=== PATIENT | female | born 1950 | race Caucasian/White ===

== ENCOUNTER 2018-02-15 20:28 | Observation (INO) | payer MEDICAID, MEDICARE, OTHER, SELFPAY ==
[2018-02-15] MEDS ORDERED: LORAZEPAM 1 MG TABLET ONE (21:53)
--- NOTE | 2018-02-15 22:01 | RAD REPORT ---
EXAM DESCRIPTION: CT - CTHCSPWOC - 02/15/2018 9:48 pm CLINICAL HISTORY: Trauma, head and neck injury. fall and struck face;Pain COMPARISON: No comparisons TECHNIQUE: Axial 5 mm thick images of the head were obtained. Axial 2 mm thick images of the cervical spine were obtained with sagittal and coronal reconstruction images generated and reviewed. All CT scans are performed using dose optimization technique as appropriate and may include automated exposure control or mA/KV adjustment according to patient size. FINDINGS: CT HEAD WITHOUT CONTRAST: No acute hemorrhage, hydrocephalus or extra-axial collection is identified.No areas of brain edema or midline shift. The paranasal sinuses and mastoids are clear.The calvarium is intact. CT CERVICAL SPINE WITHOUT CONTRAST: No fracture or subluxation.Mild lower cervical degenerative changes.No prevertebral soft tissues swel ling is identified. IMPRESSION: No acute intracranial or cervical spine findings.
--- NOTE | 2018-02-15 22:05 | RAD REPORT ---
EXAM DESCRIPTION: CT - CTFB CLINICAL HISTORY: fall Trauma, facial pain and swelling. COMPARISON: CT HEAD BRAIN WWO CONTRAST dated 12/13/2012 TECHNIQUE: Axial 2 mm thick images of the face were obtained with sagittal and coronal reconstructio n images. All CT scans are performed using dose optimization technique as appropriate and may include automated exposure control or mA/KV adjustment according to patient size. FINDINGS: No acute facial bone fracture is seen.The mandible is intact. The globes and orbital contents are grossly unremarkable.The paranasal sinuses and mastoids are clear . IMPRESSION: Negative for facial bone fracture.
[2018-02-15] MEDS ORDERED: cloNIDine HCl 0.1 MG TAB ONE (22:12)
[2018-02-15] MEDS ORDERED: NITROGLYCERIN 0.4 MG/TAB SL ONE (23:11)
[2018-02-15] MEDS ORDERED: ASPIRIN 81 MG CHEWABLE TABLET ONE (23:11)
[2018-02-15 23:27] LABS: Absolute Lymphocytes (CBC) 1.2 K/uL (0.7-4.9); Absolute Monocytes 0.5 K/uL (0.1-1.3); Absolute Neutrophil 3.5 K/uL (1.8-8.0); Basophils % 0.5 % (0-1.3); Eosinophils % 0.8 % (0-4.4); Hematocrit 32.3 % (36.0-45.0); Lymphocytes % 23.4 % (15.3-44.8); MCH 29.4 pg (27.0-35.0); MCV 88.7 fL (80-100); MPV 9.2 fL (7.6-11.3); Monocytes % 10.1 % (3.3-12.3); RBC Red Blood Cell Count 3.65 M/uL (3.86-4.86)
[2018-02-15 23:28] LABS: Protime INR 0.94
[2018-02-15 23:41] LABS: ALT/SGPT 19 U/L (12-78); AST/SGOT 25 U/L (15-37); Albumin 3.5 g/dL (3.4-5.0); Alkaline Phosphatase 77 U/L (45-117); BUN Blood Urea Nitrogen 27 mg/dL (7-18); Bicarbonate 26 mmol/L (21-32); Bilirubin Direct < 0.1 mg/dL (0-0.2); Bilirubin Total 0.2 mg/dL (0.2-1.0); Glucose Level 95 mg/dL (74-106); Magnesium 1.9 mg/dL (1.8-2.4); NT PRO-BNP 2560 pg/mL (<125); Potassium 3.6 mmol/L (3.5-5.1); Protein, Total 7.1 g/dL (6.4-8.2); Sodium Level 140 mmol/L (136-145); Troponin (Emerg Dept Use Only) 0.03 ng/mL (0.0-0.045)
--- NOTE | 2018-02-15 23:53 | EDPHYS ---
Physician Documentation [facility] Name: Celine Serrano Age: 67 yrs Sex: Female : 1950 Arrival Date: 02/15/2018 Time: 20:32 Bed 6 Private MD: ED Physician Neal Wood HPI: 02/15 21:10 This 67 yrs old Female presents to ER via Wheelchair with complaints of Fall cp Injury. 21:10 Details of fall: The patient fell from an upright position, while walking, and struck a cp concrete surface. Onset: The symptoms/episode began/occurred just prior to arrival. Associated injuries: The patient sustained face and jaw. Severity of symptoms: in the emergency department the symptoms are unchanged. Historical: - Allergies: 20:39 Unable to obtain; la1 - PMHx: 20:39 Hypertension; Bipolar disorder; Schizophrenia; problems with memory for 5 years; la1 - Immunization history:: Adult Immunizations up to date. - Social history:: Smoking status: Patient/guardian denies using tobacco. - Immunization history: Last tetanus immunization: unknown. - Ebola Screening: : No symptoms or risks identified at this time. ROS: 21:15 Constitutional: Negative for body aches, chills, fever, poor PO intake. cp 21:15 Eyes: Negative for injury, pain, redness, and discharge. cp 21:15 ENT: Negative for drainage from ear(s), ear pain, sore throat, difficulty swallowing, difficulty handling secretions. 21:15 Cardiovascular: Negative for chest pain, edema, palpitations. 21:15 Respiratory: Negative for cough, shortness of breath, wheezing. 21:15 Abdomen/GI: Negative for abdominal pain, vomiting, diarrhea, constipation, black/tarry stool, rectal bleeding. 21:15 Back: Negative for pain at rest, pain with movement, radiated pain. 21:15 : Negative for urinary symptoms. 21:15 MS/extremity: Negative for decreased range of motion, deformity, paresthesias. 21:15 Skin: Positive for abrasion(s), of the face. 21:15 Neuro: Negative for altered mental status, loss of consciousness, seizure activity, syncope, near syncope, weakness. 21:15 All other systems are negative. Exam: 21:20 Constitutional: The patient appears in no acute distress, alert, awake, cp non-diaphoretic, non-toxic, well developed, well nourished. 21:20 Head/face: Noted is abrasion(s), that are mild, of the area below nose, swelling, that cp is mild, of the right cheek and right jaw, tenderness, that is moderate, of the right cheek and right jaw. 21:20 Eyes: Periorbital structures: appear normal, Pupils: equal, round, and reactive to light and accomodation, Extraocular movements: intact throughout, Conjunctiva: normal, no exudate, no injection, Sclera: no appreciated abnormality, Lids and lashes: appear normal, bilaterally. 21:20 ENT: External ear(s): are unremarkable, Ear canal(s): are normal, clear, TM's: bulging, is not appreciated, bilaterally, dullness, bilaterally, erythema, is not appreciated, bilaterally, Nose: Nasal septum: is midline, bleeding, is not appreciated, nasal drainage, is not appreciated, Mouth: Lips: moist, Oral mucosa: pink and intact, moist, Posterior pharynx: is normal, airway is patent, no erythema, no exudate. 21:20 Neck: C-spine: C-collar placed in ED, vertebral tenderness, that is mild, crepitus, is not appreciated, Lymph nodes: no appreciated lymphadenopathy. 21:20 Chest/axilla: Inspection: normal, Palpation: is normal, no crepitus, no tenderness. 21:20 Cardiovascular: Rate: normal, Rhythm: regular, Pulses: Pulses are 2+ in right radial artery and left radial artery. Heart sounds: murmur, not appreciated, Edema: is not appreciated, JVD: is not appreciated. 21:20 Respiratory: the patient does not display signs of respiratory distress, Respirations: normal, no use of accessory muscles, no retractions, no splinting, no tachypnea, labored breathing, is not present, Breath sounds: are clear throughout, no decreased breath sounds, no stridor, no wheezing. 21:20 Abdomen/GI: Inspection: abdomen appears normal, Bowel sounds: active, all quadrants, Palpation: abdomen is soft and non-tender, in all quadrants, rebound tenderness, is not appreciated, voluntary guarding, is not appreciated, involuntary guarding, is not appreciated. 21:20 Back: vertebral tenderness, is not appreciated. 21:20 Musculoskeletal/extremity: Exam is negative for decreased range of motion, deformity. 21:20 Skin: cellulitis, is not appreciated, no rash present. 21:20 Neuro: Orientation: to person, place \T\ time. Mentation: lucid, able to follow commands, Cerebellar function: is grossly normal, Motor: moves all fours, strength is normal, Sensation: is normal. 22:50 ECG was reviewed by the Attending Physician. cp Vital Signs: 20:42 Pulse 78; Resp 16; Temp 97.6; Pulse Ox 98% on R/A; Weight 54.88 kg; Height 5 ft. 0 in. la1 (152.40 cm); 20:42 BP 182 / 78; la1 22:00 BP 207 / 93; Pulse 66; Resp 14; Pulse Ox 99% ; Pain 4/10; ao 22:40 BP 186 / 90; Pulse 57; Resp 16; Pulse Ox 96% ; ao 23:11 BP 169 / 88; Pulse 72; Resp 18; Pulse Ox 98% on R/A; ao 02/16 00:12 BP 139 / 81; Pulse 62; Resp 16; Pulse Ox 98% on R/A; ea 00:43 BP 150 / 92; Pulse 63; Resp 17; Pulse Ox 98% on R/A; ao 01:40 BP 135 / 82; Pulse 59; Resp 18; Pulse Ox 96% on R/A; ea 02/15 20:42 Body Mass Index 23.63 (54.88 kg, 152.40 cm) la1 Leck Kill Coma Score: 02/15 20:57 Eye Response: spontaneous(4). Verbal Response: oriented(5). Motor Response: obeys ao commands(6). Total: 15. 02/16 00:12 Eye Response: spontaneous(4). Verbal Response: confused(4). Motor Response: obeys ea commands(6). Total: 14. 01:42 Eye Response: spontaneous(4). Verbal Response: confused(4). Motor Response: obeys ea commands(6). Total: 14. Trauma Score (Adult): 02/15 20:57 Eye Response: spontaneous(1); Verbal Response: oriented(1); Motor Response: obeys ao commands(2); Systolic BP: > 89 mm Hg(4); Respiratory Rate: 10 to 29 per min(4); Leck Kill Score: 15; Trauma Score: 12 MDM: 20:49 Patient medically screened. cp 23:00 ED course: VS noted with elevated blood pressure. Nurse reports patient complains of cp chest pain. EKG ordered and reviewed. Comparison made to previous EKG on record. 23:50 Data reviewed: vital signs, nurses notes, lab test result(s), EKG, radiologic studies, cp CT scan, plain films. 23:50 Test interpretation: by ED physician or midlevel provider: ECG, plain radiologic cp studies. 02/15 22:55 Order name: Basic Metabolic Panel; Complete Time: 23:45 02/15 23:45 Interpretation: Normal except: BUN 27; CRE 1.80; GFR 28. 02/15 22:55 Order name: CBC with Diff; Complete Time: 23:45 02/15 23:45 Interpretation: Normal except: RBC 3.65; HGB 10.7; HCT 32.3. 02/15 22:55 Order name: LFT's; Complete Time: 23:45 02/15 22:55 Order name: Magnesium; Complete Time: 23:45 02/15 22:55 Order name: NT PRO-BNP; Complete Time: 23:45 02/15 22:55 Order name: PT-INR; Complete Time: 23:45 02/15 21:03 Order name: CT Head C Spine; Complete Time: 22:39 02/15 21:03 Order name: CT Facial Bones W/O Con; Complete Time: 22:39 02/15 22:55 Order name: Troponin (emerg Dept Use Only); Complete Time: 23:45 02/15 22:55 Order name: XRAY Chest (1 view) 02/15 21:03 Order name: C-Collar; Complete Time: 21:18 02/15 22:55 Order name: Cardiac monitoring; Complete Time: 23:12 02/15 22:55 Order name: IV Saline Lock; Complete Time: 23:12 02/15 22:55 Order name: Labs collected and sent; Complete Time: 23:12 02/15 22:55 Order name: O2 Per Protocol; Complete Time: 23:12 02/15 22:55 Order name: O2 Sat Monitoring; Complete Time: 23:12 cp EC:50 Rate is 54 beats/min. Rhythm is regular. SC interval is normal. QRS interval is normal. cp QT interval is normal. T waves are Inverted in leads II, aVF. Interpreted by me. Reviewed by me. Administered Medications: 21:59 Drug: Ativan 1 mg Route: PO; ao 22:30 Follow up: Response: No adverse reaction; Anxiety decreased ea 22:07 Drug: cloNIDine 0.2 mg Route: PO; ao 02/16 00:30 Follow up: Response: No adverse reaction; Blood pressure is lowered ea 02/15 23:07 Drug: Aspirin Chewable Tablet 324 mg Route: PO; ea 23:50 Follow up: Response: No adverse reaction; Marked relief of symptoms ea 23: Drug: Nitroglycerin 0.4 mg Route: Sublingual; ea 23:50 Follow up: Response: No adverse reaction; Pain is decreased ea Disposition: 02/16 03:00 Chart complete. cp 04:12 Co-signature as Attending Physician, Neal Wood MD. cristopher Disposition: 02/15/18 23:52 Hospitalization ordered by Champ Musa for Observation. Preliminary diagnosis are Chest pain, unspecified, Hypertensive heart disease, Other slipping, tripping and stumbling and falls, Abrasion and Contusion of face. - Bed requested for Telemetry/MedSurg (observation). - Status is Observation. ea - Condition is Stable. - Problem is new. - Symptoms have improved. UTI on Admission? No Signatures: Dispatcher [employer] EDMS Kiki Aggarwal RN RN kl Lam, Pin, MD MD pkl Attema, Lee, RN RN laJarrod Hernandez PA PA cp Ortiz, Alex, RN RN ao Antunez, Elena, RN RN ea Corrections: (The following items were deleted from the chart) 01:23 02/15 23:52 Hospitalization Ordered by Champ Musa MD for Observation. Preliminary padmini diagnosis is Chest pain, unspecified; Hypertensive heart disease; Other slipping, tripping and stumbling and falls; Abrasion and Contusion of face. Bed requested for Telemetry/MedSurg (observation). Status is Observation. Condition is Stable. Problem is new. Symptoms have improved. UTI on Admission? No. gray 02/16 01:49 01:23 02/15/2018 23:52 Hospitalization Ordered by Champ Musa MD for Observation. ea Preliminary diagnosis is Chest pain, unspecified; Hypertensive heart disease; Other slipping, tripping and stumbling and falls; Abrasion and Contusion of face. Bed requested for Telemetry/MedSurg (observation). Status is Observation. Condition is Stable. Problem is new. Symptoms have improved. UTI on Admission? No. kl
--- NOTE | 2018-02-15 23:53 | ER ---
Nurse's Notes [facility] Name: Celine Serrano Age: 67 yrs Sex: Female : 1950 Arrival Date: 02/15/2018 Time: 20:32 Bed 6 Private MD: Diagnosis: Chest pain, unspecified;Hypertensive heart disease;Other slipping, tripping and stumbling and falls;Abrasion and Contusion of face Presentation: 02/15 20:39 Presenting complaint: Patient states: [place] and fell on a pothole. I hit my nose on the ground. Pt and friend deny LOC. Pt at baseline mental status per friend. Transition of care: patient was not received from another setting of care. Onset of symptoms was February 15, 2018. Risk Assessment: Do you want to hurt yourself or someone else? Patient reports no desire to harm self or others. Initial Sepsis Screen: Does the patient meet any 2 criteria? No. Patient's initial sepsis screen is negative. Does the patient have a suspected source of infection? No. Patient's initial sepsis screen is negative. Care prior to arrival: None. 20:39 Method Of Arrival: Wheelchair la1 20:39 Acuity: HARJINDER 3 la1 21:00 Mechanism of Injury: No Mechanism of Injury. Trauma event details: Injury occurred in ao [facility] Injury occurred: in a public building. Trauma Activation: Physician: ED Physician; Name: Wood; Notified At: ; Arrived At: Physician: General Surgeon; Name: ; Notified At: ; Arrived At: Physician: Radiology; Name: ; Notified At: ; Arrived At: Physician: Respiratory; Name: ; Notified At: ; Arrived At: Physician: Lab; Name: ; Notified At: ; Arrived At: Historical: - Allergies: 20:39 Unable to obtain; la1 - PMHx: 20:39 Hypertension; Bipolar disorder; Schizophrenia; problems with memory for 5 years; la1 - Immunization history:: Adult Immunizations up to date. - Social history:: Smoking status: Patient/guardian denies using tobacco. - Immunization history: Last tetanus immunization: unknown. - Ebola Screening: : No symptoms or risks identified at this time. Screenin:56 Abuse screen: Denies threats or abuse. Denies injuries from another. Nutritional ao screening: No deficits noted. Tuberculosis screening: No symptoms or risk factors identified. Fall Risk Fall in past 12 months (25 points). No secondary diagnosis (0 pts). Primary Survey: 20:57 A: Airway: patent. Breathing/Chest: Respiratory pattern: regular. Circulation: Cardiac ao rhythm: sinus rhythm Heart tones present. Pulses: palpable right radial artery and left radial artery. Skin color: pink, Skin temperature: warm. Disability Alert. Reassessment Breathing/Chest. Assessment: 20:52 General: Appears in no apparent distress. comfortable, well groomed, well nourished, ao Behavior is calm, cooperative. Pain: Complains of pain in mouth and chin Pain currently is 4 out of 10 on a pain scale. Neuro: Level of Consciousness is awake, alert, obeys commands, Oriented to person, place, time, situation, Appropriate for age Moves all extremities. Full function Gait is steady, Speech is normal, Facial symmetry appears normal, Pupils are. Cardiovascular: Capillary refill < 3 seconds Patient's skin is warm and dry. Respiratory: No deficits noted. Respiratory: Airway is patent Trachea midline Respiratory effort is even, unlabored, Respiratory pattern is regular, symmetrical. GI: Abdomen is flat, non-distended. : No signs and/or symptoms were reported regarding the genitourinary system. EENT: No signs and/or symptoms were reported regarding the EENT system. Derm: No signs and/or symptoms reported regarding the dermatologic system. Musculoskeletal: Circulation, motion, and sensation intact. Range of motion: intact in all extremities. 22:05 Reassessment: Patient appears in no apparent distress at this time. Patient and/or ao family updated on plan of care and expected duration. Pain level reassessed. Waiting on CT and X-ray. 23:08 Reassessment: Patient appears in no apparent distress at this time. Patient and/or ao family updated on plan of care and expected duration. Pain level reassessed. Started an IV. blood draw and send it to lab. Waiting on Lab results. 23:50 Reassessment: Pt resting with eyes closed, respirations even and unlabored, chest ea expansions even and symmetrical. No s/s of pain or discomfort noted at this time. 02/16 00:43 Reassessment: Patient appears in no apparent distress at this time. Patient and/or ao family updated on plan of care and expected duration. Pain level reassessed. Waiting on admitting Dr orders and room assignment. Patient to stay in the hospital. Patient and family aware of admission. 01:35 Reassessment: Report called to receiving nurse on second floor. ea 01:39 Reassessment: Patient and/or family updated on plan of care and expected duration. Pain ea level reassessed. Resting with eyes closed, respirations even and unlabored, chest expansions even and symmetrical. No s/s of pain or discomfort noted at this time. Vital Signs: 02/15 20:42 Pulse 78; Resp 16; Temp 97.6; Pulse Ox 98% on R/A; Weight 54.88 kg; Height 5 ft. 0 in. la1 (152.40 cm); 20:42 BP 182 / 78; la1 22:00 BP 207 / 93; Pulse 66; Resp 14; Pulse Ox 99% ; Pain 4/10; ao 22:40 BP 186 / 90; Pulse 57; Resp 16; Pulse Ox 96% ; ao 23:11 BP 169 / 88; Pulse 72; Resp 18; Pulse Ox 98% on R/A; ao 02/16 00:12 BP 139 / 81; Pulse 62; Resp 16; Pulse Ox 98% on R/A; ea 00:43 BP 150 / 92; Pulse 63; Resp 17; Pulse Ox 98% on R/A; ao 01:40 BP 135 / 82; Pulse 59; Resp 18; Pulse Ox 96% on R/A; ea 02/15 20:42 Body Mass Index 23.63 (54.88 kg, 152.40 cm) la1 Alberto Coma Score: 02/15 20:57 Eye Response: spontaneous(4). Verbal Response: oriented(5). Motor Response: obeys ao commands(6). Total: 15. 02/16 00:12 Eye Response: spontaneous(4). Verbal Response: confused(4). Motor Response: obeys ea commands(6). Total: 14. 01:42 Eye Response: spontaneous(4). Verbal Response: confused(4). Motor Response: obeys ea commands(6). Total: 14. Trauma Score (Adult): 02/15 20:57 Eye Response: spontaneous(1); Verbal Response: oriented(1); Motor Response: obeys ao commands(2); Systolic BP: > 89 mm Hg(4); Respiratory Rate: 10 to 29 per min(4); Alberto Score: 15; Trauma Score: 12 ED Course: 20:32 Patient arrived in ED. es 20:41 Triage completed. la1 20:41 Arm band placed on right wrist. la1 20:45 [place], RN is Primary Nurse. ao 20:49 Jarrod Lei PA is PHCP. cp 20:49 Neal Wood MD is Attending Physician. cp 20:59 Patient has correct armband on for positive identification. Pulse ox on. NIBP on. ao 20:59 Patient maintains SpO2 saturation greater than 95% on room air. ao 20:59 Thermoregulation: warm blanket given to patient. ao 21:48 CT Head C Spine In Process Unspecified. EDMS 21:50 CT Facial Bones W/O Con In Process Unspecified. EDMS 23:05 Inserted saline lock: 20 gauge in right antecubital area, using aseptic technique. ao Blood collected. 23:43 XRAY Chest (1 view) In Process Unspecified. EDMS 23:52 Champ Musa MD is Hospitalizing Provider. cp 02/16 00:12 No provider procedures requiring assistance completed. Patient admitted, IV remains in ea place. Administered Medications: 02/15 21:59 Drug: Ativan 1 mg Route: PO; ao 22:30 Follow up: Response: No adverse reaction; Anxiety decreased ea 22:07 Drug: cloNIDine 0.2 mg Route: PO; ao 02/16 00:30 Follow up: Response: No adverse reaction; Blood pressure is lowered ea 02/15 23:07 Drug: Aspirin Chewable Tablet 324 mg Route: PO; ea 23:50 Follow up: Response: No adverse reaction; Marked relief of symptoms ea 23:07 Drug: Nitroglycerin 0.4 mg Route: Sublingual; ea 23:50 Follow up: Response: No adverse reaction; Pain is decreased ea Intake: 02/16 01:42 PO: 0ml; Total: 0ml. ea Outcome: 02/15 23:52 Decision to Hospitalize by Provider. cp 02/16 00:30 Instructed on the need for admit. ea 01:26 Condition: stable ea 01:36 pt being admitted Patient's length of stay extended due to ea 01:48 Admitted to Med/surg accompanied by tech, room 210, with chart, Report called to ea Receiving nurse on second floor 01:49 Patient left the ED. ea Signatures: Dispatcher [employer] EDDenise Ozuna Lee, RN RN Jarrod Romano PA PA cp Ortiz, Alex RN Sharon Bernard RN RN ea Corrections: (The following items were deleted from the chart) 02/15 23:11 22:05 BP 169 / 88; Pulse 72bpm; Resp 18bpm; Pulse Ox 98% RA; ao ao
[2018-02-16] MEDS ORDERED: ONDANSETRON 4 MG/2 ML VIAL IV PRN (01:43)
[2018-02-16] MEDS ORDERED: ACETAMINOPHEN 500 MG TAB PO PRN (01:43)
[2018-02-16] MEDS ORDERED: TRAMADOL HCL 50 MG TAB PO PRN (01:43)
[2018-02-16 02:31] VITALS: BMI 21.2
--- NOTE | 2018-02-16 07:28 | P.HP ---
Certification for Inpatient Patient admitted to: Observation With expected LOS: <2 Midnights Practitioner: I am a practitioner with admitting privileges, knowledge of patient current condition, hospital course, and medical plan of care. Services: Services provided to patient in accordance with Admission requirements found in Title 42 Section 412.3 of the Code of Federal Regulations Patient History Date of Service: 02/15/18 Reason for admission: Chest pain History of Present Illness: Ms Rajan is a year-old woman with history of bipolar disorder, hypertension, who was in the [facility] [place] tonight when suddenly she tripped and fell to the ground hitting her face, she denied loss of conscious, as consequence of the fall she had problems in her upper lip. There is no history of chest pain, shortness of breath, palpitation or dizziness prior to the fall. CT facial bones showed not acute abnormality. During her stay in ER, the patient started complaining of chest pain, located retrosternal, 7/10 of intensity. She denied any nausea, shortness of breath or sweating associated with the pain. Allergies amitriptyline [Amitriptyline] Allergy (Verified 08/02/11 15:37) Anaphylaxis gabapentin Allergy (Verified 08/02/11 15:37) Anaphylaxis risperidone Allergy (Verified 08/02/11 15:37) Anaphylaxis Home medications list reviewed: Yes - Past Medical/Surgical History -: Hypertension -: Bipolar -: Schizophrenia Past Surgical History: Reviewed- Non-Contributory - Family History Family History: Reviewed- Non-Contributory - Social History Smoking Status: Never smoker Alcohol use: No CD- Drugs: No Place of Residence: Home Review of Systems 10-point ROS is otherwise unremarkable Physical Examination - Vital Signs Temperature: 96.9 F Blood Pressure: 146/80 Pulse: 57 Respirations: 18 Pulse Ox (%): 91 - Physical Exam General: Alert, In no apparent distress, Other (Traumatic face, bruits and swollen upper lip) HEENT: PERRLA, Mucous membr. moist/pink, EOMI, Sclerae nonicteric Neck: Supple, 2+ carotid pulse no bruit, No LAD, Without JVD or thyroid abnormality Respiratory: Clear to auscultation bilaterally, Normal air movement Cardiovascular: Regular rate/rhythm, Normal S1 S2 Gastrointestinal: Normal bowel sounds, No tenderness Musculoskeletal: No tenderness Integumentary: No rashes Neurological: Normal gait, Normal speech, Normal strength at 5/5 x4 extr, Normal tone, Normal affect Lymphatics: No axilla or inguinal lymphadenopathy - Studies Laboratory Data (last 24 hrs) 02/15/18 23:05: PT 11.1, INR 0.94 02/15/18 23:05: WBC 5.3, Hgb 10.7 L, Hct 32.3 L, Plt Count 187 02/15/18 23:05: Sodium 140, Potassium 3.6, BUN 27 H, Creatinine 1.80 H, Glucose 95, Magnesium 1.9, Total Bilirubin 0.2, AST 25, ALT 19, Alkaline Phosphatase 77 Assessment and Plan - Problems (Diagnosis) (1) Traumatic hematoma of face Current Visit: Yes Status: Acute Qualifiers: Encounter type: initial encounter Qualified Code(s): S00.83XA - Contusion of other part of head, initial encounter (2) Hypertension Current Visit: Yes Status: Acute Qualifiers: Hypertension type: essential hypertension Qualified Code(s): I10 - Essential (primary) hypertension (3) Chest pain Current Visit: Yes Status: Acute Qualifiers: Chest pain type: precordial pain Qualified Code(s): R07.2 - Precordial pain - Plan The patient will be admitted to the hospital due to chest pain, initial troponin I is negative, EKG shows no acute ST-T abnormalities. Will order serial cardiac enzymes and EKG. Consult Cardiology for evaluation recommendation. Will give symptomatic medication for pain, CT head shows no acute abnormality and there is no facial bone fractures either. - Advance Directives Does patient have a Living Will: No Does patient have a Durable POA for Healthcare: Yes - Code Status/Comfort Care Code Status Assessed: Yes Code Status: Full Code
[2018-02-16] MEDS ORDERED: ENOXAPARIN 40 MG/0.4 ML SQ SCH (09:00)
[2018-02-16] MEDS: ASPIRIN 81 MG CHEWABLE TABLET PO SCH (09:35)
[2018-02-16] MEDS: ENOXAPARIN 30 MG/0.3 ML SQ SCH (09:35)
--- NOTE | 2018-02-16 11:33 | RAD REPORT ---
EXAM DESCRIPTION: RAD - Chest Single View - 02/15/2018 11:43 pm CLINICAL HISTORY: CHEST PAIN Chest pain. COMPARISON: CHEST SINGLE VIEW dated 01/30/2011; CHEST SINGLE VIEW dated 09/23/2010; CHEST SINGLE VIEW dated 06/30/2010; CHEST SINGLE VIEW dated 05/22/2010 FINDINGS: Portable technique limits examination quality. The lungs are grossly clear. Thoracic aorta is mildly tortuous. Cardiac size is upper limit of normal . No displaced fractures. IMPRESSION: No acute intrathoracic process suspected.
--- NOTE | 2018-02-16 12:49 | CON ---
Identification: A 67-year-old woman. Chief Complaint: Falling spell and chest pain. History Of Present Illness: Mrs. Rajan was at the festival of [employer], a crowded outdoor event. She was with a friend. She seemed to think her friend was making her walk way too fast. She tried to g et him slow down, then ended up falling. She does not know if she lost consciousness or not. She plascencia d chest pain after she woke up from her fall. It was pain that is very difficult to understand. She is not a good history live in caregiver. Since she has been here in the hospital, she had EKGs and cardiac enzy mes, that would not indicate an acute coronary syndrome. The patient has underlying schizophrenia an d has no history of heart disease. There is no history of diabetes, hypertension, or dyslipidemia. Allergies: SHE REPORTS DRUG ALLERGY TO AMITRIPTYLINE AND GABAPENTIN. SHE IS ALSO ALLERGIC TO RISPER IDONE. Social History: She has not used any tobacco in more than 20 years. Outpatient Medications: Buspirone and fluoxetine. Physical Examination: Vital Signs: She is 5 feet 4 inches, 123 pounds. General: Alert, oriented, pleasant, not in distress. Lungs: Clear. Cardiac: Reveals a 1 to 2/6 holosystolic murmur. Abdomen: Soft. Extremities: No cyanosis, clubbing, or edema. Distal pulses normal. Diagnostic Data: Her electrocardiogram does not show infarction, injury, or ischemia. All of her troponins are 0.03 or less than 0.02, N-terminal proBNP is elevated. Creatinine is elevat ed at 1.8. Impression And Plan: Mrs. Satinder Serrano probably is not having an acute coronary syndrome. I have r ecommend that we do an echo and stress test tomorrow and see if we can be quite certain that her hear t is stable. STEPHANIA/MARTINEL Voice ID: [id number] Report ID: [id number]
--- NOTE | 2018-02-16 14:06 | RAD REPORT ---
EXAM DESCRIPTION: RAD - Hip Bilateral With Pelvis - 02/16/2018 1:58 pm CLINICAL HISTORY: fall Pain COMPARISON: No comparisons FINDINGS: AP pelvis and bilateral hips, multiple projections. Mild arthritic changes involve both hips. No fracture, dislocation or AVN.
--- NOTE | 2018-02-16 14:22 | P.PN ---
Subjective Date of Service: 02/16/18 Chief Complaint: Chest pain Subjective: Tolerating diet, Ambulating, Improving, Doing well Review of Systems 10-point ROS is otherwise unremarkable Physical Examination - Vital Signs Temperature: 98.3 F Blood Pressure: 162/88 Pulse: 67 Respirations: 16 Pulse Ox (%): 97 - Physical Exam General: Alert, In no apparent distress, Oriented x3 HEENT: Atraumatic, PERRLA, EOMI Neck: Supple, JVD not distended Respiratory: Clear to auscultation bilaterally, Normal air movement Cardiovascular: Regular rate/rhythm, Normal S1 S2 Gastrointestinal: Normal bowel sounds, No tenderness Musculoskeletal: No tenderness Integumentary: No rashes Neurological: Normal tone, Abnormal speech, Abnormal affect Lymphatics: No axilla or inguinal lymphadenopathy - Studies Laboratory Data (last 24 hrs) 02/15/18 23:05: PT 11.1, INR 0.94 02/15/18 23:05: WBC 5.3, Hgb 10.7 L, Hct 32.3 L, Plt Count 187 02/15/18 23:05: Sodium 140, Potassium 3.6, BUN 27 H, Creatinine 1.80 H, Glucose 95, Magnesium 1.9, Total Bilirubin 0.2, AST 25, ALT 19, Alkaline Phosphatase 77 Medications List Reviewed: Yes Assessment And Plan - Current Problems (Diagnosis) (1) Fall Current Visit: Yes Status: Acute Plan: S/p Mechanical Fall -PT consulted. -Fall precautions given Qualifiers: Encounter type: initial encounter Qualified Code(s): W19.XXXA - Unspecified fall, initial encounter (2) Chest pain Current Visit: Yes Status: Acute Plan: Acute chest pain post BP medication. -Cardiology consulted. Appreciate Reccs -ECHO and Stress test scheduled Qualifiers: Chest pain type: precordial pain Qualified Code(s): R07.2 - Precordial pain (3) Traumatic hematoma of face Current Visit: Yes Status: Acute Plan: S/p Fall -CT scan facial Negative Qualifiers: Encounter type: initial encounter Qualified Code(s): S00.83XA - Contusion of other part of head, initial encounter (4) Hypertension Current Visit: Yes Status: Acute Qualifiers: Hypertension type: essential hypertension Qualified Code(s): I10 - Essential (primary) hypertension (5) Bipolar 1 disorder Current Visit: Yes Status: Chronic Plan: Gets Seen By [facility] -On Fluoxetine and Buproprion Discharge Plan: Home Plan to discharge in: 48 Hours - Code Status/Comfort Care Code Status Assessed: Yes Critical Care: No
[2018-02-16] MEDS ORDERED: INFLUENZA VACCINE (for 3y+) 0.5 ML DOSE IMVAC ONE (17:00)
[2018-02-16] MEDS ORDERED: PNEUMOCOCCAL VACCINE 0.5 ML IMVAC ONE (17:00)
[2018-02-17 00:07] LABS: Urine Appearance CLEAR; Urine Bilirubin NEGATIVE (NEG); Urine Blood NEGATIVE (NEG); Urine Color YELLOW; Urine Glucose NEGATIVE (NEG); Urine Protein NEGATIVE (NEG); Urine Urobilinogen 0.2 mg/dL (0.2-1.0)
[2018-02-17 00:13] LABS: Urine Microscopic Reflex NO UMIC
[2018-02-17] MEDS: HYDRALAZINE HCL 20 MG/ML VIAL IV PRN (01:09)
--- NOTE | 2018-02-17 07:05 | EKG ---
Test Date: 2018-02-15 Test Time: 22:44:36 Video Camera Operator: [email or web address] MEASUREMENT RESULTS: Intervals: Rate: 54 NE: 170 QRSD: 96 QT: 472 QTc: 447 Dudley: P: 53 NE: 170 QRS: -15 T: -38 INTERPRETIVE STATEMENTS: Sinus bradycardia Voltage criteria for left ventricular hypertrophy Cannot rule out Septal infarct, age undetermined Non specific ST and T abnormality Abnormal ECG Compared to ECG 01/30/2011 21:16:38 Left ventricular hypertrophy now present Sinus rhythm no longer present Myocardial infarct finding still present Electronically Signed On 02-17-18 07:05:13 [employer] by Stan Bradshaw
[2018-02-17] MEDS ORDERED: REGADENOSON 0.4 MG/5 ML SYR IV ONE (08:08)
[2018-02-17] MEDS ORDERED: LORazepam 2 MG/ML VIAL IV ONE (09:55)
--- NOTE | 2018-02-17 11:07 | RAD REPORT ---
EXAM DESCRIPTION: NM - Rest Stress Cardiac Imaging - 02/17/2018 11:00 am CLINICAL HISTORY: CP Chest pain. COMPARISON: REST STRESS CARDIAC dated 05/25/2010 TECHNIQUE: The patient was administered approximately 10mCi of Tc 99m Sestamibi prior to resting SPE CT imaging of the heart. The patient was then administered approximately 30 mCi of Tc 99m Sestamibi f ollowing exercise or pharmacologic stress. Multiplanar SPECT images were reviewed. FINDINGS: No stress induced ischemic defect is seen to suggest stress induced ischemia. No fixed def ect is seen to suggest hibernating myocardium or scarred myocardium. The end diastolic volume is 90 ml, the end systolic volume is 38 ml, and the ejection fraction is 58 %. IMPRESSION: No stress induced ischemia.
--- NOTE | 2018-02-17 11:09 | TREADPHA ---
DX: CHEST PAIN Date of Study: 02/17/18 Ht: 5 4 Wt: 123 lb 11.2 oz Consulting Physician: DEEP MEDICATIONS: TYLENOL, ASPIRIN, LOVENOX, APRESOLINE, ZOFRAN HISTORY: 67 YEAR OLD FEMALE HERE FOR CHEST PAIN. HISTORY HYPERTENSION, BIOPOLAR, SCHIZOPHRENIA, PROBLEMS WITH MEMORY. PHYSICIAL EXAMINATION: RESTING B.P.: 164/97 RESTING H.R.: 60 RESTING EKG: SINUS, LEFT VENTRICULAR HYPERTROPHY. CANNOT RULE OUT SEPTAL MYOCARIDAL INFARCTION. PROTOCOL: LEXISCAN EXERCISE TIME: 3:30 B.P. AT [place] STRESS: 149/81 IMPRESSION: LEXISCAN STRESS TEST PERFORMED, CARDIOLITE INJECTED PER PROTOCOL. PREMATURE VENTRICULAR COMPLEX NOTED POST STRESS TEST. DENIES ANY CHEST PAIN. SEE NUCLEAR MEDICINE REPORT. NON DIAGNOSTIC EKG WITH LEXISCAN STRESS.
--- NOTE | 2018-02-17 11:29 | ECHO ---
HEIGHT: 5 ft 4 in WEIGHT: 123 lb 11.2 oz DATE OF STUDY: 02/17/[address]: Stan Bradshaw MD 2-DIMENSIONAL: YES M.MODE: YES DOPPLER: YES COLOR FLOW: YES TDS: NO PORTABLE: NO DEFINITY: NO BUBBLE STUDY: NO DIAGNOSIS: CHEST PAIN CARDIAC HISTORY: CATHERIZATION: NO SURGERY: NO PROSTHETIC VALVE: NO PACEMAKER: NO MEASUREMENTS (cm) DIASTOLIC (NORMALS) SYSTOLIC (NORMALS) IVSd 1.1 (0.6-1.2) LA Diam 2.5 (1.9-4.0) LVEF 70% LVIDd 4.2 (3.5-5.7) LVIDs 2.5 (2.0-3.5) %FS 39% LVPWd 1.2 (0.6-1.2) Ao Diam 2.6 (2.0-3.7) 2 DIMENSIONAL ASSESSMENT: RIGHT ATRIUM: NORMAL LEFT ATRIUM: NORMAL RIGHT VENTRICLE: NORMAL LEFT VENTRICLE: NORMAL TRICUSPID VALVE: NOMRAL MITRAL VALVE: NORMAL PULMONIC VALVE: NORMAL AORTIC VALVE: NORMAL PERICARDIAL EFFUSION: NONE AORTIC ROOT: NORMAL LEFT VENTRICULAR WALL MOTION: NORMAL. DOPPLER/COLOR FLOW: MILDD AORTIC, MITRAL AND TRICUSPID REGURGITATION. NORMAL RIGHT VENTRICULAR SYSTOLIC PRESSURE. COMMENTS: NORMAL 2D ECHO. MILD AORTIC, MITRAL AND TRICUSPID REGURGITATION. TECHNOLOGIST: GIACOMO ALEXANDER
--- NOTE | 2018-02-17 13:02 | RAD REPORT ---
EXAM DESCRIPTION: MRI - Brain Wo Cont - 02/17/2018 11:42 am CLINICAL HISTORY: R/O STROKE Syncope, CVA, head injury after fall. COMPARISON: MRA Head Wo Cont dated 02/17/2018; Facial Bones W/ Mpr dated 02/15/2018; Head C Spine Mp r Wo Con dated 02/15/2018 TECHNIQUE: Multi-sequence, multiplanar MR imaging of the brain was performed without contrast. FINDINGS: A motion degraded study is submitted, reducing quality of the study. No gross intracranial hemorrhage, hydrocephalus or extra-axial fluid collections.Areas of T2 and FLAI R hyperintensity in the periventricular and subcortical white matter is nonspecific but probably repr esents chronic microvascular ischemic changes. No edema or shift of midline structures. No findings t o suspect brain mass. DWI is negative for acute CVA. Midline structures are normally formed. Mastoid air cells and paranasal sinuses are clear. IMPRESSION: The examination is mildly degraded by motion artifact, without acute CVA or other acute intracranial finding seen.
--- NOTE | 2018-02-17 13:14 | RAD REPORT ---
EXAM DESCRIPTION: MRI - MRA Head Wo Cont - 02/17/2018 11:42 am CLINICAL HISTORY: stroke protocol CVA COMPARISON: Facial Bones W/ Mpr dated 02/15/2018 FINDINGS: 3D noncontrast [id number] MR angiography of the [place] was performed. Motion degradation is present, limiting quality of the study. Grossly, no significant flow abnormality of the [place] is seen. The visualized dural venous sinuses appear patent. IMPRESSION: No gross flow abnormality of the [place] is identified.
[2018-02-17] MEDS: ASPIRIN 81 MG CHEWABLE TABLET PO SCH (13:40)
[2018-02-17] MEDS: ENOXAPARIN 30 MG/0.3 ML SQ SCH (13:40)
[2018-02-17 13:57] LABS: Absolute Lymphocytes (CBC) 0.9 K/uL (0.7-4.9); Absolute Monocytes 0.5 K/uL (0.1-1.3); Absolute Neutrophil 3.4 K/uL (1.8-8.0); Basophils % 0.6 % (0-1.3); Hematocrit 34.2 % (36.0-45.0); Lymphocytes % 17.5 % (15.3-44.8); MCH 29.4 pg (27.0-35.0); MCV 88.1 fL (80-100); MPV 8.9 fL (7.6-11.3); Monocytes % 11.1 % (3.3-12.3); RBC Red Blood Cell Count 3.88 M/uL (3.86-4.86)
[2018-02-17 14:49] LABS: Potassium 3.9 mmol/L (3.5-5.1)
--- NOTE | 2018-02-17 15:14 | P.PN ---
Subjective Date of Service: 02/17/18 Chief Complaint: Chest pain Subjective: Tolerating diet, Ambulating, Improving, Working w/ PT, Doing well Review of Systems 10-point ROS is otherwise unremarkable Physical Examination - Vital Signs Temperature: 97.3 F Blood Pressure: 122/79 Pulse: 64 Respirations: 18 Pulse Ox (%): 97 - Physical Exam General: Alert, In no apparent distress, Oriented x2 HEENT: Atraumatic, PERRLA, EOMI Neck: Supple, JVD not distended Respiratory: Clear to auscultation bilaterally, Normal air movement Cardiovascular: Regular rate/rhythm, Normal S1 S2 Gastrointestinal: Normal bowel sounds, No tenderness Musculoskeletal: No tenderness, Tenderness (On the right face and tooth area) Integumentary: No rashes Neurological: Normal speech, Normal tone, Normal affect Lymphatics: No axilla or inguinal lymphadenopathy - Studies Medications List Reviewed: Yes Assessment And Plan - Current Problems (Diagnosis) (1) ARF (acute renal failure) Current Visit: Yes Status: Acute Plan: Acute Renal Failure 2.2 to Dehydration and fall -Improving today -Continue with IV fluids and monitor for 24hrs at [facility] Qualifiers: Acute renal failure type: unspecified Qualified Code(s): N17.9 - Acute kidney failure, unspecified (2) Fall Onset Date: 02/17/18 Current Visit: Yes Status: Acute Plan: S/p Mechanical Fall -PT consulted. Patient working with PT. Still having weakness. may need HH at home -Fall precautions given Qualifiers: Encounter type: initial encounter Qualified Code(s): W19.XXXA - Unspecified fall, initial encounter (3) Chest pain Onset Date: 02/17/18 Current Visit: Yes Status: Acute Plan: Acute chest pain post BP medication. -Cardiology consulted. Appreciate Reccs -ECHO and Stress test Negative for acute ishemia Qualifiers: Chest pain type: precordial pain Qualified Code(s): R07.2 - Precordial pain (4) Traumatic hematoma of face Onset Date: 02/17/18 Current Visit: Yes Status: Acute Plan: S/p Fall with pain now -CT scan facial Negative Qualifiers: Encounter type: initial encounter Qualified Code(s): S00.83XA - Contusion of other part of head, initial encounter (5) Hypertension Onset Date: 02/17/18 Current Visit: Yes Status: Acute Qualifiers: Hypertension type: essential hypertension Qualified Code(s): I10 - Essential (primary) hypertension (6) Bipolar 1 disorder Onset Date: 02/17/18 Current Visit: Yes Status: Chronic Plan: Gets Seen By [facility] -On Fluoxetine and Buproprion
[2018-02-18] MEDS: HYDRALAZINE HCL 20 MG/ML VIAL IV PRN (00:56)
[2018-02-18 01:06] VITALS: O2SAT 97
[2018-02-18] MEDS: ENOXAPARIN 30 MG/0.3 ML SQ SCH (09:43)
[2018-02-18] MEDS: ASPIRIN 81 MG CHEWABLE TABLET PO SCH (09:43)
[2018-02-18 10:15] LABS: Absolute Lymphocytes (CBC) 0.9 K/uL (0.7-4.9); Absolute Monocytes 0.6 K/uL (0.1-1.3); Absolute Neutrophil 3.3 K/uL (1.8-8.0); Basophils % 0.5 % (0-1.3); Eosinophils % 1.4 % (0-4.4); Hematocrit 33.5 % (36.0-45.0); MCH 29.6 pg (27.0-35.0); MCV 88.6 fL (80-100); MPV 9.3 fL (7.6-11.3); Monocytes % 11.6 % (3.3-12.3); RBC Red Blood Cell Count 3.78 M/uL (3.86-4.86)
[2018-02-18 10:19] LABS: Potassium 3.5 mmol/L (3.5-5.1)
[2018-02-18 13:43] VITALS: BP 137/72; TEMP 98
--- NOTE | 2018-02-18 15:41 | P.DS ---
Admission Date: 02/15/18 Discharge Date: 02/18/18 Disposition: ROUTINE DISCHARGE Discharge Condition: GOOD Reason for Admission: Chest pain Consultations: Cardiology - Problems (1) ARF (acute renal failure) Status: Acute Qualifiers: Acute renal failure type: unspecified Qualified Code(s): N17.9 - Acute kidney failure, unspecified (2) Fall Onset Date: 02/17/18 Status: Acute Qualifiers: Encounter type: initial encounter Qualified Code(s): W19.XXXA - Unspecified fall, initial encounter (3) Chest pain Onset Date: 02/17/18 Status: Acute Qualifiers: Chest pain type: precordial pain Qualified Code(s): R07.2 - Precordial pain (4) Traumatic hematoma of face Onset Date: 02/17/18 Status: Acute Qualifiers: Encounter type: initial encounter Qualified Code(s): S00.83XA - Contusion of other part of head, initial encounter (5) Hypertension Onset Date: 02/17/18 Status: Acute Qualifiers: Hypertension type: essential hypertension Qualified Code(s): I10 - Essential (primary) hypertension (6) Bipolar 1 disorder Onset Date: 02/17/18 Status: Chronic Brief History of Present Illness: See HPI Hospital Course: Overall during the hospital stay patient remained stable Patient was initially admitted to the hospital for fall status post at home. Along with chest pain. Patient had extensive cardiac workup done here in the hospital with echocardiogram and stress test which both were within normal limits and negative for acute ischemic event. Patient had a head CT done prior along with brain MRI which was also negative for any acute abnormality. Patient then was discharged home under stable condition was asked to follow up with primary care provider in 1-2 days post discharge. Patient had physical therapy consulted here in the hospital for unsteady gait. Physical therapy recommended the patient be seen by a therapist at least 3 to 4 times a week for strengthening. Home health order was placed and patient was then discharged home under stable condition. Vital Signs/Physical Exam: Temp Pulse Resp BP Pulse Ox 98.0 F 71 16 137/72 98 02/18/18 12:00 02/18/18 12:00 02/18/18 12:00 02/18/18 12:00 02/18/18 12:00 General: Alert, In no apparent distress HEENT: Atraumatic, PERRLA, EOMI Neck: Supple, JVD not distended Respiratory: Clear to auscultation bilaterally, Normal air movement Cardiovascular: Regular rate/rhythm, Normal S1 S2 Gastrointestinal: Normal bowel sounds, No tenderness Musculoskeletal: No tenderness Integumentary: No rashes Neurological: Normal speech, Normal tone, Normal affect Lymphatics: No axilla or inguinal lymphadenopathy Laboratory Data at Discharge: WBC 4.9 K/uL (4.3-10.9) 02/18/18 09:52 Hgb 11.2 g/dL (12.0-15.0) L 02/18/18 09:52 Hct 33.5 % (36.0-45.0) L 02/18/18 09:52 Plt Count 201 K/uL (152-406) 02/18/18 09:52 PT 11.1 SECONDS (9.5-12.5) 02/15/18 23:05 INR 0.94 02/15/18 23:05 Sodium 142 mmol/L (136-145) 02/18/18 09:52 Potassium 3.5 mmol/L (3.5-5.1) 02/18/18 09:52 BUN 26 mg/dL (7-18) H 02/18/18 09:52 Creatinine 1.60 mg/dL (0.55-1.3) H 02/18/18 09:52 Glucose 84 mg/dL (74-106) 02/18/18 09:52 Magnesium 1.9 mg/dL (1.8-2.4) 02/15/18 23:05 Total Bilirubin 0.2 mg/dL (0.2-1.0) 02/15/18 23:05 AST 25 U/L (15-37) 02/15/18 23:05 ALT 19 U/L (12-78) 02/15/18 23:05 Alkaline Phosphatase 77 U/L (45-117) 02/15/18 23:05 Troponin I 0.02 ng/mL (0.0-0.045) 02/16/18 18:05 Home Medications: Buspirone HCl [Buspar] 10 mg PO BID 02/16/18 Fluoxetine HCl [Prozac] 2 cap PO DAILY 02/16/18 Patient Discharge Instructions: Please f.u with PCP and cardiology. No New medication. Your ECHO, MRI and Kidney function test was WNL. Diet: Regular Activity: Ad amelia Followup: Justino Lauren MD [ACTIVE - CAN ADMIT] - 1 Week (Call for appointment)
== END 2018-02-18 14:33 | disposition home health service (06) ==
LOC: ER 20:28 → ERHOLD 23:59 → 2ND 02-16 01:36
PROVIDERS: ADMIT Internal Medicine; ATTEND Internal Medicine
DX: R07.2 Precordial pain (principal); N17.9 Acute kidney failure, unspecified; E86.0 Dehydration; S00.83XA Contusion of other part of head, initial encounter; W01.0XXA Fall on same level from slipping, tripping and stumbling without subsequent striking against object, initial encounter; Y92.838 Other recreation area as the place of occurrence of the external cause; F31.9 Bipolar disorder, unspecified; I10 Essential (primary) hypertension; Z23 Encounter for immunization
CPT/HCPCS: 36415 ×3; 70450; 70486; 70544; 70551; 71045; 72125; 73521; 76377; 78452; 80048 ×3; 80076; 81003; 83735; 83880; 84484 ×4; 85025 ×3; 85610; 90670; 93005; 93017; 93306; 97163; 99285; A9500; G0008; G0009; G0378 ×2; J0360 ×2; J1650 ×3; J2785; Q2035

== ENCOUNTER 2018-09-24 17:55 | Inpatient (IN) | payer MEDICARE ==
--- OUTSIDE RECORDS SUMMARY | 2018-09-24 17:57 | XMS REPORT ---
:1950 [facility] Organization [facility] Address [address] [place]. [address] [place] [id number] Care Team Providers Name Role Phone Unavailable Unavailable Unavailable Problems This patient has no known problems. Allergies, Adverse Reactions, Alerts This patient has no known allergies or adverse reactions. Medications This patient has no known medications.
[2018-09-24 18:37] LABS: Absolute Lymphocytes (CBC) 2.1 K/uL (0.7-4.9); Basophils % 0.7 % (0-1.3); Lymphocytes % 43.8 % (15.3-44.8); MPV 8.9 fL (7.6-11.3); Monocytes % 11.1 % (3.3-12.3); Protime INR 0.96; RBC Red Blood Cell Count 4.13 M/uL (3.86-4.86)
--- NOTE | 2018-09-24 18:40 | RAD REPORT ---
EXAM DESCRIPTION: Gerg Single View09/24/2018 6:31 pm CLINICAL HISTORY: Chest pain COMPARISON: January 2018 FINDINGS: The lungs appear clear of acute infiltrate. The heart is mildly enlarged IMPRESSION: No acute abnormalities displayed
[2018-09-24] MEDS ORDERED: ASPIRIN 81 MG CHEWABLE TABLET ONE (18:41)
[2018-09-24] MEDS ORDERED: NA CHLORIDE 0.9% 1,000 ML ONE (18:41)
[2018-09-24 18:51] LABS: ALT/SGPT 17 U/L (12-78); AST/SGOT 22 U/L (15-37); Albumin 3.9 g/dL (3.4-5.0); Alkaline Phosphatase 72 U/L (45-117); BUN Blood Urea Nitrogen 33 mg/dL (7-18); Bicarbonate 25 mmol/L (21-32); Bilirubin Direct 0.1 mg/dL (0-0.2); Bilirubin Total 0.5 mg/dL (0.2-1.0); Glucose Level 75 mg/dL (74-106); Lipase 277 U/L (73-393); Magnesium 2.2 mg/dL (1.8-2.4); NT PRO-BNP 349 pg/mL (<125); Potassium 3.8 mmol/L (3.5-5.1); Protein, Total 8.1 g/dL (6.4-8.2); Sodium Level 139 mmol/L (136-145); Troponin (Emerg Dept Use Only) < 0.02 ng/mL (0.0-0.045)
--- NOTE | 2018-09-24 18:59 | RAD REPORT ---
EXAM DESCRIPTION: US - Abdomen Exam Limited - 09/24/2018 6:50 pm CLINICAL HISTORY: Abdominal pain. FINDINGS: Multiple gallstones. The gallbladder wall upper limits normal thickness The biliary tree is normal caliber. IMPRESSION: Cholelithiasis
[2018-09-24] MEDS ORDERED: PIPER/TAZO/NS 3.375gm 3.375 GM/100 ML BAG ONE (19:14)
--- NOTE | 2018-09-24 21:35 | ER ---
Nurse's Notes [facility] Name: Celine Serrano Age: 67 yrs Sex: Female : 1950 Arrival Date: 09/24/2018 Time: 18:00 Bed 8 Private MD: Diagnosis: Upper abdominal pain, unspecified;Cholelithiasis;Renal insufficiency;Volume depletion Presentation: 09/24 17:58 Transition of care: patient was not received from another setting of care. Onset of sv symptoms was September 24, 2018 at 12:00. Care prior to arrival: IV initiated. 18 GA, in the left antecubital area. 17:58 Acuity: HARJINDER 2 sv 17:58 Method Of Arrival: EMS: [facility] sv 17:58 Risk Assessment: Do you want to hurt yourself or someone else? Patient reports no sv desire to harm self or others. Initial Sepsis Screen: Does the patient meet any 2 criteria? No. Patient's initial sepsis screen is negative. Does the patient have a suspected source of infection? No. Patient's initial sepsis screen is negative. 17:58 Presenting complaint: EMS states: Pt had complaints of chest and abdominal pain that tr5 radiates to her R arm. Pt also reports some weakness. Triage Assessment: 18:00 General: Appears in no apparent distress. Behavior is calm. tr5 19:04 Pain: Complains of pain in chest and abdomen. tr5 Historical: - Allergies: 18:05 RISPERIDONE; sv 18:05 GABAPENTIN; sv 18:05 Amitriptyline; sv - PMHx: 18:05 Bipolar disorder; Hypertension; problems with memory for 5 years; Schizophrenia; sv Diabetes - NIDDM; - Immunization history:: Adult Immunizations up to date. - Social history:: Smoking status: Patient/guardian denies using tobacco. - Ebola Screening: : No symptoms or risks identified at this time. Screenin:14 Abuse screen: Denies threats or abuse. Nutritional screening: No deficits noted. tr5 Tuberculosis screening: No symptoms or risk factors identified. Fall Risk No fall in past 12 months (0 pts). Secondary diagnosis (15 points) dementia, IV access (20 points). Ambulatory Aid- None/Bed Rest/Nurse Assist (0 pts). Gait- Normal/Bed Rest/Wheelchair (0 pts) Mental Status- Oriented to own ability (0 pts). Total Adlana Fall Scale indicates Low Risk Score (25-44 pts). Assessment: 18:09 General: Appears uncomfortable, Behavior is anxious. Pain: Complains of pain in tr5 anterior aspect of right upper chest, right breast and abdomen Pain radiates to right arm Pain currently is 8 out of 10 on a pain scale. Quality of pain is described as aching, crampy, Pain began 2 hours ago. Neuro: Level of Consciousness is awake, alert, confused, Oriented to person, place, Underlay Stitcher are equal bilaterally Moves all extremities. Speech is normal, Facial symmetry appears normal, Cardiovascular: Reports chest pain, Heart tones present Bruits absent Capillary refill < 3 seconds Pulses are all present. Edema is absent. Respiratory: Airway is patent Breath sounds are clear bilaterally. GI: Abdomen is flat, Bowel sounds present X 4 quads. Abd is soft Reports upper abdominal pain. : No signs and/or symptoms were reported regarding the genitourinary system. EENT: No signs and/or symptoms were reported regarding the EENT system. Derm: No signs and/or symptoms reported regarding the dermatologic system. Musculoskeletal: Capillary refill < 3 seconds. 19:43 Reassessment: pt requesting food. provider asked. pt given PO fluids. General: Appears jd3 uncomfortable, Behavior is cooperative, appropriate for age, anxious. Pain: Complains of pain in abdomen Quality of pain is described as aching, crampy. Neuro: Level of Consciousness is awake, alert, confused, Oriented to person, place, time. Cardiovascular: Denies chest pain, Capillary refill < 3 seconds Patient's skin is warm and dry. Respiratory: Airway is patent Respiratory effort is even, unlabored, Respiratory pattern is regular, symmetrical, Denies shortness of breath. GI: Abdomen is round non-distended, Abd is soft and non tender X 4 quads. Reports upper abdominal pain. : No signs and/or symptoms were reported regarding the genitourinary system. EENT: No signs and/or symptoms were reported regarding the EENT system. Derm: Skin is intact, Skin is dry, Skin is normal, Skin temperature is warm. Musculoskeletal: Circulation, motion, and sensation intact. Range of motion: intact in all extremities. 20:30 Reassessment: Patient appears in no apparent distress at this time. Patient and/or jd3 family updated on plan of care and expected duration. Pain level reassessed. Patient is alert, oriented x 3, equal unlabored respirations, skin warm/dry/pink. 21:22 Reassessment: Patient appears in no apparent distress at this time. Patient and/or jd3 family updated on plan of care and expected duration. Pain level reassessed. Patient is alert, oriented x 3, equal unlabored respirations, skin warm/dry/pink. family at bedside. 21:46 Reassessment: Patient appears in no apparent distress at this time. Patient and/or jd3 family updated on plan of care and expected duration. Pain level reassessed. Patient is alert, oriented x 3, equal unlabored respirations, skin warm/dry/pink. provider at bedside discussing plan of care. 23:04 Reassessment: Patient appears in no apparent distress at this time. Patient and/or jd3 family updated on plan of care and expected duration. Pain level reassessed. Patient is alert, oriented x 3, equal unlabored respirations, skin warm/dry/pink. awaiting room assignment. 09/25 00:02 Reassessment: Patient appears in no apparent distress at this time. Patient and/or jd3 family updated on plan of care and expected duration. Pain level reassessed. Patient is alert, oriented x 3, equal unlabored respirations, skin warm/dry/pink. report given to Mariela HUDDLESTON. Vital Signs: 09/24 18:13 BP 143 / 82; Pulse 55; Resp 16; Temp 98.3; Pulse Ox 99% on R/A; tr5 18:20 Weight 55 kg (R); Height 5 ft. 0 in. (152.40 cm); sv 19:42 BP 140 / 89; Pulse 62; Resp 17 S; Pulse Ox 100% on R/A; Pain 5/10; jd3 21:22 BP 94 / 79; Pulse 52; Resp 17 S; Pulse Ox 97% on R/A; jd3 21:48 BP 160 / 83; Pulse 58; Resp 19 S; Pulse Ox 96% on R/A; Pain 5/10; jd3 23:03 BP 133 / 78; Pulse 53; Resp 17 S; Pulse Ox 100% on R/A; jd3 18:20 Body Mass Index 23.68 (55.00 kg, 152.40 cm) sv ED Course: 17:58 Initial lab(s) drawn, by me, sent to lab. Maintain EMS IV. Dressing intact. Good blood sv return noted. Site clean \T\ dry. Gauge \T\ site: 18G L AC. 17:58 Patient maintains SpO2 saturation greater than 95% on room air. sv 17:58 Patient has correct armband on for positive identification. Placed in gown. Bed in low sv position. Call light in reach. Side rails up X2. cardiac monitor on. Pulse ox on. NIBP on. Door closed. Warm blanket given. Head of bed elevated. 18:00 Patient arrived in ED. sv 18:00 Saulo Fraire, RN is Primary Nurse. sv 18:00 Yordy Dumont MD is Attending Physician. rn 18:01 EKG done, by process control technician. reviewed by Yordy Dumont MD. 3 18:04 Triage completed. sv 18:05 Arm band placed on. sv 18:08 Karina Waggoner, ELEONORA-C is PHCP. snw 18:21 Basic Metabolic Panel Sent. tr5 18:21 CBC with Diff Sent. tr5 18:22 LFT's Sent. tr5 18:31 XRAY Chest (1 view) In Process Unspecified. EDMS 18:50 US Abdomen Limited In Process Unspecified. EDMS 21:33 Darlene Ruby MD is Hospitalizing Provider. snw 23:17 No provider procedures requiring assistance completed. Patient admitted, IV remains in fc place. 23:42 Assisted with bedpan. bb Administered Medications: 18:32 Drug: Aspirin Chewable Tablet 324 mg Route: PO; tr5 19:04 Follow up: Response: No adverse reaction sv 19:05 Follow up: Response: No adverse reaction tr5 18:32 Drug: NS 0.9% 1000 ml Route: IV; Rate: 125 ml/hr; Site: left antecubital; tr5 23:46 Follow up: Response: No adverse reaction; IV Status: Infusion continued upon admission jd3 19:04 Drug: Zosyn 3.375 grams Route: IVPB; Infused Over: 60 mins; Site: left antecubital; tr5 20:00 Follow up: Response: No adverse reaction; IV Status: Completed infusion; IV Intake: jd3 100ml Intake: 20:00 IV: 100ml; Total: 100ml. jd3 Outcome: 21:34 Decision to Hospitalize by Provider. snw 23:18 Condition: good fc 23:18 Instructed on the need for admit, Demonstrated understanding of instructions. 23:42 Admitted to Tele accompanied by tech, via stretcher, room 408, with chart, Report jd3 called to Mariela HUDDLESTON 09/25 00:03 Patient left the ED. jd3 Signatures: Dispatcher [employer] EDSobeida Lang, RN RN Karina Da Silva, DIRECTOR OF TESTING-C DIRECTOR OF TESTING-Csnw Luisa Gaffney RN Swetha Mack RN RN bb Nieto, Roman, MD MD rn Davies, Jonathon, RN RN jMary Raya 3 Saulo Fraire RN RN tr5 Corrections: (The following items were deleted from the chart) 09/24 19:07 19:06 Presenting complaint: EMS states: Pt had complaints of chest and abdominal pain tr5 that radiates to her R arm. Pt also reports some weakness. tr5 21:50 21:46 Reassessment: Patient appears in no apparent distress at this time. Patient jd3 and/or family updated on plan of care and expected duration. Pain level reassessed. Patient is alert, oriented x 3, equal unlabored respirations, skin warm/dry/pink. jd3 21:50 21:48 Pulse 58bpm; Resp 19bpm; Spontaneous; Pulse Ox 96% RA; Pain 5/10; jd3 jd3 23:42 23:18 Discharge instructions given to patient, family, Instructed on the need for jd3 admit, Demonstrated understanding of instructions, fc
--- NOTE | 2018-09-24 21:35 | EDPHYS ---
Physician Documentation [facility] Name: Celine Serrano Age: 67 yrs Sex: Female : 1950 Arrival Date: 09/24/2018 Time: 18:00 Bed 8 Private MD: ED Physician Yordy Dumont HPI: 09/24 18:14 This 67 yrs old Female presents to ER via EMS with complaints of snw Abdominal/Chest Pain. 18:14 The patient presents with abdominal pain in the upper abdomen. Onset: The snw symptoms/episode began/occurred pt is terrible historian, states pain intermittent x years. Refuses to give history. Pill bottles state Dr. Peña is her PCP. The symptoms do not radiate. Associated signs and symptoms: Pertinent positives: chest pain, nausea, abdominal pain. The symptoms are described as intermittent, stabbing. Modifying factors: The symptoms are alleviated by nothing. Severity of pain: At its worst the pain was moderate. It is unknown whether or not the patient has had similar symptoms in the past. The patient has not recently seen a physician. Historical: - Allergies: 18:05 RISPERIDONE; sv 18:05 GABAPENTIN; sv 18:05 Amitriptyline; sv - PMHx: 18:05 Bipolar disorder; Hypertension; problems with memory for 5 years; Schizophrenia; sv Diabetes - NIDDM; - Immunization history:: Adult Immunizations up to date. - Social history:: Smoking status: Patient/guardian denies using tobacco. - Ebola Screening: : No symptoms or risks identified at this time. ROS: 18:14 Eyes: Negative for injury, pain, redness, and discharge, ENT: Negative for injury, snw pain, and discharge, Neck: Negative for injury, pain, and swelling. 18:14 Respiratory: Negative for shortness of breath, cough, wheezing, and pleuritic chest pain, Back: Negative for injury and pain, : Negative for injury, bleeding, discharge, and swelling, MS/Extremity: Negative for injury and deformity, Skin: Negative for injury, rash, and discoloration, Neuro: Negative for headache, weakness, numbness, tingling, and seizure, Psych: Negative for depression, anxiety, suicide ideation, homicidal ideation, and hallucinations. 18:14 Constitutional: Positive for fatigue, malaise, poor PO intake. 18:14 Cardiovascular: Positive for chest pain. 18:14 Abdomen/GI: Positive for abdominal pain, of the right upper quadrant and left upper quadrant. Exam: 18:18 Head/Face: Normocephalic, atraumatic. Eyes: Pupils equal round and reactive to light, snw extra-ocular motions intact. Lids and lashes normal. Conjunctiva and sclera are non-icteric and not injected. Cornea within normal limits. Periorbital areas with no swelling, redness, or edema. ENT: Nares patent. No nasal discharge, no septal abnormalities noted. Tympanic membranes are normal and external auditory canals are clear. Oropharynx with no redness, swelling, or masses, exudates, or evidence of obstruction, uvula midline. Mucous membranes moist. Neck: Trachea midline, no thyromegaly or masses palpated, and no cervical lymphadenopathy. Supple, full range of motion without nuchal rigidity, or vertebral point tenderness. No Meningismus. Chest/axilla: Normal chest wall appearance and motion. Nontender with no deformity. No lesions are appreciated. Cardiovascular: Regular rate and rhythm with a normal S1 and S2. No gallops or rubs. + murmur, Normal PMI, no JVD. No pulse deficits. Respiratory: Lungs have equal breath sounds bilaterally, clear to auscultation and percussion. No rales, rhonchi or wheezes noted. No increased work of breathing, no retractions or nasal flaring. 18:18 Back: No spinal tenderness. No costovertebral tenderness. Full range of motion. Skin: Warm, dry with normal turgor. Normal color with no rashes, no lesions, and no evidence of cellulitis. MS/ Extremity: Pulses equal, no cyanosis. Neurovascular intact. Full, normal range of motion. Neuro: Awake and alert, GCS 15, oriented to person, place, time, and situation. Cranial nerves II-XII grossly intact. Motor strength 5/5 in all extremities. Sensory grossly intact. Cerebellar exam normal. Normal gait. Psych: Awake, alert, with orientation to person, place and time. Behavior, mood, and affect are within normal limits. 18:18 Constitutional: The patient appears listless, uncomfortable. 18:18 Abdomen/GI: Inspection: abdomen appears normal, Bowel sounds: normal, Palpation: moderate abdominal tenderness, in the right upper quadrant and left upper quadrant. Vital Signs: 18:13 BP 143 / 82; Pulse 55; Resp 16; Temp 98.3; Pulse Ox 99% on R/A; tr5 18:20 Weight 55 kg (R); Height 5 ft. 0 in. (152.40 cm); sv 19:42 BP 140 / 89; Pulse 62; Resp 17 S; Pulse Ox 100% on R/A; Pain 5/10; jd3 21:22 BP 94 / 79; Pulse 52; Resp 17 S; Pulse Ox 97% on R/A; jd3 21:48 BP 160 / 83; Pulse 58; Resp 19 S; Pulse Ox 96% on R/A; Pain 5/10; jd3 23:03 BP 133 / 78; Pulse 53; Resp 17 S; Pulse Ox 100% on R/A; jd3 18:20 Body Mass Index 23.68 (55.00 kg, 152.40 cm) sv MDM: 18:00 Patient medically screened. rn 21:31 Data reviewed: vital signs, nurses notes. Data interpreted: Pulse oximetry: on room air snw is 97 %. Counseling: I had a detailed discussion with the patient and/or guardian regarding: the historical points, exam findings, and any diagnostic results supporting the discharge/admit diagnosis, lab results, radiology results, the need for further work-up and treatment in the hospital. Response to treatment: the patient's symptoms have mildly improved after treatment, continued Love's sign +. Physician consultation: Darlene Ruby MD was called at 21:31, regarding admission, to the telemetry unit. to the medical/surgical unit. patient's condition. 22:04 Physician consultation: was contacted at 22:04. [facility] 09/24 18:01 Order name: glucometer results - FOR PT WITH NO ID; Complete Time: 20:37 sv 09/24 18:08 Order name: Basic Metabolic Panel snw 09/24 18:08 Order name: CBC with Diff snw 09/24 18:08 Order name: LFT's snw 09/24 18:08 Order name: Magnesium; Complete Time: 18:52 snw 09/24 18:08 Order name: NT PRO-BNP; Complete Time: 18:52 snw 09/24 18:08 Order name: PT-INR; Complete Time: 18:43 snw 09/24 18:08 Order name: Troponin (emerg Dept Use Only); Complete Time: 18:52 snw 09/24 18:08 Order name: XRAY Chest (1 view); Complete Time: 18:43 snw 09/24 18:08 Order name: Lipase; Complete Time: 18:52 snw 09/24 18:08 Order name: US Abdomen Limited; Complete Time: 19:02 snw 09/24 18:08 Order name: Basic Metabolic Panel; Complete Time: 18:52 EDMS 09/24 18:09 Order name: CBC with Automated Diff; Complete Time: 18:50 EDMS 09/24 18:09 Order name: Liver (Hepatic) Function; Complete Time: 18:52 EDMS 09/24 18:04 Order name: EKG; Complete Time: 18:04 sv 09/24 18:04 Order name: EKG - Nurse/Tech; Complete Time: 18:04 sv 09/24 18:08 Order name: Cardiac monitoring; Complete Time: 18:17 snw 09/24 18:08 Order name: Labs collected and sent; Complete Time: 18:17 snw 09/24 18:08 Order name: O2 Per Protocol; Complete Time: 18:17 snw 09/24 18:08 Order name: O2 Sat Monitoring; Complete Time: 18:17 snw 09/24 22:56 Order name: CONS Physician Consult EDMS 09/24 22:57 Order name: Echo with Doppler EDMS 09/24 22:57 Order name: EKG Electrocardiogram EDMS 09/24 22:57 Order name: EKG Electrocardiogram EDMS Administered Medications: 18:32 Drug: Aspirin Chewable Tablet 324 mg Route: PO; tr5 19:04 Follow up: Response: No adverse reaction sv 19:05 Follow up: Response: No adverse reaction tr5 18:32 Drug: NS 0.9% 1000 ml Route: IV; Rate: 125 ml/hr; Site: left antecubital; tr5 23:46 Follow up: Response: No adverse reaction; IV Status: Infusion continued upon admission jd3 19:04 Drug: Zosyn 3.375 grams Route: IVPB; Infused Over: 60 mins; Site: left antecubital; tr5 20:00 Follow up: Response: No adverse reaction; IV Status: Completed infusion; IV Intake: jd3 100ml Disposition: 09/25 00:19 Co-signature as Attending Physician, Yordy Dumont MD. rn Disposition: 09/24/18 21:34 Hospitalization ordered by Darlene Ruby for Inpatient Admission. Preliminary diagnosis are Upper abdominal pain, unspecified, Cholelithiasis, Renal insufficiency, Volume depletion. - Bed requested for Telemetry/MedSurg (Inpatient). - Status is Inpatient Admission. jd3 - Condition is Stable. - Problem is an acute exacerbation. - Symptoms are unchanged. UTI on Admission? No Signatures: Dispatcher [employer] EDMS Sobeida Hernandez, RN RN Karina Waggoner, MACHINE OPERATIONS SUPERVISOR-C MACHINE OPERATIONS SUPERVISOR-Csnw Yordy Dumont MD MD rn Garcia, Cindy, RN RN cg Davies, Jonathon, RN RN jd3 Rodriguez, Tommie, RN RN tr5 Corrections: (The following items were deleted from the chart) 09/24 23:12 21:34 Hospitalization Ordered by Darlene Ruby MD for Inpatient Admission. Preliminary cg diagnosis is Upper abdominal pain, unspecified; Cholelithiasis; Renal insufficiency; Volume depletion. Bed requested for Telemetry/MedSurg (Inpatient). Status is Inpatient Admission. Condition is Stable. Problem is an acute exacerbation. Symptoms are unchanged. UTI on Admission? No. snw 23:12 23:12 09/24/2018 21:34 Hospitalization Ordered by Darlene Ruby MD for Inpatient cg Admission. Preliminary diagnosis is Upper abdominal pain, unspecified; Cholelithiasis; Renal insufficiency; Volume depletion. Bed requested for Telemetry/MedSurg (Inpatient). Status is Inpatient Admission. Condition is Stable. Problem is an acute exacerbation. Symptoms are unchanged. UTI on Admission? No. cg 09/25 00:03 09/24 23:12 09/24/2018 21:34 Hospitalization Ordered by Darlene Ruby MD for Inpatient jd3 Admission. Preliminary diagnosis is Upper abdominal pain, unspecified; Cholelithiasis; Renal insufficiency; Volume depletion. Bed requested for Telemetry/MedSurg (Inpatient). Status is Inpatient Admission. Condition is Stable. Problem is an acute exacerbation. Symptoms are unchanged. UTI on Admission? No. cg
[2018-09-24] MEDS ORDERED: ACETAMINOPHEN 500 MG TAB PO PRN (22:50)
[2018-09-25] MEDS: MORPHINE 4 MG/ML SYR IV PRN ×2 (01:05→09:16)
[2018-09-25 03:21] VITALS: BMI 23.6
--- NOTE | 2018-09-25 06:40 | EKG ---
Test Date: 2018-09-24 Test Time: 17:57:02 Spinning Machine Operator: MALIK MEASUREMENT RESULTS: Intervals: Rate: 57 GA: 158 QRSD: 100 QT: 470 QTc: 457 [employer]: P: 53 GA: 158 QRS: 54 T: -31 INTERPRETIVE STATEMENTS: Sinus bradycardia Minimal voltage criteria for LVH, may be normal variant Septal infarct, age undetermined ST & T wave abnormality, consider inferior ischemia Abnormal ECG Compared to ECG 02/15/2018 22:44:36 ST (T wave) deviation now present Possible ischemia now present T-wave abnormality no longer present Myocardial infarct finding still present Electronically Signed On 09-25-18 06:39:30 CDT by Stan Bradshaw
[2018-09-25 08:06] LABS: Absolute Lymphocytes (CBC) 1.9 K/uL (0.7-4.9); Basophils % 0.8 % (0-1.3); Eosinophils % 2.1 % (0-4.4); Hematocrit 35.3 % (36.0-45.0); MPV 8.8 fL (7.6-11.3); Monocytes % 11.2 % (3.3-12.3); RBC Red Blood Cell Count 3.89 M/uL (3.86-4.86)
[2018-09-25 08:34] LABS: Potassium 3.8 mmol/L (3.5-5.1)
[2018-09-25] MEDS: ASPIRIN EC 81 MG TAB PO SCH (09:00)
[2018-09-25] MEDS: METOPROLOL TAR 50 MG TAB PO SCH ×2 (09:00→21:03)
[2018-09-25] MEDS: ENOXAPARIN 30 MG/0.3 ML SQ SCH (09:17)
--- NOTE | 2018-09-25 10:08 | EKG ---
Test Date: 2018-09-25 Test Time: 07:27:48 Corporate Receptionist: MALIK MEASUREMENT RESULTS: Intervals: Rate: 51 ID: [id number] QRSD: 98 QT: 490 QTc: 451 [employer]: P: 63 ID: [id number] QRS: 49 T: -40 INTERPRETIVE STATEMENTS: Sinus bradycardia Minimal voltage criteria for LVH, may be normal variant Septal infarct, age undetermined T wave abnormality, consider inferior ischemia Abnormal ECG Compared to ECG 09/24/2018 17:57:02 T-wave abnormality now present ST (T wave) deviation no longer present Myocardial infarct finding still present Possible ischemia still present Electronically Signed On 09-25-18 10:07:17 CDT by Justino Lauren
--- NOTE | 2018-09-25 11:58 | P.HP ---
Certification for Inpatient Patient admitted to: Observation With expected LOS: <2 Midnights Patient will require the following post-hospital care: None Practitioner: I am a practitioner with admitting privileges, knowledge of patient current condition, hospital course, and medical plan of care. Services: Services provided to patient in accordance with Admission requirements found in Title 42 Section 412.3 of the Code of Federal Regulations Patient History Date of Service: 09/24/18 Reason for admission: CHEST PAIN RULE OUT /CHOLELITHIASIS History of Present Illness: PATIENT IS A 67-YEAR-OLD FEMALE WITH HISTORY OF BIPOLAR DISORDER AND COMES INTO THE HOSPITAL WITH CHEST DISCOMFORT. PAIN WAS MAINLY IN THE EPIGASTRIC REGION. SHE WAS FOUND HAVE CHOLELITHIASIS ON FURTHER WORKUP. PATIENT DENIES ANY RADIATION OF HER PAIN. SHE DOES APPEAR TO BE QUITE LETHARGIC. SHE AWAKENS AND ANSWERS MOST OF MY QUESTIONS. PATIENT WITH MINIMAL RISK FACTORS OF 4 CORONARY ARTERY DISEASE. SHE DOES HAVE CHOLELITHIASIS. PATIENT ALSO WITH SOME ACUTE RENAL INSUFFICIENCY. WILL HYDRATE THE PATIENT GENTLY AND GET SURGERY CONSULTATION. PATIENT MAY NEED FURTHER WORKUP AN OUTPATIENT. WE WILL OPT TO HER OVERNIGHT AND SEE HOW SHE DOES AND POSSIBLE DISCHARGE HOME TOMORROW MORNING. Allergies amitriptyline [Amitriptyline] Allergy (Verified 08/02/11 15:37) Anaphylaxis gabapentin Allergy (Verified 08/02/11 15:37) Anaphylaxis risperidone Allergy (Verified 08/02/11 15:37) Anaphylaxis Home Medications: Buspirone HCl [Buspar] 10 mg PO BID 02/16/18 Fluoxetine HCl [Prozac] 1 cap PO DAILY 02/16/18 Amlodipine [Norvasc] 5 mg PO DAILY 09/25/18 Folic Acid/Mv,Fe,Min [One Daily Complete Tablet] 1 each PO DAILY 09/25/18 Iron 18 mg PO DAILY 09/25/18 Potassium Chloride 20 meq PO DAILY 09/25/18 hydroCHLOROthiazide [Hydrochlorothiazide] 25 mg PO DAILY 09/25/18 - Past Medical/Surgical History Has patient received pneumonia vaccine in the past: No Diabetic: No -: Hypertension -: Bipolar -: Schizophrenia -: Vaginal and Oral Herpes -: right knee sx -: elbow surgery - Family History Mother Medical History: Cancer Father Medical History: Heart disease - Social History Smoking Status: Former smoker Alcohol use: No CD- Drugs: No Caffeine use: No Place of Residence: Home Review of Systems 10-point ROS is otherwise unremarkable Physical Examination - Vital Signs Temperature: 97.5 F Blood Pressure: 133/77 Pulse: 53 Respirations: 18 Pulse Ox (%): 96 - Physical Exam General: Alert, In no apparent distress, Oriented x3 HEENT: Atraumatic, PERRLA, Mucous membr. moist/pink, EOMI, Sclerae nonicteric Neck: Supple, 2+ carotid pulse no bruit, No LAD, Without JVD or thyroid abnormality Respiratory: Clear to auscultation bilaterally, Normal air movement Cardiovascular: Regular rate/rhythm, Normal S1 S2, No murmurs Gastrointestinal: Normal bowel sounds, Soft and benign, Non-distended, No tenderness Musculoskeletal: No clubbing, No swelling, No tenderness Integumentary: No rashes Neurological: Normal gait, Normal speech, Normal strength at 5/5 x4 extr, Normal tone, Sensation intact, Cranial nerves 3-12 intact, Normal affect Lymphatics: No axilla or inguinal lymphadenopathy - Studies Laboratory Data (last 24 hrs) 09/24/18 17:58: PT 11.3, INR 0.96 09/24/18 17:58: WBC 4.8, Hgb 12.0, Hct 37.0, Plt Count 238 09/24/18 17:58: Sodium 139, Potassium 3.8, BUN 33 H, Creatinine 1.98 H, Glucose 75, Magnesium 2.2, Total Bilirubin 0.5, AST 22, ALT 17, Alkaline Phosphatase 72 , Lipase 277 Assessment & Plan - Problems (Diagnosis) (1) Chest pain, rule out acute myocardial infarction Current Visit: Yes Status: Acute (2) Cholelithiasis Current Visit: Yes Status: Acute (3) Acute renal insufficiency Current Visit: Yes Status: Acute (4) Hypertension Onset Date: 02/17/18 Current Visit: No Status: Acute Qualifiers: (5) Bipolar 1 disorder Onset Date: 02/17/18 Current Visit: No Status: Chronic - Plan 1. SERIAL TROPONINS AND EKG 2. CARDIOLOGY CONSULTATION 3. ECHOCARDIOGRAM 4. ANTI-PLATELET THERAPY, BETA-TARSHA, STATIN, AND O2 NEEDED 5. IV MORPHINE FOR PAIN 6. NITRO P.R.N. Discharge Plan: Home Plan to discharge in: 24 Hours - Advance Directives Does patient have a Living Will: No Does patient have a Durable POA for Healthcare: No - Code Status/Comfort Care Code Status Assessed: Yes Code Status: Full Code Critical Care: No
--- NOTE | 2018-09-25 12:53 | ECHO ---
HEIGHT: 5 ft 0 in WEIGHT: 121 lb 0 oz DATE OF STUDY: 09/25/[address]: Darlene Ruby MD 2-DIMENSIONAL: YES M.MODE: YES DOPPLER: YES COLOR FLOW: YES TDS: NO PORTABLE: NO DEFINITY: NO BUBBLE STUDY: NO DIAGNOSIS: CHEST PAIN CARDIAC HISTORY: CATHERIZATION: SURGERY: PROSTHETIC VALVE: PACEMAKER: MEASUREMENTS (cm) DIASTOLIC (NORMALS) SYSTOLIC (NORMALS) IVSd 1.1 (0.6-1.2) LA Diam (1.9-4.0) LVEF 61% LVIDd 3.6 (3.5-5.7) LVIDs 2.4 (2.0-3.5) %FS 32% LVPWd 1.3 (0.6-1.2) Ao Diam 3.0 (2.0-3.7) 2 DIMENSIONAL ASSESSMENT: RIGHT ATRIUM: NORMAL LEFT ATRIUM: NORMAL RIGHT VENTRICLE: NORMAL LEFT VENTRICLE: NORMAL TRICUSPID VALVE: NORMAL MITRAL VALVE: NORMAL PULMONIC VALVE: NORMAL AORTIC VALVE: SCLEROSIS PERICARDIAL EFFUSION: NONE AORTIC ROOT: NORMAL LEFT VENTRICULAR WALL MOTION: NORMAL DOPPLER/COLOR FLOW: NORMAL COMMENTS: AORTIC SCLEROSIS WITH NO STENOSIS. NORMAL LEFT VENTRICULAR SIZE AND FUNCTION. NO WALL MOTION ABNORMALITY. NO EFFUSION. TECHNOLOGIST: Ruth ALEGRE
--- NOTE | 2018-09-25 14:33 | P.CNS ---
Date of Consult: 09/25/18 Reason for Consult: LIZETT Chief Complaint: CHEST PAIN RULE OUT /CHOLELITHIASIS History of Present Illness: a 67 Y/o woman with PHx of bipolar disorder and HTN presented for Abd pain pt stated she was on Erhard long time ago, takes NSAID occasionally Cr 12/2017 was 1.6, now Cr 1.9 no urinary symptoms , chest pain, or palpitation Allergies amitriptyline [Amitriptyline] Allergy (Verified 08/02/11 15:37) Anaphylaxis gabapentin Allergy (Verified 08/02/11 15:37) Anaphylaxis risperidone Allergy (Verified 08/02/11 15:37) Anaphylaxis Home Medications: Buspirone HCl [Buspar] 10 mg PO BID 02/16/18 Fluoxetine HCl [Prozac] 1 cap PO DAILY 02/16/18 Amlodipine [Norvasc] 5 mg PO DAILY 09/25/18 Folic Acid/Mv,Fe,Min [One Daily Complete Tablet] 1 each PO DAILY 09/25/18 Iron 18 mg PO DAILY 09/25/18 Potassium Chloride 20 meq PO DAILY 09/25/18 hydroCHLOROthiazide [Hydrochlorothiazide] 25 mg PO DAILY 09/25/18 - Past Medical/Surgical History Diabetic: No -: Hypertension -: Bipolar -: Schizophrenia -: Vaginal and Oral Herpes -: right knee sx -: elbow surgery - Family History Mother Medical History: Cancer Father Medical History: Heart disease - Social History Alcohol use: No CD- Drugs: No Caffeine use: No Place of Residence: Home Physical Examination Temp Pulse Resp BP Pulse Ox 97.5 F 53 18 133/77 96 09/25/18 11:58 09/25/18 11:58 09/25/18 11:58 09/25/18 11:58 09/25/18 11:58 General: In no apparent distress, Oriented x3 HEENT: Atraumatic Neck: Supple, Without JVD or thyroid abnormality Respiratory: Clear to auscultation bilaterally, Normal air movement Cardiovascular: No edema, Regular rate/rhythm, Normal S1 S2, Abnormal S3 Gastrointestinal: Normal bowel sounds, Soft and benign Musculoskeletal: No swelling Integumentary: No rashes Laboratory Data (last 24 hrs) 09/24/18 17:58: PT 11.3, INR 0.96 09/24/18 17:58: WBC 4.8, Hgb 12.0, Hct 37.0, Plt Count 238 09/24/18 17:58: Sodium 139, Potassium 3.8, BUN 33 H, Creatinine 1.98 H, Glucose 75, Magnesium 2.2, Total Bilirubin 0.5, AST 22, ALT 17, Alkaline Phosphatase 72 , Lipase 277 - Problems (1) ARF (acute renal failure) Current Visit: No Status: Acute Qualifiers: Acute renal failure type: unspecified Qualified Code(s): N17.9 - Acute kidney failure, unspecified Conclusions/Impression: Lizett on CKD vs progressive CKD Cr in 2018 1.6 CKD likely due to HTN nephrosclerosis and [place] +/- NSAID renal US will order UA and UPC ill dc HCTZ Gentle hydration BP controlled Abd pain resolved Surgery on board tolerating liquid diet
--- NOTE | 2018-09-25 14:51 | CON ---
Date of Consultation: 09/25/2018 Brief History Of Present Illness: The patient is a 67-year-old female, who presents to the hospital with multiple months of abdominal pain by her report, which were intermittent, mainly assoc iated with meal. She states that the pain is not associated with a particular type of food, but she has a poor diet, but she will notice pain within 10 minutes or less upon eating something and the bay n is typically in the epigastric region with radiation through the back. Occasionally, she will have a bandlike distribution below the belly button of pain, which will be a crescendo decrescendo type, but she has had some nausea, no vomiting. She has had some change in bowel habits with intermittent diarrhea and constipation. She states that the pain is significantly better since she is being admit betito to the hospital and essentially, she is pain free, but still has minimal tenderness when she mesh es her abdomen. She also complains of intermittent chest pain, which is intermittent and stabbing qu ality, which is the same character as the abdominal pain. She states she has had multiple episodes b efore in the past, but has not seen her physician recently for this. Past Medical History: Significant for bipolar disorder, hypertension, poor memory, schizophrenia. H er daughter states she has a degree of mental retardation, diabetes. Past Surgical History: She has had an appendectomy. Allergies: TO RISPERIDONE, GABAPENTIN, AND AMITRIPTYLINE. Social History: She denies smoking, alcohol, but she does have a history of recreational drug use an d crack cocaine. She states she cannot remember her last usage. Her daughter states that she is uns ure of her last usage of crack cocaine as well, but has taken it intermittently and had multiple atte mpts at sobriety, which are relatively unsuccessful in the roasterman. Physical Examination: Vital Signs: At the time of my examination were blood pressure 111/60, pulse is 53, respiratory rate 18, temperature 97.5. General: She is awake, alert, and oriented at this time. She is appropriate and conversive, but she is a poor historian to some degree with respect to her past medical history. Her daughter is presen t who contributes. HEENT: Otherwise normocephalic. Sclerae icteric. Mucous membranes moist. She has poor dentition. Oropharynx is clear otherwise. Neck: Supple. No JVD. Chest: Normal expansion and excursion. Cardiovascular: Regular rate and rhythm. Pulmonary: Clear to auscultation bilaterally. Abdomen: Soft with mild epigastric tenderness to palpation. Negative Love sign. No rebound. No guarding. No focal peritonitis. She has some pain in the left lower quadrant as well on palpation, but it is minimal. She has no CVA angle tenderness. The remainder of examination is essentially nor mal. Skin: Warm and dry. Extremities: No clubbing, cyanosis, or edema. Laboratory Data: Reveals white blood count of 5.0, hemoglobin 11.5, hematocrit of 35.3, platelet cou nt 222, neutrophils are normal at 47%. PT 11.3, INR 0.96. Sodium 141, potassium 3.8, chloride 109, carbon dioxide is 28, BUN 29, creatinine 1.9, glucose is 79. Her total bilirubin on admission is 0.5 , direct bilirubin 0.1, AST 22, ALT 17, alkaline phosphatase is 72. Troponin is less than 0.02 on 2 checks. Her lipase is 277 on admission. She had imaging performed, which included abdominal ultraso und, which is only read as cholelithiasis. Her gallbladder is the upper limits of normal with respec t to gallbladder wall. No evidence of pericholecystic fluid or any other findings on the official di ctation. She had a chest x-ray performed as well, which was officially read as no acute abnormality displayed. Assessment And Plan: This is a 67-year-old female, who comes in with epigastric abdominal pain of un certain etiology. 1.IV fluid hydration. 2.Serial abdominal exams. 3.I will order a HIDA scan to see if the patient has evidence of cholecystitis or biliary dyskinesia . 4.Should the patient's HIDA scan be negative, I recommend GI consultation with a need for EGD and co lonoscopy as she has never had a colonoscopy or EGD for that matter. I have explained the risks, benefits, and alternatives of the above stated plan. The patient agrees to proceed as indicat ed. MIKHAIL/ALEXYS Voice ID: [id number] Report ID: [id number]
[2018-09-25] MEDS: NA CHLORIDE 0.9% 1,000 ML IV SCH (15:00)
[2018-09-25] MEDS ORDERED: PNEUMOCOCCAL VACCINE 0.5 ML IMVAC ONE (15:00)
--- NOTE | 2018-09-25 15:32 | RAD REPORT ---
EXAM DESCRIPTION: US - Renal Ultrasound-Complete - 09/25/2018 3:20 pm CLINICAL HISTORY: Acute renal insufficiency COMPARISON: 2013 cat scan FINDINGS: The right kidney measures 10 cm with an increased echotexture. The left kidney measures 10 cm with an increased echotexture. Bilateral renal calculi. Small renal cysts. Renal cortical thinning Hydronephrosis is not seen. No gross abnormality of bladder is seen IMPRESSION: Increased renal echotexture consistent with parenchymal disease Bilateral nonobstructing renal calculi
--- NOTE | 2018-09-25 17:04 | PN ---
Date of Progress Note: 09/25/2018 Code Status: Full. Subjective: The patient is seen and examined, chart reviewed and case discussed with RN and Dr. Kelley dasilva. Family at the bedside. Treatment plan explained, all questions answered. The patient still co mplaining of epigastric abdominal pain with some nausea. No vomiting. Pain is controlled with medic ations. According to the daughter, the patient has had history of noncompliance in the past with fol lowing up. However, daughter states that she will bring her to any followup appointment [facility]. They understand the importance of following up and outpatient testing including EGD and colonoscopy, which will be required. Medications: List reviewed. Physical Examination: Vital Signs: Temperature 97.5, heart rate 53, blood pressure 133/77, respirations 18, O2 96% on room air. General: Awake, alert, oriented x3. Elderly female. Mild distress. CV: S1, S2. Regular rate and rhythm. Peripheral pulses present. Respiratory: Moving air well bilaterally. No wheezing or stridor. Gastrointestinal: Abdomen is soft. Tenderness to palpation in the epigastric region. No rebound or guarding. Positive bowel sounds. Nondistended. Extremities: No clubbing, cyanosis, or edema. Neuro: Cranial nerves 2-12 intact grossly. No focal neurological deficit. Laboratory Data: Sodium 141, potassium 3.8, chloride 109, CO2 28, BUN 29, creatinine 1.9, glucose 79 , calcium 8.9, triglycerides 256, cholesterol 182, LDL 94, HDL 37, lipase 277. WBC 5, H and H 11.5 a nd 35.3, platelets 222, neutrophils 47%. EKG shows sinus bradycardia, rate of 51, minimal voltage cr iteria for LVH, septal infarct age undetermined, T-wave abnormality, consider inferior ischemia. Assessment And Plan: A 67-year-old female with: 1.Chest pain, likely atypical, cardiac enzymes are negative, likely related to epigastric pain. Acu te coronary syndrome has been ruled out. EKG does show some nonspecific changes. 2.Epigastric abdominal pain. The patient likely has gastroenteritis versus acute cholecystitis. Ul trasound of the abdomen shows cholelithiasis, however, gallbladder wall is upper limits normal thickn ess. Biliary tree is normal caliber. Lipase level is normal, doubt pancreatitis. Dr. Rose recom mends HIDA scan in a.m. and outpatient colonoscopy and EGD. The patient is agreeable. We will stephanie nue with IV fluids. Keep n.p.o. continue pain medications. 3.Chronic kidney disease stage 4. The patient's creatinine is slightly above baseline of 1.6 from N ovember of last year. She says that she does not follow with Nephrology. We will continue to monito r creatinine and avoid NSAIDs. 4.Essential hypertension, stable. We will resume home medications. 5.Bipolar 1 disorder. We will continue home medications, stable. 6.Schizophrenia. The patient is stable. The patient is high functional. 7.Mixed dyslipidemia. The patient has elevated triglycerides and low HDL. Plan: HIDA scan in a.m. likely discharge in next 24-hours depending on clinical response and if the patient is able to tolerate diet. /ALEYXS Voice ID: [id number] Report ID: [id number]
[2018-09-25] MEDS: MORPHINE 2 MG/ML SYR IV PRN (20:57)
[2018-09-25] MEDS: BUSPIRONE HCL 5 MG TABLET PO SCH (21:03)
[2018-09-25 22:08] LABS: Urine Appearance CLEAR; Urine Bilirubin NEGATIVE (NEG); Urine Blood NEGATIVE (NEG); Urine Color YELLOW; Urine Glucose NEGATIVE (NEG); Urine Protein NEGATIVE (NEG); Urine Urobilinogen 0.2 mg/dL (0.2-1.0)
[2018-09-25 22:10] LABS: Urine Microscopic Reflex NO UMIC
[2018-09-25 22:16] LABS: Urine Protein/Creatinine Ratio 0.14 ratio (<0.15)
[2018-09-26 05:07] LABS: Absolute Lymphocytes (CBC) 1.8 K/uL (0.7-4.9); Basophils % 1.4 % (0-1.3); Eosinophils % 2.5 % (0-4.4); Hematocrit 34.1 % (36.0-45.0); Lymphocytes % 46.9 % (15.3-44.8); MPV 8.7 fL (7.6-11.3); Monocytes % 12.9 % (3.3-12.3); RBC Red Blood Cell Count 3.77 M/uL (3.86-4.86)
[2018-09-26 05:16] LABS: Albumin 3.3 g/dL (3.4-5.0); Bilirubin Total 0.5 mg/dL (0.2-1.0); Potassium 4.1 mmol/L (3.5-5.1)
[2018-09-26] MEDS ORDERED: hydroCHLOROthiazide 25 MG TAB PO SCH (09:00)
[2018-09-26] MEDS: ENOXAPARIN 30 MG/0.3 ML SQ SCH (09:16)
[2018-09-26] MEDS: MORPHINE 2 MG/ML SYR IV PRN ×2 (09:16→22:59)
[2018-09-26] MEDS: BUSPIRONE HCL 5 MG TABLET PO SCH ×2 (09:17→21:45)
[2018-09-26] MEDS: ASPIRIN EC 81 MG TAB PO SCH (09:17)
[2018-09-26] MEDS: POTASSIUM CL SA 10 MEQ TAB PO SCH (09:17)
[2018-09-26] MEDS: FLUOXETINE 20 MG CAP PO SCH (09:17)
[2018-09-26] MEDS: AMLODIPINE 5 MG TAB PO SCH (09:18)
--- NOTE | 2018-09-26 10:13 | P.PN ---
Subjective Date of Service: 09/26/18 Chief Complaint: CHEST PAIN RULE OUT /CHOLELITHIASIS Subjective: Improving Pt with CKD, presented for Abd pain, found to have LIZETT today feels better tolerating diet Sinus bradycardia, asymptomatic Cr improved to 1.6 plan for HIDA scan today if HIDA is negative then pt can be discharged from nephrology point of view and f/u with nephrology clinic in 2-3 wks Physical Examination - Vital Signs Temperature: 97.9 F Blood Pressure: 140/71 Pulse: 47 Respirations: 14 Pulse Ox (%): 96 - Physical Exam General: Alert, In no apparent distress HEENT: Atraumatic Neck: Supple, Without JVD or thyroid abnormality Respiratory: Clear to auscultation bilaterally, Normal air movement Cardiovascular: No edema, Regular rate/rhythm, Normal S1 S2, No gallops, No rubs , No murmurs Gastrointestinal: Normal bowel sounds, Soft and benign Integumentary: No rashes Assessment And Plan - Current Problems (Diagnosis) (1) ARF (acute renal failure) Current Visit: No Status: Acute Qualifiers: Acute renal failure type: unspecified Qualified Code(s): N17.9 - Acute kidney failure, unspecified - Plan Lizett on CKD III Cr in 2018 1.6 in er Cr 1.9 LIZETT likely due to prerenal azotemia +/- HCTZ CKD likely due to HTN nephrosclerosis and [place] +/- NSAID renal US ; no hydro m, echogenic kidneys with thin cortex , b/l non-obstructing calculi UA no prot or bld off HCTZ Gentle hydration BP controlled Abd pain resolved Surgery on board tolerating liquid diet plan for HIDA scan
--- NOTE | 2018-09-26 10:30 | RAD REPORT ---
EXAM DESCRIPTION: NM - Hepatobiliary System W/ Ph - 09/26/2018 9:30 am CLINICAL HISTORY: Epigastric pain, abdominal pain COMPARISON: None. TECHNIQUE: The patient was administered 6.2 mCi Tc99m Choletec. Imaging of the right upper quadrant was performed initially for up to 60 minutes. The patient was administered synthetic CCK over a slow 30 minute infusion. MICHAEL measurements were obtained of the gallbladder and an ejection fraction calcu lated. Synthetic CCK dosage was 1.2 mgm. FINDINGS: There is homogeneous uptake of radiopharmaceutical throughout the liver. There is no delay in visualization of the biliary tree or duodenum. Gallbladder visualizes within normal time limits. The calculated ejection fraction is 40%. Patient detailed pain rated 7/10 before the examination. Pain increased to 9/10 with bloating and gas pressure during CCK infusion. IMPRESSION: Patent cystic duct and patent sphincter of Oddi. No delay in visualization of the gallbl adder, biliary tree, or duodenum. Ejection fraction is 40%. Patient detailed pain rated 7/10 before the examination. Pain increased to 9/10 with bloating and gas pressure during CCK infusion.
[2018-09-26] MEDS: NA CHLORIDE 0.9% 1,000 ML IV SCH (11:00)
--- NOTE | 2018-09-26 11:15 | P.PN ---
Subjective Date of Service: 09/26/18 Chief Complaint: CHEST PAIN RULE OUT /CHOLELITHIASIS Subjective: No new changes (Patient states pain in more in LUQ now, and LLQ. no pain in RUQ or epigastrium, no nausea or emesis, no bowel movements) Physical Examination - Vital Signs Temperature: 97.9 F Blood Pressure: 140/71 Pulse: 47 Respirations: 14 Pulse Ox (%): 96 - Physical Exam General: Alert, In no apparent distress, Cooperative Gastrointestinal: Other (soft, mild LLQ, LUQ ttp, ND, no rebound, no guarding, no peritoneal signs) Assessment And Plan - Current Problems (Diagnosis) (1) Abdominal pain Current Visit: Yes Status: Acute Plan: - continue medical management - start clear liquids - if patient is not improving will consider EGD / Colonoscopy - Dr. Sullivan covering for the weekend
[2018-09-26] MEDS: SUCRALFATE 1 GM TABLET PO SCH ×3 (11:49→23:00)
[2018-09-26] MEDS: METRONIDAZOLE 500mg IVPB 500 MG/100 ML BAG IV SCH ×2 (11:49→16:53)
[2018-09-26] MEDS: CIPROFLOXACIN 400mg IV 400 MG/200 ML BAG IV SCH ×2 (11:50→23:16)
--- NOTE | 2018-09-26 18:38 | PN ---
Date of Progress Note: 09/26/2018 Subjective: The patient seen and examined. Chart reviewed and case discussed with RN and Dr. Rancho chavez. The patient had HIDA scan done today, which was normal. The patient is still having significant amount of pain, unable to tolerate her diet. Still having some nausea. Medications: List reviewed. Objective: Vital Signs: Temperature 98.1, heart rate 47, blood pressure 150/71, respirations 15, O2 100% on room air. General: Awake, alert, oriented x3. Elderly female, ill-appearing. CV: S1, S2. Regular rate and rhythm. Peripheral pulses present. Respiratory: Moving air well bilaterally. No wheezing or stridor. Gastrointestinal: Abdomen is soft. Tenderness to palpation in the epigastric region. Mild guarding . No rebound. No distention. Positive bowel sounds. Extremities: No clubbing, cyanosis, or edema. No calf tenderness. Neurologic: Nonfocal. SKIN: No rashes. Normal skin turgor. Laboratory Data: Sodium 143, potassium 4.1, chloride 111, CO2 29, BUN 21, creatinine 1.61, glucose 8 2, calcium 8.7, albumin 3.3. WBC 3.8, H and H 11.3 and 34.1, platelets 195. Neutrophils 36%. HIDA scan; patent cystic duct and patent sphincter of Oddi. No delay in visualization of the gallbladder or biliary tree or duodenum. EF is 40%. Echocardiogram; EF is 61%. No wall motion abnormalities. Assessment And Plan: A 67-year-old female with, 1.Chest pain, atypical, cardiac enzymes are negative. Echocardiogram does not show any wall motion abnormalities. 2.Epigastric abdominal pain, likely gastroenteritis versus colitis or acute cholecystitis. The HIDA scan did not reveal any biliary dyskinesia. Her abdominal ultrasound did show gallbladder wall thic kening at upper limits of normal, may be related to gastric ulceration. We will start on IV PPI and Carafate. The patient will need EGD and colonoscopy as outpatient if she is able to tolerate p.o. in take. May need to be done sooner than that if unable to tolerate p.o. intake. 3.Acute on chronic kidney disease stage 4. Creatinine is improving, back to baseline of 1.6. Kong givens Nephrology input. Renal ultrasound reviewed, shows kidney disease, likely secondary to hyperte nsion and previous use of lithium. 4.Essential hypertension, stable, continue medications. 5.Bipolar 1 disorder, stable, continue medications. 6.Schizophrenia, stable. 7.Mixed hyperlipidemia. Disposition: Likely discharge in the next 48 to 72 hours depending on clinical response. If unable to tolerate p.o. will need EGD. /ALEXYS Voice ID: [id number] Report ID: [id number]
[2018-09-26] MEDS: PANTOPRAZOLE 40 MG INJ IVP SCH (21:45)
[2018-09-26] MEDS: ALPRAZOLAM 0.25 MG TABLET PO PRN (21:46)
[2018-09-27] MEDS: METRONIDAZOLE 500mg IVPB 500 MG/100 ML BAG IV SCH ×3 (01:37→17:46)
[2018-09-27] MEDS: NA CHLORIDE 0.9% 1,000 ML IV SCH ×3 (07:00→17:11)
[2018-09-27] MEDS: POTASSIUM CL SA 10 MEQ TAB PO SCH (09:15)
[2018-09-27] MEDS: SUCRALFATE 1 GM TABLET PO SCH ×4 (09:15→20:58)
[2018-09-27] MEDS: AMLODIPINE 5 MG TAB PO SCH (09:15)
[2018-09-27] MEDS: BUSPIRONE HCL 5 MG TABLET PO SCH ×2 (09:15→20:58)
[2018-09-27] MEDS: FLUOXETINE 20 MG CAP PO SCH (09:16)
[2018-09-27] MEDS: PANTOPRAZOLE 40 MG INJ IVP SCH ×2 (09:16→21:03)
[2018-09-27] MEDS: ASPIRIN EC 81 MG TAB PO SCH (09:16)
[2018-09-27] MEDS: ENOXAPARIN 30 MG/0.3 ML SQ SCH (09:17)
[2018-09-27] MEDS: CIPROFLOXACIN 400mg IV 400 MG/200 ML BAG IV SCH ×3 (09:17→20:58)
--- NOTE | 2018-09-27 13:28 | P.PN ---
Subjective Date of Service: 09/27/18 Chief Complaint: CHEST PAIN RULE OUT /CHOLELITHIASIS Subjective: Improving Pt with CKD, presented for Abd pain, found to have LIZETT today feels better tolerating diet HIDA scan -ve pt can be discharged from nephrology point of view and f/u with nephrology clinic in 2-3 wks Physical Examination - Vital Signs Temperature: 97.6 F Blood Pressure: 135/72 Pulse: 52 Respirations: 18 Pulse Ox (%): 99 - Physical Exam General: In no apparent distress, Oriented x3 HEENT: Atraumatic Neck: Supple, Without JVD or thyroid abnormality Respiratory: Clear to auscultation bilaterally, Normal air movement Cardiovascular: No edema, Regular rate/rhythm, Normal S1 S2, No gallops, No rubs , No murmurs Gastrointestinal: Normal bowel sounds, Soft and benign Musculoskeletal: No swelling Assessment And Plan - Current Problems (Diagnosis) (1) ARF (acute renal failure) Current Visit: No Status: Acute Qualifiers: Acute renal failure type: unspecified Qualified Code(s): N17.9 - Acute kidney failure, unspecified - Plan Lizett on CKD III Cr in 2018 1.6 in er Cr 1.9 LIZETT likely due to prerenal azotemia +/- HCTZ CKD likely due to HTN nephrosclerosis and [place] +/- NSAID renal US ; no hydro m, echogenic kidneys with thin cortex , b/l non-obstructing calculi UA no prot or bld off HCTZ Gentle hydration BP controlled Abd pain resolved Surgery on board tolerating diet HIDA scan: -ve
--- NOTE | 2018-09-27 18:45 | PN ---
Date of Progress Note: 09/27/2018 Subjective: The patient is seen and examined. Chart reviewed, and case discussed with RN. The camille ent is asking for solid food, tolerating liquids well. Still having some pain in her abdomen. Medications: List reviewed. Physical Examination: Vital Signs: Temperature 97.6, heart rate 49, blood pressure 135/72, respirations 18, O2 of 99% on r oom air. General: Awake, alert, oriented x3. An elderly female. CV: S1 and S2. Sinus bradycardia. Peripheral pulses present. Respiratory: Moving air well bilaterally. No wheezing. Gastrointestinal: Abdomen is soft. Mild tenderness to palpation in the epigastric region. No rebou nd or guarding. Extremities: No clubbing, cyanosis, or edema. Neuro: Nonfocal. Laboratory Data: Glucose levels between 81 and 85. Assessment: A 67-year-old female with: 1.Chest pain, atypical, acute coronary syndrome ruled out. Echocardiogram does not reveal any wall motion abnormalities. 2.Epigastric abdominal pain, likely gastroenteritis versus colitis or acute cholecystitis. Continue with IV PPI and Carafate. The patient will need esophagogastroduodenoscopy and colonoscopy as an ou tpatient unless she is unable to tolerate p.o. intake. Appreciate Dr. Rose's input. 3.Zthag-rk-hkfvzlm kidney disease stage 4. Creatinine improving, back to baseline of 1.6. Nephrolo gy is on board. HCTZ was discontinued. 4.Essential hypertension, stable. 5.Sinus bradycardia, asymptomatic. 6.Bipolar I disorder, stable. 7.Schizophrenia, stable. 8.Mixed hyperlipidemia, stable. 9.Deep vein thrombosis prophylaxis with Lovenox, renally dosed. Plan: Discharge in the next 24 to 48 hours if able to tolerate GI soft diet. If pain returns or wor sens, may need EGD. SA/MODL Voice ID: [id number] Report ID: [id number]
[2018-09-27] MEDS: ALPRAZOLAM 0.25 MG TABLET PO PRN (21:03)
[2018-09-28] MEDS: METRONIDAZOLE 500mg IVPB 500 MG/100 ML BAG IV SCH ×3 (00:45→16:36)
[2018-09-28] MEDS: NA CHLORIDE 0.9% 1,000 ML IV SCH ×3 (03:00→23:00)
[2018-09-28 05:10] LABS: Absolute Lymphocytes (CBC) 1.5 K/uL (0.7-4.9); Basophils % 0.9 % (0-1.3); Eosinophils % 3.1 % (0-4.4); Hematocrit 31.2 % (36.0-45.0); Lymphocytes % 37.8 % (15.3-44.8); Monocytes % 11.2 % (3.3-12.3); RBC Red Blood Cell Count 3.49 M/uL (3.86-4.86)
[2018-09-28 05:27] LABS: Bilirubin Total 0.2 mg/dL (0.2-1.0); Potassium 3.7 mmol/L (3.5-5.1); Protein, Total 6.3 g/dL (6.4-8.2)
[2018-09-28] MEDS: SUCRALFATE 1 GM TABLET PO SCH ×4 (08:09→21:38)
[2018-09-28] MEDS: ENOXAPARIN 30 MG/0.3 ML SQ SCH (08:10)
[2018-09-28] MEDS: PANTOPRAZOLE 40 MG INJ IVP SCH ×2 (08:10→21:39)
[2018-09-28] MEDS: SODIUM CHLORIDE 0.9% 10ML INJ IV PRN (08:11)
[2018-09-28] MEDS: CIPROFLOXACIN 400mg IV 400 MG/200 ML BAG IV SCH ×2 (08:12→21:39)
[2018-09-28] MEDS: POTASSIUM CL SA 10 MEQ TAB PO SCH (09:40)
[2018-09-28] MEDS: AMLODIPINE 5 MG TAB PO SCH (09:40)
[2018-09-28] MEDS: FLUOXETINE 20 MG CAP PO SCH (09:41)
[2018-09-28] MEDS: ASPIRIN EC 81 MG TAB PO SCH (09:41)
[2018-09-28] MEDS: BUSPIRONE HCL 5 MG TABLET PO SCH ×2 (09:42→21:38)
[2018-09-28] MEDS: MORPHINE 2 MG/ML SYR IV PRN (09:43)
--- NOTE | 2018-09-28 14:15 | P.PN ---
Subjective Date of Service: 09/28/18 Chief Complaint: CHEST PAIN RULE OUT /CHOLELITHIASIS Subjective: No new changes Pt with CKD, presented for Abd pain, found to have LIZETT CKD likely due to NSAID and lithium use today feels better could not tolerate diet HIDA scan -ve Cr improving Plan for EGD tomorrow Physical Examination - Vital Signs Temperature: 97.8 F Blood Pressure: 101/59 Pulse: 54 Respirations: 18 Pulse Ox (%): 94 - Physical Exam General: Alert, In no apparent distress HEENT: Atraumatic Neck: Supple, Without JVD or thyroid abnormality Respiratory: Clear to auscultation bilaterally, Normal air movement Cardiovascular: No edema, Regular rate/rhythm, Normal S1 S2, No gallops, No rubs Gastrointestinal: Normal bowel sounds, Soft and benign Assessment And Plan - Current Problems (Diagnosis) (1) ARF (acute renal failure) Current Visit: No Status: Acute Qualifiers: Acute renal failure type: unspecified Qualified Code(s): N17.9 - Acute kidney failure, unspecified - Plan Lizett on CKD III Cr in 2018 1.6 in er Cr 1.9 LIZETT likely due to prerenal azotemia +/- HCTZ CKD likely due to HTN nephrosclerosis and [place] +/- NSAID renal US ; no hydro m, echogenic kidneys with thin cortex , b/l non-obstructing calculi UA no prot or bld off HCTZ Gentle hydration BP controlled Abd pain Surgery on board tolerating diet HIDA scan: -ve possible EGD tomorrow
--- NOTE | 2018-09-28 16:16 | RAD REPORT ---
EXAM DESCRIPTION: CT - Abdomen Pelvis Wo Contrast - 09/28/2018 3:54 pm CLINICAL HISTORY: Abdominal pain. Abdominal pain, COMPARISON: CT-STONE PROTOCOL dated 09/06/2009 TECHNIQUE: CT imaging of the abdomen and pelvis was performed without contrast. Solid organ and vasc ular assessment is limited due to lack of IV contrast. All CT scans are performed using dose optimization technique as appropriate and may include automated exposure control or mA/KV adjustment according to patient size. FINDINGS: The lower lung verma are clear. Multiple low-density liver lesions are present compatible with liver cysts. No aggressive liver lesio n suspected. Gallstones are noted. The spleen, adrenal glands and pancreas are within normal limits. Small stones are present in the calices of both kidneys without hydronephrosis. No bowel obstruction, free air, free fluid or abscess. Sigmoid diverticulosis noted. Mucosal thickeni ng and subtle pericolonic inflammatory changes are present involving the sigmoid colon suggesting mil d colitis or early diverticulitis. The appendix is normal. Grade 1 anterolisthesis of L5 on S1 is seen with bilateral spondylolysis. IMPRESSION: Mild/early findings of acute sigmoid diverticulitis are suspected. No abscess or other c omplication suspected. Cholelithiasis. Bilateral caliceal renal stones without hydronephrosis. A limited non-contrast examination was performed as detailed.
--- NOTE | 2018-09-28 18:15 | PN ---
Date of Progress Note: 09/28/2018 Subjective: The patient is seen and examined. Chart reviewed, and case discussed with RN and Dr. Shaun bright. The patient is still complaining of abdominal pain. States she has had multiple episodes of diarrhea since last night. Medications: List reviewed. Physical Examination: Vital Signs: Temperature 97.6, heart rate 62, blood pressure 132/69, respirations 18, O2 100% on moshe m air. General: Awake, alert, oriented x3. Elderly female, in some mild distress. CV: S1, S2. Regular rate and rhythm. Peripheral pulses present. Respiratory: Moving air well bilaterally. No wheezing. Gastrointestinal: Abdomen is soft. Tenderness to palpation in the epigastric region. No rebound or guarding. Bowel sounds positive. Extremities: No clubbing, cyanosis, or edema. Neurologic: Nonfocal. Laboratory Data: Sodium 144, potassium 3.7, chloride 112, CO2 27, BUN 13, creatinine 1.49, glucose 1 01, calcium 8.1, albumin 3. WBC 3.8, H and H 10.6 and 31.2, platelets 170, neutrophils 47%. Assessment: A 67-year-old female with. 1.Chest pain, atypical. Acute coronary syndrome ruled out. Echocardiogram normal with no wall janice on abnormalities. 2.Epigastric abdominal pain, possibly gastroenteritis versus colitis. Doubt cholecystitis. The pat ient is improving on IV PPI and Carafate. The patient recommended to have EGD by Dr. Rose. 3.Acute on chronic kidney disease stage 4. Creatinine is improved back to baseline. Appreciate [facility] hrology input. HCTZ on hold. 4.Diarrhea. We will check for C diff, placed on contact precautions for now. We will delay colonos copy due to possible C diff infection and colitis. 5.Essential hypertension, stable. 6.Item sinus bradycardia, improved, asymptomatic. 7.Bipolar 1 disorder, stable. 8.Schizophrenia, stable. 9.Mixed hyperlipidemia. Continue statin. 10.Deep vein thrombosis prophylaxis with Lovenox renally dosed. Plan: Obtain CT scan of the abdomen and pelvis without contrast. The patient's pain seems to be out of proportion to exam, unclear etiology. We will benefit from the EGD. Dr. Rose recommends EGD in the a.m. Discharge once symptoms have improved. Rule out C diff. SA/MODL Voice ID: [id number] Report ID: [id number]
[2018-09-28] MEDS: ALPRAZOLAM 0.25 MG TABLET PO PRN (21:38)
[2018-09-29] MEDS: METRONIDAZOLE 500mg IVPB 500 MG/100 ML BAG IV SCH ×3 (00:15→16:17)
[2018-09-29] MEDS: MORPHINE 2 MG/ML SYR IV PRN ×5 (00:15→21:15)
[2018-09-29 06:13] LABS: Absolute Lymphocytes (CBC) 1.4 K/uL (0.7-4.9); Basophils % 0.8 % (0-1.3); Eosinophils % 4.1 % (0-4.4); Hematocrit 31.9 % (36.0-45.0); Lymphocytes % 28.8 % (15.3-44.8); MPV 8.4 fL (7.6-11.3); Monocytes % 11.5 % (3.3-12.3); RBC Red Blood Cell Count 3.53 M/uL (3.86-4.86)
[2018-09-29 06:22] LABS: Albumin 3.1 g/dL (3.4-5.0); Bilirubin Total 0.2 mg/dL (0.2-1.0); Potassium 3.7 mmol/L (3.5-5.1); Protein, Total 6.6 g/dL (6.4-8.2)
[2018-09-29] MEDS: SUCRALFATE 1 GM TABLET PO SCH ×4 (07:30→21:14)
[2018-09-29] MEDS: FLUOXETINE 20 MG CAP PO SCH (09:00)
[2018-09-29] MEDS: ENOXAPARIN 30 MG/0.3 ML SQ SCH (09:00)
[2018-09-29] MEDS: ASPIRIN EC 81 MG TAB PO SCH (09:00)
[2018-09-29] MEDS: AMLODIPINE 5 MG TAB PO SCH (09:00)
[2018-09-29] MEDS: POTASSIUM CL SA 10 MEQ TAB PO SCH (09:00)
[2018-09-29] MEDS: BUSPIRONE HCL 5 MG TABLET PO SCH ×2 (09:00→21:14)
[2018-09-29] MEDS: CIPROFLOXACIN 400mg IV 400 MG/200 ML BAG IV SCH ×2 (09:08→21:12)
[2018-09-29] MEDS: PANTOPRAZOLE 40 MG INJ IVP SCH ×2 (09:09→21:14)
[2018-09-29] MEDS: SODIUM CHLORIDE 0.9% 10ML INJ IV PRN (09:09)
[2018-09-29] MEDS: NA CHLORIDE 0.9% 1,000 ML IV SCH (13:27)
[2018-09-29] MEDS ORDERED: PROPOFOL 200 MG/20 ML VIAL IV ONE (14:39)
[2018-09-29] MEDS ORDERED: LIDOCAINE 1% MPF 5 ML VIAL ONE (14:40)
--- NOTE | 2018-09-29 14:48 | ENDO RPT ---
[address], [address] EGD PROCEDURE REPORT EXAM DATE: 09/29/2018 PATIENT NAME: Celine Glaser MR#: [id number] BIRTHDATE: 1950 ATTENDING: Wil Rose DR STATUS: inpatient - [facility] POLYMER CHEMIST: Jeanine Reynolds RN, Renato Donnelly, and Franki Avery RN INDICATIONS: The patient is a 67 yr old Female here for an EGD due to mid epigastric abdominal pain PROCEDURE PERFORMED: EGD with biopsy for H. pylori MEDICATIONS: Per Anesthesia. TOPICAL ANESTHETIC: none CONSENT: The patient understands the risks and benefits of the procedure and understands that these risks include, but are not limited to: sedation, allergic reaction, infection, perforation and/or bleeding. Alternative means of evaluation and treatment include, among others: physical exam, x-rays, and/or surgical intervention. The patient elects to proceed with this endoscopic procedure. DESCRIPTION OF PROCEDURE: During intra-op preparation period all mechanical medical equipment was checked for proper function. Hand hygiene and appropriate measures for infection prevention was taken. Procedure, possible complications, and alternatives including but not limited to the possibility of bleeding, perforation, tear, infection, sepsis, need for surgery, need for blood transfusion, and anesthesia related complications were explained to the patient. After the risks, benefits and alternatives of the procedure were thoroughly explained, Informed consent was verified, confirmed and timeout was successfully executed by the treatment team. The patient was placed in the left lateral position. The patient was anesthetized with topical anesthesia. Through the anesthetized oropharyngeal area, the scope was passed without any difficulty. The Pentax EG-[id number] ([id number]) endoscope was introduced through the mouth and advanced to the third portion of the duodenum. Food Bezor. The gastroscope was then slowly withdrawn and removed. Retained food was present in the fundus. Mild gastritis was found at the pylorus. A biopsy for H. pylori was taken. ADVERSE EVENTS: There were no complications. IMPRESSIONS: 1. Retained food was present in the fundus 2. Mild gastritis was found at the pylorus RECOMMENDATIONS: 1. acid suppression therapy 2. await biopsy results 3. follow-up: office 2 week(s) 4. avoid NSAIDS 5. gastric emptying study 6. follow-up of helicobacter pylori status, treat if indicated REPEAT EXAM: Wil Rose DR eSigned: Wil Rose DR 09/29/2018 2:48 PM cc: CPT CODES: ICD9 CODES: PATIENT NAME: Satinder akash Celinegasper Harding MR#: [id number]
--- NOTE | 2018-09-29 15:15 | PN ---
Date of Progress Note: 09/29/2018 Subjective: The patient seen and examined. Chart reviewed and case discussed with RN and Dr. Rancho chavez. The patient is still having significant amount of pain and continues to have diarrhea. Medications: List reviewed. Physical Examination: Vital Signs: Temperature 99.1, heart rate 54, blood pressure 131/80, respirations 16, O2 96% on room air. General: Awake, alert, oriented x3. Elderly female, ill appearing. CV: S1 and S2. No murmurs. Respiratory: Moving air well bilaterally. No wheezing. Gastrointestinal: Abdomen is soft. Tenderness to palpation in the suprapubic region. No guarding o r rigidity. Extremities: No clubbing, cyanosis, or edema. Neurologic: Nonfocal. Laboratory Data: Sodium 145, potassium 3.7, chloride 112, CO2 27, BUN 11, creatinine 1.39, glucose 9 5, calcium 8.5, albumin 3.1. WBC 4.9, H and H 10.7 and 31.9, platelets 177. CT scan of the abdomen and pelvis shows mild early findings of acute sigmoid diverticulitis suspected no abscess. Other com plications suspected cholelithiasis, bilateral calyceal renal stones without hydronephrosis. Assessment And Plan: A 67-year-old female with: 1.Chest pain, atypical, acute coronary syndrome ruled out. No wall motion abnormality seen on echoc ardiogram. 2.Epigastric abdominal pain. CT scan of the abdomen shows sigmoid diverticulitis. The patient tomas g for scope today. We will continue IV PPI and Carafate. 3.Sigmoid diverticulitis without bleeding. The patient continues to have diarrhea. We will rule ou t C. diff. Continue IV antibiotics. 4.Acute on chronic kidney disease, stage 4. Creatinine improving, back to baseline. Appreciate Nep hrology input. Continue to hold HCTZ. 5.Essential hypertension, stable. 6.Sinus bradycardia asymptomatic. 7.Bipolar 1 disorder, stable. 8.Schizophrenia, stable. 9.Mixed hyperlipidemia. Continue statin. 10.Deep venous thrombosis prophylaxis with Lovenox, renally dosed. Plan: EGD today. Discharge depending on clinical symptoms and if patient is able to tolerate p.o. d iet. /MODL Voice ID: [id number] Report ID: [id number]
[2018-09-30] MEDS: METRONIDAZOLE 500mg IVPB 500 MG/100 ML BAG IV SCH ×3 (00:02→16:18)
[2018-09-30] MEDS: ALPRAZOLAM 0.25 MG TABLET PO PRN (00:03)
[2018-09-30] MEDS: ONDANSETRON 4 MG/2 ML VIAL IV PRN ×4 (00:03→21:01)
--- NOTE | 2018-09-30 03:46 | PN ---
Date of Progress Note: 09/29/2018 Chief Complaint: Chronic kidney disease, accelerated by acute kidney injury, nonoliguric. History Of Present Illness: The patient has history of chronic lithium use and likely secondary to l ithium chronic toxicity and kidney insufficiency. The patient was started on IV fluids and creatinin e level has improved. The patient has nonoliguric urine output. The patient was found to have acute on chronic kidney injury secondary to prerenal azotemia, nonoliguric ATN. The patient was taken off HCTZ due to risk of hyponatremia and worsening of the renal function. The patient has benign nephro sclerosis secondary associated with chronic kidney disease and hypertensive kidney disease. The camille ent was instructed to avoid nonsteroidal anti-inflammatory medication. The patient is on mild hydrat ion to stabilize the renal function. The patient has acute on chronic kidney injury, moderately severe, associated with prerenal azotemia. On arrival to the hospital, creatinine was 1.98. Today, creatinine is 1.39. Over last 3-4 days, r enal function slightly improved. Electrolytes are stable. Sodium is 145, potassium 3.7, chloride 11 2, CO2 27, BUN is 11, creatinine 1.36. Review of Systems: Denies fever, chills. Physical Examination: Lungs: Few crackles at bases. Heart: S1, S2. Abdomen: Soft, benign, nontender. Extremities: Slight edema in both ankle. Impression And Plan: 1.Acute kidney injury on chronic kidney disease, nonoliguric urine output. Monitor electrolytes and fluid balance. Check renal function daily. 2.The patient is to have EGD to evaluate for nausea, vomiting. The patient will advance diet accord ing to recommendation from GI service. 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 Monitor proteinuria. The patient is not a candidate for HCTZ due to risk of hyponatremia. Avoid nephrotoxic medication. BETTINA/ALEXYS Voice ID: [id number] Report ID: [id number]
[2018-09-30 07:25] LABS: Absolute Lymphocytes (CBC) 1.3 K/uL (0.7-4.9); Basophils % 0.7 % (0-1.3); Eosinophils % 2.4 % (0-4.4); Hematocrit 33.2 % (36.0-45.0); Lymphocytes % 24.4 % (15.3-44.8); MPV 8.6 fL (7.6-11.3); Monocytes % 10.4 % (3.3-12.3); RBC Red Blood Cell Count 3.69 M/uL (3.86-4.86)
[2018-09-30 07:37] LABS: Potassium 3.7 mmol/L (3.5-5.1)
[2018-09-30] MEDS: POTASSIUM CL SA 10 MEQ TAB PO SCH (08:56)
[2018-09-30] MEDS: BUSPIRONE HCL 5 MG TABLET PO SCH ×2 (08:56→20:49)
[2018-09-30] MEDS: FLUOXETINE 20 MG CAP PO SCH (08:56)
[2018-09-30] MEDS: AMLODIPINE 5 MG TAB PO SCH (08:56)
[2018-09-30] MEDS: ASPIRIN EC 81 MG TAB PO SCH (08:57)
[2018-09-30] MEDS: SUCRALFATE 1 GM TABLET PO SCH ×4 (08:57→20:49)
[2018-09-30] MEDS: CIPROFLOXACIN 400mg IV 400 MG/200 ML BAG IV SCH ×2 (08:57→20:49)
[2018-09-30] MEDS: ENOXAPARIN 30 MG/0.3 ML SQ SCH (08:58)
[2018-09-30] MEDS: PANTOPRAZOLE 40 MG INJ IVP SCH ×2 (08:59→20:51)
[2018-09-30] MEDS: NA CHLORIDE 0.9% 1,000 ML IV SCH ×2 (09:13→15:00)
[2018-09-30] MEDS: MORPHINE 2 MG/ML SYR IV PRN ×3 (09:14→21:01)
--- NOTE | 2018-09-30 16:36 | P.PN ---
Subjective Date of Service: 09/30/18 Chief Complaint: CHEST PAIN RULE OUT /CHOLELITHIASIS Subjective: Improving Patient seen and examined at bedside. No family at bedside. Chart reviewed and case discussed with nursing staff. On clear liquid diet, tolerating. Would like to try something more. Continues to complain of abdominal soreness though. Nausea has resolved. No acute events noted overnight Review of Systems 10-point ROS is otherwise unremarkable Physical Examination - Vital Signs Temperature: 97.9 F Blood Pressure: 124/65 Pulse: 61 Respirations: 18 Pulse Ox (%): 95 - Physical Exam General: Alert, In no apparent distress, Oriented x3 HEENT: Atraumatic, PERRLA, EOMI Neck: Supple, JVD not distended Respiratory: Clear to auscultation bilaterally, Normal air movement Cardiovascular: Regular rate/rhythm, Normal S1 S2 Gastrointestinal: Normal bowel sounds, Tenderness Musculoskeletal: No tenderness Integumentary: No rashes Neurological: Normal speech, Normal tone, Normal affect Lymphatics: No axilla or inguinal lymphadenopathy Assessment And Plan - Plan This is a 67-year-old female with: Chest pain, atypical, acute coronary syndrome ruled out. No wall motion abnormality seen on echocardiogram. Epigastric abdominal pain. - CT scan of the abdomen shows sigmoid diverticulitis. The patient underwent scope yesterday. Pending pathology - We will continue IV PPI and Carafate. - patient will need a colonoscopy as an outpatient in 4-6 weeks. Sigmoid diverticulitis without bleeding. - The patient continues to have diarrhea, though improved. C. diff negative. Continue IV antibiotics. - daughter at bedside states that diarrhea has been chronic, over 2 years. She will need outpatient GI followup for this upon discharge Acute on chronic kidney disease, stage 4. - Creatinine back to baseline. Appreciate Nephrology input. Continue to hold HCTZ. Essential hypertension stable. Sinus bradycardia asymptomatic. Bipolar 1 disorder, stable. Schizophrenia, stable. Mixed hyperlipidemia. Continue statin. Deep venous thrombosis prophylaxis with Lovenox, renally dosed. Plan: Discharge depending on clinical symptoms and if patient is able to tolerate p.o. diet, likely in the next 24-48 hr
[2018-09-30] MEDS: SODIUM CHLORIDE 0.9% 10ML INJ IV PRN (20:51)
[2018-10-01] MEDS: METRONIDAZOLE 500mg IVPB 500 MG/100 ML BAG IV SCH ×2 (00:25→08:26)
--- NOTE | 2018-10-01 02:02 | PN ---
Date of Progress Note: 09/30/2018 Chief Complaint: Chronic kidney disease, accelerated by acute kidney injury and patient has nonoligu prashanth urine output. History Of Present Illness: The patient was started on IV fluids and creatinine level has improved. The patient was taken off HCTZ due to risk of hyponatremia and worsening of the renal function. The patient has benign nephrosclerosis secondary to chronic kidney disease and hypertensive kidney disea se. The patient was instructed to avoid nonsteroidal anti-inflammatory medication. The patient is o n mild hydration to stabilize the renal function. Creatinine on arrival to the hospital was 1.98. C reatinine has improved gradually and creatinine level is 1.36. Review of Systems: Denies fever or chills. Physical Examination: Lungs: Clear to auscultation bilaterally. Heart: S1, S2. Abdomen: Soft, benign. Extremities: Slight edema in both ankles. Impression And Plan: 1.Acute kidney injury on chronic kidney disease, nonoliguric urine output. Renal function has been improving gradually. Monitor renal function and wean off IV fluids. 2.The patient was complaining of nausea, vomiting. She had EGD done. Advance diet according to [facility] team recommendation. 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 Monitor proteinuria. Avoid nephrotoxic medications. BETTINA/ALEXYS Voice ID: [id number] Report ID: [id number]
[2018-10-01] MEDS: ONDANSETRON 4 MG/2 ML VIAL IV PRN (02:57)
[2018-10-01] MEDS: MORPHINE 2 MG/ML SYR IV PRN ×2 (02:59→08:28)
[2018-10-01 06:11] LABS: Absolute Lymphocytes (CBC) 1.3 K/uL (0.7-4.9); Basophils % 0.9 % (0-1.3); Eosinophils % 3.3 % (0-4.4); Hematocrit 31.5 % (36.0-45.0); Lymphocytes % 26.8 % (15.3-44.8); MPV 8.7 fL (7.6-11.3); Monocytes % 13.1 % (3.3-12.3); RBC Red Blood Cell Count 3.49 M/uL (3.86-4.86)
[2018-10-01] MEDS: ENOXAPARIN 30 MG/0.3 ML SQ SCH (08:26)
[2018-10-01] MEDS: PANTOPRAZOLE 40 MG INJ IVP SCH (08:26)
[2018-10-01] MEDS: CIPROFLOXACIN 400mg IV 400 MG/200 ML BAG IV SCH (08:26)
[2018-10-01] MEDS: POTASSIUM CL SA 10 MEQ TAB PO SCH (08:27)
[2018-10-01] MEDS: BUSPIRONE HCL 5 MG TABLET PO SCH (08:27)
[2018-10-01] MEDS: AMLODIPINE 5 MG TAB PO SCH (08:27)
[2018-10-01] MEDS: FLUOXETINE 20 MG CAP PO SCH (08:27)
[2018-10-01] MEDS: ASPIRIN EC 81 MG TAB PO SCH (08:28)
[2018-10-01] MEDS: SUCRALFATE 1 GM TABLET PO SCH ×2 (10:13→11:30)
[2018-10-01] MEDS: NA CHLORIDE 0.9% 1,000 ML IV SCH (11:00)
--- NOTE | 2018-10-01 11:41 | P.DS ---
Admission Date: 09/26/18 Discharge Date: 10/01/18 Disposition: ROUTINE DISCHARGE Discharge Condition: GOOD Reason for Admission: CHEST PAIN RULE OUT /CHOLELITHIASIS Consultations: General surgery Gastroenterology Nephrology Cardiology Brief History of Present Illness: PATIENT IS A 67-YEAR-OLD FEMALE WITH HISTORY OF BIPOLAR DISORDER AND COMES INTO THE HOSPITAL WITH CHEST DISCOMFORT. PAIN WAS MAINLY IN THE EPIGASTRIC REGION. SHE WAS FOUND HAVE CHOLELITHIASIS ON FURTHER WORKUP. PATIENT DENIES ANY RADIATION OF HER PAIN. SHE DOES APPEAR TO BE QUITE LETHARGIC. SHE AWAKENS AND ANSWERS MOST OF MY QUESTIONS. PATIENT WITH MINIMAL RISK FACTORS OF 4 CORONARY ARTERY DISEASE. SHE DOES HAVE CHOLELITHIASIS. PATIENT ALSO WITH SOME ACUTE RENAL INSUFFICIENCY. WILL HYDRATE THE PATIENT GENTLY AND GET SURGERY CONSULTATION. PATIENT MAY NEED FURTHER WORKUP AN OUTPATIENT. WE WILL OPT TO HER OVERNIGHT AND SEE HOW SHE DOES AND POSSIBLE DISCHARGE HOME TOMORROW MORNING. Hospital Course: For her Chest pain, atypical, acute coronary syndrome was ruled out with normal cardiac enzymes and a normal echocardiogram. Her chest pain also resolved. She did have epigastric abdominal pain. CT scan of the abdomen was sigmoid diverticulitis. She underwent a scope and pathology still pending. She was started on IV PPI and Carafate. She was kept NPO, her diet was advanced slowly as her symptoms improved. Prior to discharge, she was tolerating an oral diet and her symptoms had resolved. She continues to have diarrhea. C. diff was negative. She is on IV ciprofloxacin and Flagyl. Daughter at bedside and stated that diarrhea has been chronic, over 2 years. She will continue to have outpatient GI followup for this upon discharge. She also was noted to have acute on chronic kidney disease, stage IV. Creatinine did return to baseline prior to discharge. Her hydrochlorothiazide was held on discharge. She was instructed to follow up with nephrology for further management. She otherwise remained stable throughout the stay. She was then cleared for discharge by general surgery. Prior to discharge, she was hemodynamically stable, labs were stable, he is tolerating oral diet and her symptoms had resolved. She was sitting up in bed, in her own clothes, in no acute distress. Her diagnosis and treatment plan was explained to her, all questions were answered and she verbalized understanding. She was then discharged home in a safe and stable manner. Her discharge medications included ciprofloxacin, Flagyl, Protonix and sucralfate. She was instructed to follow up with GI for further followup for her chronic diarrhea. She was instructed to follow up with general surgery for an outpatient colonoscopy in 4-6 weeks. And she was also instructed to follow up with nephrology for follow up on her chronic kidney disease. Vital Signs/Physical Exam: Temp Pulse Resp BP Pulse Ox 98.2 F 59 18 129/73 97 10/01/18 08:00 10/01/18 08:27 10/01/18 08:00 10/01/18 08:27 10/01/18 08:00 General: Alert, In no apparent distress, Oriented x3 HEENT: Atraumatic, PERRLA, EOMI Neck: Supple, JVD not distended Respiratory: Clear to auscultation bilaterally, Normal air movement Cardiovascular: Regular rate/rhythm, Normal S1 S2 Gastrointestinal: Normal bowel sounds, No tenderness Musculoskeletal: No tenderness Integumentary: No rashes Neurological: Normal speech, Normal tone, Normal affect Lymphatics: No axilla or inguinal lymphadenopathy Laboratory Data at Discharge: WBC 4.8 K/uL (4.3-10.9) 10/01/18 05:20 Hgb 10.7 g/dL (12.0-15.0) L 10/01/18 05:20 Hct 31.5 % (36.0-45.0) L 10/01/18 05:20 Plt Count 183 K/uL (152-406) 10/01/18 05:20 PT 11.3 SECONDS (9.5-12.5) 09/24/18 17:58 INR 0.96 09/24/18 17:58 Sodium 144 mmol/L (136-145) 10/01/18 05:20 Potassium 4.0 mmol/L (3.5-5.1) 10/01/18 05:20 BUN 6 mg/dL (7-18) L 10/01/18 05:20 Creatinine 1.43 mg/dL (0.55-1.3) H 10/01/18 05:20 Glucose 93 mg/dL (74-106) 10/01/18 05:20 Magnesium 2.2 mg/dL (1.8-2.4) 09/24/18 17:58 Total Bilirubin 0.2 mg/dL (0.2-1.0) 09/29/18 05:38 AST 33 U/L (15-37) 09/29/18 05:38 ALT 20 U/L (12-78) 09/29/18 05:38 Alkaline Phosphatase 75 U/L (45-117) 09/29/18 05:38 Troponin I 0.02 ng/mL (0.0-0.045) 09/26/18 01:19 Triglycerides 256 mg/dL (<150) H 09/25/18 07:20 Cholesterol 182 mg/dL (<200) 09/25/18 07:20 HDL Cholesterol 37 mg/dL (40-60) L 09/25/18 07:20 Cholesterol/HDL Ratio 4.92 09/25/18 07:20 Lipase 277 U/L (73-393) 09/24/18 17:58 Home Medications: Buspirone HCl [Buspar] 10 mg PO BID 02/16/18 Fluoxetine HCl [Prozac] 1 cap PO DAILY 02/16/18 Amlodipine [Norvasc*] 5 mg PO DAILY 09/25/18 Folic Acid/Mv,Fe,Min [One Daily Complete Tablet] 1 each PO DAILY 09/25/18 Iron 18 mg PO DAILY 09/25/18 Potassium Chloride 20 meq PO DAILY 09/25/18 Ciprofloxacin HCl 500 mg PO Q12HR #10 tablet 10/01/18 Pantoprazole Sodium [Protonix] 20 mg PO DAILY #30 tablet. 10/01/18 Sucralfate [Carafate*] 1 gm PO ACHS #15 tab 10/01/18 metroNIDAZOLE [Flagyl] 500 mg PO Q8H #15 tablet 10/01/18 New Medications: Ciprofloxacin HCl 500 mg PO Q12HR #10 tablet metroNIDAZOLE [Flagyl] 500 mg PO Q8H #15 tablet Pantoprazole Sodium [Protonix] 20 mg PO DAILY #30 tablet. Sucralfate [Carafate*] 1 gm PO ACHS #15 tab Patient Discharge Instructions: Please follow up with your primary care physician in 2-3 days. Please follow up with Dr. Rose for colonocscopy. Please follow up with GI for further management/evaluation of your chronic diarrhea. Please follow up with Nephrology for follow up for your acute kidney injury. Please return to the Emergency room for worsening symptoms. New medications: Sucralfate; Protonix; Ciprofloxacin, flagyl. Diet: GI soft as tolerated Activity: Ad amelia Followup: Stephen Heart MD [ACTIVE - CAN ADMIT] - (call to schedule appointment) Wil Rose MD [ACTIVE - CAN ADMIT] - (call to schedule appointment) Austin Rider MD [ASSOCIATE-ACTIVE - CAN ADMIT] - (call to schedule appointment) Dieter Peña MD [Primary Care Provider] - (call to schedule appointment) Time spent managing pt's care (in minutes): 55
--- NOTE | 2018-10-01 12:42 | P.PN ---
Subjective Date of Service: 10/01/18 Chief Complaint: CHEST PAIN RULE OUT /CHOLELITHIASIS Pt with CKD, presented for Abd pain, found to have LIZETT CKD likely due to NSAID and lithium use today feels better Cr stable ~1.4 Pt is cleared for discharge from nephrology point of view Physical Examination - Vital Signs Temperature: 98.3 F Blood Pressure: 131/70 Pulse: 61 Respirations: 18 Pulse Ox (%): 98 - Physical Exam General: Alert, In no apparent distress HEENT: Atraumatic Neck: Supple, JVD not distended, Without JVD or thyroid abnormality Respiratory: Clear to auscultation bilaterally Cardiovascular: No edema, Normal pulses, Regular rate/rhythm, Normal S1 S2, No gallops, No rubs, No murmurs Gastrointestinal: Normal bowel sounds, Soft and benign Musculoskeletal: No swelling Assessment And Plan - Current Problems (Diagnosis) (1) ARF (acute renal failure) Current Visit: No Status: Acute Qualifiers: Acute renal failure type: unspecified Qualified Code(s): N17.9 - Acute kidney failure, unspecified - Plan Lizett on CKD III Cr in 2018 1.6 in er Cr 1.9 LIZETT likely due to prerenal azotemia +/- HCTZ CKD likely due to HTN nephrosclerosis and [place] +/- NSAID renal US ; no hydro m, echogenic kidneys with thin cortex , b/l non-obstructing calculi UA no prot or bld off HCTZ Gentle hydration BP controlled Abd pain Surgery on board tolerating diet HIDA scan: -ve S/P EGD colonoscopy as an OP
[2018-10-01 14:41] VITALS: BP 131/70
[2018-10-01 14:50] VITALS: TEMP 98.3
[2018-10-01 16:59] VITALS: O2SAT 97
== END 2018-10-01 12:47 | disposition home or self-care (01) | DRG 683 ==
LOC: ER 17:55 → ERHOLD 22:50 → INTOOBSV 22:50 → OBSVTOIN 22:50 → 4TH 23:50 → OBSVTOIN 09-26 11:10
PROVIDERS: ADMIT Hospitalist; ATTEND Family Medicine
PROC: 0DB78ZX Excision of Stomach, Pylorus, Via Natural or Artificial Opening Endoscopic, Diagnostic (ICD-10-PCS; principal; 2018-09-29 13:30)
DX: N17.9 Acute kidney failure, unspecified (principal); K57.32 Diverticulitis of large intestine without perforation or abscess without bleeding; R07.89 Other chest pain; N18.4 Chronic kidney disease, stage 4 (severe); K52.9 Noninfective gastroenteritis and colitis, unspecified; K29.70 Gastritis, unspecified, without bleeding; K80.20 Calculus of gallbladder without cholecystitis without obstruction; R00.1 Bradycardia, unspecified; T39.395A Adverse effect of other nonsteroidal anti-inflammatory drugs [NSAID], initial encounter; I12.9 Hypertensive chronic kidney disease with stage 1 through stage 4 chronic kidney disease, or unspecified chronic kidney disease; F31.9 Bipolar disorder, unspecified; F20.9 Schizophrenia, unspecified; E78.2 Mixed hyperlipidemia; N20.0 Calculus of kidney; Z23 Encounter for immunization; Z87.891 Personal history of nicotine dependence
CPT/HCPCS: 36415; 71045; 74176; 76705; 76770; 78227; 80048; 80053; 80061; 80076; 81003; 82570; 82962; 83690; 83735; 83880; 84156; 84484; 85025; 85610; 87493; 88305; 88312; 93005; 93306; 96361; 96365; 99285; A9537; C9113; G0378; J0744; J1650; J2270; J2405; J2543; J2704; J2805; J7030

== ENCOUNTER 2018-12-31 16:38 | Observation (INO) | payer OTHER ==
[2018-12-31] MEDS ORDERED: ONDANSETRON 4 MG/2 ML VIAL IV PRN (17:15)
[2018-12-31] MEDS ORDERED: ACETAMINOPHEN 500 MG TAB PO PRN (17:15)
[2018-12-31 17:40] LABS: Urine Appearance CLOUDY; Urine Bilirubin NEGATIVE (NEG); Urine Blood NEGATIVE (NEG); Urine Color YELLOW; Urine Glucose NEGATIVE (NEG); Urine Protein NEGATIVE (NEG); Urine Urobilinogen 0.2 mg/dL (0.2-1.0)
[2018-12-31 17:49] LABS: BUN Blood Urea Nitrogen 37 mg/dL (7-18); Bicarbonate 31 mmol/L (21-32); CKMB Creatine Kinase MB < 1.0 ng/mL (0.3-3.6); Glucose Level 64 mg/dL (74-106); Potassium 3.8 mmol/L (3.5-5.1); Sodium Level 141 mmol/L (136-145); Uric Acid 7.6 mg/dL (2.6-6.0)
[2018-12-31] MEDS ORDERED: NA CHLORIDE 0.9% 1,000 ML IV SCH (18:00)
[2018-12-31] MEDS: NA CHLORIDE 0.9% 1,000 ML IV SCH (18:07)
[2018-12-31] MEDS: CEFTRIAXONE/SWI 1gm 1 GM/10 ML SYR IVP SCH (18:07)
[2018-12-31 18:09] LABS: Urine Bacteria >50 /HPF (<20); Urine RBC <5 /HPF (NONE SEEN)
[2018-12-31 18:19] LABS: Urine Culture Reflex Order NOT NEEDED
[2018-12-31] MEDS: ENOXAPARIN 30 MG/0.3 ML SQ SCH (18:38)
--- NOTE | 2018-12-31 18:45 | RAD REPORT ---
EXAM DESCRIPTION: RAD - Chest Pa And Lat (2 Views) - 12/31/2018 6:31 pm CLINICAL HISTORY: cough Chest pain. COMPARISON: Chest Single View dated 09/24/2018; Chest Single View dated 02/15/2018; CHEST SINGLE VIEW dated 01/30/2011; CHEST SINGLE VIEW dated 09/23/2010 TECHNIQUE: PA and lateral views of the chest were obtained. FINDINGS: The lungs are hyperexpanded compatible with COPD. The heart is upper limit of normal in si ze. No fracture or aggressive bony process. IMPRESSION: COPD without acute process identified.
--- NOTE | 2018-12-31 20:19 | RAD REPORT ---
EXAM DESCRIPTION: US - Renal Ultrasound-Complete - 12/31/2018 8:11 pm CLINICAL HISTORY: DAMIAN Flank pain COMPARISON: Renal Ultrasound-Complete dated 09/25/2018 FINDINGS: Both kidneys are increased in echogenicity. The right kidney measures 9.4 x 4.5 x 4.1 cm. No hydronephrosis. Small benign cortical cyst is presen t. The left kidney measures 9.3 x 4.6 x 4.3 cm. Several shadowing calculi are present. The urinary bladder is incompletely distended without gross abnormality seen. IMPRESSION: Echogenic kidneys bilaterally compatible with medical renal disease. Multiple small left renal calculi without hydronephrosis.
[2018-12-31] MEDS ORDERED: PNEUMOCOCCAL VACCINE 0.5 ML IMVAC ONE (21:00)
--- NOTE | 2019-01-01 04:22 | HP ---
Date of Admission: 12/31/2018 Primary Care Physician: John Benoit M.D., hospitalist service covering while he was out of town. Greige Goods Examiner: Verona Hernandez M.D. with Nephrology. Code Status: Full. Chief Complaint: Direct admission for abnormal labs and possible UTI. History Of Present Illness: The patient is a 68-year-old female with past medical history of hypertension, bipolar disorder, previous history of kidney issues, comes in directly from Dr. Hernandez's office for abnormal kidney function, possible lithium toxicity, and UTI. The patient does report subjective fever and chills for the past couple of weeks. Also, reports some weight loss of approximately 7 pounds since her last visit. She states her appetite has been poor. The patient's symptoms are constant, moderate, progressively worsening. When seen on the floor, patient was awake, alert, oriented, in some mild distress. Past Medical History: Hypertension, bipolar disorder, schizophrenia, history of vaginal and oral herpes. Surgical History: Right knee surgery, elbow surgery. Allergies: TO AMITRIPTYLINE, GABAPENTIN, AND RISPERIDONE CAUSES ANAPHYLAXIS. Medications: List reviewed. Social History: Patient is a former smoker. No alcohol use or illicit drug use. Lives at home. Uses a walker for ambulation. Family History: Mother had cancer. Father had heart disease. Review of Systems: Ten-point system reviewed, negative except as per HPI. Physical Examination: Vital Signs: Temperature 98.6, heart rate 52, blood pressure 149/65, respirations 16, O2 of 98% on room air. General: Awake, alert, oriented x3, in some mild distress, ill-appearing female. HEENT: Normocephalic, atraumatic. PERRLA. EOMI. Dry mucous membranes. Oropharynx is clear. Poor dentition. Conjunctiva anicteric. Neck: Supple: No JVD. Trachea midline. CV: S1 and S2. Regular rate and rhythm. Peripheral pulses present. Respiratory: Moving air well bilaterally. No wheezing or stridor. No use of accessory muscles. Gastrointestinal: Abdomen is soft, nontender, nondistended. Positive bowel sounds. No guarding or rigidity. Extremities: No clubbing, cyanosis, or edema. No calf tenderness. Neuro: Cranial nerves 2 through 12 intact grossly. No focal neurological deficit. Speech is normal. Skin: No rashes. Normal skin turgor. Psych: Mood is depressed. Affect is congruent with mood. Insight and judgment are good. Laboratory Data: Pending. Assessment/plan: 68-year-old female with: 1. Acute kidney injury. 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 We will start on IV fluids. Avoid NSAIDs. Unclear etiology. We will workup further. 2. Fever, possible urinary tract infection. We will follow up with UA. Obtain urine culture. 3. Essential hypertension, stable. We will resume home medications as appropriate. 4. History of bipolar disorder, stable. 5. History of schizophrenia. 6. Recent weight loss. We will have dietitian consultation. Encourage p.o. intake. 7. Deep vein thrombosis prophylaxis with Lovenox renally dosed. Plan: Admit the patient to Med-Surg, place as inpatient. Length of stay greater than 2 midnights. ADDENDUM: labs reviewed. Creatnine elevated. UA positive. Start on IV abx. THEODORE Voice ID: [id number] [id number]
[2019-01-01 04:31] LABS: Absolute Lymphocytes (CBC) 2.4 K/uL (0.7-4.9); Hematocrit 33.3 % (36.0-45.0); Lymphocytes % 50.1 % (15.3-44.8); MPV 8.2 fL (7.6-11.3); RBC Red Blood Cell Count 3.66 M/uL (3.86-4.86)
[2019-01-01 04:37] LABS: Albumin 3.3 g/dL (3.4-5.0); Bilirubin Total 0.2 mg/dL (0.2-1.0); Phosphorus 3.9 mg/dL (2.5-4.9); Potassium 4.2 mmol/L (3.5-5.1); Protein, Total 7.2 g/dL (6.4-8.2)
[2019-01-01 05:03] VITALS: BMI 22.1
[2019-01-01] MEDS: NA CHLORIDE 0.9% 1,000 ML IV SCH ×2 (05:22→14:33)
--- NOTE | 2019-01-01 06:34 | EKG ---
Test Date: 2018-12-31 Test Time: 18:01:00 Barkeep: MALIK MEASUREMENT RESULTS: Intervals: Rate: 68 OH: 174 QRSD: 100 QT: 442 QTc: 469 [place]: P: 57 OH: 174 QRS: 66 T: -73 INTERPRETIVE STATEMENTS: Sinus rhythm with occasional premature ventricular complexes Left ventricular hypertrophy with repolarization abnormality Cannot rule out Septal infarct, cited previously Abnormal ECG Compared to ECG 01/31/1998 17:20:00 Ventricular premature complex(es) now present Left ventricular hypertrophy now present Sinus arrhythmia no longer present Electronically Signed On 01-01-19 06:33:57 CDT by Stan Bradshaw
[2019-01-01] MEDS: ENOXAPARIN 30 MG/0.3 ML SQ SCH (07:43)
[2019-01-01] MEDS: CEFTRIAXONE/SWI 1gm 1 GM/10 ML SYR IVP SCH (07:43)
[2019-01-01] MEDS ORDERED: SUCRALFATE 1 GM TABLET PO SCH (14:00)
[2019-01-01] MEDS ORDERED: NA CHLORIDE 0.9% 1,000 ML IV SCH (15:00)
[2019-01-01] MEDS: AMLODIPINE 10 MG TAB PO SCH (15:17)
[2019-01-01] MEDS ORDERED: HOME MED 1 EA UNK (Buspirone Hcl [Buspar] 10 MG) PO SCH (21:00)
[2019-01-01] MEDS: BUSPIRONE HCL 5 MG TABLET PO SCH (21:48)
[2019-01-02 06:54] LABS: Basophils % 0.5 % (0-1.3); Hematocrit 32.6 % (36.0-45.0); Lymphocytes % 31.3 % (15.3-44.8); MPV 8.3 fL (7.6-11.3); RBC Red Blood Cell Count 3.61 M/uL (3.86-4.86)
[2019-01-02 07:17] LABS: Albumin 3.2 g/dL (3.4-5.0); Bilirubin Total 0.4 mg/dL (0.2-1.0); Protein, Total 7.1 g/dL (6.4-8.2)
[2019-01-02] MEDS ORDERED: PANTOPRAZOLE 40MG TABLET PO SCH (07:30)
[2019-01-02] MEDS: AMLODIPINE 10 MG TAB PO SCH (08:52)
[2019-01-02] MEDS: ENOXAPARIN 30 MG/0.3 ML SQ SCH (08:52)
[2019-01-02] MEDS: CEFTRIAXONE/SWI 1gm 1 GM/10 ML SYR IVP SCH (08:53)
[2019-01-02] MEDS: BUSPIRONE HCL 5 MG TABLET PO SCH (08:53)
[2019-01-02] MEDS ORDERED: IRON 18 MG PO SCH (09:00)
[2019-01-02] MEDS ORDERED: AMLODIPINE 5 MG TAB PO SCH (09:00)
[2019-01-02] MEDS ORDERED: FLUOXETINE HCL PO SCH (09:00)
[2019-01-02] MEDS ORDERED: HOME MED 1 EA UNK (Pantoprazole Sodium [Protonix] 20 MG) PO SCH (09:00)
[2019-01-02] MEDS ORDERED: FLUOXETINE 20 MG CAP PO SCH (09:00)
[2019-01-02 11:43] VITALS: O2SAT 96
[2019-01-02 12:48] VITALS: BP 101/68; TEMP 98.4
--- NOTE | 2019-01-02 13:11 | P.PN ---
Subjective Date of Service: 01/02/19 Subjective: Improving Pt admitted for DAMIAN today Cr improving can be discharged from nephrology point of view Physical Examination - Vital Signs Temperature: 98.4 F Blood Pressure: 101/68 Pulse: 65 Respirations: 16 Pulse Ox (%): 98 - Physical Exam General: Alert, In no apparent distress, Cachectic HEENT: Atraumatic Neck: Supple, Without JVD or thyroid abnormality Respiratory: Clear to auscultation bilaterally, Normal air movement Cardiovascular: No edema, Regular rate/rhythm, No gallops, No rubs, No murmurs Gastrointestinal: Normal bowel sounds - Studies Laboratory Data (last 24 hrs) 01/02/19 06:22: Sodium 145, Potassium 4.0, BUN 31 H, Creatinine 1.52 H, Glucose 89, Total Bilirubin 0.4, AST 17, ALT 15, Alkaline Phosphatase 76 01/02/19 06:22: WBC 6.4 D, Hgb 11.1 L, Hct 32.6 L, Plt Count 208 Assessment And Plan - Plan . Acute kidney injury. due to dehydration Cr 2.1 <1.5 encourage po fluid intake HTN controlled hx of Bipolar disorder pt is stable malnutrition cont po intake might benefit from supplements
--- NOTE | 2019-01-02 16:30 | P.DS ---
Admission Date: 12/31/18 Discharge Date: 01/02/19 Disposition: ROUTINE DISCHARGE Discharge Condition: FAIR Consultations: Nephrology Dr. Hernandez, Dr. Heart Brief History of Present Illness: The patient is a 68-year-old female with past medical history of hypertension, bipolar disorder, previous history of kidney issues, comes in directly from Dr. Hernandez's office for abnormal kidney function, possible lithium toxicity, and UTI. The patient does report subjective fever and chills for the past couple of weeks. Also, reports some weight loss of approximately 7 pounds since her last visit. She states her appetite has been poor. The patient's symptoms are constant, moderate, progressively worsening. Hospital Course: Patient is a 68-year-old female with past medical history of hypertension bipolar disorder who was admitted directly to the hospital from nephrologists office for abnormal labs. Patient had elevated kidney function. Patient was found to have acute kidney injury along with UTI. Patient was treated with Rocephin for UTI. Culture which was obtained after administration of antibiotics on admission did not show any growth. Patient responded well to IV fluids. Her kidney function improved. Patient was then cleared for discharge from nephrology standpoint. Assessment/plan: 68-year-old female with: 1. Acute kidney injury. Improved. 2. Acute cystitis without hematuria 3. Essential hypertension, stable. 4. History of bipolar disorder, stable. 5. History of schizophrenia. 6. Recent weight loss. Vital Signs/Physical Exam: Temp Pulse Resp BP Pulse Ox 98.4 F 65 16 101/68 98 01/02/19 13:11 01/02/19 13:11 01/02/19 13:11 01/02/19 13:11 01/02/19 13:11 General: Alert, In no apparent distress, Oriented x3 HEENT: Atraumatic, PERRLA, EOMI Neck: Supple, JVD not distended Respiratory: Clear to auscultation bilaterally, Normal air movement Cardiovascular: No edema, Normal pulses, Regular rate/rhythm, Normal S1 S2 Gastrointestinal: Normal bowel sounds, Soft and benign, Non-distended, No tenderness Musculoskeletal: No clubbing, No tenderness Integumentary: No rashes, No erythema Neurological: Normal speech, Normal strength at 5/5 x4 extr, Normal tone, Normal affect Laboratory Data at Discharge: WBC 6.4 K/uL (4.3-10.9) D 01/02/19 06:22 Hgb 11.1 g/dL (12.0-15.0) L 01/02/19 06:22 Hct 32.6 % (36.0-45.0) L 01/02/19 06:22 Plt Count 208 K/uL (152-406) 01/02/19 06:22 Sodium 145 mmol/L (136-145) 01/02/19 06:22 Potassium 4.0 mmol/L (3.5-5.1) 01/02/19 06:22 BUN 31 mg/dL (7-18) H 01/02/19 06:22 Creatinine 1.52 mg/dL (0.55-1.3) H 01/02/19 06:22 Glucose 89 mg/dL (74-106) 01/02/19 06:22 Uric Acid 7.6 mg/dL (2.6-6.0) H 12/31/18 17:15 Phosphorus 3.9 mg/dL (2.5-4.9) 01/01/19 03:56 Magnesium 2.0 mg/dL (1.8-2.4) 01/01/19 03:56 Total Bilirubin 0.4 mg/dL (0.2-1.0) 01/02/19 06:22 AST 17 U/L (15-37) 01/02/19 06:22 ALT 15 U/L (12-78) 01/02/19 06:22 Alkaline Phosphatase 76 U/L (45-117) 01/02/19 06:22 Home Medications: Buspirone HCl [Buspar] 10 mg PO BID 02/16/18 Fluoxetine HCl [Prozac] 1 cap PO DAILY 02/16/18 Folic Acid/Mv,Fe,Min [One Daily Complete Tablet] 1 each PO DAILY 09/25/18 Iron 18 mg PO DAILY 09/25/18 Pantoprazole Sodium [Protonix] 20 mg PO DAILY #30 tablet. 10/01/18 Sucralfate [Carafate*] 1 gm PO SEECOM 12/31/18 Amlodipine [Norvasc*] 10 mg PO DAILY #60 tab 01/02/19 Cefuroxime Axetil [Cefuroxime] 500 mg PO BID #8 tab 01/02/19 New Medications: Amlodipine [Norvasc*] 10 mg PO DAILY #60 tab Cefuroxime Axetil [Cefuroxime] 500 mg PO BID #8 tab Patient Discharge Instructions: f/up w PCP in 2-3 days. f/up w clam shucker Dr. Hernandez in 2 weeks. Return to ER for worsening condition Diet: Renal Activity: Ad amelia Followup: Verona Hernandez MD [ACTIVE - CAN ADMIT] - 1-2 Weeks (Refuse Laborer- Call to schedule an appointment) John Benoit MD [ACTIVE - CAN ADMIT] - 2-3 Days (primary care physician- call to schedule an appointment)
--- NOTE | 2019-01-02 19:01 | PN ---
Date of Progress Note: 01/01/2019 Subjective: Patient seen and examined. Chart reviewed and case discussed with RN and Dr. Hernandez. The patient states she feels better. No acute events overnight. Medications: List reviewed. Physical Examination: Vital Signs: Temperature 98.4, heart rate 64, blood pressure 145/82, respirations 16, O2 99% on room air. General: Awake, alert, and oriented x3, not in any acute distress, elderly female. CV: S1, S2. Regular rate and rhythm. Peripheral pulses present. Respiratory: Moving air well bilaterally. No wheezing or stridor. No use of accessory muscles. Gastrointestinal: Abdomen is soft, nontender, nondistended. Positive bowel sounds. Extremities: No clubbing, cyanosis, or edema. Neurologic: Nonfocal. Cranial nerves 2 through 12 intact grossly. Speech is normal. Skin: No rashes. Normal skin turgor. Laboratory Data: Sodium 143, potassium 4.2, chloride 108, CO2 29, BUN 42, creatinine 1.77, glucose 9 3, calcium 8.6, phosphorus 3.9, magnesium 2, albumin 3.3. WBC 4.9, H and H 11.3 and 33.3, platelets 230, neutrophils 33.5. UA is positive. Apparently, urine culture was not sent out. Assessment And Plan: 1.A 68-year-old female with acute kidney injury. We will continue with IV fluids, improving. Appre ciate Nephrology input. Continue to avoid NSAIDs, likely due to dehydration. 2.Urinary tract infection, acute cystitis without hematuria. Urine culture was not reflexed. We wi ll order urine culture, however, patient has already had antibiotics, which will decrease yield. 3.Essential hypertension, stable. 4.History of bipolar disorder, stable. 5.History of schizophrenia, stable. 6.Recent weight lost. Continue p.o. intake and protein supplements. 7.Deep vein thrombosis prophylaxis with Lovenox. Plan: Likely discharge in a.m. with continued clinical improvement. /ALEXYS Voice ID: [id number] Report ID: [id number]
--- NOTE | 2019-01-02 19:03 | CON ---
Date of Consultation: 01/01/2019 Reason For Consultation: Elevated BUN and creatinine. History Of Present Illness: This is a pleasant 68-year-old female, well known to me from the office with significant past medical history of bipolar, hypertension, chronic kidney disease, baseline crea tinine 1.4 to 1.6 back in December 2017. The patient was recently admitted to the hospital back in [facility] with acute kidney injury. At that time, creatinine jumped to 2. It was prerenal normal-sized kid geeta with toxic acute tubular necrosis secondary to UTI. The patient came to the office yesterday, cr eatinine was 2.1 and found to have again UTI. For that reason, patient was referred to the hospital. Over the night, the patient was started on IV fluid. Creatinine improved from 2.1 to 1.7, GFR from 23 to 29. Urine culture still pending. The patient denied any nausea, any vomiting. The patient f eeling slightly better. Past Medical History: 1.Bipolar. 2.Hypertension. 3.Hyperlipidemia. The patient apparently at home, still taking hydrochlorothiazide. Home Medications: 1.Hydrochlorothiazide. 2.KCl. 3.Buspirone. 4.Fluoxetine. 5.Amlodipine. Current Medications: In the hospital include. 1.Tylenol. 2.Amlodipine. 3.Ceftriaxone. 4.Zofran. 5.Pantoprazole. 6.Carafate. Allergies: AMITRIPTYLINE, GABAPENTIN, RISPERIDONE. Family History: Positive for cancer and hypertension. Social History: Lives with family. Denies smoking. Denies drinking. Denies drugs abuse. Review of Systems: Head and Neck: No red eye. No ear pain. GI: No nausea. No vomiting. : No polyuria. No dysuria. No hematuria. 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 Respiratory: No shortness of breath. Cardiovascular: No chest pain. Endocrine: No polydipsia. Skin: No rash. Neurologic: No headache. Musculoskeletal: No joint pain. Physical Examination: Vital Signs: When I saw the patient; blood pressure 166/74, pulse of 64, afebrile. The patient had urine output of 1300. Chest: Clear to auscultation. Heart: S1, S2. Regular. Abdomen: Soft, nontender. Extremities: No edema. Neurologic: Alert, oriented x3. Nonfocal. Laboratory Data: Sodium 143, potassium 4.2, bicarb 29, BUN 42, creatinine 1.7, calcium 8.6. Magnesi um of 2. WBC 4.9, H and H 11.3/33.3, platelets 230. Renal ultrasound showing normal size kidney 9.4 x 9.3, echogenic, multiple small left renal calculi without hydronephrosis. Assessment And Plan: 1.Acute kidney injury secondary to prerenal, superimposed with diuresis on the recovery, still on th e dry side. I am going to continue IV hydration and we will monitor. 2.Hypertension, not controlled. Decrease IV fluid to 50 per hour. I am going to start the patient to be increased her amlodipine to 10 mg for better blood pressure control. Keep holding hydrochlorot hiazide for the time being and we will monitor. 3.Hypokalemia. Hold supplement. 4.Urinary tract infection, not complicated. Culture still pending. We will follow up. Continue ceftriaxone for the time being. 5.Bipolar, stable. Follow up with the hospitalist. YESSENIA Voice ID: [id number] Report ID: [id number]
== END 2019-01-02 14:30 | disposition home or self-care (01) ==
LOC: 4TH 16:38 → INTOOBSV 16:38
PROVIDERS: ADMIT Family Medicine; ATTEND Family Medicine
DX: N17.9 Acute kidney failure, unspecified (principal); N30.00 Acute cystitis without hematuria; E86.0 Dehydration; I10 Essential (primary) hypertension; F31.9 Bipolar disorder, unspecified; E46 Unspecified protein-calorie malnutrition; Z68.22 Body mass index [BMI] 22.0-22.9, adult; F20.9 Schizophrenia, unspecified; Z87.891 Personal history of nicotine dependence; Z23 Encounter for immunization
CPT/HCPCS: 93005; 85025 ×2; 81001; 87086; 80048; 36415 ×2; 83735; 84100; 84550; 82553; 80053 ×2; 71046; 90471; 90670; 76770; 94760 ×5; J1650 ×3; J0696 ×3; J7030 ×3; G0378 ×4; 87088

== ENCOUNTER 2019-06-08 12:05 | Emergency (ER) | payer OTHER ==
--- OUTSIDE RECORDS SUMMARY | 2019-06-08 12:08 | XMS REPORT ---
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 Assessment Bipolar affective disorder, current F31.0 Active episode hypomanic Assessment Stage 3 chronic kidney disease N18.3 Active Problem Essential (primary) hypertension I10 Active Problem Depression with anxiety F41.8 Active Problem Essential hypertension I10 Active Problem Sigmoid diverticulitis K57.32 Active Problem Stage 3 chronic kidney disease N18.3 Active Problem Gastro-esophageal reflux disease K21.9 Active without esophagitis Problem Primary osteoarthritis involving M15.0 Active multiple joints Medications No Known Medications Results No Known Results Summary Purpose [employer] Submission
--- OUTSIDE RECORDS SUMMARY | 2019-06-08 12:08 | XMS REPORT ---
:1950 Author Organization [facility] Address [address] [place] [address] Dr. Goddard. [address] [place] [id number] Care Team Providers Name Role Phone Unavailable Unavailable Unavailable Problems This patient has no known problems. Allergies, Adverse Reactions, Alerts This patient has no known allergies or adverse reactions. Medications This patient has no known medications.
[2019-06-08] MEDS ORDERED: DIAZEPAM 5 MG TABLET ONE (12:58)
[2019-06-08] MEDS ORDERED: ONDANSETRON 4 MG/2 ML VIAL ONE (12:59)
[2019-06-08] MEDS ORDERED: MORPHINE 2 MG/ML SYR ONE (12:59)
[2019-06-08] MEDS ORDERED: dexAMETHasone 10 MG/ML VIAL ONE (12:59)
[2019-06-08] MEDS ORDERED: KETOROLAC 30 MG/ML INJ ONE (12:59)
[2019-06-08] MEDS ORDERED: NA CHLORIDE 0.9% 1,000 ML ONE (12:59)
[2019-06-08 13:04] LABS: Absolute Lymphocytes (CBC) 1.7 K/uL (0.7-4.9); Hematocrit 34.9 % (36.0-45.0); Lymphocytes % 35.5 % (15.3-44.8); MPV 8.5 fL (7.6-11.3); RBC Red Blood Cell Count 3.96 M/uL (3.86-4.86)
[2019-06-08 13:14] LABS: Albumin 3.4 g/dL (3.4-5.0); Bilirubin Total 0.3 mg/dL (0.2-1.0); Potassium 3.1 mmol/L (3.5-5.1); Protein, Total 7.6 g/dL (6.4-8.2)
--- NOTE | 2019-06-08 13:28 | RAD REPORT ---
EXAM DESCRIPTION: CT - Spine Lumbar Wo Con - 06/08/2019 1:19 pm CLINICAL HISTORY: Radiculopathy. LOWER BACK PAIN COMPARISON: No comparisons TECHNIQUE: Axial noncontrast CT imaging of the lumbar spine was performed with coronal and sagittal re-formatted images. All CT scans are performed using dose optimization technique as appropriate and may include automated exposure control or mA/KV adjustment according to patient size. FINDINGS: No acute lumbar spine fracture seen. 12 mm anterolisthesis is present at L5-S1 with vacuum disc degeneration and bilateral chronic spondylolysis. Paraspinal tissues are normal in thickness. No paraspinal abscess or hematoma seen. There is evidence of bilateral caliceal renal stones. Gallstones are also likely present. IMPRESSION: Significant spondylosis at L5-S1. There is bilateral chronic spondylolysis with 12 mm an terolisthesis of L5 on S1 at this level. Bilateral nephrolithiasis and cholelithiasis also seen.
--- NOTE | 2019-06-08 13:52 | ER ---
Nurse's Notes [facility] Name: Celine Serrano Age: 68 yrs Sex: Female : 1950 Arrival Date: 06/08/2019 Time: 12:10 Bed 5 Private MD: Diagnosis: Low back pain;Bipolar disorder;Type 2 diabetes mellitus;Spondylolysis, lumbar region-significant Presentation: 06/07 12:31 Chief complaint: Patient states: chronic low back pain that became much worse 4 hours ss ago. Coronavirus screen: The patient has NOT traveled to a country currently being monitored by the [facility] within the last 14 days. Proceed with normal triage procedures. Ebola Screen: Patient denies exposure to infectious person. Patient denies travel to an Ebola-affected area in the 21 days before illness onset. Initial Sepsis Screen: Does the patient meet any 2 criteria? No. Patient's initial sepsis screen is negative. Does the patient have a suspected source of infection? No. Patient's initial sepsis screen is negative. Risk Assessment: Do you want to hurt yourself or someone else? Patient reports no desire to harm self or others. 12:31 Method Of Arrival: Ambulatory ss 12:31 Acuity: HARJINDER 3 ss Historical: - Allergies: 12:33 Amitriptyline; ss 12:33 GABAPENTIN; ss 12:33 RISPERIDONE; ss 12:33 Unable to obtain; ss - PMHx: 12:33 Bipolar disorder; Diabetes - NIDDM; Hypertension; problems with memory for 5 years; ss Schizophrenia; - Immunization history:: Adult Immunizations up to date. - Social history:: Smoking status: Patient denies any tobacco usage or history of. - Family history:: not pertinent. Screenin:32 Abuse screen: Denies threats or abuse. Denies injuries from another. Nutritional sv screening: No deficits noted. Tuberculosis screening: No symptoms or risk factors identified. Fall Risk None identified. Assessment: 12:50 General: Appears in no apparent distress. uncomfortable, well developed, Behavior is sv calm, cooperative, appropriate for age. Pain: Complains of pain in right low back and left low back Pain currently is 10 out of 10 on a pain scale. Quality of pain is described as sharp, shooting. Neuro: Level of Consciousness is awake, alert, obeys commands, Oriented to person, place, time, situation, Moves all extremities. Full function. Respiratory: Airway is patent Respiratory effort is even, unlabored, Respiratory pattern is regular, symmetrical. Derm: Skin is intact, Skin is pink, warm \T\ dry. Musculoskeletal: Range of motion: intact in all extremities. 14:00 Reassessment: Patient appears in no apparent distress at this time. Patient and/or sv family updated on plan of care and expected duration. Pain level reassessed. Patient is alert, oriented x 3, equal unlabored respirations, skin warm/dry/pink. Patient denies pain at this time. Patient states feeling better. Patient states symptoms have improved. Vital Signs: 12:31 BP 192 / 105; Pulse 71; Resp 20; Temp 98.1(TE); Pulse Ox 96% on R/A; Weight 58.97 kg; ss Height 5 ft. 2 in. (157.48 cm); Pain 10/10; 13:11 BP 177 / 83; Pulse 53; Resp 16; Pulse Ox 95% ; sv 13:30 BP 164 / 80; Pulse 46; Resp 14; Pulse Ox 95% ; sv 13:53 Pain 0/10; sv 12:31 Body Mass Index 23.78 (58.97 kg, 157.48 cm) ED Course: 12:10 Patient arrived in ED. rg4 12:25 Jarrod Zheng MD is Attending Physician. [facility] 12:32 Sobeida Hernandez, FLAQUITO is Primary Nurse. sv 12:32 Arm band placed on Patient placed in an exam room, on a stretcher. sv 12:32 Patient has correct armband on for positive identification. Bed in low position. Call sv light in reach. Adult w/ patient. Door closed. Head of bed elevated. 12:33 Triage completed. ss 12:50 Inserted saline lock: 20 gauge in right antecubital area, using aseptic technique. sv Blood collected. Flushed right antecubital with 5 ml normal saline. 13:21 CT Lumbar Spine Wo Con In Process Unspecified. EDMS 13:49 Dieter Patel MD is Referral Physician. osito 15:11 Assisted to bathroom. jp3 15:11 Urine collected: clean catch specimen, clear, yessenia colored. jp3 15:36 No provider procedures requiring assistance completed. IV discontinued, intact, em bleeding controlled, No redness/swelling at site. Pressure dressing applied. Administered Medications: 13:00 Drug: NS 0.9% 1000 ml Route: IV; Rate: 1 bolus; Site: right antecubital; sv 14:30 Follow up: Response: No adverse reaction; IV Status: Completed infusion; IV Intake: sv 1000ml 13:00 Drug: Valium 5 mg Route: PO; sv 13:53 Follow up: Response: No adverse reaction sv 13:00 Drug: Zofran (Ondansetron) 4 mg Route: IVP; Site: right antecubital; sv 13:53 Follow up: Response: No adverse reaction sv 13:02 Drug: morphine 2 mg Route: IVP; Site: right antecubital; sv 13:53 Follow up: Pain 0/10 Adult; Response: No adverse reaction; Marked relief of symptoms; sv Pain is decreased 13:04 Drug: TORadol 30 mg Route: IVP; Site: right antecubital; sv 13:53 Follow up: Response: No adverse reaction sv 13:06 Drug: Decadron - Dexamethasone 10 mg Route: IVP; Site: right antecubital; sv 13:53 Follow up: Response: No adverse reaction sv Intake: 14:30 IV: 1000ml; Total: 1000ml. sv Outcome: 13:49 Discharge ordered by MD. mcneill 15:36 Discharged to home ambulatory, with family. em 15:36 Condition: good 15:36 Discharge instructions given to patient, family, Instructed on discharge instructions, follow up and referral plans. medication usage, Demonstrated understanding of instructions, follow-up care, medications, Prescriptions given X 3. 15:36 Patient left the ED. em Signatures: Dispatcher [employer] Sobeida Morgan RN RN sv Anderson, Corey, MD MD cha Munoz, Edgar RN Radha Morgan RN RN ss Garcia, Rubi rg4 Eriberto Chinchilla jp3
--- NOTE | 2019-06-08 13:53 | EDPHYS ---
Physician Documentation [facility] Name: Celine Serrano Age: 68 yrs Sex: Female : 1950 Arrival Date: 06/08/2019 Time: 12:10 Bed 5 Private MD: BJORN Physician Jarrod Zheng HPI: 06/07 12:39 This 68 yrs old Female presents to ER via Ambulatory with complaints of Low osito Back Pain. 12:39 The patient presents with pain that is acute, with no known mechanism of injury. The osito symptoms are located in the low back. Location: left low back and right low back. The problem was sustained without known cause. Onset: The symptoms/episode began/occurred 2 day(s) ago. Modifying factors: The patient symptoms are alleviated by remaining still, the patient symptoms are aggravated by any movement. Associated signs and symptoms: The patient has no apparent associated signs or symptoms. Severity of symptoms: At their worst the symptoms were mild, in the emergency department the symptoms are unchanged. The patient has experienced similar episodes in the past, several times. Historical: - Allergies: 12:33 Amitriptyline; ss 12:33 GABAPENTIN; ss 12:33 RISPERIDONE; ss 12:33 Unable to obtain; ss - PMHx: 12:33 Bipolar disorder; Diabetes - NIDDM; Hypertension; problems with memory for 5 years; ss Schizophrenia; - Immunization history:: Adult Immunizations up to date. - Social history:: Smoking status: Patient denies any tobacco usage or history of. - Family history:: not pertinent. ROS: 12:39 Constitutional: Negative for fever, chills, and weight loss, Eyes: Negative for injury, osito pain, redness, and discharge, ENT: Negative for injury, pain, and discharge, Neck: Negative for injury, pain, and swelling, Cardiovascular: Negative for chest pain, palpitations, and edema, Respiratory: Negative for shortness of breath, cough, wheezing, and pleuritic chest pain, Abdomen/GI: Negative for abdominal pain, nausea, vomiting, diarrhea, and constipation, : Negative for injury, bleeding, discharge, and swelling, MS/Extremity: Negative for injury and deformity, Skin: Negative for injury, rash, and discoloration, Neuro: Negative for headache, weakness, numbness, tingling, and seizure, Psych: Negative for depression, anxiety, suicide ideation, homicidal ideation, and hallucinations, Allergy/Immunology: Negative for hives, rash, and allergies, Endocrine: Negative for neck swelling, polydipsia, polyuria, polyphagia, and marked weight changes, Hematologic/Lymphatic: Negative for swollen nodes, abnormal bleeding, and unusual bruising. 12:39 Back: Positive for pain at rest, pain with movement. Exam: 12:39 Constitutional: This is a well developed, well nourished patient who is awake, alert, osito and in no acute distress. Head/Face: Normocephalic, atraumatic. Eyes: Pupils equal round and reactive to light, extra-ocular motions intact. Lids and lashes normal. Conjunctiva and sclera are non-icteric and not injected. Cornea within normal limits. Periorbital areas with no swelling, redness, or edema. ENT: Nares patent. No nasal discharge, no septal abnormalities noted. Tympanic membranes are normal and external auditory canals are clear. Oropharynx with no redness, swelling, or masses, exudates, or evidence of obstruction, uvula midline. Mucous membranes moist. Neck: Trachea midline, no thyromegaly or masses palpated, and no cervical lymphadenopathy. Supple, full range of motion without nuchal rigidity, or vertebral point tenderness. No Meningismus. Chest/axilla: Normal chest wall appearance and motion. Nontender with no deformity. No lesions are appreciated. Cardiovascular: Regular rate and rhythm with a normal S1 and S2. No gallops, murmurs, or rubs. Normal PMI, no JVD. No pulse deficits. Respiratory: Lungs have equal breath sounds bilaterally, clear to auscultation and percussion. No rales, rhonchi or wheezes noted. No increased work of breathing, no retractions or nasal flaring. Abdomen/GI: Soft, non-tender, with normal bowel sounds. No distension or tympany. No guarding or rebound. No evidence of tenderness throughout. Female : Normal external genitalia. Skin: Warm, dry with normal turgor. Normal color with no rashes, no lesions, and no evidence of cellulitis. MS/ Extremity: Pulses equal, no cyanosis. Neurovascular intact. Full, normal range of motion. Neuro: Awake and alert, GCS 15, oriented to person, place, time, and situation. Cranial nerves II-XII grossly intact. Motor strength 5/5 in all extremities. Sensory grossly intact. Cerebellar exam normal. Normal gait. Psych: Awake, alert, with orientation to person, place and time. Behavior, mood, and affect are within normal limits. 12:39 Back: pain, that is mild, that is moderate, ROM is painful, normal spinal alignment noted, CVA tenderness, is absent, muscle spasm, is appreciated in the left low back and right low back. Vital Signs: 12:31 BP 192 / 105; Pulse 71; Resp 20; Temp 98.1(TE); Pulse Ox 96% on R/A; Weight 58.97 kg; ss Height 5 ft. 2 in. (157.48 cm); Pain 10/10; 13:11 BP 177 / 83; Pulse 53; Resp 16; Pulse Ox 95% ; sv 13:30 BP 164 / 80; Pulse 46; Resp 14; Pulse Ox 95% ; sv 13:53 Pain 0/10; sv 12:31 Body Mass Index 23.78 (58.97 kg, 157.48 cm) MDM: 12:25 Patient medically screened. [facility] 12:41 Data reviewed: vital signs, nurses notes, lab test result(s), radiologic studies, CT osito scan. 03 12:39 Order name: CBC with Diff; Complete Time: 13:46 [facility] 06/07 12:39 Order name: Comprehensive Metabolic Panel; Complete Time: 13:46 [facility] 06/07 12:39 Order name: Urine Culture [facility] 06/07 12:39 Order name: CT Lumbar Spine Wo Con; Complete Time: 13:46 [facility] 06/07 12:39 Order name: Urine Dipstick-Ancillary (obtain specimen); Complete Time: 15:12 [facility] Administered Medications: 13:00 Drug: NS 0.9% 1000 ml Route: IV; Rate: 1 bolus; Site: right antecubital; sv 14:30 Follow up: Response: No adverse reaction; IV Status: Completed infusion; IV Intake: sv 1000ml 13:00 Drug: Valium 5 mg Route: PO; sv 13:53 Follow up: Response: No adverse reaction sv 13:00 Drug: Zofran (Ondansetron) 4 mg Route: IVP; Site: right antecubital; sv 13:53 Follow up: Response: No adverse reaction sv 13:02 Drug: morphine 2 mg Route: IVP; Site: right antecubital; sv 13:53 Follow up: Pain 0/10 Adult; Response: No adverse reaction; Marked relief of symptoms; sv Pain is decreased 13:04 Drug: TORadol 30 mg Route: IVP; Site: right antecubital; sv 13:53 Follow up: Response: No adverse reaction sv 13:06 Drug: Decadron - Dexamethasone 10 mg Route: IVP; Site: right antecubital; sv 13:53 Follow up: Response: No adverse reaction sv Disposition: 06/08/19 13:49 Discharged to Home. Impression: Low back pain, Bipolar disorder, Type 2 diabetes mellitus, Spondylolysis, lumbar region - significant. - Condition is Stable. - Discharge Instructions: Back Pain, Adult, Chronic Back Pain, Type 2 Diabetes Mellitus, Diagnosis, Adult, Bipolar Disorder, Musculoskeletal Pain, Schizophrenia, Back Pain, Adult, [id number], Type 2 Diabetes Mellitus, Diagnosis, Adult, [id number]. - Prescriptions for Ibuprofen 600 mg Oral Tablet - take 1 tablet by ORAL route every 8 hours As needed take with food; 11 tablet. Skelaxin 800 mg Oral Tablet - take 1 tablet by ORAL route every 8 hours As needed; 21 tablet. Medrol (Khari) 4 mg Oral Tablets, Dose Pack - take 1 tablet by ORAL route as directed - follow package instructions; 1 packet. - Medication Reconciliation Form, Thank You Letter, Antibiotic Education, Prescription Opioid Use form. - Follow up: Private Physician; When: 2 - 3 days; Reason: Recheck today's complaints, Continuance of care, Re-evaluation by your physician. Follow up: Dieter Patel MD; When: 2 - 3 days; Reason: Recheck today's complaints, Re-evaluation by your physician. - Problem is new. - Symptoms have improved. Signatures: Dispatcher [employer] Sobeida Morgan RN RN Jarrod Zheng MD MD cha Munoz, Edgar, RN RN em Smirch, Shelby, RN RN ss Corrections: (The following items were deleted from the chart) 15:36 13:49 06/08/2019 13:49 Discharged to Home. Impression: Low back pain; Bipolar disorder; em Type 2 diabetes mellitus; Spondylolysis, lumbar region - significant. Condition is Stable. Discharge Instructions: Back Pain, Adult, Chronic Back Pain, Type 2 Diabetes Mellitus, Diagnosis, Adult, Musculoskeletal Pain, Back Pain, Adult, [id number]-[id number], Type 2 Diabetes Mellitus, Diagnosis, Adult, [id number], Bipolar Disorder, Schizophrenia. Prescriptions for Ibuprofen 600 mg Oral Tablet - take 1 tablet by ORAL route every 8 hours As needed take with food; 11 tablet, Skelaxin 800 mg Oral Tablet - take 1 tablet by ORAL route every 8 hours As needed; 21 tablet, Medrol (Khari) 4 mg Oral Tablets, Dose Pack - take 1 tablet by ORAL route as directed - follow package instructions; 1 packet. and Forms are Medication Reconciliation Form, Thank You Letter, Antibiotic Education, Prescription Opioid Use. Follow up: Private Physician; When: 2 - 3 days; Reason: Recheck today's complaints, Continuance of care, Re-evaluation by your physician. Follow up: Dieter Patel; When: 2 - 3 days; Reason: Recheck today's complaints, Re-evaluation by your physician. Problem is new. Symptoms have improved. osito
[2019-06-08 15:44] VITALS: TEMP 98.1
[2019-06-08 15:46] VITALS: O2SAT 95
[2019-06-08 15:48] VITALS: BP 164/80
== END 2019-06-08 15:36 | disposition home or self-care (01) ==
LOC: ER 12:05
DX: M54.5 Low back pain (principal); M47.896 Other spondylosis, lumbar region; F31.9 Bipolar disorder, unspecified; E11.9 Type 2 diabetes mellitus without complications; Z88.6 Allergy status to analgesic agent
CPT/HCPCS: 96361; 87088; 85025; 87086; 36415; 80053; 72131; 96375; 96374; 99284; J1100; J2270; J7030; J2405

== ENCOUNTER 2019-09-01 12:54 | Observation (INO) | payer OTHER ==
--- OUTSIDE RECORDS SUMMARY | 2019-09-01 13:45 | XMS REPORT | Continuity of Care Document ---
:1950 Author Organization [facility] t Address [address] [place] [address] Care Team Providers Name Role Phone Unavailable Unavailable Unavailable Problems Condition Condition Condition Status Onset Resolution Last Treating Co mments Source Name Details Category Date Date Treatment Clinician Date History of History of Diagnosis Active [facility] drug abuse drug abuse Aria kes - in in [facility] remission [facility] Bipolar Bipolar Diagnosis [facility] affective affective Luke [facility] - disorder, disorder, Farrukh patricia current current l episode episode Outpati hypomanic hypomanic ent Clinics Allergic Allergic Problem [facility] rhinitis, rhinitis, Luke s - unspecifie unspecifie Me moria d d l seasonalit seasonalit Ou tpati y, y, ent unspecifie unspecifie Cl inics d trigger d trigger Essential Essential Problem Active [facility] hypertensi hypertensi Aria kes - on on [facility] Depression Depression Problem Active [facility] with with [facility] - anxiety anxiety [facility] l [facility] ent Clinics Sigmoid Sigmoid Problem Active [facility] diverticul diverticul Aria kes - itis itis [facility] l Outpati ent Clinics Stage 3 Stage [address] [facility] chronic chronic [facility] - kidney kidney [facility] disease disease l Outpati ent Clinics Gastro-eso Gastro-eso Problem Active [facility] phageal phageal [facility] - reflux reflux [facility] disease disease l without without Outpati esophagiti esophagiti en t s s Clinics Primary Primary Problem Active [facility] osteoarthr osteoarthr Aria kes - itis itis Memoria involving involving l multiple multiple Outpat i joints joints ent Clinics History of History of Diagnosis Active [facility] suicide suicide [facility] - attempt attempt [facility] Allergies, Adverse Reactions, Alerts This patient has no known allergies or adverse reactions. Medications Ordered Filled Start Stop Current Ordering Indication Dosage Frequency Signature Comments Components Source Medication Medication Date Date Medication? Clinician (SIG) Name Name Pilar Hamiltonalejandro 2018-04 Yes John [address] [facility] 0-09 Kaycee [facility] - 00:00: [facility] 00 [facility] Pilar Hamiltonalejandro 2018-04 Yes John [address] [facility] 0-09 Kaycee [facility] - 00:00: [facility] 00 [facility] BusPIRone BusPIRone Yes John not [facility] HCl HCl Kaycee defined [facility] - [facility] Amlodipine Amlodipine Yes John TAKE [address] [facility] Besylate Besylate Kaycee TABLET BY L ukes - MOUTH ONCE Memoria DAILY [facility] Hydrochloro Hydrochloro Yes John TAKE [address] [facility] thiazide thiazide Kaycee TABLET BY L ukes - MOUTH ONCE Memoria DAILY [facility] Pantoprazol Pantoprazol Yes John TAKE [address] [facility] e Sodium e Sodium Kaycee TABLET BY L ukes - MOUTH ONCE Memoria DAILY [facility] Ciprofloxac Ciprofloxac Yes John TAKE [address] [facility] in HCl in HCl Kaycee TABLET BY [facility] - MOUTH Memoria EVERY 12 l HOURS [facility] Potassium Potassium Yes John TAKE [address] Chloride Chloride Kaycee TABLET BY L ukes - [facility] MOUTH ONCE Mem oria DAILY [facility] Metronidazo Metronidazo Yes John TAKE [address] [facility] le le Kaycee TABLET BY [facility] - MOUTH Memoria EVERY 8 l HOURS [facility] Sucralfate Sucralfate Yes John TAKE [address] [facility] Kaycee TABLET BY [facility] - MOUTH [facility]oria BEFORE A l MEAL AT [facility] BEDTIME. ent Clinics Procedures This patient has no known procedures. Encounters Start End Encounter Admission Attending Care Care Encounter Source Date/Time Date/Time Type Type Clinicians Facility Department ID 2019-01-07 2019-01-07 Outpatient Jalen Castro [id number] [facility] 13:00:00 13:00:00 [facility] Medicine Medicine [facility] 2018-12-30 2018-12-30 Outpatient Jalen Castro [id number] [facility] 11:11:00 11:11:00 [facility] Medicine l Medicine Outpati ent Clinics 2018-12-12 2018-12-12 Outpatient Jalen Raot [id number] [facility] 16:38:00 16:38:00 t [facility] Medicine Outpati ent Clinics 2018-11-13 2018-11-13 Outpatient Jalen Raot [id number] [facility] 16:05:00 16:05:00 t [facility] Outpati ent Clinics 2018-11-10 2018-11-10 Outpatient Jalen Raot [id number] [facility] 08:36:00 08:36:00 t [facility] Medicine Outpati ent Clinics 2018-11-05 2018-11-05 Outpatient Jalen Raot [id number] [facility] 13:30:00 13:30:00 [facility] Results This patient has no known results.
[2019-09-01 14:22] LABS: Absolute Lymphocytes (CBC) 1.5 K/uL (0.7-4.9); Hematocrit 35.4 % (36.0-45.0); Lymphocytes % 24.5 % (15.3-44.8); MPV 8.7 fL (7.6-11.3); RBC Red Blood Cell Count 3.95 M/uL (3.86-4.86)
[2019-09-01] MEDS ORDERED: ONDANSETRON 4 MG/2 ML VIAL ONE (14:35)
[2019-09-01] MEDS ORDERED: NA CHLORIDE 0.9% 1,000 ML ONE ×2 (14:35→15:42)
[2019-09-01] MEDS ORDERED: MORPHINE 4 MG/ML SYR ONE ×2 (14:35→15:42)
--- NOTE | 2019-09-01 14:43 | RAD REPORT ---
EXAM DESCRIPTION: CT - Abdomen Pelvis W Contrast - 09/01/2019 2:30 pm CLINICAL HISTORY: Abdominal pain COMPARISON: 2018 TECHNIQUE: Computed axial tomography of the abdomen pelvis was obtained. 100 cc Isovue-300 was admin istered intravenously. Oral contrast was not requested which limits evaluation of bowel. All CT scans are performed using dose optimization technique as appropriate and may include automated exposure control or mA/KV adjustment according to patient size. 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 The largest lies within the left lobe measuring 4.7 centimeters. The spleen, pancreas and adrenals are unremarkable. Small bilateral nonobstructing renal calculi. Small renal cysts. Colonic diverticulosis. Moderate stranding adjacent to the sigmoid colon. No free air. No abscess Mild to moderate anterior subluxation of L5 on S1. Spondylolysis L5 Small ventral hernia contains fat. Normal appendix Cholelithiasis without gallbladder wall thickening IMPRESSION: Moderate sigmoid diverticulitis
[2019-09-01 14:56] LABS: Albumin 3.3 g/dL (3.4-5.0); Bilirubin Direct 0.1 mg/dL (0-0.2); Bilirubin Total 0.6 mg/dL (0.2-1.0); Potassium 3.8 mmol/L (3.5-5.1); Protein, Total 7.9 g/dL (6.4-8.2)
[2019-09-01 15:08] LABS: Urine Bacteria <20 /HPF (<20); Urine Culture Reflex Order NOT NEEDED; Urine RBC <5 /HPF (NONE SEEN)
[2019-09-01] MEDS ORDERED: Levofloxacin500mg IV 500 MG/100 ML BAG IV ONE (15:20)
[2019-09-01] MEDS ORDERED: METRONIDAZOLE 500mg IVPB 500 MG/100 ML BAG IV ONE (15:20)
--- NOTE | 2019-09-01 15:26 | EDPHYS ---
Physician Documentation [facility] Name: Celine Serrano Age: 68 yrs Sex: Female : 1950 Arrival Date: 09/01/2019 Time: 12:57 Bed 14 Private MD: ED Physician Juarez Marcial HPI: 08/31 13:52 This 68 yrs old Female presents to ER via Ambulatory with complaints of pm1 Abdominal Pain. 13:52 The patient presents with abdominal pain. Onset: The symptoms/episode began/occurred 4 pm1 day(s) ago. Associated signs and symptoms: Pertinent positives: Diarrhea that has resolved, Burning with urination, Pertinent negatives: nausea and vomiting, chest pain, fever, shortness of breath. The symptoms are described as sharp. Modifying factors: The symptoms are alleviated by nothing, the symptoms are aggravated by nothing. Severity of pain: in the emergency department the pain is actually worse. The patient has not experienced similar symptoms in the past. It is unknown whether or not the patient has recently seen a physician. Historical: - Allergies: 13:14 Amitriptyline; ss 13:14 GABAPENTIN; ss 13:14 RISPERIDONE; ss - PMHx: 13:14 Bipolar disorder; Diabetes - NIDDM; Hypertension; problems with memory for 5 years; ss Schizophrenia; - Immunization history:: Adult Immunizations unknown. - Social history:: Smoking status: Patient denies any tobacco usage or history of. ROS: 13:52 Constitutional: Negative for fever, chills, and weight loss, Neck: Negative for injury, pm1 pain, and swelling, Cardiovascular: Negative for chest pain, palpitations, and edema, Respiratory: Negative for shortness of breath, cough, wheezing, and pleuritic chest pain. 13:52 Back: Negative for injury and pain, MS/Extremity: Negative for injury and deformity, Skin: Negative for injury, rash, and discoloration. 13:52 Neuro: Negative for headache, weakness, numbness, tingling, and seizure. 13:52 Abdomen/GI: Positive for abdominal pain, diarrhea, of the left lower quadrant, Negative for nausea and vomiting. 13:52 : Positive for burning with urination. Exam: 13:52 Constitutional: This is a well developed, well nourished patient who is awake, alert, pm1 and in no acute distress. Head/Face: Normocephalic, atraumatic. Chest/axilla: Normal chest wall appearance and motion. Nontender with no deformity. No lesions are appreciated. 13:52 Back: No spinal tenderness. No costovertebral tenderness. Full range of motion. Skin: Warm, dry with normal turgor. Normal color with no rashes, no lesions, and no evidence of cellulitis. MS/ Extremity: Pulses equal, no cyanosis. Neurovascular intact. Full, normal range of motion. 13:52 Cardiovascular: Exam negative for acute changes, Rate: normal, Rhythm: regular, Pulses: no pulse deficits are appreciated. 13:52 Respiratory: Exam negative for acute changes, respiratory distress, shortness of breath. 13:52 Abdomen/GI: Inspection: abdomen appears normal, Palpation: soft, in all quadrants, mild abdominal tenderness, in the suprapubic area and left lower quadrant, mass, is not appreciated, rebound tenderness, is not appreciated. 13:52 Neuro: Exam negative for acute changes, Orientation: is normal, Mentation: is normal, Motor: is normal, moves all fours. Vital Signs: 13:12 BP 174 / 79; Pulse 66; Resp 18; Temp 98.3; Pulse Ox 98% on R/A; Weight 59.42 kg; Height ss 5 ft. 3 in. (160.02 cm); 14:30 BP 164 / 80; Pulse 63; Resp 16; Pulse Ox 99% ; bp 16:30 BP 164 / 81; Pulse 60; Resp 17; Pulse Ox 100% ; bp 13:12 Body Mass Index 23.21 (59.42 kg, 160.02 cm) MDM: 13:45 Patient medically screened. pm1 13:56 Data reviewed: vital signs. Data interpreted: Pulse oximetry: on room air is 98 %. pm1 Interpretation: normal. 15:22 Counseling: I had a detailed discussion with the patient and/or guardian regarding: the pm1 historical points, exam findings, and any diagnostic results supporting the discharge/admit diagnosis, lab results, the need for further work-up and treatment in the hospital. 15:24 Physician consultation: Henry Benedict DO was called at 15:25, was contacted at 15:25, pm1 regarding admission, patient's condition, and will see patient in ED. 08/31 13:48 Order name: Basic Metabolic Panel; Complete Time: 14:57 pm1 08/31 13:48 Order name: CBC with Diff; Complete Time: 14:32 pm1 08/31 13:48 Order name: Hepatic Function; Complete Time: 14:57 pm1 08/31 13:48 Order name: Lipase; Complete Time: 14:57 pm1 08/31 13:48 Order name: Urine Microscopic Only; Complete Time: 15:16 pm1 08/31 14:32 Order name: CREATININE WHOLE BLOOD; Complete Time: 14:32 EDMS 08/31 13:49 Order name: CT Abd/Pelvis - IV Contrast Only; Complete Time: 14:54 pm1 08/31 14:42 Order name: Urine Dipstick--Ancillary (enter results) bd 08/31 15:27 Order name: Procalcitonin pm1 08/31 13:48 Order name: IV Saline Lock; Complete Time: 14:31 pm1 08/31 13:48 Order name: Labs collected and sent; Complete Time: 14:31 pm1 08/31 13:48 Order name: Urine Dipstick-Ancillary (obtain specimen); Complete Time: 14:43 pm1 Administered Medications: 14:30 Drug: morphine 4 mg Route: IVP; Site: right antecubital; bp 15:49 Follow up: Response: Pain is decreased bp 14:30 Drug: Zofran (Ondansetron) 4 mg Route: IVP; Site: right antecubital; bp 15:58 Follow up: Response: Nausea is decreased bp 14:30 Drug: NS 0.9% 500 ml Route: IV; Rate: bolus; Site: right antecubital; bp 15:57 Follow up: IV Status: Completed infusion; IV Intake: 500ml bp 15:10 Drug: Flagyl 500 mg Volume: 100 ml; Route: IVPB; Rate: 200 ml/hr; Infused Over: 30 bp mins; Site: right antecubital; 15:59 Follow up: IV Status: Completed infusion; IV Intake: 100ml bp 15:22 Not Given (Physician Discretion): LevaQUIN 500 mg PO once pm1 15:40 Drug: NS 0.9% 1000 ml Route: IV; Rate: 100 ml/hr; Site: right antecubital; bp 16:53 Follow up: IV Status: Infusion continued upon admission bp 15:40 Drug: morphine 4 mg Route: IVP; Site: right antecubital; bp 16:53 Follow up: Response: No adverse reaction bp 15:55 Drug: LevaQUIN 500 mg Volume: 100 ml; Route: IVPB; Infused Over: 60 mins; Site: right bp antecubital; 16:52 Follow up: IV Status: Completed infusion; IV Intake: 100ml bp Disposition: 19:41 Co-signature as Attending Physician, Juarez Marcial MD. [email or web address] Disposition: 09/01/19 15:26 Hospitalization ordered by Henry Benedict for Observation. Preliminary diagnosis is Diverticulitis of large intestine without perforation or abscess without bleeding. - Bed requested for Telemetry/MedSurg (observation). - Status is Observation. bp - Condition is Stable. - Problem is new. - Symptoms have improved. Signatures: Dispatcher [employer] EDMS Yesica Pink Shelby, RN RN ss Anup Butler, MANAGER DOCUMENTATION MANAGER DOCUMENTATION pm1 Bryon Coronel RN RN bp Holmes, Maurice, MD MD 7 Corrections: (The following items were deleted from the chart) 16:36 15:26 Hospitalization Ordered by Henry Benedict DO for Observation. Preliminary bd diagnosis is Diverticulitis of large intestine without perforation or abscess without bleeding. Bed requested for Telemetry/MedSurg (observation). Status is Observation. Condition is Stable. Problem is new. Symptoms have improved. pm1 17:08 16:36 09/01/2019 15:26 Hospitalization Ordered by Henry Benedict DO for Observation. bp Preliminary diagnosis is Diverticulitis of large intestine without perforation or abscess without bleeding. Bed requested for Telemetry/MedSurg (observation). Status is Observation. Condition is Stable. Problem is new. Symptoms have improved. bd
--- NOTE | 2019-09-01 15:26 | ER ---
Nurse's Notes [facility] Name: Celine Serrano Age: 68 yrs Sex: Female : 1950 Arrival Date: 09/01/2019 Time: 12:57 Bed 14 Private MD: Diagnosis: Diverticulitis of large intestine without perforation or abscess without bleeding Presentation: 08/31 13:12 Chief complaint: Patient states: LLQ pain and diarrhea x 4 days. Coronavirus screen: ss Patient denies a cough. Patient denies shortness of breath or difficulty breathing. Patient denies measured and/or subjective temperature greater than 100.4F prior to today's visit. Patient denies travel on a cruise ship or to a country the [facility] currently lists as an affected area. Patient denies contact with known and/or suspected case of COVID-19. Ebola Screen: No symptoms or risks identified at this time. Initial Sepsis Screen: Does the patient meet any 2 criteria? No. Patient's initial sepsis screen is negative. Does the patient have a suspected source of infection? No. Patient's initial sepsis screen is negative. Risk Assessment: Do you want to hurt yourself or someone else? Patient reports no desire to harm self or others. Onset of symptoms was September 01, 2019. 13:12 Method Of Arrival: Ambulatory ss 13:12 Acuity: HARJINDER 3 ss Triage Assessment: 13:15 General: Appears in no apparent distress. uncomfortable, Behavior is calm, cooperative, ss appropriate for age. Pain: Complains of pain in left lower quadrant. Neuro: Level of Consciousness is awake, alert, obeys commands, Oriented to person, place, time, situation. Respiratory: Airway is patent Respiratory effort is even, unlabored. GI: Reports lower abdominal pain, diarrhea, Patient currently denies nausea, vomiting. Historical: - Allergies: 13:14 Amitriptyline; ss 13:14 GABAPENTIN; ss 13:14 RISPERIDONE; ss - PMHx: 13:14 Bipolar disorder; Diabetes - NIDDM; Hypertension; problems with memory for 5 years; ss Schizophrenia; - Immunization history:: Adult Immunizations unknown. - Social history:: Smoking status: Patient denies any tobacco usage or history of. Screenin:15 Abuse screen: Denies threats or abuse. Denies injuries from another. Nutritional bp screening: No deficits noted. Tuberculosis screening: No symptoms or risk factors identified. Fall Risk None identified. Assessment: 13:15 General: SEE TRIAGE NOTE. bp 14:10 Reassessment: PT TO CT. bp 14:30 Reassessment: PT RETURNED FROM CT. bp 16:30 Reassessment: PT SEEN BY ADMIT MD. ADMIT IN PROCESS. bp Vital Signs: 13:12 BP 174 / 79; Pulse 66; Resp 18; Temp 98.3; Pulse Ox 98% on R/A; Weight 59.42 kg; Height ss 5 ft. 3 in. (160.02 cm); 14:30 BP 164 / 80; Pulse 63; Resp 16; Pulse Ox 99% ; bp 16:30 BP 164 / 81; Pulse 60; Resp 17; Pulse Ox 100% ; bp 13:12 Body Mass Index 23.21 (59.42 kg, 160.02 cm) ss ED Course: 12:57 Patient arrived in ED. fj1 13:13 Triage completed. ss 13:15 Arm band placed on Patient placed in waiting room. ss 13:15 Patient has correct armband on for positive identification. Bed in low position. Call bp light in reach. Side rails up X2. 13:44 Anup Butler NP is PHCP. pm1 13:45 Juarez Marcial MD is Attending Physician. pm1 14:07 Bryon Coronel, FLAQUITO is Primary Nurse. bp 14:10 Inserted saline lock: 20 gauge in right antecubital area, using aseptic technique. bp Blood collected. 14:30 CT Abd/Pelvis - IV Contrast Only In Process Unspecified. EDMS 15:25 Henry Benedict DO is Hospitalizing Provider. pm1 16:24 Procalcitonin Sent. ss 16:51 No provider procedures requiring assistance completed. Patient admitted, IV remains in bp place. Administered Medications: 14:30 Drug: morphine 4 mg Route: IVP; Site: right antecubital; bp 15:49 Follow up: Response: Pain is decreased bp 14:30 Drug: Zofran (Ondansetron) 4 mg Route: IVP; Site: right antecubital; bp 15:58 Follow up: Response: Nausea is decreased bp 14:30 Drug: NS 0.9% 500 ml Route: IV; Rate: bolus; Site: right antecubital; bp 15:57 Follow up: IV Status: Completed infusion; IV Intake: 500ml bp 15:10 Drug: Flagyl 500 mg Volume: 100 ml; Route: IVPB; Rate: 200 ml/hr; Infused Over: 30 bp mins; Site: right antecubital; 15:59 Follow up: IV Status: Completed infusion; IV Intake: 100ml bp 15:22 Not Given (Physician Discretion): LevaQUIN 500 mg PO once pm1 15:40 Drug: NS 0.9% 1000 ml Route: IV; Rate: 100 ml/hr; Site: right antecubital; bp 16:53 Follow up: IV Status: Infusion continued upon admission bp 15:40 Drug: morphine 4 mg Route: IVP; Site: right antecubital; bp 16:53 Follow up: Response: No adverse reaction bp 15:55 Drug: LevaQUIN 500 mg Volume: 100 ml; Route: IVPB; Infused Over: 60 mins; Site: right bp antecubital; 16:52 Follow up: IV Status: Completed infusion; IV Intake: 100ml bp Intake: 15:57 IV: 500ml; Total: 500ml. bp 15:59 IV: 100ml; Total: 600ml. bp 16:52 IV: 100ml; Total: 700ml. bp Outcome: 15:26 Decision to Hospitalize by Provider. pm1 16:50 Admitted to Med/surg accompanied by tech, via wheelchair, room 213, with chart, Report bp called to SARITA HUDDLESTON 16:50 Condition: stable 16:50 Instructed on the need for admit. 17:08 Patient left the ED. bp Signatures: Dispatcher [employer] EDMS Radha Mirza RN RN ss Marinas, Patrick, BACTERIOLOGY TEACHER BACTERIOLOGY TEACHER pm1 Bryon Coronel RN RN bp James, Frank fj
[2019-09-01] MEDS ORDERED: MORPHINE 2 MG/ML SYR IV PRN (16:16)
[2019-09-01] MEDS ORDERED: ONDANSETRON 4 MG/2 ML VIAL IV PRN (16:16)
[2019-09-01] MEDS: INSULIN -REGULAR HUMAN 50 UNIT/0.5 ML ML SQ SCH ×2 (16:30→20:53)
--- NOTE | 2019-09-01 16:31 | P.HP ---
Certification for Inpatient Patient admitted to: Observation With expected LOS: <2 Midnights Patient will require the following post-hospital care: None Practitioner: I am a practitioner with admitting privileges, knowledge of patient current condition, hospital course, and medical plan of care. Services: Services provided to patient in accordance with Admission requirements found in Title 42 Section 412.3 of the Code of Federal Regulations <Kurtis Vargas - Last Filed: 09/01/19 16:21> Patient History Date of Service: 09/01/19 Primary Care Provider: Jelly Reason for admission: Sigmoid diverticulitis History of Present Illness: 68-year-old female with history of depression, anxiety, diabetes mellitus type 2 presented to the emergency department with a couple weeks of reported abdominal pain and nausea. Patient denies any vomiting, diarrhea, blood in stools. Patient reports that she has been having intermittent abdominal pain for the last couple of years that she has had 2 episodes that up this bad. Patient reports this is the 1st time that she has been diagnosed with diverticulitis. Patient states she has not ever had a colonoscopy before. During her evaluation in the emergency department patient was found to have moderate acute sigmoid diverticulitis without perforation or abscess. ED provider wishes to admit patient for further evaluation management. When I saw this patient in the emergency department she appeared stable, vital signs within normal limits. Patient does not appear septic. Home medications list reviewed: Yes - Past Medical/Surgical History Has patient received pneumonia vaccine in the past: Yes Diabetic: No -: Hypertension -: Bipolar -: Schizophrenia -: Vaginal and Oral Herpes -: Depression -: Anxiety -: UTI -: Right knee sx -: Right elbow surgery Psychosocial/ Personal History: Patient lives at home alone. - Family History Mother -: Cancer Father -: Heart disease - Social History Smoking Status: Former smoker Alcohol use: No CD- Drugs: No Caffeine use: No Place of Residence: Home <Kurtis Vargas - Last Filed: 09/01/19 16:21> Date of Service: 09/01/19 History of Present Illness: Patient reports that her daughter had mentioned to her that she has had a history of diverticulitis in the past. She has not had a colonoscopy in the past. - Family History Family History: Reviewed- Non-Contributory <Henry Benedict - Last Filed: 06/02/20 17:25> Allergies amitriptyline [Amitriptyline] Allergy (Verified 08/02/11 15:37) Anaphylaxis gabapentin Allergy (Verified 08/02/11 15:37) Anaphylaxis risperidone Allergy (Verified 08/02/11 15:37) Anaphylaxis Home Medications: Buspirone HCl [Buspar] 10 mg PO BID 02/16/18 Fluoxetine HCl [Prozac] 1 cap PO DAILY 02/16/18 Folic Acid/Multivit,Iron,[place] [One Daily Complete Tablet] 1 each PO DAILY 09/25/18 Iron 18 mg PO DAILY 09/25/18 Pantoprazole Sodium [Protonix] 20 mg PO DAILY #30 tablet. 10/01/18 Sucralfate [Carafate*] 1 gm PO SEECOM 12/31/18 Amlodipine [Norvasc*] 10 mg PO DAILY #60 tab 01/02/19 Cefuroxime Axetil [Cefuroxime] 500 mg PO BID #8 tab 01/02/19 Review of Systems General: Unremarkable Eyes: Unremarkable ENT: Unremarkable Respiratory: Unremarkable Cardiovascular: Unremarkable Gastrointestinal: Nausea, Abdominal Pain Genitourinary: Unremarkable Musculoskeletal: Unremarkable Integumentary: Unremarkable Neurological: Unremarkable Lymphatics: Unremarkable <Kurtis Vargas - Last Filed: 09/01/19 16:21> Physical Examination - Physical Exam General: Alert, In no apparent distress, Oriented x3 HEENT: Atraumatic, Normocephalic Neck: Supple Respiratory: Clear to auscultation bilaterally, Normal air movement Cardiovascular: No edema Capillary refill: <2 Seconds Gastrointestinal: Normal bowel sounds, Tenderness (Moderate abdominal tenderness to the suprapubic and left lower quadrant) Musculoskeletal: No erythema, No warmth Integumentary: No rashes, No breakdown Neurological: Normal speech, Normal tone - Studies Laboratory Data (last 24 hrs) 09/01/19 14:10: WBC 6.3, Hgb 12.0, Hct 35.4 L, Plt Count 260 09/01/19 14:10: Sodium 141, Potassium 3.8, BUN 22 H, Creatinine 1.38 H, Glucose 90, Total Bilirubin 0.6, AST 14 L, ALT 14, Alkaline Phosphatase 88, Lipase 140 <Kurtis Vargas - Last Filed: 09/01/19 16:21> - Physical Exam Gastrointestinal: Soft and benign, No guarding Neurological: Normal affect - Studies Laboratory Data (last 24 hrs) 09/01/19 14:10: WBC 6.3, Hgb 12.0, Hct 35.4 L, Plt Count 260 09/01/19 14:10: Sodium 141, Potassium 3.8, BUN 22 H, Creatinine 1.38 H, Glucose 90, Total Bilirubin 0.6, AST 14 L, ALT 14, Alkaline Phosphatase 88, Lipase 140 <Henry Benedict - Last Filed: 09/01/19 17:25> Assessment and Plan - Plan Assessment Acute sigmoid diverticulitis without perforation or abscess Acute kidney injury likely secondary to dehydration Diabetes mellitus type 2 not currently taking any medications Hypertension Depression Plan Acute sigmoid diverticulitis without perforation or abscess-patient will be given IV antibiotics, pain medications as needed, nausea medications as needed. Patient be started on clear liquid diet and advance as tolerated. Will obtain CBC and perform repeat abdominal exam in the morning to determine need for further evaluation or consultation with General Surgery. DVT prophylaxis with Lovenox 40 mg once daily. Anticipate clinical improvement in the next 24 hr, anticipate discharge in the next 24 hr. Acute kidney injury likely secondary to dehydration- I believe this is likely from dehydration, will provide maintenance fluids overnight and recheck labs in the morning. If kidney function is worse tomorrow will consider consult with nephrology. Diabetes mellitus type 2 not currently taking any medications- patient we placed on sliding scale insulin therapy during her hospitalization. Will obtain a.c. HS Accu-Cheks. Will obtain A1c level with the morning labs. Hypertension- will obtain and continue patient's home medications. Depression-will obtain and continue patient's home medications. Discharge Plan: Home Plan to discharge in: 24 Hours - Advance Directives Does patient have a Living Will: No Does patient have a Durable POA for Healthcare: No - Code Status/Comfort Care Code Status Assessed: Yes (Patient is full code) Critical Care: No Time Spent Managing Pts Care (In Minutes): 55 <Kurtis Vargas - Last Filed: 09/01/19 16:21> - Plan Patient seen and examined with nurse practitioner. Exam, review of systems, evaluation and plan of care discussed with nurse practitioner. Agree with plan of care. Case discussed with patient. Anticipate improvement over the next 24- 48 hr. Will reassess tomorrow. Consider adjusting diet at that time and possible discharge with oral medication. Patient will require colonoscopy in 4- 6 weeks to further evaluate. <Henry Benedict - Last Filed: 09/01/19 17:25>
[2019-09-01] MEDS ORDERED: METRONIDAZOLE 500mg IVPB 500 MG/100 ML BAG IV SCH (17:00)
[2019-09-01 17:39] VITALS: BMI 23.9
[2019-09-01 17:49] VITALS: O2SAT 97
[2019-09-01] MEDS: ENOXAPARIN 40 MG/0.4 ML SQ SCH (17:59)
[2019-09-01] MEDS: NA CHLORIDE 0.9% 1,000 ML IV SCH (17:59)
[2019-09-01 20:47] LABS: Urine Blood TRACE (NEG); Urine Glucose NEGATIVE (NEG); Urine Protein 2+ (NEG); Urine pH 5.5 (5.0-7.0)
[2019-09-01] MEDS ORDERED: PNEUMOCOCCAL VACCINE 0.5 ML IMVAC ONE (21:00)
[2019-09-02] MEDS: METRONIDAZOLE 500mg IVPB 500 MG/100 ML BAG IV SCH ×2 (01:19→09:39)
[2019-09-02] MEDS: NA CHLORIDE 0.9% 1,000 ML IV SCH ×2 (03:40→14:46)
[2019-09-02 05:32] LABS: Absolute Lymphocytes (CBC) 1.3 K/uL (0.7-4.9); Basophils % 0.6 % (0-1.3); Hematocrit 33.9 % (36.0-45.0); Lymphocytes % 22.3 % (15.3-44.8); MPV 8.3 fL (7.6-11.3); RBC Red Blood Cell Count 3.76 M/uL (3.86-4.86)
[2019-09-02 05:52] LABS: Potassium 3.6 mmol/L (3.5-5.1)
[2019-09-02] MEDS: INSULIN -REGULAR HUMAN 50 UNIT/0.5 ML ML SQ SCH ×3 (07:30→16:30)
[2019-09-02] MEDS ORDERED: AMLODIPINE 5 MG TAB PO SCH (09:00)
[2019-09-02] MEDS: ENOXAPARIN 40 MG/0.4 ML SQ SCH (09:36)
[2019-09-02] MEDS: ACETAMINOPHEN 500 MG TAB PO PRN ×2 (09:46→14:55)
[2019-09-02] MEDS ORDERED: Levofloxacin 250mg IV 250 MG/50 ML BAG IV SCH (16:00)
[2019-09-02] MEDS ORDERED: Levofloxacin500mg IV 500 MG/100 ML BAG IV SCH (16:00)
--- NOTE | 2019-09-02 16:53 | P.DS ---
Admission Date: 09/01/19 Discharge Date: 09/02/19 Primary Care Provider: Jelly Disposition: ROUTINE DISCHARGE Discharge Condition: GOOD Reason for Admission: Sigmoid diverticulitis Consultations: none Procedures: CT Scan: FINDINGS: Three hepatic masses demonstrating centripetal enhancement having the appearance of hemangiomas. The largest lies within the left lobe measuring 4.7 centimeters. The spleen, pancreas and adrenals are unremarkable. Small bilateral nonobstructing renal calculi. Small renal cysts. Colonic diverticulosis. Moderate stranding adjacent to the sigmoid colon. No free air. No abscess Mild to moderate anterior subluxation of L5 on S1. Spondylolysis L5 Small ventral hernia contains fat. Normal appendix Cholelithiasis without gallbladder wall thickening IMPRESSION: Moderate sigmoid diverticulitis Medical problem list: Acute sigmoid diverticulitis without perforation or abscess Acute kidney injury likely secondary to dehydration with underlying chronic renal disease stage III Diabetes mellitus type 2 not currently taking any medications Hypertension Depression Brief History of Present Illness: 68-year-old female presented to emergency room with left lower quadrant abdominal pain. Patient found to have diverticulitis of the sigmoid region. Patient admitted for further evaluation and treatment. Hospital Course: Patient presented with abdominal pain secondary to acute sigmoid diverticulitis. CT scan showed no perforation or abscess. Pro calcitonin level negative. White count within normal range. Patient was admitted for observation. Her diet was advanced. Pain improved. At discharge she was able to tolerate a diet. No significant abdominal pain noted at discharge. At discharge she will continue with Levaquin 500 mg daily and Flagyl 500 mg 3 times a day for 7 days. Patient will be provided a limited supply of tramadol 50 mg 1 pill 3 times a day as needed for pain. Patient will follow up with her PCP in 1 week to follow up this hospitalization. Patient will require colonoscopy in 4-6 weeks to further address. GI evaluation will be required at that time. She is to follow up with her PCP to further address. Patient also had acute renal injury. This remained stable. Patient was hydrated. Patient with underlying chronic renal disease stage III. Recommend no further use of nonsteroidal anti-inflammatories. Future medications will need to be renally dose. Recommend to recheck lab-BMP in 1-2 weeks. Patient would benefit with nephrology evaluation as an outpatient. Patient with hypertension. This has remained stable. At discharge she will continue with Norvasc 10 mg daily. Patient with depression with anxiety. At discharge she will continue with her current medications of buspirone and Prozac. Patient with history of diabetes. This is diet controlled. Recommend a follow up with her PCP to further monitor and address. Vital Signs/Physical Exam: Temp Pulse Resp BP Pulse Ox 98 F 70 18 165/78 H 94 09/02/19 12:00 09/02/19 12:00 09/02/19 12:00 09/02/19 12:00 09/02/19 12:00 General: Alert, In no apparent distress, Oriented x3, Cooperative HEENT: Atraumatic Neck: Supple Respiratory: Clear to auscultation bilaterally, Normal air movement Cardiovascular: Normal pulses, Regular rate/rhythm Gastrointestinal: Normal bowel sounds, Soft and benign, Non-distended, No tenderness, No masses, No rebound, No guarding Laboratory Data at Discharge: WBC 6.0 K/uL (4.3-10.9) 09/02/19 05:06 Hgb 11.2 g/dL (12.0-15.0) L 09/02/19 05:06 Hct 33.9 % (36.0-45.0) L 09/02/19 05:06 Plt Count 230 K/uL (152-406) 09/02/19 05:06 Sodium 142 mmol/L (136-145) 09/02/19 05:06 Potassium 3.6 mmol/L (3.5-5.1) 09/02/19 05:06 BUN 17 mg/dL (7-18) 09/02/19 05:06 Creatinine 1.32 mg/dL (0.55-1.3) H 09/02/19 05:06 Glucose 81 mg/dL (74-106) 09/02/19 05:06 Magnesium 2.0 mg/dL (1.8-2.4) 09/02/19 05:06 Total Bilirubin 0.6 mg/dL (0.2-1.0) 09/01/19 14:10 AST 14 U/L (15-37) L 09/01/19 14:10 ALT 14 U/L (12-78) 09/01/19 14:10 Alkaline Phosphatase 88 U/L (45-117) 09/01/19 14:10 Lipase 140 U/L (73-393) 06/02/20 14:10 Home Medications: Buspirone HCl [Buspar] 10 mg PO BID 02/16/18 Fluoxetine HCl [Prozac] 1 cap PO DAILY 02/16/18 Amlodipine [Norvasc*] 10 mg PO DAILY #60 tab 01/02/19 Levofloxacin [Levaquin] 500 mg PO DAILY #7 tablet 09/02/19 Tramadol HCl [Ultram] 50 mg PO TID PRN #10 tablet 09/02/19 metroNIDAZOLE [Flagyl] 500 mg PO Q8H #21 tablet 09/02/19 New Medications: metroNIDAZOLE [Flagyl] 500 mg PO Q8H #21 tablet Levofloxacin [Levaquin] 500 mg PO DAILY #7 tablet Tramadol HCl [Ultram] 50 mg PO TID PRN #10 tablet PRN Reason: Pain Scale 2-4 (Mild) Patient Discharge Instructions: Patient presented with abdominal pain secondary to acute sigmoid diverticulitis. CT scan showed no perforation or abscess. Pro calcitonin level negative. White count within normal range. Patient was admitted for observation. Her diet was advanced. Pain improved. At discharge she was able to tolerate a diet. No significant abdominal pain noted at discharge. At discharge she will continue with Levaquin 500 mg daily and Flagyl 500 mg 3 times a day for 7 days. Patient will be provided a limited supply of tramadol 50 mg 1 pill 3 times a day as needed for pain. Patient will follow up with her PCP in 1 week to follow up this hospitalization. Patient will require colonoscopy in 4-6 weeks to further address. GI evaluation will be required at that time. She is to follow up with her PCP to further address. Patient also had acute renal injury. This remained stable. Patient was hydrated. Patient with underlying chronic renal disease stage III. Recommend no further use of nonsteroidal anti-inflammatories. Future medications will need to be renally dose. Recommend to recheck lab-BMP in 1-2 weeks. Patient would benefit with nephrology evaluation as an outpatient. Patient with hypertension. This has remained stable. At discharge she will continue with Norvasc 10 mg daily. Patient with depression with anxiety. At discharge she will continue with her current medications of buspirone and Prozac. Patient with history of diabetes. This is diet controlled. Recommend a follow up with her PCP to further monitor and address. Diet: GI soft Activity: Ad amelia Time spent managing pt's care (in minutes): 55
[2019-09-02 18:32] VITALS: BP 160/75; TEMP 97.9
== END 2019-09-02 18:11 | disposition home or self-care (01) ==
LOC: ER 12:54 → ERHOLD 16:16 → 2ND 16:50
PROVIDERS: ADMIT Family Medicine; ATTEND Family Medicine
DX: K57.32 Diverticulitis of large intestine without perforation or abscess without bleeding (principal); N17.9 Acute kidney failure, unspecified; E11.22 Type 2 diabetes mellitus with diabetic chronic kidney disease; I12.9 Hypertensive chronic kidney disease with stage 1 through stage 4 chronic kidney disease, or unspecified chronic kidney disease; N18.3 Chronic kidney disease, stage 3 (moderate); Z11.59 Encounter for screening for other viral diseases; F41.8 Other specified anxiety disorders; F31.9 Bipolar disorder, unspecified; F20.9 Schizophrenia, unspecified; Z79.899 Other long term (current) drug therapy; Z87.891 Personal history of nicotine dependence
CPT/HCPCS: 36415; 74177; 80048; 80076; 81003; 81015; 82565; 82947; 83690; 83735; 84145; 85025; 96361; 96365; 96375; 97162; 99285; G0378; J1650; J2405; J7030; Q9967; U0002

== ENCOUNTER 2019-12-01 11:03 | Emergency (ER) | payer OTHER ==
--- OUTSIDE RECORDS SUMMARY | 2019-12-01 11:05 | XMS REPORT | Continuity of Care Document ---
:1950 Author Organization [facility] t Address [address] [place] [address] Care Team Providers Name Role Phone Unavailable Unavailable Unavailable Problems Condition Condition Condition Status Onset Resolution Last Treating Co mments Source Name Details Category Date Date Treatment Clinician Date History of History of Diagnosis Active [facility] drug abuse drug abuse Aria kes - in in [facility] remission [facility] Bipolar Bipolar Diagnosis Active [...] Aria kes - on on [facility] Depression Depression Problem Active [...] [facility] Allergies, Adverse Reactions, Alerts This patient has no known allergies or adverse reactions. Medications Ordered Filled Start Stop Current Ordering Indication Dosage Frequency Signature Comments Components Source Medication Medication Date Date Medication? Clinician (SIG) Name Name Pilar Hamiltonalejandro 2018-04 Yes John [address] [facility] 0-09 Kaycee [facility] - 00:00: [facility] 00 [facility] ent [facility] Pilar Hamiltonalejandro 2018-04 Yes John [address] [facility] 0-09 Kaycee [facility] - 00:00: [facility] 00 [facility] ent [facility] BusPIRone BusPIRone Yes John not [facility] HCl HCl Kaycee defined [facility] - Memoria [facility] ent [facility] Amlodipine Amlodipine Yes John TAKE [address] [facility] Besylate Besylate Kaycee TABLET BY L ukes - MOUTH ONCE Memoria DAILY [facility] ent [facility] Hydrochloro Hydrochloro Yes John TAKE [address] [facility] thiazide thiazide Kaycee TABLET BY L [facility] - MOUTH ONCE Memoria DAILY [facility] ent [facility] Pantoprazol Pantoprazol Yes John TAKE [address] [facility] e Sodium e Sodium Kaycee TABLET BY L ukes - MOUTH ONCE Memoria DAILY [facility] ent [facility] Ciprofloxac Ciprofloxac Yes John TAKE [address] [facility] in HCl in HCl Kaycee TABLET BY [facility] - MOUTH Memoria EVERY 12 l HOURS [facility] ent [facility] Potassium Potassium Yes John TAKE [address] Chloride Chloride Kaycee TABLET BY L ukes - [facility] MOUTH ONCE Mem oria DAILY [facility] ent [facility] Metronidazo Metronidazo Yes John TAKE [address] [facility] le le Kaycee TABLET BY [facility] - MOUTH Memoria EVERY 8 l HOURS [facility] ent [facility] Sucralfate Sucralfate Yes John TAKE [address] [facility] Kaycee TABLET BY [facility] - MOUTH [facility]oria BEFORE A l MEAL AT [facility] BEDTIME. ent Clinics Procedures This patient has no known procedures. Encounters Start End Encounter Admission Attending Care Care Encounter Source Date/Time Date/Time Type Type Clinicians Facility Department ID 2019-01-07 2019-01-07 Outpatient Jalen Castro [id number] [facility] 13:00:00 13:00:00 [facility] Medicine Medicine [facility] ent [facility] 2018-12-30 2018-12-30 Outpatient Jalen Castro [id number] [facility] 11:11:00 11:11:00 [facility] Medicine l Medicine Outpati ent Clinics 2018-12-12 2018-12-12 Outpatient Jalen Raot [id number] [facility] 16:38:00 16:38:00 t [facility] Medicine Outpati ent Clinics 2018-11-13 2018-11-13 Outpatient Jalen Raot [id number] [facility] 16:05:00 16:05:00 t [facility] Outpati ent Clinics 2018-11-10 2018-11-10 Outpatient Jalen Raot [id number] [facility] 08:36:00 08:36:00 t [facility] Medicine Outpati ent Clinics 2018-11-05 2018-11-05 Outpatient Jalen Raot [id number] [facility] 13:30:00 13:30:00 [facility] Results This patient has no known results.
[2019-12-01] MEDS ORDERED: ONDANSETRON 4 MG/2 ML VIAL ONE (12:06)
[2019-12-01] MEDS ORDERED: MORPHINE 4 MG/ML SYR ONE (12:06)
[2019-12-01 12:25] LABS: Absolute Lymphocytes (CBC) 1.4 K/uL (0.7-4.9); Basophils % 1.3 % (0-1.3); Hematocrit 36.4 % (36.0-45.0); Lymphocytes % 25.9 % (15.3-44.8); MPV 8.5 fL (7.6-11.3); RBC Red Blood Cell Count 4.07 M/uL (3.86-4.86)
[2019-12-01 12:34] LABS: ALT/SGPT 14 U/L (12-78); AST/SGOT 15 U/L (15-37); Albumin 3.3 g/dL (3.4-5.0); Alkaline Phosphatase 88 U/L (45-117); BUN Blood Urea Nitrogen 23 mg/dL (7-18); Bicarbonate 24 mmol/L (21-32); Bilirubin Direct < 0.1 mg/dL (0-0.2); Bilirubin Total 0.2 mg/dL (0.2-1.0); Glucose Level 82 mg/dL (74-106); Lipase 243 U/L (73-393); Potassium 3.5 mmol/L (3.5-5.1); Protein, Total 7.7 g/dL (6.4-8.2); Sodium Level 144 mmol/L (136-145)
--- NOTE | 2019-12-01 13:08 | RAD REPORT ---
EXAM DESCRIPTION: CTAbdomen Pelvis W Contrast - 12/01/2019 12:54 pm CLINICAL HISTORY: Abdominal pain. lower abdominal pain COMPARISON: Abdomen Pelvis W Contrast dated 09/01/2019 TECHNIQUE: Biphasic CT imaging of the abdomen and pelvis was performed with 100 ml non-ionic IV cont rast. All CT scans are performed using dose optimization technique as appropriate and may include automated exposure control or mA/KV adjustment according to patient size. FINDINGS: Small calcified pleural plaques are present bilaterally.The inferior lung verma are clear . Multiple hemangiomas are present within the largest measuring 4.6 cm in the left lobe. No intra or ex trahepatic biliary tree dilatation. The spleen, pancreas, adrenal glands normal. Small bilateral jeanette ceal renal calculi are present, largest measuring 3 mm inferior left kidney. Small amount of sludge i s present in the gallbladder. No bowel obstruction, free air, free fluid or abscess. The appendix is normal. Sigmoid diverticulosi s coli without diverticulitis. Sigmoid wall thickening is present, however. No evidence of significan t lymphadenopathy. Chronic bilateral spondylolysis with grade 1-2 anterolisthesis L5 on S1. IMPRESSION: Prominent sigmoid diverticulosis coli is present without convincing evidence of acute di verticulitis. Thickening of the sigmoid colon wall was present, for which follow-up colonoscopy would be advised if not recently performed. Bilateral nephrolithiasis without hydronephrosis. Multiple hepatic hemangiomas. Grade 1-2 anterolisthesis L5 on S1 with bilateral spondylolysis present.
[2019-12-01] MEDS ORDERED: NA CHLORIDE 0.9% 1,000 ML ONE (13:34)
[2019-12-01 13:36] LABS: Urine Blood TRACE (NEG); Urine Glucose NEGATIVE (NEG); Urine Protein 2+ (NEG); Urine pH 5.5 (5.0-7.0)
--- NOTE | 2019-12-01 14:20 | ER ---
Nurse's Notes [facility] Name: Celine Serrano Age: 69 yrs Sex: Female : 1950 Arrival Date: 12/01/2019 Time: 11:05 Bed 4 Private MD: Diagnosis: Urinary tract infection, site not specified;Lower abdominal pain, unspecified;Diarrhea, unspecified;Dehydration Presentation: 11/30 11:28 Chief complaint: Patient states: abdominal pain x 2 months on and off. Pt reports aa5 diarrhea on and off x 1 month ago. Pt also reports cough. 11:28 Coronavirus screen: cough unrelated to allergies, diarrhea, Client presents with at aa5 least one sign or symptom that may indicate coronavirus-19. Standard/surgical mask placed on the client. Provider contacted for isolation considerations. Ebola Screen: Patient negative for fever greater than or equal to 101.5 degrees Fahrenheit, and additional compatible Ebola Virus Disease symptoms. Initial Sepsis Screen: Does the patient meet any 2 criteria? No. Patient's initial sepsis screen is negative. Does the patient have a suspected source of infection? No. Patient's initial sepsis screen is negative. Risk Assessment: Do you want to hurt yourself or someone else? Patient reports no desire to harm self or others. Onset of symptoms was 2019. 11:28 Acuity: HARJINDER 3 aa5 11:28 Method Of Arrival: Wheelchair aa5 Triage Assessment: 11:30 General: Appears in no apparent distress. uncomfortable, Behavior is cooperative, bp appropriate for age, anxious. Pain: Complains of pain in left lower quadrant and right lower quadrant. EENT: No deficits noted. Neuro: No deficits noted. Cardiovascular: No deficits noted. Respiratory: No deficits noted. GI: Reports lower abdominal pain. : No signs and/or symptoms were reported regarding the genitourinary system. Derm: No deficits noted. Musculoskeletal: No deficits noted. Historical: - Allergies: : Amitriptyline; aa5 11:28 GABAPENTIN; aa5 11:28 RISPERIDONE; aa5 - PMHx: 11:28 Bipolar disorder; Diabetes - NIDDM; problems with memory for 5 years; Hypertension; aa5 Schizophrenia; - Immunization history:: Adult Immunizations up to date. - Social history:: Smoking status: unknown. Screenin:30 Abuse screen: Denies threats or abuse. Denies injuries from another. Nutritional bp screening: No deficits noted. Tuberculosis screening: No symptoms or risk factors identified. Fall Risk None identified. Assessment: 11:30 General: SEE TRIAGE NOTE. bp 12:30 Reassessment: PT TO CT WITH ROLL OUT MANAGER, VS STABLE ON MONITOR. bp 13:27 Reassessment: PT RETURNED FROM RESTROOM, IVF INFUSING. bp 14:30 Reassessment: PT D/C HOME VIA W/C, DX WITH UTI AND DEHYDRATION. bp Vital Signs: 11:30 BP 177 / 96; Pulse 55; Resp 18 S; Temp 98.2(O); Pulse Ox 100% on R/A; aa5 12:00 BP 171 / 101; Pulse 51; Resp 19; Pulse Ox 98% ; bp 13:00 BP 190 / 91; Pulse 55; Resp 16; Pulse Ox 100% ; bp 14:00 BP 181 / 102; Pulse 56; Resp 17; Pulse Ox 100% ; bp ED Course: 11:05 Patient arrived in ED. ag5 11:25 Efrain Marley PA is PHCP. jmm 11:25 Yordy Dumont MD is Attending Physician. jmm 11:28 Arm band placed on Patient placed in an exam room, on a stretcher. aa5 11:30 Patient has correct armband on for positive identification. Placed in gown. Bed in low bp position. Call light in reach. Side rails up X2. 11:36 Bryon Coronel, RN is Primary Nurse. bp 11:54 Triage completed. aa5 12:05 Inserted saline lock: 20 gauge in right antecubital area, using aseptic technique. bp Blood collected. 12:54 CT Abd/Pelvis - IV Contrast Only In Process Unspecified. EDMS 14:12 Urine Culture Sent. bp 14:30 No provider procedures requiring assistance completed. IV discontinued, intact, bp bleeding controlled, No redness/swelling at site. Pressure dressing applied. Administered Medications: 12:05 Drug: morphine 4 mg Route: IVP; Site: right antecubital; bp 13:09 Follow up: Response: Pain is decreased bp 12:05 Drug: Zofran (Ondansetron) 4 mg Route: IVP; Site: right antecubital; bp 13:09 Follow up: Response: No adverse reaction bp 13:15 Drug: NS 0.9% 1000 ml Route: IV; Rate: 1 bolus; Site: right antecubital; bp 14:31 Follow up: IV Status: Completed infusion bp Outcome: 14:19 Discharge ordered by . jonathon 14:30 Discharged to home via wheelchair. bp 14:30 Condition: stable 14:30 Discharge instructions given to patient, Instructed on discharge instructions, follow up and referral plans. medication usage, Demonstrated understanding of instructions, follow-up care, medications, Prescriptions given X 1. 14:51 Patient left the ED. bp Signatures: Dispatcher [employer] EDMS Efrain Marley PA PA jmm Calderon, Audri, RN RN aa5 Bryon Coronel RN RN Marybel Mccall ag5
--- NOTE | 2019-12-01 14:20 | EDPHYS ---
Physician Documentation [facility] Name: Celine Serrano Age: 69 yrs Sex: Female : 1950 Arrival Date: 12/01/2019 Time: 11:05 Bed 4 Private MD: ED Physician Yordy Dumont HPI: 11/30 11:45 This 69 yrs old Female presents to ER via Unassigned with complaints of jmm Abdominal Pain. 11:45 The patient presents with abdominal pain in the lower abdomen. Onset: The jmm symptoms/episode began/occurred gradually, 3 week(s) ago. The symptoms do not radiate. Associated signs and symptoms: Pertinent negatives: dysuria, fever, vomiting. The symptoms are described as achy. Modifying factors: The symptoms are alleviated by nothing, the symptoms are aggravated by pressure. The patient has experienced a previous episode. Simmilar episode with previous episode of diverticulitis. 11:45 Associated signs and symptoms: Pertinent positives: diarrhea, Pertinent negatives:. jmm Historical: - Allergies: 11:28 Amitriptyline; aa5 11:28 GABAPENTIN; aa5 11:28 RISPERIDONE; aa5 - PMHx: 11:28 Bipolar disorder; Diabetes - NIDDM; problems with memory for 5 years; Hypertension; aa5 Schizophrenia; - Immunization history:: Adult Immunizations up to date. - Social history:: Smoking status: unknown. ROS: 11:45 Constitutional: Negative for fever, chills, and weight loss, Cardiovascular: Negative jmm for chest pain, palpitations, and edema, Respiratory: Negative for shortness of breath, cough, wheezing, and pleuritic chest pain. 11:45 Abdomen/GI: Positive for abdominal pain. 11:45 All other systems are negative. Exam: 11:45 Constitutional: This is a well developed, well nourished patient who is awake, alert, jmm and in no acute distress. Head/Face: atraumatic. Eyes: EOMI, no conjunctival erythema appreciated ENT: Moist Mucus Membranes Neck: Trachea midline, Supple Chest/axilla: Normal chest wall appearance and motion. Cardiovascular: Regular rate and rhythm. No edema appreciated Respiratory: Normal respirations, no respiratory distress appreciated 11:45 Back: Normal ROM Skin: General appearance color normal MS/ Extremity: Moves all extremities, no obvious deformities appreciated, no edema noted to the lower extremities Neuro: Awake and alert, normal gait Psych: Behavior is normal, Mood is normal, Patient is cooperative and pleasant 11:45 Abdomen/GI: Inspection: abdomen appears normal, Bowel sounds: normal, Palpation: soft, mild abdominal tenderness, in the right lower quadrant and left lower quadrant. Vital Signs: 11:30 BP 177 / 96; Pulse 55; Resp 18 S; Temp 98.2(O); Pulse Ox 100% on R/A; aa5 12:00 BP 171 / 101; Pulse 51; Resp 19; Pulse Ox 98% ; bp 13:00 BP 190 / 91; Pulse 55; Resp 16; Pulse Ox 100% ; bp 14:00 BP 181 / 102; Pulse 56; Resp 17; Pulse Ox 100% ; bp MDM: 11:42 Patient medically screened. [facility] 14:17 Data reviewed: vital signs, nurses notes. Counseling: I had a detailed discussion with jonathon the patient and/or guardian regarding: the historical points, exam findings, and any diagnostic results supporting the discharge/admit diagnosis, lab results, radiology results, the need for outpatient follow up, to return to the emergency department if symptoms worsen or persist or if there are any questions or concerns that arise at home. ED course: Patient is alert and non toxic in appearance in the ED. Patient is advised to follow up with pcp and otherwise given strict return precautions. Patient understood and agrees with the plan of care. . 11/30 11:44 Order name: Basic Metabolic Panel; Complete Time: 12:55 [facility] 11/30 11:44 Order name: CBC with Diff; Complete Time: 12:28 [facility] 11/30 11:44 Order name: Hepatic Function; Complete Time: 12:55 [facility] 11/30 11:44 Order name: Lipase; Complete Time: 12:55 [facility] 11/30 11:44 Order name: Lactate; Complete Time: 12:55 [facility] 11/30 13:31 Order name: Urine Dipstick--Ancillary (enter results); Complete Time: 13:36 11/30 11:44 Order name: IV Saline Lock; Complete Time: 12:07 [facility] 11/30 11:44 Order name: Labs collected and sent; Complete Time: 12:07 [facility] 11/30 11:44 Order name: CT Abd/Pelvis - IV Contrast Only; Complete Time: 13:09 [facility] 11/30 13:37 Order name: Urine Culture [facility] 11/30 11:44 Order name: Urine Dipstick-Ancillary (obtain specimen); Complete Time: 13:27 [facility] Administered Medications: 12:05 Drug: morphine 4 mg Route: IVP; Site: right antecubital; bp 13:09 Follow up: Response: Pain is decreased bp 12:05 Drug: Zofran (Ondansetron) 4 mg Route: IVP; Site: right antecubital; bp 13:09 Follow up: Response: No adverse reaction bp 13:15 Drug: NS 0.9% 1000 ml Route: IV; Rate: 1 bolus; Site: right antecubital; bp 14:31 Follow up: IV Status: Completed infusion bp Disposition: 18:40 Co-signature as Attending Physician, Yordy Dumont MD. rn Disposition: 12/01/19 14:19 Discharged to Home. Impression: Urinary tract infection, site not specified, Lower abdominal pain, unspecified, Diarrhea, unspecified, Dehydration. - Condition is Stable. - Discharge Instructions: Abdominal Pain, Adult, Food Choices to Help Relieve Diarrhea, Adult, Dehydration, Elderly, Urinary Tract Infection, Adult. - Prescriptions for Cephalexin 500 mg Oral Capsule - take 1 capsule by ORAL route every 12 hours for 10 days; 20 capsule. - Medication Reconciliation Form, Thank You Letter, Antibiotic Education, Prescription Opioid Use form. - Follow up: Private Physician; When: 2 - 3 days; Reason: Recheck today's complaints, Continuance of care, Re-evaluation by your physician. Signatures: Dispatcher [employer] EDMS Efrain Marley PA PA [facility] Yordy Dumont MD MD rn Calderon, Audri RN RN aa5 Bryon Coronel RN RN bp Corrections: (The following items were deleted from the chart) 14:51 14:19 12/01/2019 14:19 Discharged to Home. Impression: Urinary tract infection, site bp not specified; Lower abdominal pain, unspecified; Diarrhea, unspecified; Dehydration. Condition is Stable. Forms are Medication Reconciliation Form, Thank You Letter, Antibiotic Education, Prescription Opioid Use. Follow up: Private Physician; When: 2 - 3 days; Reason: Recheck today's complaints, Continuance of care, Re-evaluation by your physician. [facility]
[2019-12-03 19:34] VITALS: TEMP 98.2
[2019-12-03 19:36] VITALS: O2SAT 100
[2019-12-03 19:37] VITALS: BP 181/102
== END 2019-12-01 14:51 | disposition home or self-care (01) ==
LOC: ER 11:03
DX: N39.0 Urinary tract infection, site not specified (principal); R10.30 Lower abdominal pain, unspecified; R19.7 Diarrhea, unspecified; E86.0 Dehydration; Z88.6 Allergy status to analgesic agent
CPT/HCPCS: 85025; 80048; 36415; 80076; 83605; 81003; 83690; 74177; Q9967; J7030; J2405; 96361; 96374; 96375; 99284

== ENCOUNTER 2020-02-01 11:57 | Emergency (ER) | payer OTHER ==
--- OUTSIDE RECORDS SUMMARY | 2020-02-01 12:14 | XMS REPORT | Continuity of Care Document ---
:1950 Author Organization [facility] t Address [address] [place] [address] Care Team Providers Name Role Phone Unavailable Unavailable Unavailable Problems Condition Condition Condition Status Onset Resolution Last Treating Co mments Source Name Details Category Date Date Treatment Clinician Date History of History of Diagnosis Active [facility] Aria kes - in in [facility] remission [facility] Bipolar Bipolar Diagnosis Active [...] Aria kes - on on [facility] Depression Depression Problem Active [...] suicide [facility] - attempt attempt [facility] Allergies, Adverse Reactions, Alerts This patient has no known allergies or adverse reactions. Medications Ordered Filled Start Stop Current Ordering Indication Dosage Frequency Signature Comments Components Source Medication Medication Date Date Medication? Clinician (SIG) Name Name Pilar Hamiltonalejandro 2018-04 Yes John [address] [facility] 0-09 Kaycee L[facility] - 00:00: Memoria 00 [facility] Pilar Hamiltonalejandro 2018-04 Yes John [address] [facility] 0-09 Kaycee Lukes - 00:00: Memoria 00 [facility] BusPIRone BusPIRone Yes John not [facility] HCl HCl Kaycee defined [facility] - [facility] Amlodipine Amlodipine Yes John TAKE [address] [facility] Besylate Besylate Kaycee TABLET BY L ukes - MOUTH ONCE Memoria DAILY [facility] Hydrochloro Hydrochloro Yes John TAKE [address] [facility] thiazide thiazide Kaycee TABLET BY L ukes - MOUTH ONCE Memoria DAILY [facility] Pantoprazol Pantoprazol Yes John TAKE [address] [facility] e Sodium e Sodium Kaycee TABLET BY L ukes - MOUTH ONCE Memoria DAILY [facility] Ciprofloxac Ciprofloxac Yes John TAKE [address] [facility] in HCl in HCl Kaycee TABLET BY Lukes - MOUTH Memoria EVERY 12 l HOURS [facility] Potassium Potassium Yes John TAKE [address] Chloride Chloride Kaycee TABLET BY L ukes - Barb ER Barb ER MOUTH ONCE Mem oria DAILY [facility] Metronidazo Metronidazo Yes John TAKE [address] [facility] le le Kaycee TABLET BY Lukes - MOUTH Memoria EVERY 8 l HOURS [facility] Sucralfate Sucralfate Yes John TAKE [address] [facility] Kaycee TABLET BY Lukes - MOUTH Memoria BEFORE A l MEAL AT [facility] BEDTIME. ent Clinics Procedures This patient has no known procedures. Encounters Start End Encounter Admission Attending Care Care Encounter Source Date/Time Date/Time Type Type Clinicians Facility Department ID 2019-01-07 2019-01-07 Outpatient Jalen Castro [id number] [facility] 13:00:00 13:00:00 [facility] Medicine Medicine [facility] 2018-12-30 2018-12-30 Outpatient Jalen Castro [id number] [facility] 11:11:00 11:11:00 [facility] Medicine l Medicine Outpati ent Clinics 2018-12-12 2018-12-12 Outpatient Jalen aRot [id number] [facility] 16:38:00 16:38:00 t [facility] Medicine Outpati ent Clinics 2018-11-13 2018-11-13 Outpatient Jalen Raot [id number] 16:05:00 16:05:00 t [facility] Outpati ent Clinics 2018-11-10 2018-11-10 Outpatient Jalen Raot [id number] 08:36:00 08:36:00 t [facility] Medicine Outpati ent Clinics 2018-11-05 2018-11-05 Outpatient Jalen Raot [id number] 13:30:00 13:30:00 [facility] Results This patient has no known results.
[2020-02-01 13:46] LABS: Absolute Lymphocytes (CBC) 1.9 K/uL (0.7-4.9); Hematocrit 38.7 % (36.0-45.0); Lymphocytes % 36.4 % (15.3-44.8); MPV 9.1 fL (7.6-11.3); RBC Red Blood Cell Count 4.32 M/uL (3.86-4.86)
--- NOTE | 2020-02-01 13:46 | RAD REPORT ---
EXAM DESCRIPTION: CT - Head Brain Wo Cont - 02/01/2020 1:34 pm CLINICAL HISTORY: Headache;Dizziness COMPARISON: Facial Bones W/ Mpr dated 02/15/2018; CT HEAD BRAIN WWO CONTRAST dated 12/13/2012 TECHNIQUE: Axial 5 mm thick images of the head were obtained without IV contrast. All CT scans are performed using dose optimization technique as appropriate and may include automated exposure control or mA/KV adjustment according to patient size. FINDINGS: No intracranial hemorrhage, mass, edema or shift of mid-line structures. No acute cortical based infarction. No cortical edema or sulcal effacement. Atrophy has progressed from 2012 study but is no greater than moderate. Ventricles are in proportion. Chronic ischemic changes are present. Mastoid air cells and visualized portions of the paranasal sinuses are clear. No acute bony findings. IMPRESSION: Atrophy and chronic ischemic changes progressive from 2009. No acute intracranial finding. Chronic ischemic changes can mask nonhemorrhagic acute infarction. MR brain followup can be obtained if there is ongoing concern for acute ischemia.
--- NOTE | 2020-02-01 13:48 | RAD REPORT ---
EXAM DESCRIPTION: RAD - Chest Single View - 02/01/2020 1:42 pm CLINICAL HISTORY: Dizziness COMPARISON: Two view chest December 2018 TECHNIQUE: AP portable chest image was obtained 02/01/2020 1:42 pm . FINDINGS: Lungs are clear. Interstitial markings match comparison. Trachea is midline. No measurable pleural effusion and no pneumothorax. No acute bony abnormality seen. No acute aortic findings suspe cted. IMPRESSION: No acute cardiopulmonary process. No significant change from comparison
[2020-02-01 14:00] LABS: Protime INR 0.91
[2020-02-01 14:16] LABS: ALT/SGPT 15 U/L (12-78); AST/SGOT 16 U/L (15-37); Albumin 3.5 g/dL (3.4-5.0); Alkaline Phosphatase 102 U/L (45-117); BUN Blood Urea Nitrogen 26 mg/dL (7-18); Bicarbonate 31 mmol/L (21-32); Bilirubin Direct < 0.1 mg/dL (0-0.2); Bilirubin Total 0.2 mg/dL (0.2-1.0); Glucose Level 106 mg/dL (74-106); Magnesium 2.1 mg/dL (1.8-2.4); NT PRO-BNP 1291 pg/mL (<125); Potassium 3.3 mmol/L (3.5-5.1); Protein, Total 7.8 g/dL (6.4-8.2); Sodium Level 144 mmol/L (136-145); Troponin (Emerg Dept Use Only) < 0.02 ng/mL (0.0-0.045)
[2020-02-01] MEDS ORDERED: NA CHLORIDE 0.9% 1,000 ML ONE (15:12)
--- NOTE | 2020-02-01 15:52 | ER ---
Nurse's Notes [facility] Name: Celine Serrano Age: 69 yrs Sex: Female : 1950 Arrival Date: 02/01/2020 Time: 11:58 Bed 19 Private MD: Diagnosis: Jaw pain-trigeminal neuralgia;Dehydration Presentation: 01/31 12:15 Chief complaint: Dizziness x 2 weeks, left sided headache that radiated to left jaw and sv left neck x 3 days. Coronavirus screen: At this time, the client does not indicate any symptoms associated with coronavirus-19. Ebola Screen: No symptoms or risks identified at this time. Initial Sepsis Screen: Does the patient meet any 2 criteria? No. Patient's initial sepsis screen is negative. Does the patient have a suspected source of infection? No. Patient's initial sepsis screen is negative. Risk Assessment: Do you want to hurt yourself or someone else? Patient reports no desire to harm self or others. Onset of symptoms was December 2019. 12:15 Method Of Arrival: Ambulatory sv 12:15 Acuity: HARJINDER 3 sv Historical: - Allergies: 12:17 GABAPENTIN; sv 12:17 RISPERIDONE; sv 12:17 Amitriptyline; sv - PMHx: 12:17 Bipolar disorder; Diabetes - NIDDM; Hypertension; problems with memory for 5 years; sv Schizophrenia; - Immunization history:: Adult Immunizations up to date. - Social history:: Smoking status: Patient denies any tobacco usage or history of. Screenin:23 Abuse screen: Denies threats or abuse. Nutritional screening: No deficits noted. ll1 Tuberculosis screening: No symptoms or risk factors identified. Fall Risk IV access (20 points). Ambulatory Aid- Crutches/Cane/Walker (15 pts). Total Aldana Fall Scale indicates Low Risk Score (25-44 pts). Fall prevention measures have been instituted. Side Rails Up X 2 Placed close to Nursing Station Frequent Obs/Assesments occuring As available Patient and Family Educated on Fall Prevention Program and strategies. Assessment: 13:15 General: Appears in no apparent distress. Behavior is calm, cooperative, appropriate ll1 for age. Pain: Complains of pain in L jaw/L RIVERA/L neck Quality of pain is described as aching, Pain began years ago. Is intermittent. Neuro: Level of Consciousness is awake, alert, obeys commands, Oriented to person, place, time, situation, Appropriate for age Automation And Controls Manager are equal bilaterally Moves all extremities. Full function Gait is Speech is normal, Facial symmetry appears normal, Pupils are PERRLA, Reports headache in left. Cardiovascular: No deficits noted. Respiratory: No deficits noted. GI: No deficits noted. Musculoskeletal: Circulation, motion, and sensation intact. Capillary refill < 3 seconds, Range of motion: intact in all extremities, Swelling absent Reports pain in L jaw/Lneck since 2 years. Musculoskeletal: Reports. 14:15 Reassessment: Patient and/or family updated on plan of care and expected duration. Pain ll1 level reassessed. Patient is alert, oriented x 3, equal unlabored respirations, skin warm/dry/pink. 15:14 Reassessment: Patient and/or family updated on plan of care and expected duration. Pain ll1 level reassessed. Patient is alert, oriented x 3, equal unlabored respirations, skin warm/dry/pink. Patient states feeling better. eating sandwich and chips. 16:03 Reassessment: Patient and/or family updated on plan of care and expected duration. Pain ll1 level reassessed. Patient is alert, oriented x 3, equal unlabored respirations, skin warm/dry/pink. Patient states feeling better. Vital Signs: 12:15 BP 155 / 82; Pulse 64; Resp 16; Temp 97.7; Pulse Ox 100% on R/A; Weight 58.06 kg; sv Height 5 ft. 3 in. (160.02 cm); Pain 9/10; 15:14 BP 140 / 96; Pulse 70; Resp 17; Pulse Ox 100% ; Pain 0/10; ll1 12:15 Body Mass Index 22.67 (58.06 kg, 160.02 cm) sv ED Course: 11:58 Patient arrived in ED. ds1 12:17 Triage completed. sv 12:17 Arm band placed on. sv 13:03 Anup Butler NP is PHCP. pm1 13:03 Jarrod Zheng MD is Attending Physician. pm1 13:06 Felipa Aggarwal RN is Primary Nurse. ll1 13:15 Inserted saline lock: 20 gauge in right antecubital area, using aseptic technique. ll1 Blood collected. 13:34 CT Head Brain wo Cont In Process Unspecified. EDMS 13:42 XRAY Chest (1 view) In Process Unspecified. EDMS 13:56 Basic Metabolic Panel Sent. 14:16 EKG done, by ED staff, reviewed by Anup Butler NP. [facility] 14:23 Patient has correct armband on for positive identification. Placed in gown. Cardiac ll1 monitor on. Pulse ox on. NIBP on. 16:03 No provider procedures requiring assistance completed. IV discontinued, intact, ll1 bleeding controlled, No redness/swelling at site. Pressure dressing applied. Administered Medications: 15:00 Drug: NS 0.9% 1000 ml Route: IV; Rate: 1000 ml; Site: right antecubital; ll1 16:04 Follow up: Response: No adverse reaction; RASS: Alert and Calm (0); IV Status: ll1 Completed infusion; IV Intake: 600ml Intake: 16:04 IV: 600ml; Total: 600ml. ll1 Outcome: 15:52 Discharge ordered by MD. pm1 16:03 Discharged to home ambulatory. ll1 16:03 Condition: stable 16:03 Discharge instructions given to patient, Instructed on discharge instructions, follow up and referral plans. no drinking with medication, no driving heavy equipment, medication usage, Demonstrated understanding of instructions, follow-up care, medications, Prescriptions given X 1. 16:04 Patient left the ED. ll1 Signatures: Dispatcher [employer] Sobeida Morgan, RN Sherry Bourne 1 Anup Butler NP [facility] pm1 Viola Phillip 3 Felipa Aggarwal RN RN ll1 Corrections: (The following items were deleted from the chart) 15:15 15:14 BP 150 / 96; Pulse 70bpm; Resp 17bpm; Pulse Ox 100%; Pain 0/10; ll1 ll1
--- NOTE | 2020-02-01 15:53 | EDPHYS ---
Physician Documentation [facility] Name: Celine Serrano Age: 69 yrs Sex: Female : 1950 Arrival Date: 02/01/2020 Time: 11:58 Bed 19 Private MD: BJORN Physician Jarrod Zheng HPI: 01/31 13:29 This 69 yrs old Female presents to ER via Ambulatory with complaints of Jaw pm1 Pain, Dizziness. 13:29 The patient complains of pain to the left jaw radiating to forehead and neck. The pm1 patient describes the headache as aching. Onset: The symptoms/episode began/occurred 2 year(s) ago. Associated signs and symptoms: Pertinent positives: dizziness, Pertinent negatives: altered mental status, fever, neck stiffness, vision changes, vomiting, weakness. Severity of symptoms: in the emergency department the pain is unchanged. Headache History: The patient has had previous headaches and this one is similar to previous episodes. The symptoms are alleviated by nothing. the symptoms are aggravated by nothing. The patient has experienced similar episodes in the past, chronically. Patient reports left jaw pain with radiation to forehead and neck that has been ongoing for two years. Started after she had a fall and hit the left side of her jaw on the street 2 years ago. Historical: - Allergies: 12:17 GABAPENTIN; sv 12:17 RISPERIDONE; sv 12:17 Amitriptyline; sv - PMHx: 12:17 Bipolar disorder; Diabetes - NIDDM; Hypertension; problems with memory for 5 years; sv Schizophrenia; - Immunization history:: Adult Immunizations up to date. - Social history:: Smoking status: Patient denies any tobacco usage or history of. ROS: 13:29 Constitutional: Negative for fever, chills, and weight loss, Eyes: Negative for injury, pm1 pain, redness, and discharge. 13:29 Neck: Negative for injury, pain, and swelling, Cardiovascular: Negative for chest pain, palpitations, and edema, Respiratory: Negative for shortness of breath, cough, wheezing, and pleuritic chest pain, Abdomen/GI: Negative for abdominal pain, nausea, vomiting, diarrhea, and constipation, Back: Negative for injury and pain, MS/Extremity: Negative for injury and deformity, Skin: Negative for injury, rash, and discoloration. 13:29 ENT: Positive for left sided jaw pain, Negative for ear pain, sore throat, dental pain, difficulty swallowing. 13:29 Neuro: Positive for dizziness, headache, Negative for numbness, tingling. Exam: 13:29 Constitutional: This is a well developed, well nourished patient who is awake, alert, pm1 and in no acute distress. 13:29 Head/Face: Normocephalic, atraumatic. Eyes: Pupils equal round and reactive to light, extra-ocular motions intact. Lids and lashes normal. Conjunctiva and sclera are non-icteric and not injected. Cornea within normal limits. Periorbital areas with no swelling, redness, or edema. 13:29 Neck: Trachea midline, no thyromegaly or masses palpated, and no cervical lymphadenopathy. Supple, full range of motion without nuchal rigidity, or vertebral point tenderness. No Meningismus. Chest/axilla: Normal chest wall appearance and motion. Nontender with no deformity. No lesions are appreciated. 13:29 Back: No spinal tenderness. No costovertebral tenderness. Full range of motion. Skin: Warm, dry with normal turgor. Normal color with no rashes, no lesions, and no evidence of cellulitis. MS/ Extremity: Pulses equal, no cyanosis. Neurovascular intact. Full, normal range of motion. 13:29 ENT: External ear(s): are unremarkable, Ear canal(s): are normal, TM's: are normal, Nose: is normal, left TMJ tenderness. 13:29 Cardiovascular: Exam negative for acute changes, Rate: normal, Rhythm: regular, Pulses: no pulse deficits are appreciated. 13:29 Respiratory: Exam negative for acute changes, respiratory distress, shortness of breath. 13:29 Abdomen/GI: Exam negative for acute changes, Inspection: abdomen appears normal, Palpation: abdomen is soft and non-tender. 13:29 Neuro: Exam negative for acute changes, Orientation: is normal, Mentation: is normal, Motor: is normal, moves all fours, Sensation: is normal, no obvious gross deficits. Vital Signs: 12:15 BP 155 / 82; Pulse 64; Resp 16; Temp 97.7; Pulse Ox 100% on R/A; Weight 58.06 kg; sv Height 5 ft. 3 in. (160.02 cm); Pain 9/10; 15:14 BP 140 / 96; Pulse 70; Resp 17; Pulse Ox 100% ; Pain 0/10; ll1 12:15 Body Mass Index 22.67 (58.06 kg, 160.02 cm) sv MDM: 13:04 Patient medically screened. pm1 15:50 Data reviewed: vital signs. Data interpreted: Pulse oximetry: on room air is 100 %. pm1 Interpretation: normal. Counseling: I had a detailed discussion with the patient and/or guardian regarding: the historical points, exam findings, and any diagnostic results supporting the discharge/admit diagnosis, lab results, radiology results, the need for outpatient follow up, a neurologist, to return to the emergency department if symptoms worsen or persist or if there are any questions or concerns that arise at home. 01/31 13:16 Order name: Basic Metabolic Panel pm1 01/31 13:16 Order name: CBC with Diff; Complete Time: 14:07 pm1 01/31 13:16 Order name: LFT's; Complete Time: 14:29 pm1 01/31 13:16 Order name: Magnesium; Complete Time: 14:29 pm1 01/31 13:16 Order name: NT PRO-BNP; Complete Time: 14:29 pm1 01/31 13:16 Order name: PT-INR; Complete Time: 14:13 pm1 01/31 13:16 Order name: Troponin (emerg Dept Use Only); Complete Time: 14:29 pm1 01/31 13:16 Order name: XRAY Chest (1 view); Complete Time: 13:51 pm1 01/31 13:16 Order name: EKG; Complete Time: 13:18 pm1 01/31 13:16 Order name: Cardiac monitoring; Complete Time: 14:08 pm1 01/31 13:16 Order name: EKG - Nurse/Tech; Complete Time: 14:08 pm1 01/31 13:16 Order name: CT Head Brain wo Cont; Complete Time: 13:51 pm1 01/31 13:17 Order name: Basic Metabolic Panel; Complete Time: 14:29 EDMS 01/31 13:16 Order name: IV Saline Lock; Complete Time: 13:18 pm1 01/31 13:16 Order name: Labs collected and sent; Complete Time: 13:18 pm1 01/31 13:16 Order name: O2 Per Protocol; Complete Time: 13:18 pm1 01/31 13:16 Order name: O2 Sat Monitoring; Complete Time: 13:18 pm1 EC:39 Rate is 68 beats/min. Rhythm is regular, Normal Sinus Rhythm with Occasional PVCs. No Q pm1 waves. T waves are Inverted in leads II, III, V4, V5, V6. Clinical impression: NSR w/ Non-specific ST/T Changes. No change from previous ECG on December 31, 2018. Administered Medications: 15:00 Drug: NS 0.9% 1000 ml Route: IV; Rate: 1000 ml; Site: right antecubital; ll1 16:04 Follow up: Response: No adverse reaction; RASS: Alert and Calm (0); IV Status: ll1 Completed infusion; IV Intake: 600ml Disposition: 02/01 06:23 Co-signature as Attending Physician, Jarrod Zheng MD I agree with the assessment and osito plan of care. Disposition: 02/01/20 15:52 Discharged to Home. Impression: Jaw pain - trigeminal neuralgia, Dehydration. - Condition is Stable. - Discharge Instructions: Dehydration, Elderly, Trigeminal Neuralgia, Rehydration, Elderly. - Prescriptions for Tylenol- Codeine #3 300-30 mg Oral Tablet - take 2 tablets by ORAL route every 6 hours As needed; 20 tablet. - Medication Reconciliation Form, Thank You Letter, Antibiotic Education, Prescription Opioid Use form. - Follow up: Emergency Department; When: As needed; Reason: Worsening of condition. Follow up: Private Physician; When: 2 - 3 days; Reason: Recheck today's complaints, Continuance of care, Re-evaluation by your physician. - Problem is new. - Symptoms have improved. Signatures: Dispatcher [employer] Sobeida Morgan, Jarrod Smith RN, MD MD cha Marinas, Patrick, MANUFACTURING INDUSTRIAL ENGINEER MANUFACTURING INDUSTRIAL ENGINEER pm1 Felipa Aggarwal RN RN ll1 Corrections: (The following items were deleted from the chart) 01/31 16:04 15:52 02/01/2020 15:52 Discharged to Home. Impression: Jaw pain - trigeminal neuralgia; ll1 Dehydration. Condition is Stable. Forms are Medication Reconciliation Form, Thank You Letter, Antibiotic Education, Prescription Opioid Use. Follow up: Emergency Department; When: As needed; Reason: Worsening of condition. Follow up: Private Physician; When: 2 - 3 days; Reason: Recheck today's complaints, Continuance of care, Re-evaluation by your physician. Problem is new. Symptoms have improved. pm1
[2020-02-01 16:18] VITALS: TEMP 97.7; O2SAT 100
[2020-02-01 16:19] VITALS: BP 140/96
--- NOTE | 2020-02-03 07:19 | EKG ---
Test Date: 2020-02-01 Test Time: 14:16:59 Port Patrol Officer: FLASH MEASUREMENT RESULTS: Intervals: Rate: 68 TX: 152 QRSD: 88 QT: 462 QTc: 491 [place]: P: 50 TX: 152 QRS: 56 T: -88 INTERPRETIVE STATEMENTS: Sinus rhythm with occasional premature ventricular complexes Minimal voltage criteria for LVH, may be normal variant Septal infarct, age undetermined ST & T wave abnormality, consider inferolateral ischemia Abnormal ECG Compared to ECG 12/31/2018 18:01:00 ST (T wave) deviation now present Possible ischemia now present Early repolarization no longer present Myocardial infarct finding still present Electronically Signed On 02-03-20 07:16:26 AUTISM MOTOR SPECIALIST by Justino Lauren
== END 2020-02-01 16:04 | disposition home or self-care (01) ==
LOC: ER 11:57
DX: E86.0 Dehydration (principal); G50.0 Trigeminal neuralgia; I10 Essential (primary) hypertension; Z88.5 Allergy status to narcotic agent; Z88.8 Allergy status to other drugs, medicaments and biological substances
CPT/HCPCS: 93005; 85025; 80048; 36415; 83735; 85610; 80076; 84484; 83880; 70450; 71045; 96360; 99284; J7030

== ENCOUNTER 2020-04-13 11:12 | Observation (INO) | payer OTHER ==
--- OUTSIDE RECORDS SUMMARY | 2020-04-13 11:16 | XMS REPORT | Continuity of Care Document ---
:[address] [facility] t Address [address] [place] [address] Care Team Providers Name Role Phone Unavailable Unavailable Unavailable Problems Condition Condition Condition Status Onset Resolution Last Treating Co mments Source Name Details Category Date Date Treatment Clinician Date History of History of Diagnosis Active [facility] Aria kes - in in [facility] remission remission l [facility] Bipolar Bipolar Diagnosis Active [...] Aria kes - on on [facility]oria l [facility] Depression Depression Problem Active [...] suicide [facility] - attempt attempt Memoria l [facility] Allergies, Adverse Reactions, Alerts This patient has no known allergies or adverse reactions. Medications Ordered Filled Start Stop Current Ordering Indication Dosage Frequency Signature Comments Components Source Medication Medication Date Date Medication? Clinician (SIG) Name Name Pilar Hamiltonalejandro 2018-04 Yes John [address] [facility] 0-09 Kaycee Lukes - 00:00: Memoria 00 [facility] Pilar Hamiltonalejandro 2018-04 Yes John [address] [facility] 0-09 Kaycee Lukes - 00:00: Memoria 00 [facility] BusPIRone BusPIRone Yes John not [facility] HCl HCl Kaycee defined [facility]ukes - Memoria [facility] Amlodipine Amlodipine Yes John TAKE [address] [facility] Besylate Besylate Kaycee TABLET BY L ukes - MOUTH ONCE Memoria DAILY [facility] Hydrochloro Hydrochloro Yes John TAKE [address] [facility] thiazide thiazide Kaycee TABLET BY L ukes - MOUTH ONCE Memoria DAILY [facility] Pantoprazol Pantoprazol Yes John TAKE [address] [facility] e Sodium e Sodium Kaycee TABLET BY L ukes - MOUTH ONCE Memoria DAILY [facility] Ciprofloxac Ciprofloxac Yes John TAKE [address] [facility] in HCl in HCl Kaycee TABLET BY Lukes - MOUTH Memoria EVERY 12 l HOURS [facility] Potassium Potassium Yes John TAKE [address] Chloride Chloride Kaycee TABLET BY L ukes - Barb ER Barb ER MOUTH ONCE Mem oria DAILY [facility] Metronidazo Metronidazo Yes John TAKE [address] [facility] [address] le le Kaycee TABLET BY Lukes - MOUTH Memoria EVERY 8 l HOURS [facility] Sucralfate Sucralfate Yes John TAKE [address] [facility] Kaycee TABLET BY Lukes - MOUTH Memoria BEFORE A l MEAL AT [facility] BEDTIME. ent Clinics Procedures This patient has no known procedures. Encounters Start End Encounter Admission Attending Care Care Encounter Source Date/Time Date/Time Type Type Clinicians Facility Department ID 2019-01-07 2019-01-07 Outpatient Jalen Castro [id number] 13:00:00 13:00:00 [facility] Medicine [facility] 2018-12-30 2018-12-30 Outpatient Jalen Castro [id number] 11:11:00 11:11:00 [facility] Medicine Outpati ent Clinics 2018-12-12 2018-12-12 [place]patient [place]alen [place] [id number] 16:38:00 16:38:[address] [facility] 2018-11-13 2018-11-13 Outpatient Jalen Raot [id number] [facility] 16:05:00 16:05:00 [facility] Outpati ent Clinics 2018-11-10 2018-11-10 Outpatient Jalen Raot [id number] 08:36:00 08:36:00 t [facility] 2018-11-05 2018-11-05 Outpatient Jalen Raot [id number] [facility] 13:30:00 13:30:00 [facility] Results This patient has no known results.
[2020-04-13 12:32] LABS: Absolute Lymphocytes (CBC) 1.6 K/uL (0.7-4.9); Basophils % 1.2 % (0-1.3); Hematocrit 40.6 % (36.0-45.0); Lymphocytes % 34.8 % (15.3-44.8); MPV 9.3 fL (7.6-11.3); RBC Red Blood Cell Count 4.49 M/uL (3.86-4.86)
[2020-04-13 12:40] LABS: Protime INR 0.9
--- NOTE | 2020-04-13 12:41 | RAD REPORT ---
EXAM DESCRIPTION: CT - Head Brain Wo Cont - 04/13/2020 12:28 pm CLINICAL HISTORY: headache, generalized weakness COMPARISON: Head Brain Wo Cont dated 02/01/2020 TECHNIQUE: Axial 5 mm thick images of the head were obtained without IV contrast. All CT scans are performed using dose optimization technique as appropriate and may include automated exposure control or mA/KV adjustment according to patient size. FINDINGS: No intracranial hemorrhage, mass, edema or shift of mid-line structures. No acute infarcti on changes seen. Atrophy and chronic ischemic changes are present, mild in severity, with ventricles in proportion to volume loss. Arterial and physiologic calcifications are present. Mastoid air cells and visualized portions of the paranasal sinuses are clear. No acute bony findings. IMPRESSION: Negative non-contrast CT head examination for acute finding. No significant change from comparison.
[2020-04-13] MEDS ORDERED: NA CHLORIDE 0.9% 500 ML ONE (12:50)
--- NOTE | 2020-04-13 12:50 | RAD REPORT ---
EXAM DESCRIPTION: CT - Abdomen Pelvis W Contrast - 04/13/2020 12:29 pm CLINICAL HISTORY: LLQ abd pain COMPARISON: Abdomen Pelvis W Contrast dated 12/01/2019; Abdomen Pelvis W Contrast dated 09/01/2019 TECHNIQUE: Biphasic, helical CT imaging of the abdomen and pelvis was performed following 100 ml non -ionic IV contrast. No oral contrast. All CT scans are performed using dose optimization technique as appropriate and may include automated exposure control or mA/KV adjustment according to patient size. FINDINGS: No suspicious findings in the lung bases. Cardiomegaly is present without pericardial effu ariella. Liver is enlarged with a 20 centimeter craniocaudal dimension matching comparison. This is believed t o be primarily due to Faisal's lobe normal variant rather than hepatomegaly. Again noted are multiple variably sized masses showing hemangioma characteristics. No changes from the November study. Splee n and pancreas show no suspicious findings. Multiple small layering gallstones are present with no ac tive gallbladder process seen. No biliary tree dilatation. Symmetric renal function is seen with no hydronephrosis or suspicious renal mass. No pyelonephritis o r acute parenchymal process. Areas of cortical thinning, renal calcifications, arterial calcification s and cysts the kidneys are stable findings. No active or acute renal process. No adrenal abnormaliti es. Urinary bladder nava are accentuated by contracted state. Cystitis is not excluded but unlikely without supporting clinical or laboratory findings. Uterus and ovaries show no suspicious findings. Small hiatal hernia again noted. No acute stomach or small bowel finding. Appendix is normal. Mild to moderate stool volume throughout the colon. Prominent sigmoid diverticulosis present without diverti culitis. No stranding or edema in the adjacent fat. No free air, free fluid or pneumatosis. No mass or bulky lymphadenopathy. Very small supraumbilical fat only ventral hernia. Disc and bone degenerative changes are present. L5 spondylolysis and spondylolisthesis have not wiseman ed. IMPRESSION: Prominent sigmoid diverticulosis without diverticulitis. Early or mucosal level inflamma tory changes can be occult on CT imaging. Urinary bladder wall thickening is noted. This is believed to be artifact of contracted state. Howeve r, cystitis cannot be excluded and should be correlated with any clinical or laboratory supporting fi ndings. Remainder of the study, as detailed above, is without acute finding and without identifiable change f rom December 2019.
[2020-04-13] MEDS ORDERED: CEFTRIAXONE/SWI 1gm 1 GM/10 ML SYR ONE (13:05)
[2020-04-13 13:12] LABS: ALT/SGPT 13 U/L (12-78); AST/SGOT 21 U/L (15-37); Alkaline Phosphatase 81 U/L (45-117); Bilirubin Direct < 0.1 mg/dL (0-0.2); Bilirubin Total 0.5 mg/dL (0.2-1.0); Protein, Total 7.6 g/dL (6.4-8.2)
[2020-04-13 13:13] LABS: Albumin 3.4 g/dL (3.4-5.0); Lipase 129 U/L (73-393)
[2020-04-13 13:21] LABS: Potassium 3.5 mmol/L (3.5-5.1)
[2020-04-13 13:26] LABS: SARS-COV-2 RT PCR NEGATIVE (NEGATIVE)
--- NOTE | 2020-04-13 13:30 | ER ---
Nurse's Notes [facility] Name: Celine Serrano Age: 69 yrs Sex: Female : 1950 Arrival Date: 04/13/2020 Time: 11:15 Bed 7 Private MD: Diagnosis: Urinary tract infection, site not specified;Weakness Presentation: 04/13 11:15 Chief complaint: Patient states: headache to left side of head that began today at aa5 1000. Pt reports dizziness x 3 days ago and reports generalized weakness, feeling ill, and body aches since today. Pt denies cough. EMS reports BP en route was 197/90. 11:15 Coronavirus screen: Client denies travel out of the [place] in the last 14 days. fatigue, aa5 headache, muscle pain, Client presents with at least one sign or symptom that may indicate coronavirus-19. Standard/surgical mask placed on the client. Provider contacted for isolation considerations. Ebola Screen: Patient negative for fever greater than or equal to 101.5 degrees Fahrenheit, and additional compatible Ebola Virus Disease symptoms. Initial Sepsis Screen: Does the patient meet any 2 criteria? No. Patient's initial sepsis screen is negative. Does the patient have a suspected source of infection? No. Patient's initial sepsis screen is negative. Risk Assessment: Do you want to hurt yourself or someone else? Patient reports no desire to harm self or others. Onset of symptoms was April 2020. 11:15 Acuity: HARJINDER 2 aa5 11:15 Method Of Arrival: EMS: [facility] aa5 11:18 Care prior to arrival: Glucose check: 96. aa5 Triage Assessment: 11:30 Headache History: The patient has had previous headaches and this one is similar to bp previous episodes. General: Appears distressed, uncomfortable, ill, Behavior is cooperative, appropriate for age, anxious. Pain: Pain currently is 6 out of 10 on a pain scale. Pain began 1 day ago. Also complains of no other associated symptoms. EENT: No deficits noted. Neuro: Reports weakness. Cardiovascular: No deficits noted. Respiratory: No deficits noted. GI: No signs and/or symptoms were reported involving the gastrointestinal system. : No signs and/or symptoms were reported regarding the genitourinary system. Derm: No deficits noted. Musculoskeletal: No deficits noted. Historical: - Allergies: 11:15 Amitriptyline; aa5 11:15 GABAPENTIN; aa5 11:15 RISPERIDONE; aa5 - PMHx: 11:15 Bipolar disorder; Diabetes - NIDDM; Hypertension; problems with memory for 5 years; aa5 Schizophrenia; CVA; - Immunization history:: Adult Immunizations unknown. - Family history:: not pertinent. - Social history:: Smoking status: Patient reports the use of cigarette tobacco products, unknown amount. - Hospitalizations: : No recent hospitalization is reported. Screenin:30 Abuse screen: Denies threats or abuse. Denies injuries from another. Nutritional bp screening: No deficits noted. Tuberculosis screening: No symptoms or risk factors identified. Fall Risk None identified. Assessment: 11:30 General: SEE TRIAGE NOTE. bp 12:30 Reassessment: Patient appears in no apparent distress at this time. No changes from bp previously documented assessment. Patient and/or family updated on plan of care and expected duration. Pain level reassessed. Patient is alert, oriented x 3, equal unlabored respirations, skin warm/dry/pink. PT TO CT. 14:09 Reassessment: Patient appears in no apparent distress at this time. No changes from bp previously documented assessment. Patient and/or family updated on plan of care and expected duration. Pain level reassessed. DR OJEDA AT B/S. Vital Signs: 11:18 BP 183 / 109; Pulse 69; Resp 18 S; Temp 98.0(O); Pulse Ox 96% on R/A; aa5 12:30 BP 188 / 107; Pulse 55; Resp 17; Pulse Ox 100% ; bp 13:20 BP 168 / 91; Pulse 54; Resp 17; Pulse Ox 97% ; bp 14:09 BP 175 / 112; Pulse 62; Resp 16; Pulse Ox 100% ; bp [place] Coma Score: 13:27 Eye Response: spontaneous(4). Verbal Response: oriented(5). Motor Response: obeys rn commands(6). Total: 15. ED Course: 11:15 Patient arrived in ED. bp 11:15 Bryon Coronel, RN is Primary Nurse. bp 11:15 Arm band placed on Patient placed in an exam room, on a stretcher. aa5 11:20 Triage completed. aa5 11:25 Yordy Dumont MD is Attending Physician. rn 11:30 Patient has correct armband on for positive identification. Bed in low position. Call bp light in reach. Side rails up X2. 12:00 Inserted saline lock: 20 gauge in right forearm, using aseptic technique. Blood bp collected. 12:26 CT Head Brain wo Cont In Process Unspecified. EDMS 12:28 CT Abd/Pelvis - IV Contrast Only In Process Unspecified. EDMS 13:29 Luis Angel Ojeda is Hospitalizing Provider. rn 19:02 No provider procedures requiring assistance completed. Patient admitted, IV remains in bp place. Administered Medications: 12:00 Drug: NS 0.9% 500 ml Route: IV; Rate: bolus; Site: right forearm; bp 19:04 Follow up: IV Status: Completed infusion; IV Intake: 500ml bp 13:20 Drug: Rocephin 1 grams Route: IV; Rate: calculated rate; Site: right forearm; bp 19:04 Follow up: IV Status: Completed infusion; IV Intake: 50ml bp Intake: 19:04 IV: 50ml; Total: 50ml. bp 19:04 IV: 500ml; Total: 550ml. bp Outcome: 13:29 Decision to Hospitalize by Provider. rn 19:03 Admitted to Tele accompanied by tech, via wheelchair, room 209, Report called to PATRICIA 19:03 Condition: stable 19:03 Instructed on the need for admit. 19:07 Patient left the ED. rv Signatures: Dispatcher [employer] EDMS Yordy Dumont MD MD rn Calderon, Audri, RN RN aa5 Bryon Coronel RN RN bp Vicente, Ronaldo, RN RN rv Corrections: (The following items were deleted from the chart) 11:24 11:15 Chief complaint: Patient states: headache to left side of head that began today aa5 at 1000. Pt reports dizziness x 3 days ago and reports generalized weakness, feeling ill, and body aches since today. Pt denies cough. aa5
--- NOTE | 2020-04-13 13:30 | EDPHYS ---
Physician Documentation [facility] Name: Celine Serrano Age: 69 yrs Sex: Female : 1950 Arrival Date: 04/13/2020 Time: 11:15 Bed 7 Private MD: ED Physician Yordy Dumont HPI: 04/13 12:33 This 69 yrs old Female presents to ER via EMS with complaints of Headache, rn General Weakness. 12:33 The patient complains of pain to the top of head and left jewish. The patient describes rn the headache as aching. Onset: The symptoms/episode began/occurred 2 day(s) ago. Associated signs and symptoms: Pertinent positives: weakness, Pertinent negatives: altered mental status, fever, neck stiffness, rash. Severity of symptoms: At its worst the pain was moderate. The symptoms are alleviated by nothing. the symptoms are aggravated by nothing. The patient has not experienced similar symptoms in the past. The patient has not recently seen a physician. Reports headache, generalized fatigue, malaise, for 2 days, thinks may have UTI given hx of UTIs in past. NO head injury. No fever. NO neck stiffness or pain. No vomiting/diarrhea.. Historical: - Allergies: 11:15 Amitriptyline; aa5 11:15 GABAPENTIN; aa5 11:15 RISPERIDONE; aa5 - PMHx: 11:15 Bipolar disorder; Diabetes - NIDDM; Hypertension; problems with memory for 5 years; aa5 Schizophrenia; CVA; - Immunization history:: Adult Immunizations unknown. - Family history:: not pertinent. - Social history:: Smoking status: Patient reports the use of cigarette tobacco products, unknown amount. - Hospitalizations: : No recent hospitalization is reported. ROS: 12:33 Constitutional: Negative for fever, chills, and weight loss, Eyes: Negative for injury, rn pain, redness, and discharge, Neck: Negative for injury, pain, and swelling, Cardiovascular: Negative for chest pain, palpitations, and edema, Respiratory: Negative for shortness of breath, cough, wheezing, and pleuritic chest pain, Abdomen/GI: + abd pain Back: Negative for injury and pain, : Negative for injury, bleeding, discharge, and swelling, MS/Extremity: Negative for injury and deformity, Skin: Negative for injury, rash, and discoloration, Neuro: Negative for numbness, tingling, and seizure. Exam: 12:33 Constitutional: This is a well developed, well nourished patient who is awake, alert, rn and in no acute distress. Head/Face: Normocephalic, atraumatic. ENT: dry MM, no stridor Neck: No Meningismus. Cardiovascular: Regular rate and rhythm. No pulse deficits. Respiratory: No increased work of breathing, no retractions or nasal flaring. Abdomen/GI: soft, + LLQ tenderness, no rebound Skin: Warm, dry MS/ Extremity: Pulses equal, no cyanosis. Neurovascular intact. Full, normal range of motion. Equal circumference. Neuro: Awake, slow, needs alot of encouragement to participate in exam, GCS 15, oriented to person, place, time, and situation. Cranial nerves II-XII grossly intact. Motor strength 4/5 in all extremities. Sensory grossly intact. Cerebellar exam normal. Vital Signs: 11:18 BP 183 / 109; Pulse 69; Resp 18 S; Temp 98.0(O); Pulse Ox 96% on R/A; aa5 12:30 BP 188 / 107; Pulse 55; Resp 17; Pulse Ox 100% ; bp 13:20 BP 168 / 91; Pulse 54; Resp 17; Pulse Ox 97% ; bp 14:09 BP 175 / 112; Pulse 62; Resp 16; Pulse Ox 100% ; bp [place] Coma Score: 13:27 Eye Response: spontaneous(4). Verbal Response: oriented(5). Motor Response: obeys rn commands(6). Total: 15. MDM: 11:25 Patient medically screened. rn 13:26 ED course: Pt with UTI, too weak to stand or walk, will admit to Dr. Wall for rn UTI/abx. . 13:27 Differential diagnosis: migraine, tension headache, vasomotor headache, UTI, rn diverticulitis. Differential diagnosis: COVID, Flu. Data reviewed: vital signs, nurses notes. Data reviewed: lab test result(s), EKG, radiologic studies, CT scan, and as a result, I will discharge patient. Counseling: I had a detailed discussion with the patient and/or guardian regarding: the historical points, exam findings, and any diagnostic results supporting the discharge/admit diagnosis, lab results, radiology results, the need for further work-up and treatment in the hospital. Response to treatment: the patient's symptoms have mildly improved after treatment, and as a result, I will admit patient. Admission orders: after a detailed discussion of the patient's condition and case, the admit orders are written by me. 04/13 11:33 Order name: CBC with Diff; Complete Time: 12:54 rn 04/13 11:33 Order name: Basic Metabolic Panel; Complete Time: 13:26 rn 04/13 11:33 Order name: Protime (+inr); Complete Time: 12:54 rn 04/13 11:33 Order name: Ptt, Activated; Complete Time: 12:54 rn 04/13 11:33 Order name: Procalcitonin; Complete Time: 13:16 rn 04/13 11:35 Order name: Urine Culture rn 04/13 11:35 Order name: Urine Microscopic Only rn 04/13 11:35 Order name: Hepatic Function; Complete Time: 13:16 rn 04/13 11:35 Order name: Lipase; Complete Time: 13:16 rn 04/13 12:14 Order name: Blood Culture Adult (2) rn 04/13 12:43 Order name: CREATININE WHOLE BLOOD; Complete Time: 12:54 EDMS 04/13 12:56 Order name: Urine Dipstick--Ancillary (enter results) bd 04/13 11:31 Order name: CT Head Brain wo Cont; Complete Time: 12:54 rn 04/13 11:33 Order name: IV Start; Complete Time: 12:38 rn 04/13 11:35 Order name: Urine Dipstick-Ancillary (obtain specimen); Complete Time: 12:12 rn 04/13 11:35 Order name: Labs collected and sent; Complete Time: 12:38 rn 04/13 11:35 Order name: CT Abd/Pelvis - IV Contrast Only; Complete Time: 12:54 rn 04/13 13:27 Order name: COVID-19/FLU A+B EDMS Administered Medications: 12:00 Drug: NS 0.9% 500 ml Route: IV; Rate: bolus; Site: right forearm; bp 19:04 Follow up: IV Status: Completed infusion; IV Intake: 500ml bp 13:20 Drug: Rocephin 1 grams Route: IV; Rate: calculated rate; Site: right forearm; bp 19:04 Follow up: IV Status: Completed infusion; IV Intake: 50ml bp Disposition: 04/13/20 13:29 Hospitalization ordered by Luis Angel Wall for Observation. Preliminary diagnosis are Urinary tract infection, site not specified, Weakness. - Bed requested for Telemetry/MedSurg (observation). - Status is Observation. rv - Condition is Stable. - Problem is new. - Symptoms have improved. Signatures: Dispatcher [employer] EDMS Yesica Pink Jacquelyn Kennedy, RN RN dm5 Yordy Dumont MD MD rn Calderon, Audri RN RN aa5 Bryon Coronel, RN RN Radhames Coe, RN RN rv Corrections: (The following items were deleted from the chart) 12:33 11:34 CORONAVIRUS+MR.LAB.BRZ ordered. EDCT EDMS 12:34 11:34 Influenza Screen (A \T\ B)+BA.LAB.BRZ ordered. EDCT EDMS 17:30 13:29 Hospitalization Ordered by Luis Angel Wall for Observation. Preliminary diagnosis bp is Urinary tract infection, site not specified; Weakness. Bed requested for Telemetry/MedSurg (observation). Status is Observation. Condition is Stable. Problem is new. Symptoms have improved. rn 18:59 17:30 04/13/2020 13:29 Hospitalization Ordered by Luis Angel Wall for Observation. bd Preliminary diagnosis is Urinary tract infection, site not specified; Weakness. Bed requested for [facility] ER HOLD. Status is Observation. Condition is Stable. Problem is new. Symptoms have improved. bp 19:05 18:59 04/13/2020 13:29 Hospitalization Ordered by Luis Angel Wall for Observation. dm5 Preliminary diagnosis is Urinary tract infection, site not specified; Weakness. Bed requested for Telemetry/MedSurg (observation). Status is Observation. Condition is Stable. Problem is new. Symptoms have improved. bd 19:06 19:05 04/13/2020 13:29 Hospitalization Ordered by Luis Angel Wall for Observation. dm5 Preliminary diagnosis is Urinary tract infection, site not specified; Weakness. Bed requested for Telemetry/MedSurg (observation). Status is Observation. Condition is Stable. Problem is new. Symptoms have improved. dm5 19:07 19:06 04/13/2020 13:29 Hospitalization Ordered by Luis Angel Wall for Observation. rv Preliminary diagnosis is Urinary tract infection, site not specified; Weakness. Bed requested for Telemetry/MedSurg (observation). Status is Observation. Condition is Stable. Problem is new. Symptoms have improved. dm5
[2020-04-13 13:43] LABS: Urine Blood TRACE (NEG); Urine Glucose NEGATIVE (NEG); Urine Protein 2+ (NEG); Urine pH 6.5 (5.0-7.0)
[2020-04-13 13:56] LABS: Urine Bacteria >50 /HPF (<20)
--- NOTE | 2020-04-13 14:39 | P.HP ---
Certification for Inpatient Patient admitted to: Observation With expected LOS: <2 Midnights Practitioner: I am a practitioner with admitting privileges, knowledge of patient current condition, hospital course, and medical plan of care. Services: Services provided to patient in accordance with Admission requirements found in Title 42 Section 412.3 of the Code of Federal Regulations Patient History Date of Service: 04/13/20 Reason for admission: Generalized weakness History of Present Illness: 69-year-old woman with a history of hypertension, bipolar disorder and schizophrenia presented to the emergency department with a complaint of generalized weakness. Patient mentioned she fell and could not get up and walk. Workup in the emergency department was unremarkable except UA suggesting the presence of UTI and CT abdomen and pelvis demonstrating bladder thickening suggestive of cystitis. Patient given a dose of IV Rocephin in the ED. She could not get up and walk in the ED. Patient is hospitalized for further management. Allergies amitriptyline [Amitriptyline] Allergy (Verified 08/02/11 15:37) Anaphylaxis gabapentin Allergy (Verified 08/02/11 15:37) Anaphylaxis risperidone Allergy (Verified 08/02/11 15:37) Anaphylaxis Home Medications: Buspirone HCl [Buspar] 10 mg PO BID 02/16/18 Fluoxetine HCl [Prozac] 1 cap PO DAILY 02/16/18 Amlodipine [Norvasc*] 10 mg PO DAILY #60 tab 01/02/19 Levofloxacin [Levaquin] 500 mg PO DAILY #7 tablet 09/02/19 Tramadol HCl [Ultram] 50 mg PO TID PRN #10 tablet 09/02/19 metroNIDAZOLE [Flagyl] 500 mg PO Q8H #21 tablet 09/02/19 - Past Medical/Surgical History Diabetic: Yes -: Hypertension -: Bipolar -: Schizophrenia -: Vaginal and Oral Herpes -: Depression -: Anxiety -: UTI -: Right knee sx -: Right elbow surgery Psychosocial/ Personal History: Patient lives at home alone. - Family History Mother -: Cancer Notes: cancer of the colon Father -: Heart disease - Social History Alcohol use: No CD- Drugs: No Caffeine use: No Review of Systems Other: Except as documented, all other systems reviewed and negative. Physical Examination - Physical Exam General: Alert, In no apparent distress, Oriented x3 HEENT: Atraumatic, Normocephalic, Mucous membr. moist/pink, EOMI, Sclerae nonicteric Neck: Supple, JVD not distended Respiratory: Clear to auscultation bilaterally, Normal air movement Cardiovascular: No edema, Regular rate/rhythm, Normal S1 S2 Capillary refill: <2 Seconds Gastrointestinal: Normal bowel sounds, Soft and benign, Non-distended, No tenderness Musculoskeletal: No swelling, No tenderness Integumentary: No rashes, No erythema Neurological: Normal speech, Normal strength at 5/5 x4 extr, Cranial nerves 3-12 intact - Studies Laboratory Data (last 24 hrs) 04/13/20 12:15: Total Bilirubin 0.5, AST 21, ALT 13, Alkaline Phosphatase 81, Lipase 129 04/13/20 12:15: PT 10.6, INR 0.90, APTT 27.6 04/13/20 12:15: Sodium 144, Potassium 3.5, BUN 21 H, Creatinine 1.37 H, Glucose 87 04/13/20 12:15: WBC 4.7, Hgb 13.2, Hct 40.6, Plt Count 228 Assessment and Plan - Problems (Diagnosis) (1) UTI (urinary tract infection) Current Visit: Yes Status: Acute (2) Hypertension Onset Date: 02/17/18 Current Visit: No Status: Acute Qualifiers: (3) Bipolar 1 disorder Onset Date: 02/17/18 Current Visit: No Status: Chronic (4) Asthenia Current Visit: Yes Status: Acute - Plan Place under observation. Hydrate with IV normal saline. IV Rocephin for UTI Follow urine culture and blood cultures. Validate and reconcile other home medications. PT to evaluate. - Advance Directives Does patient have a Living Will: No Does patient have a Durable POA for Healthcare: Yes
[2020-04-13] MEDS ORDERED: ACETAMINOPHEN 500 MG TAB PO PRN (16:44)
[2020-04-13] MEDS: NA CHLORIDE 0.9% 1,000 ML IV SCH (16:44)
[2020-04-13] MEDS ORDERED: ONDANSETRON 4 MG/2 ML VIAL IV PRN (16:44)
[2020-04-13 18:21] VITALS: BMI 29.2
[2020-04-13] MEDS ORDERED: NA CHLORIDE 0.9% 1,000 ML ONE (18:42)
[2020-04-13] MEDS ORDERED: POTASSIUM CL SA 10 MEQ TAB PO ONE (21:00)
[2020-04-13] MEDS ORDERED: MELATONIN 5 MG TABLET PO PRN (21:46)
[2020-04-14] MEDS: NA CHLORIDE 0.9% 1,000 ML IV SCH ×3 (02:44→20:13)
[2020-04-14 05:42] LABS: Absolute Lymphocytes (CBC) 1.8 K/uL (0.7-4.9); Hematocrit 35.5 % (36.0-45.0); Lymphocytes % 36.3 % (15.3-44.8); MPV 9.2 fL (7.6-11.3); RBC Red Blood Cell Count 3.96 M/uL (3.86-4.86)
[2020-04-14 06:14] LABS: Magnesium 2.3 mg/dL (1.8-2.4); Potassium 3.5 mmol/L (3.5-5.1); Thyroid Stimulating Hormone 2.18 uIU/mL (0.360-3.740)
[2020-04-14] MEDS ORDERED: POTASSIUM CL SA 10 MEQ TAB PO ONE (09:00)
[2020-04-14] MEDS ORDERED: CEFTRIAXONE 1 GM/NS 50 ML 1 GM/50 ML BAG IV SCH (09:00)
[2020-04-14] MEDS: ENOXAPARIN 40 MG/0.4 ML SQ SCH (09:45)
[2020-04-14] MEDS: BUSPIRONE HCL 5 MG TABLET PO SCH ×2 (09:57→20:12)
[2020-04-14] MEDS: TRAMADOL HCL 50 MG TAB PO PRN ×2 (09:57→20:12)
[2020-04-14] MEDS: AMLODIPINE 10 MG TAB PO SCH (09:57)
[2020-04-14] MEDS: FLUOXETINE 20 MG CAP PO SCH (09:57)
[2020-04-14 11:11] VITALS: O2SAT 95
--- NOTE | 2020-04-14 11:23 | EKG ---
Test Date: 2020-04-13 Test Time: 11:53:07 Director Of Financial Aid: MONISHA MEASUREMENT RESULTS: Intervals: Rate: 63 TN: 138 QRSD: 92 QT: 454 QTc: 464 Spencer: P: TN: 138 QRS: 39 T: -86 INTERPRETIVE STATEMENTS: Sinus rhythm with occasional premature ventricular complexes Septal infarct, age undetermined ST & T wave abnormality, consider inferolateral ischemia Abnormal ECG Compared to ECG 02/01/2020 14:16:59 Left ventricular hypertrophy no longer present Myocardial infarct finding still present ST (T wave) deviation still present Possible ischemia still present Electronically Signed On 04-14-20 11:20:54 [employer] by Justino Lauren
[2020-04-14] MEDS: CEFTRIAXONE/SWI 1gm 1 GM/10 ML SYR IV SCH (12:56)
--- NOTE | 2020-04-14 16:11 | P.PN ---
Subjective Date of Service: 04/14/20 Chief Complaint: Generalized weakness Patient has no new complaint today. She tolerated physical therapy and was able to ambulate with a walker. 1 blood culture bottle is growing Gram positive cocci. No fever, no leukocytosis. Physical Examination - Vital Signs Temperature: 97.8 F Blood Pressure: 175/90 Pulse: 65 Respirations: 15 Pulse Ox (%): 96 - Physical Exam General: Alert, In no apparent distress Neck: Supple, JVD not distended Respiratory: Clear to auscultation bilaterally, Normal air movement Cardiovascular: No edema, Regular rate/rhythm, Normal S1 S2 Gastrointestinal: Normal bowel sounds, Soft and benign, Non-distended Musculoskeletal: No swelling, No tenderness Integumentary: No rashes Neurological: Normal speech, Normal strength at 5/5 x4 extr, Cranial nerves 3-12 intact Assessment And Plan - Current Problems (Diagnosis) (1) UTI (urinary tract infection) Current Visit: Yes Status: Acute (2) Hypertension Onset Date: 02/17/18 Current Visit: No Status: Acute Qualifiers: (3) Bipolar 1 disorder Onset Date: 02/17/18 Current Visit: No Status: Chronic (4) Asthenia Current Visit: Yes Status: Acute - Plan Continue IV Rocephin for UTI. Urine culture is growing Gram negative rods. Will give a dose of vancomycin today given 1 blood culture bottle growing GPC. Repeat blood cultures. Continue home medications Continue PT. Dispo: Home with home health.
[2020-04-15] MEDS: NA CHLORIDE 0.9% 1,000 ML IV SCH (05:44)
[2020-04-15 06:43] LABS: Potassium 3.5 mmol/L (3.5-5.1)
[2020-04-15] MEDS ORDERED: POTASSIUM CL SA 10 MEQ TAB PO ONE (08:00)
[2020-04-15] MEDS: FLUOXETINE 20 MG CAP PO SCH (08:38)
[2020-04-15] MEDS: ENOXAPARIN 40 MG/0.4 ML SQ SCH (08:38)
[2020-04-15] MEDS: AMLODIPINE 10 MG TAB PO SCH (08:39)
[2020-04-15] MEDS: BUSPIRONE HCL 5 MG TABLET PO SCH (08:39)
[2020-04-15] MEDS: CEFTRIAXONE/SWI 1gm 1 GM/10 ML SYR IV SCH (14:00)
--- NOTE | 2020-04-15 14:54 | P.DS ---
Admission Date: 04/13/20 Discharge Date: 04/15/20 Disposition: [place] [facility] HE[facility] CARE Discharge Condition: FAIR Reason for Admission: Generalized weakness - Problems (1) UTI (urinary tract infection) Current Visit: Yes Status: Acute (2) Hypertension Onset Date: 02/17/18 Current Visit: No Status: Acute Qualifiers: (3) Bipolar 1 disorder Onset Date: 02/17/18 Current Visit: No Status: Chronic (4) Asthenia Current Visit: Yes Status: Acute Brief History of Present Illness: 69-year-old woman with a history of hypertension, bipolar disorder and schizophrenia presented to the emergency department with a complaint of generalized weakness. Patient mentioned she fell and could not get up and walk. Workup in the emergency department was unremarkable except UA suggesting the presence of UTI and CT abdomen and pelvis demonstrating bladder thickening suggestive of cystitis. Patient given a dose of IV Rocephin in the ED. She could not get up and walk in the ED. Patient is hospitalized for further management. Hospital Course: Patient placed under observation on the medical floor. She was treated for UTI with IV Rocephin. Her urine culture grew ESBL E. coli. One of her blood culture bottles grew coagulase-negative Staph which is likely a skin contaminant. Repeat blood cultures yielded no growth. Patient was seen by physical therapy. She was able to ambulate with a walker. Physical therapy recommend continued PT at home. Patient has clinically improved. She is deemed stable for discharge. She is discharged with Fosfomycin to treat the ESBL E. coli. Vital Signs/Physical Exam: Temp Pulse Resp BP Pulse Ox 97.3 F 73 17 173/90 H 99 04/15/20 12:00 04/15/20 12:00 04/15/20 12:00 04/15/20 12:00 04/15/20 12:00 General: Alert, In no apparent distress, Oriented x3 Neck: Supple Respiratory: Clear to auscultation bilaterally, Normal air movement Cardiovascular: No edema, Regular rate/rhythm, Normal S1 S2 Gastrointestinal: Soft and benign, Non-distended, No tenderness Musculoskeletal: No swelling Integumentary: No rashes Neurological: Normal strength at 5/5 x4 extr, Cranial nerves 3-12 intact Laboratory Data at Discharge: WBC 5.0 K/uL (4.3-10.9) 04/14/20 05:03 Hgb 11.9 g/dL (12.0-15.0) L 04/14/20 05:03 Hct 35.5 % (36.0-45.0) L 04/14/20 05:03 Plt Count 212 K/uL (152-406) 04/14/20 05:03 PT 10.6 SECONDS (9.5-12.5) 04/13/20 12:15 INR 0.90 04/13/20 12:15 APTT 27.6 SECONDS (24.3-36.9) 04/13/20 12:15 Sodium 144 mmol/L (136-145) 04/15/20 05:54 Potassium 3.5 mmol/L (3.5-5.1) 04/15/20 05:54 BUN 15 mg/dL (7-18) 04/15/20 05:54 Creatinine 1.25 mg/dL (0.55-1.3) 04/15/20 05:54 Glucose 94 mg/dL (74-106) 04/15/20 05:54 Phosphorus 3.0 mg/dL (2.5-4.9) 04/14/20 05:03 Magnesium 2.3 mg/dL (1.8-2.4) 04/14/20 05:03 Total Bilirubin 0.5 mg/dL (0.2-1.0) 04/13/20 12:15 AST 21 U/L (15-37) 04/13/20 12:15 ALT 13 U/L (12-78) 04/13/20 12:15 Alkaline Phosphatase 81 U/L (45-117) 04/13/20 12:15 Lipase 129 U/L (73-393) 04/13/20 12:15 Home Medications: Buspirone HCl [Buspar] 10 mg PO BID 02/16/18 Fluoxetine HCl [Prozac] 1 cap PO DAILY 02/16/18 Amlodipine [Norvasc*] 10 mg PO DAILY #60 tab 01/02/19 Tramadol HCl [Ultram] 50 mg PO TID PRN #10 tablet 09/02/19 Fosfomycin Tromethamine [Monurol] 3 gm PO Q48H #3 packet 04/15/20 New Medications: Fosfomycin Tromethamine [Monurol] 3 gm PO Q48H #3 packet Diet: AHA Activity: Fall precautions Followup: [facility] [Primary Care Provider] - 1-2 Weeks
[2020-04-15 16:47] VITALS: BP 147/93; TEMP 97.7
== END 2020-04-15 18:22 | disposition home health service (06) ==
LOC: ER 11:12 → ERHOLD 14:28 → 2ND 19:03
PROVIDERS: ADMIT Internal Medicine; ATTEND Internal Medicine
DX: N39.0 Urinary tract infection, site not specified (principal); I10 Essential (primary) hypertension; F31.9 Bipolar disorder, unspecified; R53.1 Weakness; F20.9 Schizophrenia, unspecified; B96.29 Other Escherichia coli [E. coli] as the cause of diseases classified elsewhere; Z20.822 Contact with and (suspected) exposure to COVID-19; F41.9 Anxiety disorder, unspecified; R94.31 Abnormal electrocardiogram [ECG] [EKG]
CPT/HCPCS: 96365; 96361; 93005; 87040 ×3; 87088; 85025 ×2; 87086; 80048 ×3; 36415 ×2; 83735; 87205 ×3; 84100; 85610; 82565; 82947 ×8; 80076; 85730; 84443; 87077; 87186; 83690; 84145; 0240U; 70450; 74177; 97116 ×2; 97161; 97530 ×2; 99285; 96366; Q9967; J1650; J0696 ×3; J7040; J7030 ×4; 81003; 81015

== ENCOUNTER 2020-05-06 07:03 | Emergency (ER) | payer OTHER, SELFPAY ==
--- OUTSIDE RECORDS SUMMARY | 2020-05-06 07:06 | XMS REPORT | Continuity of Care Document ---
:1950 Author Organization [facility] t Address [address] [place] [address] Care Team Providers Name Role Phone Unavailable Unavailable Unavailable Problems Condition Condition Condition Status Onset Resolution Last Treating Co mments Source Name Details Category Date Date Treatment Clinician Date History of History of Diagnosis Active [facility] drug abuse drug abuse Aria kes - in in [facility] remission [facility] Bipolar Bipolar Diagnosis Active [...] Aria kes - on on [facility] Depression Depression Problem Active [...] Primary Problem Active [facility] osteoarthr osteoarthr Raia kes - itis itis Memoria involving involving l multiple multiple [facility] joints ent Clinics History of History of Diagnosis Active [facility] suicide suicide [facility] Allergies, Adverse Reactions, Alerts This patient has no known allergies or adverse reactions. Medications Ordered Filled Start Stop Current Ordering Indication Dosage Frequency Signature Comments Components Source Medication Medication Date Date Medication? Clinician (SIG) Name Name Pliar Hamiltonalejandro 2018-04 Yes John [address] [facility] 0-09 Kaycee [facility] - 00:00: Memoria 00 [facility] Pilar Hamiltonalejandro 2018-04 Yes John [address] [facility] 0-09 Kay[facility]e [facility] - 00[facility]00: Memoria 00 [facility] BusPIRone BusPIRone Yes John not [facility] HCl HCl Kaycee defined [facility] - Memoria [facility] Amlodipine Amlodipine Yes John TAKE [address] [facility] Besylate Besylate Kaycee TABLET BY L ukes - MOUTH ONCE Memoria DAILY [facility] Hydrochloro Hydrochloro Yes John TAKE [address] [facility] thiazide thiazide Kaycee TABLET BY L ukes - MOUTH ONCE Memoria DAILY [facility] Pantoprazol Pantoprazol Yes John TAKE [address] [facility] e Sodium e Sodium Kaycee TABLET BY L ukes - MOUTH ONCE Memoria DAILY [facility] Ciprofloxac Ciprofloxac Yes John TAKE [address] [facility] in HCl in HCl Kaycee TABLET BY [facility] - MOUTH Memoria EVERY 12 l HOURS [facility] Potassium Potassium Yes John TAKE [address] Chloride Chloride Kaycee TABLET BY L ukes - Barb ER Barb ER MOUTH ONCE Mem oria DAILY [facility] Metronidazo Metronidazo Yes John TAKE [address] [facility] le le Kaycee TABLET BY [facility] - MOUTH Memoria EVERY 8 l HOURS [facility] Sucralfate Sucralfate Yes John TAKE [address] [facility] Kaycee TABLET BY [facility] - MOUTH Memoria BEFORE A l MEAL AT [facility] BEDTIME. ent Clinics Procedures This patient has no known procedures. Encounters Start End Encounter Admission Attending Care Care Encounter Source Date/Time Date/Time Type Type Clinicians Facility Department ID 2019-01-07 2019-01-07 Outpatient Jalen Castro [id number] [facility] 13:00:00 13:00:00 [facility] Medicine [facility] 2018-12-30 2018-12-30 Outpatient Jalen Castro [id number] [facility] 11:11:00 11:11:00 [facility] l Medicine Outpati ent Clinics 2018-12-12 2018-12-12 Outpatient Jalen Santamariaosport [id number] [facility] 16:38:00 16:38:00 [facility] 2018-11-13 2018-11-13 Outpatient Jalen Raot [id number] [facility] 16:05:00 16:05:00 [facility] Outpati ent Clinics 2018-11-10 2018-11-10 Outpatient Jalen Raot [id number] [facility] 08:36:00 08:36:00 t [facility] 2018-11-05 2018-11-05 Outpatient Jalen Raot [id number] [facility] 13:30:00 13:30:00 [facility] Results This patient has no known results.
[2020-05-06 07:35] LABS: Absolute Lymphocytes (CBC) 2.2 K/uL (0.7-4.9); Hematocrit 38.2 % (36.0-45.0); Lymphocytes % 31.1 % (15.3-44.8); MPV 9.5 fL (7.6-11.3); RBC Red Blood Cell Count 4.25 M/uL (3.86-4.86)
[2020-05-06 07:42] LABS: Protime INR 0.83
[2020-05-06 07:52] LABS: Potassium 3.5 mmol/L (3.5-5.1); Troponin (Emerg Dept Use Only) 0.02 ng/mL (0.0-0.045)
[2020-05-06] MEDS ORDERED: ASPIRIN 81 MG CHEWABLE TABLET ONE (08:05)
[2020-05-06] MEDS ORDERED: FOLIC ACID 5 MG/ML VIAL ONE (08:06)
--- NOTE | 2020-05-06 08:06 | RAD REPORT ---
EXAM DESCRIPTION: CT - Ct Stroke Brain Wo Cont - 05/06/2020 7:36 am CLINICAL HISTORY: right sided weakness, Stroke protocol chest film COMPARISON: Head Brain Wo Cont dated 04/13/2020 TECHNIQUE: Axial 5 millimeter thick images of the head were obtained without IV contrast. All CT scans are performed using dose optimization technique as appropriate and may include automated exposure control or mA/KV adjustment according to patient size. FINDINGS: No intracranial hemorrhage, mass, or cerebral edema. No acute cortical based infarction se en. No cortical edema or sulcal effacement. Atrophy changes are mild and stable. Ventricles are in pr oportion to any volume loss. Patient has mild chronic ischemic change scattered in the cerebral white matter stable from recent study. Pierce matter-white matter differentiation is preserved. No globe or orbital content abnormality seen. Visualized portions of the mastoid air cells, paranasal sinuses, and orbits are unremarkable. Findings telephoned to Dr. Dumont 0713 hours. Verbal report was provided without comparison imaging av ailable. Images were only initially available in the exception folder. IMPRESSION: No CT evidence of acute intracranial process. The patient has mild atrophy and chronic ischemic changes match the April 13 study.
--- NOTE | 2020-05-06 08:18 | RAD REPORT ---
EXAM DESCRIPTION: RAD - Chest Single View - 05/06/2020 7:37 am CLINICAL HISTORY: weakness, hypertension, Stroke protocol chest film COMPARISON: Portable January 2020 TECHNIQUE: AP portable chest image was obtained 05/06/2020 7:37 am . FINDINGS: Lungs are clear. Heart and vasculature are normal. No measurable pleural effusion and no p neumothorax. No acute bony abnormality seen. No acute aortic findings suspected. IMPRESSION: No acute cardiopulmonary process. No significant change from comparison study.
--- NOTE | 2020-05-06 08:34 | RAD REPORT ---
EXAM DESCRIPTION: CT - Head angio - 05/06/2020 8:14 am CLINICAL HISTORY: Confused; right-sided weakness, acute CVA evaluation TECHNIQUE: During dynamic enhancement using nonionic IV contrast, axial 1 millimeter thick images of the head were obtained. Sagittal and axial reconstruction images were generated using MIP technique and reviewed. All CT scans are performed using dose optimization technique as appropriate and may include automated exposure control or mA/KV adjustment according to patient size. COMPARISON: CT head same date FINDINGS: No aneurysm or vascular malformation identified. Major venous sinuses are patent. No stenosis, named branch occlusion, vasculitis or other significant vascular finding identifiable. No dissection suspected. The terminal segment of the left vertebral artery between the PICA and the b ase of the basilar artery is small in size. This is believed to be anatomic variant rather than disse ction. No history provided indicating posterior circulation symptoms. IMPRESSION: Negative CT angio head examination for acute or significant finding.
--- NOTE | 2020-05-06 08:50 | RAD REPORT ---
EXAM DESCRIPTION: CT - Neck Angio - 05/06/2020 8:14 am CLINICAL HISTORY: weakness;Headache TECHNIQUE: During dynamic enhancement using nonionic IV contrast, axial 2 mm thick images of the nec k were obtained. Sagittal and axial reconstruction images were generated using MIP technique and revi ewed. All CT scans are performed using dose optimization technique as appropriate and may include automated exposure control or mA/KV adjustment according to patient size. FINDINGS: No aneurysm or vascular malformation identified. No carotid or vertebral dissection. Aortic arch is 4 vessel configuration with the left vertebral artery arising from the aortic arch. No origins stenoses. No stenosis, vasculitis or other significant carotid artery finding. No basilar ar lana abnormality seen. The vessel is tortuous. Right vertebral artery is the dominant vessel. Narrowi ng of the terminal segment of the left vertebral artery is believed to be anatomic variation and not dissection. Right common carotid artery is tortuous. IMPRESSION: Negative CT angio neck examination for acute finding.
--- NOTE | 2020-05-06 09:15 | EDPHYS ---
Physician Documentation [facility] Name: Celine Serrano Age: 69 yrs Sex: Female : 1950 Arrival Date: 05/06/2020 Time: 07:04 Bed 2 Private MD: ED Physician Yordy Dumont HPI: 05/06 07:06 This 69 yrs old Female presents to ER via EMS with complaints of weakness, rn AMS. 07:07 The patient presents to the emergency department with weakness of the right upper rn extremity, right lower extremity. Onset: The symptoms/episode began/occurred at an unknown time. Associated signs and symptoms: Pertinent positives: altered mental status, blurred vision, weakness, Pertinent negatives: fever, neck stiffness, seizure, loss of vision. Severity of symptoms: At their worst the symptoms were moderate in the emergency department the symptoms are unchanged. It is unknown whether or not the patient has had similar symptoms in the past. The patient has not recently seen a physician. Reports right sided weakness, unknown onset, patient still thinks it is yesterday evening, daughter called 911 and also unclear about onset. Reports right sided weakness, unable to get up, + blurred vision, and AMS. No known trauma. Reports hasn't slept in 2 days or so. . Historical: - Allergies: 07:07 Amitriptyline; rv 07:07 GABAPENTIN; rv 07:07 RISPERIDONE; rv - PMHx: 07:07 Bipolar disorder; CVA; Diabetes - NIDDM; Hypertension; problems with memory for 5 rv years; Schizophrenia; - PSHx: 07:07 Unable to obtain; rv - Immunization history:: Adult Immunizations up to date. - Social history:: Smoking status: unknown. - Family history:: not pertinent. - Hospitalizations: : No recent hospitalization is reported. ROS: 07:07 Constitutional: Negative for fever, chills, and weight loss, Eyes: Negative for injury, rn pain, redness, and discharge, Neck: Negative for injury, pain, and swelling, Cardiovascular: Negative for chest pain, palpitations, and edema, Respiratory: Negative for shortness of breath, cough, wheezing, and pleuritic chest pain, Abdomen/GI: Negative for abdominal pain, nausea, vomiting, diarrhea, and constipation, Back: Negative for injury and pain, MS/Extremity: Negative for injury and deformity, Skin: Negative for injury, rash, and discoloration, Neuro: Negative for headache, and seizure. Exam: 07:07 Constitutional: This is a well developed, well nourished patient who is awake, slow to rn respond to questions, and in no acute distress. Head/Face: Normocephalic, atraumatic. Eyes: Pupils equal round and reactive to light, extra-ocular motions intact. Periorbital areas with no swelling, redness, or edema. ENT: dry MM Neck: Supple, full range of motion without nuchal rigidity, or vertebral point tenderness. No Meningismus. Cardiovascular: Regular rate and rhythm. No pulse deficits. Respiratory: No increased work of breathing, no retractions or nasal flaring. Abdomen/GI: soft, non-tender Skin: Warm, dry MS/ Extremity: Pulses equal, no cyanosis Neuro: Awake and alert, GCS 15, oriented to person, place, time, and situation. Cranial nerves II-XII grossly intact. Motor strength 3+ RUE/RLE with decreasd sensation. Cerebellar exam normal. Pt not cooperating well with visual field exam, keeps cheating on lateral confontration. Keeps squinting and rubbing eyes as if having visual difficulties but cannot explain or describe to me. 08:16 ECG was reviewed by the Attending Physician. rn Vital Signs: 07:10 BP 165 / 106; Pulse 73; Resp 16 S; Temp 98.2(O); Pulse Ox 99% on R/A; Weight 63.5 kg jl7 (R); Height 5 ft. 3 in. (160.02 cm) (R); Pain 8/10; 07:55 BP 186 / 100; Pulse 69; Resp 17; Pulse Ox 97% ; jl7 10:02 BP 178 / 100; Pulse 68; Resp 15; Pulse Ox 99% ; jl7 07:10 Body Mass Index 24.80 (63.50 kg, 160.02 cm) jl7 NIH Stroke Scale Scores: 07:14 NIHSS Score: 6 rn 07:20 NIHSS Score: 6 jl7 MDM: 07:04 Patient medically screened. rn 07:14 ED course: CT no acute findings per Dr. Trevizo. . ED course: Trying to get a hold of rn daughter to pinpoint onset and last known normal. Patient reports thinks began "day before last". . 07:45 ED course: Daughter that last seen her mother 3 weeks ago, and was walking rn normal, with walker. Unable to get in contact with home provider. Patient states has been "scooting around" on her walker lately since not able to stand. . ED course: No TPA ordered because of unclear onset and patient states began atleast a day ago, is outside of tpa window. . 07:52 ED course: Caregiver called back at 0752, states last seen her at 12:30 yesterday rn afternoon, states seemed very stressed, and didn't notice right sided weakness or vision complaints at that time. . 09:12 Data reviewed: vital signs, nurses notes, lab test result(s), EKG, radiologic studies, rn CT scan, and as a result, I will admit patient. Counseling: I had a detailed discussion with the patient and/or guardian regarding: the historical points, exam findings, and any diagnostic results supporting the discharge/admit diagnosis, lab results, radiology results, the need for further work-up and treatment in the hospital, the need to transfer to another facility, No beds, hospital at internal disaster. Response to treatment: There is no appreciated change of the patient's symptoms at this time. ED course: Accepted for transfer to [facility] for neurological evaluation. 05/06 07:06 Order name: Troponin (emerg Dept Use Only); Complete Time: 08:01 rn 05/06 07:06 Order name: Basic Metabolic Panel; Complete Time: 08:01 rn 05/06 07:06 Order name: CBC with Diff; Complete Time: 08:01 rn 05/06 07:06 Order name: Protime (+inr); Complete Time: 08:01 rn 05/06 07:06 Order name: Ptt, Activated; Complete Time: 08:01 rn 05/06 07:06 Order name: CT Stroke Brain w/o Contrast; Complete Time: 08:38 rn 05/06 07:06 Order name: Stroke CXR 1 View; Complete Time: 08:38 rn 05/06 07:17 Order name: FSBG - FOR PT WITH NO ID; Complete Time: 08:53 sg 05/06 07:33 Order name: CT Head Angio; Complete Time: 08:38 rn 05/06 07:33 Order name: CT Neck Angio; Complete Time: 08:53 rn 05/06 08:59 Order name: COVID-19 : Document "Date of Symptom Onset" if Symptomatic. rn 05/06 08:59 Order name: CORONAVIRUS EDMS 05/06 09:00 Order name: Urine Dipstick--Ancillary (enter results); Complete Time: 10:06 eb 05/06 07:06 Order name: EKG; Complete Time: 07:07 rn 05/06 07:06 Order name: Accucheck; Complete Time: 07:58 rn 05/06 07:06 Order name: Cardiac monitoring; Complete Time: 07:27 rn 05/06 07:06 Order name: EKG - Nurse/Tech; Complete Time: 07:27 rn 05/06 07:06 Order name: IV Saline Lock; Complete Time: 07:27 rn 05/06 07:06 Order name: Labs collected and sent; Complete Time: 07:58 rn 05/06 07:06 Order name: NPO; Complete Time: 07:58 rn 05/06 07:06 Order name: O2 Per Protocol; Complete Time: 07:58 rn 05/06 07:06 Order name: O2 Sat Monitoring; Complete Time: 07:58 rn 05/06 07:06 Order name: Stroke Swallow Screen; Complete Time: 07:58 rn 05/06 07:06 Order name: Urine Dipstick-Ancillary (obtain specimen); Complete Time: 08:51 rn EC:16 Rate is 78 beats/min. Rhythm is irregular. QRS [employer] is Normal. DC interval is normal. rn QRS interval is normal. QT interval is normal. T waves are Inverted in leads II, III, aVF, V4, V5, V6. No ST changes noted. Clinical impression: NSR w/ Non-specific ST/T Changes and PVCs. Interpreted by me. Reviewed by me. Administered Medications: 07:57 Drug: foLIC Acid 1 mg Route: IVPB; Site: right antecubital; 07:58 Follow up: Response: No adverse reaction; IV Status: Completed infusion 07:58 Drug: Aspirin Chewable Tablet 324 mg Route: PO; jl7 10:06 Follow up: Response: No adverse reaction 09:30 Drug: NS 0.9% 500 ml Route: IV; Rate: bolus; Site: right antecubital; 7 10:06 Follow up: Response: No adverse reaction; IV Status: Completed infusion; IV Intake: jl7 500ml Point of Care Testing: Blood Glucose: 07:16 Blood Glucose: 88 mg/dL; sg Ranges: Critical Glucose Levels:Adult <50 mg/dl or >400 mg/dl <40 mg/dl or >180 mg/dl Disposition: 05/06/20 09:15 Transfer ordered to [facility]. Diagnosis are Weakness, Hypertension, Ischemic CVA. - Reason for transfer: Higher level of care. - Accepting physician is Dr. Blair. - Condition is Stable. - Problem is new. - Symptoms are unchanged. NIH Stroke Scale - NIH Stroke Score Date: 05/06/2020 Time: 07:14 Total Score = 6 1a. Level of Consciousness (LOC) - 0(Alert) 1b. Level of Consciousness (LOC) (Year \\T\\ Age) - 0(Both) 1c. LOC Commands (Open \\T\\ Closes Eyes/Diaper Folder) - 0(Both) 2. Best Gaze (Lateral Gaze Paresis) - 0(Normal) 3. Visual Field Loss - 1(Partial hemianopia) 4. Facial Palsy - 0(Normal) 5a. Left Arm: Motor (10-second hold) - 0(No drift) 5b. Right Arm: Motor (10-second hold) - 2(Drift, some effort against gravity) 6a. Left Leg: Motor (5-second hold - always test supine) - 0(No drift) 6b. Right Leg: Motor (5-second hold - always test supine) - 2(Drift, some effort against gravity) 7. Limb Ataxia (finger/nose \\T\\ heel/weinstein - test with eyes open) - 0(Absent) 8. Sensory Loss (pinprick arms/legs/face) - 1(Mild to moderate loss) 9. Best Language: Aphasia (description/naming/reading) - 0(No aphasia) 10. Dysarthria (speech clarity - read or repeat words) - 0(Normal) 11. Extinction and Inattention (visual/tactile/auditory/spatial/personal) - 0(No abnormality) Initials: yue NIH Stroke Scale - NIH Stroke Score Date: 05/06/2020 Time: 07:20 Total Score = 6 1a. Level of Consciousness (LOC) - 0(Alert) 1b. Level of Consciousness (LOC) (Year \\T\\ Age) - 0(Both) 1c. LOC Commands (Open \\T\\ Closes Eyes/Diaper Folder) - 0(Both) 2. Best Gaze (Lateral Gaze Paresis) - 0(Normal) 3. Visual Field Loss - 1(Partial hemianopia) 4. Facial Palsy - 0(Normal) 5a. Left Arm: Motor (10-second hold) - 0(No drift) 5b. Right Arm: Motor (10-second hold) - 2(Drift, some effort against gravity) 6a. Left Leg: Motor (5-second hold - always test supine) - 0(No drift) 6b. Right Leg: Motor (5-second hold - always test supine) - 2(Drift, some effort against gravity) 7. Limb Ataxia (finger/nose \\T\\ heel/weinstein - test with eyes open) - 0(Absent) 8. Sensory Loss (pinprick arms/legs/face) - 1(Mild to moderate loss) 9. Best Language: Aphasia (description/naming/reading) - 0(No aphasia) 10. Dysarthria (speech clarity - read or repeat words) - 0(Normal) 11. Extinction and Inattention (visual/tactile/auditory/spatial/personal) - 0(No abnormality) Initials: [facility] Signatures: Dispatcher [employer] EDMS Yordy Dumont MD MD rn Leal, Jahala, RN RN jl Radhames Tejeda RN RN rv Corrections: (The following items were deleted from the chart) 09:25 09:15 05/06/2020 09:15 Transfer ordered to [facility]. Diagnosis is Weakness; Hypertension; Ischemic CVA. Reason for transfer: Higher level of care. Accepting physician is . Condition is Stable. Problem is new. Symptoms are unchanged. rn 11:35 09:25 05/06/2020 09:15 Transfer ordered to [address] Diagnosis is Weakness; Hypertension; Ischemic CVA. Reason for transfer: Higher level of care. Accepting physician is Dr. Blair. Condition is Stable. Problem is new. Symptoms are unchanged. rn
--- NOTE | 2020-05-06 09:15 | ER ---
Nurse's Notes [facility] Name: Celine Serrano Age: 69 yrs Sex: Female : 1950 Arrival Date: 05/06/2020 Time: 07:04 Bed 2 Private MD: Diagnosis: Weakness;Hypertension;Ischemic CVA Presentation: 05/06 07:04 Chief complaint: EMS states: DAUGHTER TONED IN FOR HIGH BLOOD PRESSURE AND LOSS OF rv VISION. UPON ARRIVAL, PATIENT IS COMPLAINING OF HEADACHE AND SIGNS OF CONFUSION. Coronavirus screen: Client denies travel out of the [place] in the last 14 days. Ebola Screen: No symptoms or risks identified at this time. Initial Sepsis Screen: Does the patient meet any 2 criteria? No. Patient's initial sepsis screen is negative. Does the patient have a suspected source of infection? No. Patient's initial sepsis screen is negative. Risk Assessment: Do you want to hurt yourself or someone else? Patient reports no desire to harm self or others. Onset of symptoms is unknown. 07:04 Method Of Arrival: EMS: [facility] rv 07:04 Acuity: HARJINDER 2 rv 07:33 An acute neurological deficit is present. The charge nurse has been notified. The jl7 patient has been moved to a treatment area. The patients blood glucose was checked before arriving to the hospital and was found to be normal. Triage Assessment: 07:07 General: Appears comfortable, Behavior is calm, cooperative. Pain: Complains of pain in rv HEAD. EENT: No signs and/or symptoms were reported regarding the EENT system. Neuro: Level of Consciousness is awake, alert, obeys commands, Oriented to person, place, situation, Weakness in right leg(s) Speech is normal, Facial symmetry appears normal. Cardiovascular: Patient's skin is warm and dry. Respiratory: Airway is patent Respiratory effort is even, unlabored, Breath sounds are clear bilaterally. Derm: Skin is intact. 07:33 The onset of the patients symptoms was at an unknown time. jl7 Stroke Activation: Symptom onset > 6 hours Physician: Stroke Attending; Name: ; Notified At: ; Arrived At: Physician: Chief Stroke Resident; Name: ; Notified At: ; Arrived At: Physician: Stroke Resident; Name: ; Notified At: ; Arrived At: Physician: ED Attending; Name: ; Notified At: ; Arrived At: Physician: ED Resident; Name: ; Notified At: ; Arrived At: Historical: - Allergies: 07:07 Amitriptyline; rv 07:07 GABAPENTIN; rv 07:07 RISPERIDONE; rv - PMHx: 07:07 Bipolar disorder; CVA; Diabetes - NIDDM; Hypertension; problems with memory for 5 rv years; Schizophrenia; - PSHx: 07:07 Unable to obtain; rv - Immunization history:: Adult Immunizations up to date. - Social history:: Smoking status: unknown. - Family history:: not pertinent. - Hospitalizations: : No recent hospitalization is reported. Screenin:09 VAN Screening: Arm Drift: Patient shows no arm weakness. Patient is VAN negative. Fall rv Risk None identified. 07:10 Abuse screen: Denies threats or abuse. Denies injuries from another. Nutritional jl7 screening: No deficits noted. Tuberculosis screening: No symptoms or risk factors identified. Assessment: 07:10 General: Appears in no apparent distress. uncomfortable, well groomed, well developed, jl7 well nourished, Behavior is calm, cooperative, appropriate for age. Pain: Complains of pain in RIVERA Pain does not radiate. Pain currently is 8 out of 10 on a pain scale. Quality of pain is described as aching, Pain began unsure Is continuous. Neuro: Level of Consciousness is awake, alert, obeys commands, Oriented to person, place, time, situation. Cardiovascular: Heart tones present Murmur present Patient's skin is warm and dry. Rhythm is sinus rhythm Chest pain is denied. Respiratory: Airway is patent Respiratory effort is even, unlabored, Respiratory pattern is regular, symmetrical, Breath sounds are clear bilaterally. Denies shortness of breath. GI: Patient currently denies abdominal pain, diarrhea, nausea, vomiting. : No signs and/or symptoms were reported regarding the genitourinary system. Derm: Skin is pink, warm \\T\\ dry. 07:20 VAN Scoring: Arm Drift: Flaccid/no antigravity Visual Disturbance: No visual jl7 disturbance noted. Aphasia: No aphasia noted. The patient has not been NPO before screening. The patient is currently on the following diet: Home The patient is alert, and able to follow commands. The patient does not exhibit slurred or garbled speech. The patient is not exhibiting difficulty speaking. The patient does not exhibit difficulty understanding words. The patient is able to swallow own secretions with no drooling or need for suction. Patient tolerated one teaspoon of water. No drooling, immediate coughing, gurgling, or clearing of the throat was noted. The patient tolerated 90mL of water. No drooling, immediate coughing, gurgling, or clearing of the throat was noted. The patient passed the bedside swallow screening. Oral medications may be given as ordered. Contact Physician for further diet orders. Provider notified of bedside swallow screening results: Yordy Dumont MD. T-PA (Activase) Screening: Contraindications: Patient reports onset of signs and symptoms of stroke greater than 6 hours ago: Yes. 07:55 Reassessment: Spoke to Mary, , pt's daughter, who reports she did not jl7 call EMS, she last saw her 3 weeks ago and pt was able to walk normally. Attempted to call Rishi [phone], pt's loom cleaner but no answer at this time. 09:00 Reassessment: Patient appears in no apparent distress at this time. No changes from jl7 previously documented assessment. Patient and/or family updated on plan of care and expected duration. Pain level reassessed. Patient is alert, oriented x 3, equal unlabored respirations, skin warm/dry/pink. 10:07 Reassessment: Pt noted to be on the phone using right arm, pt reports "I wasn't even jl7 able to lift it earlier but it seems to be getting better." Pt agrees to transfer at this time. 11:00 Reassessment: Patient appears in no apparent distress at this time. No changes from jl7 previously documented assessment. Patient and/or family updated on plan of care and expected duration. Pain level reassessed. Patient is alert, oriented x 3, equal unlabored respirations, skin warm/dry/pink. Vital Signs: 07:10 BP 165 / 106; Pulse 73; Resp 16 S; Temp 98.2(O); Pulse Ox 99% on R/A; Weight 63.5 kg jl7 (R); Height 5 ft. 3 in. (160.02 cm) (R); Pain 8/10; 07:55 BP 186 / 100; Pulse 69; Resp 17; Pulse Ox 97% ; jl7 10:02 BP 178 / 100; Pulse 68; Resp 15; Pulse Ox 99% ; jl7 07:10 Body Mass Index 24.80 (63.50 kg, 160.02 cm) jl7 NIH Stroke Scale Scores: 07:14 NIHSS Score: 6 rn 07:20 NIHSS Score: 6 jl7 ED Course: 07:04 Patient arrived in ED. cl3 07:04 Yordy Dumont MD is Attending Physician. rn 07:04 Radhames Tejeda, FLAQUITO is Primary Nurse. rv 07:06 Triage completed. rv 07:08 Arm band placed on right wrist. Patient placed in the treatment room, on a stretcher, rv Patient notified of wait time. 07:16 Initial lab(s) drawn, by me, sent to lab. sg 07:24 Gina Austin, FLAQUITO is Primary Nurse. jl7 07:27 EKG done, by ED staff, reviewed by Yordy Dumont MD. Maintain EMS IV. Dressing intact. 5 Site clean \\T\\ dry. 07:28 Safety checks: Items removed:. Allergy band placed. Patient has correct armband on for 5 positive identification. Bed in low position. Call light in reach. Side rails up X2. Warm blanket given. kettleman on. Pulse ox on. NIBP on. 07:36 Stroke CXR 1 View In Process Unspecified. EDMS 07:36 CT Stroke Brain w/o Contrast In Process Unspecified. EDMS 08:14 CT Head Angio In Process Unspecified. EDMS 08:14 CT Neck Angio In Process Unspecified. EDMS 08:52 Urine collected: straight cath specimen, clear. Straight cath inserted, using sterile jl7 technique, 16 Fr. Specimen obtained. Returned clear yellow urine. 09:06 initiated a transfer with Garrett from the [facility]. eb 09:[address] Hull the neurologist lamination technician for [facility] with Dr. Dumont for eb patient transfer consultation. 09:22 connected the hospitalist lamination technician for [facility] with Dr. Dumont for patient eb transfer consultation. 09:37 administrative approval given by Garrett Saravia/ patient has been accepted to [facility] bed 2254/ Dr. Mayur Blair has accepted the patient in transfer/ report to be called to [phone]. 11:34 No provider procedures requiring assistance completed. Patient transferred, IV remains jl7 in place. intact, No redness/swelling at site. Administered Medications: 07:57 Drug: foLIC Acid 1 mg Route: IVPB; Site: right antecubital; jl7 07:58 Follow up: Response: No adverse reaction; IV Status: Completed infusion jl7 07:58 Drug: Aspirin Chewable Tablet 324 mg Route: PO; jl7 10:06 Follow up: Response: No adverse reaction jl7 09:30 Drug: NS 0.9% 500 ml Route: IV; Rate: bolus; Site: right antecubital; jl7 10:06 Follow up: Response: No adverse reaction; IV Status: Completed infusion; IV Intake: jl7 500ml Point of Care Testing: Blood Glucose: 07:16 Blood Glucose: 88 mg/dL; sg Ranges: Intake: 10:06 IV: 500ml; Total: 500ml. jl7 Outcome: 09:15 ER care complete, transfer ordered by MD. turner 11:34 [facility]red by ground EMS to [facility], Transfer form completed. jl7 X-rays sent w/ patient. 11:34 Condition: stable 11:34 Discharge instructions given to patient, Instructed on the need for transfer, Demonstrated understanding of instructions. 11:35 Patient left the ED. jl7 NIH Stroke Scale - NIH Stroke Score Date: 05/06/2020 Time: 07:14 Total Score = 6 1a. Level of Consciousness (LOC) - 0(Alert) 1b. Level of Consciousness (LOC) (Year \\T\\ Age) - 0(Both) 1c. LOC Commands (Open \\T\\ Closes Eyes/Traffic Expert) - 0(Both) 2. Best Gaze (Lateral Gaze Paresis) - 0(Normal) 3. Visual Field Loss - 1(Partial hemianopia) 4. Facial Palsy - 0(Normal) 5a. Left Arm: Motor (10-second hold) - 0(No drift) 5b. Right Arm: Motor (10-second hold) - 2(Drift, some effort against gravity) 6a. Left Leg: Motor (5-second hold - always test supine) - 0(No drift) 6b. Right Leg: Motor (5-second hold - always test supine) - 2(Drift, some effort against gravity) 7. Limb Ataxia (finger/nose \\T\\ heel/weinstein - test with eyes open) - 0(Absent) 8. Sensory Loss (pinprick arms/legs/face) - 1(Mild to moderate loss) 9. Best Language: Aphasia (description/naming/reading) - 0(No aphasia) 10. Dysarthria (speech clarity - read or repeat words) - 0(Normal) 11. Extinction and Inattention (visual/tactile/auditory/spatial/personal) - 0(No abnormality) Initials: flaquito NIH Stroke Scale - NIH Stroke Score Date: 05/06/2020 Time: 07:20 Total Score = 6 1a. Level of Consciousness (LOC) - 0(Alert) 1b. Level of Consciousness (LOC) (Year \\T\\ Age) - 0(Both) 1c. LOC Commands (Open \\T\\ Closes Eyes/Traffic Expert) - 0(Both) 2. Best Gaze (Lateral Gaze Paresis) - 0(Normal) 3. Visual Field Loss - 1(Partial hemianopia) 4. Facial Palsy - 0(Normal) 5a. Left Arm: Motor (10-second hold) - 0(No drift) 5b. Right Arm: Motor (10-second hold) - 2(Drift, some effort against gravity) 6a. Left Leg: Motor (5-second hold - always test supine) - 0(No drift) 6b. Right Leg: Motor (5-second hold - always test supine) - 2(Drift, some effort against gravity) 7. Limb Ataxia (finger/nose \\T\\ heel/weinstein - test with eyes open) - 0(Absent) 8. Sensory Loss (pinprick arms/legs/face) - 1(Mild to moderate loss) 9. Best Language: Aphasia (description/naming/reading) - 0(No aphasia) 10. Dysarthria (speech clarity - read or repeat words) - 0(Normal) 11. Extinction and Inattention (visual/tactile/auditory/spatial/personal) - 0(No abnormality) Initials: jl7 Signatures: Dispatcher [employer] Codey Levy, RN RN Yordy Alvarez MD MD rn Martinez, Maria [facility] Gina Austin RN RN jl7 Jackie Miranda Ronaldo, RN RN rv Lewis, Charde cl3 Corrections: (The following items were deleted from the chart) 07:55 07:20 VAN Scoring: Arm Drift: Flaccid/no antigravity Visual Disturbance: No 7 visual disturbance noted. Aphasia: No aphasia noted. jl7
[2020-05-06] MEDS ORDERED: NA CHLORIDE 0.9% 500 ML ONE (09:34)
[2020-05-06 09:58] LABS: Urine Blood NEGATIVE (NEG); Urine Glucose NEGATIVE (NEG); Urine Protein 2+ (NEG)
[2020-05-06 11:51] VITALS: TEMP 98.2
[2020-05-06 11:54] VITALS: BP 178/100; O2SAT 99
== END 2020-05-06 11:35 | disposition short-term general hospital (02) ==
LOC: ER 07:03
DX: I63.9 Cerebral infarction, unspecified (principal); I10 Essential (primary) hypertension; R53.1 Weakness; R29.706 NIHSS score 6; Z88.5 Allergy status to narcotic agent; Z88.8 Allergy status to other drugs, medicaments and biological substances
CPT/HCPCS: 36415; 51702; 70450; 70496; 70498; 71045; 80048; 81003; 82947; 84484; 85025; 85610; 85730; 93005; 96361; 96374; 99285; J7040; Q9967

== ENCOUNTER 2020-05-09 11:00 | Emergency (ER) | payer OTHER, SELFPAY ==
[2020-05-09 15:25] LABS: Absolute Lymphocytes (CBC) 1.7 K/uL (0.7-4.9); Albumin 3.7 g/dL (3.4-5.0); Basophils % 0.5 % (0-1.3); Bilirubin Direct 0.1 mg/dL (0-0.2); Bilirubin Total 0.4 mg/dL (0.2-1.0); Hematocrit 38.5 % (36.0-45.0); Lymphocytes % 31.9 % (15.3-44.8); MPV 9.2 fL (7.6-11.3); Potassium 3.7 mmol/L (3.5-5.1); Protein, Total 8.2 g/dL (6.4-8.2); RBC Red Blood Cell Count 4.26 M/uL (3.86-4.86)
[2020-05-09 15:36] LABS: Urine Blood NEGATIVE (NEG); Urine Glucose NEGATIVE (NEG); Urine Protein 2+ (NEG); Urine Specific Gravity 1.025 (1.005-1.030); Urine pH 5.5 (5.0-7.0)
[2020-05-09 15:42] LABS: Urine Bacteria <20 /HPF (<20); Urine RBC NONE SEEN /HPF (NONE SEEN)
--- NOTE | 2020-05-09 16:28 | RAD REPORT ---
EXAM DESCRIPTION: CT - Abdomen Pelvis W Contrast - 05/09/2020 3:51 pm CLINICAL HISTORY: ABD PAIN COMPARISON: Abdomen Pelvis W Contrast dated 04/13/2020; Abdomen Pelvis W Contrast dated 12/01/2019; Abdomen Pelvis W Contrast dated 09/01/2019CT studies April 2020, December 2019 and August 2019 TECHNIQUE: Biphasic, helical CT imaging of the abdomen and pelvis was performed following 100 ml non -ionic IV contrast. No oral contrast administered. All CT scans are performed using dose optimization technique as appropriate and may include automated exposure control or mA/KV adjustment according to patient size. FINDINGS: No acute lung base finding. Calcified pleural plaques are present without soft tissue mass component. Cardiomegaly is present without pericardial effusion. In the subcapsular midline left lobe of the liver there is a 4.5 centimeter low-density mass showing a a peripheral, discontinuous nodular enhancement pattern. In the posterolateral subcapsular right lo be there is an approximately 3.2 centimeter mass showing similar imaging characteristics. In the infe rior left lobe at the midline there is a third 2 centimeter lesion showing similar imaging characteri stics. These are stable back to August 2019 under consistent with stable, benign hepatic hemangiomas. N o worrisome liver parenchymal process. Patient has a prominent Faisal's lobe configuration. Pancreas and spleen show no suspicious findings. Gallbladder size is normal. There is layering sludge or possible punctate stones in the gallbladder lumen similar to prior imaging. No acute gallbladder process identifiable. No biliary tree abnormality. Symmetric renal function is seen with no hydronephrosis or suspicious renal mass. No pyelonephritis o r acute parenchymal process. Nonobstructing renal parenchymal calculi are present on the left. No act joan renal parenchymal process seen. No adrenal abnormalities. Wall thickening is seen in a contracted urinary bladder. This is probably the affects of contraction rather than cystitis. No asymmetric wall thickening or mass. No bladder calculus. Atrophic uterus sherrill ws no suspicious findings. Ovaries are atrophic or absent. No adnexal mass. No dilated bowel loops or bowel wall thickening. Patient has a very minimal hiatal hernia. Appendix i s normal. There is prominent sigmoid diverticulosis but no acute diverticulitis findings. No free air , free fluid or inflammatory stranding. No mass or bulky lymphadenopathy. A small fat only upper abd ominal ventral hernia present not substantially different from the most recent April 2020 study. Disc and bony degenerative changes are present most notable at the L5-S1 level. L5 pars defects are p resent. No acute or pathologic bone process identified. No acute vascular finding. IMPRESSION: No obstruction, free air or other emergent CT abdomen or pelvis finding. Urinary bladder wall thickening is probably due to contracted state rather than cystitis. This can be correlated with clinical presentation and any UA abnormality. Prominent sigmoid diverticulosis without diverticulitis. No acute GI process identifiable. Nonacute findings are detailed in the body of the report and similar to comparison imaging.
--- NOTE | 2020-05-09 16:33 | ER ---
[facility]'s Notes [facility] Name: Celine Serrano Age: 69 yrs Sex: Female : 1950 Arrival Date: 05/09/2020 Time: 11:08 Bed 19 Private MD: Diagnosis: Lower abdominal pain, unspecified;Diarrhea, unspecified Presentation: 05/09 11:14 Chief complaint: EMS states: diffuse abd pain, n/v since she was seen here a few days sv ago. Pt was seen here for stroke symptoms and transferred to [facility]. Coronavirus screen: Client denies travel out of the [place] in the last 14 days. At this time, the client does not indicate any symptoms associated with coronavirus-19. Ebola Screen: No symptoms or risks identified at this time. Risk Assessment: Do you want to hurt yourself or someone else? Patient reports no desire to harm self or others. Onset of symptoms was May 2020. 11:14 Acuity: HARJINDER 3 sv 11:14 Method Of Arrival: EMS: [facility] sv 11:15 Initial Sepsis Screen: Does the patient meet any 2 criteria? No. Patient's initial sv sepsis screen is negative. Does the patient have a suspected source of infection? Yes: Acute abdominal pain. Triage Assessment: 11:16 General: Appears in no apparent distress. uncomfortable, Behavior is calm, cooperative, sv appropriate for age. Pain: Complains of pain in abdomen. Neuro: Level of Consciousness is awake, alert, obeys commands, Oriented to person, place, time, situation. Respiratory: Respiratory effort is even, unlabored, Respiratory pattern is regular, symmetrical. Historical: - Allergies: 11:15 Amitriptyline; sv 11:15 GABAPENTIN; sv 11:15 RISPERIDONE; sv - PMHx: 11:15 Bipolar disorder; CVA; Diabetes - NIDDM; Hypertension; problems with memory for 5 sv years; Schizophrenia; - PSHx: 11:15 Unable to obtain; sv - Immunization history:: Adult Immunizations up to date. - Social history:: Smoking status: Patient denies any tobacco usage or history of. - Family history:: not pertinent. - Hospitalizations: : No recent hospitalization is reported. Screenin:42 Abuse screen: Denies threats or abuse. Denies injuries from another. Nutritional ph screening: No deficits noted. Tuberculosis screening: No symptoms or risk factors identified. Fall Risk None identified. Assessment: 15:40 General: Appears in no apparent distress. comfortable, Behavior is calm, cooperative, ph appropriate for age. Pain: Complains of pain in abdomen. Neuro: Level of Consciousness is awake, alert, obeys commands, Oriented to person, place, time, situation. Cardiovascular: Capillary refill < 3 seconds in bilateral fingers Patient's skin is warm and dry. Respiratory: Airway is patent Respiratory effort is even, unlabored, Respiratory pattern is regular. GI: GI: Abdomen is non-distended, Reports lower abdominal pain, upper abdominal pain, nausea, vomiting. Derm: Skin is intact, is healthy with good turgor, Skin is pink, warm \T\ dry. Musculoskeletal: Circulation, motion, and sensation intact. Range of motion: intact in all extremities. Vital Signs: 11:15 BP 158 / 85; Pulse 76; Resp 18; Temp 98.7; Pulse Ox 99% ; Weight 59.87 kg; Height 5 ft. sv 2 in. (157.48 cm); Pain 5/10; 15:41 BP 149 / 86; Pulse 74; Resp 18; Pulse Ox 99% on R/A; ph 17:01 BP 147 / 86; Pulse 71; Resp 18; Temp 97.9; Pulse Ox 98% on R/A; ph 11:15 Body Mass Index 24.14 (59.87 kg, 157.48 cm) sv ED Course: 11:08 Patient arrived in ED. ds1 11:15 Triage completed. sv 11:15 Arm band placed on. sv 14:37 Yordy Dumont MD is Attending Physician. rn 14:42 Genevieve Nelson, FLAQUITO is Primary Nurse. ph 14:55 Initial lab(s) drawn, by me, sent to lab. Inserted saline lock: 20 gauge in right jp3 antecubital area, using aseptic technique. Blood collected. Patient maintains SpO2 saturation greater than 95% on room air. 15:09 Bed in low position. Call light in reach. Side rails up X 1. Verbal reassurance given. jp3 Pulse ox on. NIBP on. 15:50 CT Abd/Pelvis - IV Contrast Only In Process Unspecified. EDMS 16:08 Urine Dipstick--Ancillary (enter results) Sent. ss 17:01 No provider procedures requiring assistance completed. IV discontinued, intact, ph bleeding controlled, No redness/swelling at site. Pressure dressing applied. Administered Medications: 17:00 Drug: LoMOTIL 2 tabs Route: PO; ph 17:00 Follow up: Response: No adverse reaction; Medication administered at discharge. ph Outcome: 16:32 Discharge ordered by . rn 17:01 Discharged to home ambulatory. ph 17:01 Condition: good 17:01 Discharge instructions given to patient, Instructed on discharge instructions, follow up and referral plans. medication usage, Demonstrated understanding of instructions, follow-up care, medications, Prescriptions given X 1. 17:41 Patient left the ED. ph Signatures: Dispatcher [employer] EDMS Sobeida Hernandez RN RN sv Sanford, Demi ds1 Yordy Dumont MD MD rn Smirch, Shelby, RN RN ss Hall, Patricia, RN RN Eriberto Chinchilla jp3 Corrections: (The following items were deleted from the chart) 11:16 11:14 Method Of Arrival: Wheelchair [facility]
--- NOTE | 2020-05-09 16:33 | EDPHYS ---
Physician Documentation [facility] Name: Celine Serrano Age: 69 yrs Sex: Female : 1950 Arrival Date: 05/09/2020 Time: 11:08 Bed 19 Private MD: ED Physician Yordy Dumont HPI: 05/09 14:53 This 69 yrs old Female presents to ER via EMS with complaints of Abdominal rn Pain. 14:53 The patient presents with abdominal pain in the lower abdomen. Onset: The rn symptoms/episode began/occurred today. The symptoms do not radiate. Associated signs and symptoms: Pertinent positives: nausea and vomiting, diarrhea, Pertinent negatives: blood in stools, fever, hematuria, shortness of breath. The symptoms are described as crampy, intermittent. Modifying factors: The symptoms are alleviated by nothing, the symptoms are aggravated by touching the area. Severity of pain: At its worst the pain was mild in the emergency department the pain has improved. The patient has experienced similar episodes in the past. Reports lower abd pain, assoc with nausea/vomiting/diarrhea. Began today. Similar episodes in past when had diverticulitis. Recently admitted in [place] for possible stroke, patient does not know what transpired during hospitalization. . Historical: - Allergies: 11:15 Amitriptyline; sv 11:15 GABAPENTIN; sv 11:15 RISPERIDONE; sv - PMHx: 11:15 Bipolar disorder; CVA; Diabetes - NIDDM; Hypertension; problems with memory for 5 sv years; Schizophrenia; - PSHx: 11:15 Unable to obtain; sv - Immunization history:: Adult Immunizations up to date. - Social history:: Smoking status: Patient denies any tobacco usage or history of. - Family history:: not pertinent. - Hospitalizations: : No recent hospitalization is reported. ROS: 14:53 Constitutional: Negative for fever, chills, and weight loss, Eyes: Negative for injury, rn pain, redness, and discharge, Neck: Negative for injury, pain, and swelling, Cardiovascular: Negative for chest pain, palpitations, and edema, Respiratory: Negative for shortness of breath, cough, wheezing, and pleuritic chest pain, Abdomen/GI: + abd pain and nausea/vomiting/diarrhea Back: Negative for injury and pain, MS/Extremity: Negative for injury and deformity, Skin: Negative for injury, rash, and discoloration, Neuro: Negative for headache, weakness, numbness, tingling, and seizure. Exam: 14:53 Constitutional: This is a well developed, well nourished patient who is awake, alert, rn and in no acute distress. Head/Face: Normocephalic, atraumatic. ENT: MMM Cardiovascular: Regular rate and rhythm. No pulse deficits. Respiratory: No increased work of breathing, no retractions or nasal flaring. Abdomen/GI: soft, mild tenderness bilateral lower quadrants Skin: Warm, dry MS/ Extremity: Pulses equal, no cyanosis. Neuro: Awake and alert, GCS 15 Vital Signs: 11:15 BP 158 / 85; Pulse 76; Resp 18; Temp 98.7; Pulse Ox 99% ; Weight 59.87 kg; Height 5 ft. sv 2 in. (157.48 cm); Pain 5/10; 15:41 BP 149 / 86; Pulse 74; Resp 18; Pulse Ox 99% on R/A; ph 17:01 BP 147 / 86; Pulse 71; Resp 18; Temp 97.9; Pulse Ox 98% on R/A; ph 11:15 Body Mass Index 24.14 (59.87 kg, 157.48 cm) sv MDM: 14:37 Patient medically screened. rn 16:31 Differential diagnosis: non-specific abd pain, Ureterolithiasis, urinary tract rn infection, diverticulitis. Data reviewed: vital signs, nurses notes, lab test result(s), radiologic studies, CT scan, and as a result, I will discharge patient. Counseling: I had a detailed discussion with the patient and/or guardian regarding: the historical points, exam findings, and any diagnostic results supporting the discharge/admit diagnosis, lab results, radiology results, the need for outpatient follow up, to return to the emergency department if symptoms worsen or persist or if there are any questions or concerns that arise at home. Special discussion: I discussed with the patient/guardian in detail that at this point there is no indication for admission to the hospital. It is understood, however, that if the symptoms persist or worsen the patient needs to return immediately for re-evaluation. 05/09 14:46 Order name: Basic Metabolic Panel; Complete Time: 15:36 rn 05/09 14:46 Order name: CBC with Diff; Complete Time: 15:36 rn 05/09 14:46 Order name: Hepatic Function; Complete Time: 15:36 rn 05/09 14:46 Order name: Lipase; Complete Time: 15:36 rn 05/09 14:46 Order name: Urine Microscopic Only; Complete Time: 16:29 rn 05/09 15:24 Order name: Urine Dipstick--Ancillary (enter results) bd 05/09 14:46 Order name: IV Saline Lock; Complete Time: 15:10 rn 05/09 14:46 Order name: Labs collected and sent; Complete Time: 15:10 rn 05/09 14:46 Order name: Urine Dipstick-Ancillary (obtain specimen); Complete Time: 15:39 rn 05/09 14:46 Order name: CT Abd/Pelvis - IV Contrast Only; Complete Time: 16:29 rn 05/09 15:25 Order name: Urine Dipstick-Ancillary; Complete Time: 16:29 EDMS Administered Medications: 17:00 Drug: LoMOTIL 2 tabs Route: PO; ph 17:00 Follow up: Response: No adverse reaction; Medication administered at discharge. ph Disposition: 05/09/20 16:32 Discharged to Home. Impression: Lower abdominal pain, unspecified, Diarrhea, unspecified. - Condition is Stable. - Discharge Instructions: Abdominal Pain, Adult, Diarrhea, Adult. - Prescriptions for Zofran ODT 4 mg Oral tablet,disintegrating - place 1 tablet by TRANSLINGUAL route every 8 hours As needed; 20 tablet. - Medication Reconciliation Form, Thank You Letter, Antibiotic Education, Prescription Opioid Use form. - Follow up: Private Physician; When: As needed; Reason: Recheck today's complaints, Re-evaluation by your physician. - Problem is new. - Symptoms have improved. Signatures: Dispatcher [employer] EDFL Sobeida Hernandez RN RN sv Nieto, Roman, MD MD rn Hall, Patricia, RN RN ph Corrections: (The following items were deleted from the chart) 17:41 16:32 05/09/2020 16:32 Discharged to Home. Impression: Lower abdominal pain, ph unspecified; Diarrhea, unspecified. Condition is Stable. Forms are Medication Reconciliation Form, Thank You Letter, Antibiotic Education, Prescription Opioid Use. Follow up: Private Physician; When: As needed; Reason: Recheck today's complaints, Re-evaluation by your physician. Problem is new. Symptoms have improved. rn
[2020-05-09] MEDS ORDERED: DIPHENOX/ATROP SULF 1 TAB PO ONE (17:07)
[2020-05-09 17:49] VITALS: BP 147/86; TEMP 97.9; O2SAT 98
--- OUTSIDE RECORDS SUMMARY | 2020-05-10 21:47 | XMS REPORT | Clinical Summary ---
:1950 Author Organization [facility] Address [address] [place] [address] Care Team Providers Name Role Phone Unavailable Primary Care Provider Unavailable Allergies Active Allergy Reactions Severity Noted Date Comments Amitriptyline 05/06/2020 Patient too co nfused to tell severity Gabapentin 05/06/2020 Patient too con fused to tell severity Risperidone Analogues 05/06/2020 Patien t too confused to tell severity Medications Medication Sig Dispensed Refills Start Date End Date Status busPIRone Take 10 mg by 0 Active (BUSPAR) 10 MG mouth 2 (two) tablet times daily. QUEtiapine Take 1 tablet 30 tablet 0 05/07/2020 06/06/2020 Act joan (SEROquel) 25 MG (25 mg total) tablet by mouth nightly for 30 days. amLODIPine Take 1 tablet 30 tablet 0 05/08/2020 06/07/2020 Act joan (NORVASC) 5 MG (5 mg total) tablet by mouth daily for 30 days. lisinopriL Take 1 tablet 30 tablet 0 05/07/2020 05/07/2020 Dis continued (PRINIVIL,ZESTRI (20 mg total) (Stop Taking at L) 20 MG tablet by mouth Disc harge) daily for 30 doses. QUEtiapine Take 1 tablet 30 tablet 0 05/07/2020 05/07/2020 Dis continued (SEROquel) 25 MG (25 mg total) tablet by mouth nightly for 30 days. 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 Last Filed Vital Signs Vital Sign Reading Time Taken Comments Blood Pressure 165/81 05/07/2020 12:09 PM DIESEL POWERPLANT MECHANIC HELPER Pulse 60 05/07/2020 12:09 PM DIESEL POWERPLANT MECHANIC HELPER Temperature 36.1 C (96.9 F) 05/07/2020 12:09 PM DIESEL POWERPLANT MECHANIC HELPER Respiratory Rate 18 05/07/2020 12:09 PM DIESEL POWERPLANT MECHANIC HELPER Oxygen Saturation 99% 05/07/2020 12:09 PM DIESEL POWERPLANT MECHANIC HELPER Inhaled Oxygen Concentration - - Weight 65.8 kg (145 lb) 05/06/2020 3:36 PM DIESEL POWERPLANT MECHANIC HELPER Height 160 cm (5' 3") 05/06/2020 3:36 PM DIESEL POWERPLANT MECHANIC HELPER Body Mass Index 25.69 05/06/2020 3:36 PM DIESEL POWERPLANT MECHANIC HELPER Plan of Treatment Health Maintenance Due Date Last Done Comments BREAST CANCER SCREENING 1950 COLON CANCER SCREENING COLONOSCOPY 1950 HEPATITIS C SCREENING 1968 DTAP/TDAP/TD VACCINES (1 - Tdap) 1969 SHINGLES VACCINES (1 of 2) 2000 PNEUMOCOCCAL 65+ YRS (1 of 1 - [id number]) 11/19/2015 MEDICARE ANNUAL WELLNESS (YEAR 2 or FIRST YEAR if no 10/31/2016 IPPE) INFLUENZA VACCINE (#1) 2019 DEPRESSION SCREENING (12+) 04/01/2020 Procedures Procedure Name Priority Date/Time Associated Comments Diagnosis XR ABDOMEN / KUB 1 STEPHANIE 05/07/2020 10:22 Resul ts for this VIEW AM DIESEL POWERPLANT MECHANIC HELPER procedure are i n the results section. CBC W/PLT COUNT & Routine 05/07/2020 5:30 Result s for this AUTO DIFFERENTIAL AM [employer] POWERPLANT MECHANIC HELPER procedure are in the results section. LIPID PANEL Add-On 05/07/2020 5:30 Results for this AM [employer] POWERPLANT MECHANIC HELPER procedure are i n the results section. CBC W/PLT COUNT & Routine 05/07/2020 5:30 Result s for this AUTO DIFFERENTIAL AM D[employer]EL POWERPLANT MECHANIC HELPER procedure are in the results section. BASIC METABOLIC PANEL Routine 05/07/2020 5:30 Re sults for this (7) AM D[employer] POWERPLANT MECHANIC HELPER procedure are i n the results section. HEMOGLOBIN A1C Routine 05/07/2020 5:30 Results f or this AM D[employer]EL POWERPLANT MECHANIC HELPER procedure are i n the results section. MR BRAIN WITHOUT IV STEPHANIE 05/06/2020 8:02 Resu lts for this CONTRAST PM [employer] POWERPLANT MECHANIC HELPER procedure are i n the results section. POCT-GLUCOSE METER Routine 05/06/2020 4:51 Resul ts for this PM [employer] POWERPLANT MECHANIC HELPER procedure are i n the results section. ECG 12-LEAD Routine 05/06/2020 4:23 Results for this PM [employer] POWERPLANT MECHANIC HELPER procedure are i n the results section. CBC W/PLT COUNT & Routine 05/06/2020 4:11 Result s for this AUTO DIFFERENTIAL PM [employer] POWERPLANT MECHANIC HELPER procedure are in the results section. VITAMIN B12 AND Routine 05/06/2020 4:11 Results for this FOLATE PM [employer] POWERPLANT MECHANIC HELPER procedure are i n the results section. TSH Routine 05/06/2020 4:11 Results for this PM [employer] POWERPLANT MECHANIC HELPER procedure are i n the results section. CREATINE KINASE (CK) Routine 05/06/2020 4:11 Res ults for this PM DIESEL POWERPLANT MECHANIC HELPER procedure are i n the results section. BASIC METABOLIC PANEL Routine 05/06/2020 4:11 Re sults for this (7) PM DIESEL POWERPLANT MECHANIC HELPER procedure are i n the results section. CBC W/PLT COUNT & Routine 05/06/2020 4:11 Result s for this AUTO DIFFERENTIAL PM [employer] POWERPLANT MECHANIC HELPER procedure are in the results section. SARS-COV2/RT-PCR Routine 05/06/2020 4:06 Results for this ([facility] REF LABS) PM D[employer]EL POWERPLANT MECHANIC HELPER procedure are in the results section. RAPID DRUG SCREEN, Routine 05/06/2020 4:05 Resul ts for this URINE PM [employer] POWERPLANT MECHANIC HELPER procedure are i n the results section. XR CHEST 1 VIEW Routine 05/06/2020 3:53 Results for this PORTABLE/BEDSIDE PM [employer]OWERPLANT MECH[employer]IC HELPER procedure a re in the results section. URINALYSIS W/ REFLEX Routine 05/06/2020 2:52 Res ults for this URINE CULTURE PM [employer]EL POWERPLANT MECHANIC HELPER procedure are in the results section. SARS-COV2/RT-PCR Routine 09/01/2019 6:15 Results for this ([facility] REF LABS) PM CDT procedure are in the results section. after 05/10/2019 Results XR abdomen / KUB 1 view (05/07/2020 10:22 AM DIESEL POWERPLANT MECHANIC HELPER) Specimen Narrative Performed At FINAL REPORT [facility] Abdomen dated to May 07, 2020 Comment: Abdomen was examined in the supine front al position. Air is seen in the small and large bowel without dilata tion to suggest mechanical obstruction or ileus. No mass, patholo gical calcification, or free air is present. Impression: No mechanical obstruction or ileus. Signed: Gerard Shields MD Report Verified Date/Time: 05/07/2020 11:38:04 Reading Location: [facility] Ortho Con sult Reading Room Procedure Note Interface, External Ris In - 05/07/2020 11:40 AM DIESEL POWERPLANT MECHANIC HELPER FINAL REPORT Abdomen dated to May 07, 2020 Comment: Abdomen was examined in the supine front al position. Air is seen in the small and large bowel without dilata tion to suggest mechanical obstruction or ileus. No mass, patholog ical calcification, or free air is present. Impression: No mechanical obstruction or ileus. Signed: Gerard Shields MD Report Verified Date/Time: 05/07/2020 1 1:38:04 Reading Location: [facility] [id number] Ortho Con sult Reading Room Performing Organization Address City/State/Zipcode Phone Number [facility] CBC with platelet count + automated diff (05/07/2020 5:30 AM DIESEL POWERPLANT MECHANIC HELPER)Only the most recent of2 resultswithin the time period is included. Pathologist Sig nature WBC 5.7 3.5 - 10.5 [facility] K/L [facility] RBC 4.22 3.93 - 5.22 [facility] M/L [facility] Hemoglobin 12.4 11.2 - 15.7 [facility] GM/DL [facility] Hematocrit 38.5 34.1 - 44.9 % [facility] MCV 91.2 79.4 - 94.8 fL [facility] MCH 29.4 25.6 - 32.2 pg [facility] MCHC 32.2 32.2 - 35.5 [facility] GM/DL [facility] RDW 13.2 11.7 - 14.4 % [facility] Platelets 198 150 - 450 K/CU [facility] MPV 10.6 9.4 - 12.3 fL [facility] nRBC 0 0 - 0 /100 WBC [facility] % Neutros 44 % [facility] % Lymphs 42 % [facility] % Monos 10 % [facility] % Eos 3 % [facility] % Baso 1 % [facility] # Neutros 2.49 1.56 - 6.13 [facility] # Lymphs 2.39 1.18 - 3.74 [facility] # Monos 0.58 (H) 0.24 - 0.36 [facility] # Eos 0.14 0.04 - 0.36 [facility] # Baso 0.06 0.01 - 0.08 [facility] Immature 1 0 - 1 % [facility] Granulocytes-[facility] Specimen Blood Performing Organization Address City/State/Zipcode Phone Number [facility] [address] [place] [address] CENTER Hemoglobin A1c (05/07/2020 5:30 AM DIESEL POWERPLANT MECHANIC HELPER) Pathologist Sig nature Hemoglobin A1C 6.2 (H) 4.3 - 6.1 % [facility] Specimen Blood Performing Organization Address City/State/Zipcode Phone Number [facility] [address] [place] [address] [place] Lipid panel (05/07/2020 5:30 AM DIESEL POWERPLANT MECHANIC HELPER) Pathologist Sig nature Triglycerides 277Comment: Specimen mg/dL [facility] slightly hemolyzed [facility] Cholesterol 201Comment: Specimen mg/dL [facility] slightly hemolyzed [facility] HDL 34 mg/dL [facility] LDL Calculated 112 mg/dL [facility] Specimen Blood Narrative Performed At Triglyceride Reference Range: [facility] Low Risk <150 Borderline 150-199 High Risk 200-499 Very High Risk >=500 Cholesterol Reference Range: Low Risk <200 Borderline 200-239 High Risk >240 HDL Cholesterol Reference Range: Low Risk >=60 High Risk <40 LDL Cholesterol Reference Range: Optimal <100 Near Optimal 100-129 Borderline 130-159 High 160-189 Very High >=190 Drilling Engineer ID - AAHAMID Performing Organization Address City/State/Zipcode Phone Number [facility] [address] [place] [address] [place] Basic metabolic panel (05/07/2020 5:30 AM DIESEL POWERPLANT MECHANIC HELPER)Only the most recent of2 results within the time period is included. Sodium 141 136 - 145 meq/L [facility] Potassium 3.7Comment: Specimen 3.5 - 5.1 meq/L [facility] slightly hemolyFormerly [facility] Chloride 109 (H) 98 - 107 meq/L [facility] CO2 25 22 - 29 meq/L [facility] BUN 23 (H) 7 - 21 mg/dL [facility] Creatinine 1.40 (H)Comment: 0.57 - 1.25 [facility] Specimen slightly mg/dL [facility] hemolyzed [place] Glucose 85 70 - 105 mg/dL [facility] Calcium 8.8 8.4 - 10.2 [facility] mg/dL [facility] EGFR 37Comment: ESTIMATED mL/min/1.73 sq [facility] GFR IS NOT m [facility] CREATININE CLEARANCE IN PREDICTING GLOMERULAR FILTRATION RATE. ESTIMATED GFR IS NOT APPLICABLE FOR DIALYSIS PATIENTS. Specimen Blood Narrative Performed At Drilling Engineer ID - SM [facility] CENTER Performing Organization Address City/State/Zipcode Phone Number [facility] [address] [place] [address] CENTER MR brain without IV contrast (05/06/2020 8:02 PM DIESEL POWERPLANT MECHANIC HELPER) Specimen Narrative Performed At FINAL REPORT [facility] MR, BRAIN, WITHOUT CONTRAST INDICATION: Altered mental status TECHNIQUE: Multiplanar, multisequence MR imaging of the brain without intravenous contrast. COMPARISON: None FINDINGS: Intracranial: No acute intracranial hemo rrhage. No restricted diffusion to suggest acute infarct. No m ass effect. No hydrocephalus. Visualized intracranial flow voids are o f normal course and caliber. Generalized cerebral atrophy with ex vac uo dilatation of the ventricular system proportionate to sulc i. Scattered foci of T2 prolongation within the periventricular and subcortical white matter are a nonspecific finding commonly attri buted to chronic small vessel ischemic disease. Sinuses: No evidence of sinusitis. Masto ids are clear. Orbits: Globes are intact. Calvarium \\T\\ scalp: Unremarkable. IMPRESSION: No acute intracranial abnormality. Signed: Sang Akbar MD Report Verified Date/Time: 05/06/2020 20:12:22 Procedure Note Interface, External Ris In - 05/06/2020 8:14 PM DIESEL POWERPLANT MECHANIC HELPER FINAL REPORT MR, BRAIN, WITHOUT CONTRAST INDICATION: Altered mental status TECHNIQUE: Multiplanar, multisequence MR imaging of the brain without intravenous contrast. COMPARISON: None FINDINGS: Intracranial: No acute intracranial hemo rrhage. No restricted diffusion to suggest acute infarct. No m ass effect. No hydrocephalus. Visualized intracranial flow voids are o f normal course and caliber. Generalized cerebral atrophy with ex vac uo dilatation of the ventricular system proportionate to sulc i. Scattered foci of T2 prolongation within the periventricular and subcortical white matter are a nonspecific finding commonly attri buted to chronic small vessel ischemic disease. Sinuses: No evidence of sinusitis. Masto ids are clear. Orbits: Globes are intact. Calvarium \\T\\ scalp: Unremarkable. IMPRESSION: No acute intracranial abnormality. Signed: Sang Akbar MD Report Verified Date/Time: 05/06/2020 2 0:12:22 Performing Organization Address City/State/[facility] Cent[facility] Phone Number [facility] POC-Glucose meter (05/06/2020 4:51 PM DIESEL POWERPLANT MECHANIC HELPER) [facility] POC-Glucose Meter 88 70 - 110 [facility] Comment: mg/dL [facility] : TESTED AT [address] CENTER : Drilling Engineer/Order Dispatcher ID = [id number] for BRITTANY VELEZ Specimen Blood Performing Organization Address City/[facility] [place] [address] CENTER ECG 12 lead (05/06/2020 4:23 PM DIESEL POWERPLANT MECHANIC HELPER) Specimen Narrative Performed At This result has an attachment that is no t available. Ventricular Rate 53 BPM GE MUSE Atrial Rate 53 BPM P-R Interval 182 ms QRS Duration 98 ms Q-T Interval 470 ms QTC Calculation(Bazett) 441 ms P [place] 36 degrees R [place] -23 degrees T [place] -77 degrees Sinus bradycardia Left ventricular hypertrophy with repolarization abnor mality T wave inversion inferolateral leads: postischemic osito nges? secondary to LVH? Abnormal ECG No previous ECGs available Confirmed by MD ELAINE YOCHAI ([id number]) on 05/09/2020 7 :12:15 AM Procedure Note Interface, External Ris In - 05/09/2020 7:12 AM DIESEL POWERPLANT MECHANIC HELPER Ventricular Rate 53 BPM Atrial Rate 53 BPM P-R Interval 182 ms QRS Duration 98 ms Q-T Interval 470 ms QTC Calculation(Bazett) 441 ms P [place] 36 degrees R [place]ibel -23 degrees T [place] -77 degrees Sinus bradycardia Left ventricular hypertrophy with repola rization abnormality T wave inversion inferolateral leads: po stischemic changes? secondary to LVH? Abnormal ECG No previous ECGs available Confirmed by MD ELAINE YOCHAI ([id number]) on 05/09/2020 7:12:15 AM Performing Organization Address City/[facility]/Zipcode Phone Number MUSE Vitamin B12 and Folate (05/06/2020 4:11 PM DIESEL POWERPLANT MECHANIC HELPER) Pathologist Sig nature Vitamin B12 283 213 - 816 pg/mL [facility] Folate 17.00 >=7.00 ng/mL [facility] Specimen Blood Narrative Performed At Drilling Engineer ID - DB [facility] Performing Organization Address [facility] Centercode Phone Number [address] [address] CENTER TSH (05/06/2020 4:11 PM DIESEL POWERPLANT MECHANIC HELPER) Pathologist Sig nature TSH 1.886 0.350 - 4.940 uIU/mL [facility] Specimen Blood Narrative Performed At Drilling Engineer ID - [facility] Performing Organization Address [facility] Centercova Phone Number [address] [address] CENTER Creatine Kinase (CK) (05/06/2020 4:11 PM DIESEL POWERPLANT MECHANIC HELPER) Pathologist Sig nature Total CK 55 29 - 200 U/L [facility] Specimen Blood Narrative Performed At Drilling Engineer ID - [facility] Performing Organization Address [facility] Phone Number [address] [address] [place] SARS-CoV2/RT-PCR (Asymptomatic ONLY) (05/06/2020 4:06 PM DIESEL POWERPLANT MECHANIC HELPER)Only the most recent of2 resultswithin the time period is included. SARS-COV2/RT-PCR Negative Not Detected, [facility] Negative, See [facility] external report CENTER for linked test SARS-COV-2 BSC PIA [facility] PERFORMING LAB [facility] Specimen Other - Nasopharyngeal wall structure (b juan c structure) Narrative Performed At Negative result for this test determines that [facility] SARS-CoV-2 RNA was not present in the specimen above the Limit of Detection (LOD). However, Negative results do not preclude SARS-CoV-2 infection and should not be used as the sole basis for treatment or patient management decisions. Negative results must be combined with clinical observations, patient history, and epidemiological information. A false negative result may occur if a specimen is improperly collected, transported or handled. A false negative result should be considered if patient's recent exposures or clinical presentation indicate that COVID-19 (SARS-CoV-2) is likely and diagnostic tests for other causes of illness are negative. Re-testing should be considered in cases of suspected false negatives. The limit of detection for this assay is 800 copies/mL. This SARS CoV-2 test is a real-time RT-PCR test intended for the qualitative detection of nucleic acid from SARS-CoV-2 in a nasopharyngeal swab specimen collected from individuals suspected of COVID-19 by their healthcare provider. This test has not been Food and Drug Administration (FDA) cleared or approved. This is a modified version of an approved Emergency Use Authorization (EUA) and is in the process of review by the FDA. Once authorized by the FDA, the issued EUA will be effective until the declaration that circumstances exist justifying the authorization of the emergency use of in vitro diagnostic tests for detection and/or diagnosis of COVID-19 is terminated under Section 564(b)(2) of the Act or the EUA is revoked under Section 564(g) of the Act. Fact Sheet for Healthcare Providers: https://www.[employer].com/sites/default/files/pro duct/documents/Fact_Sheet_HC_Providers_Lyra_SA RS-CoV-2.pdf Fact Sheet for Healthcare Patients: https://www.[employer].com/sites/default/files/pro duct/documents/Fact_Sheet_Patients_Lyra_SARS-C oV-2.pdf Performing Laboratory: [address] [place] [address] Performing Organization Address City/State/Zipcode Phone Number [address] [address] [place] Rapid drug screen, urine (05/06/2020 4:05 PM DIESEL POWERPLANT MECHANIC HELPER) Pathologist Sig nature Barbiturate Screen Negative Negative [facility] Benzodiazepine Screen Negative Negative [facility] Cocaine (Metab.) Screen Negative Negative [facility] Methadone Screen Negative Negative [facility] Opiate Screen Negative Negative [facility] Cannabinoid Screen Negative Negative [facility] Amph/Methamph Screen Negative Negative [facility] Phencyclidine Screen Negative Negative [facility] pH, UA 6.0 5.0 - 8.0 [facility] Specimen Urine Narrative Performed At DRUG CUTOFF CONC. [facility] Cocaine 300 ng/mL Cannabinoid 50 ng/mL Benzodiazepine 200 ng/mL Barbiturate 200 ng/mL Phencyclidine 25 ng/mL Opiate 300 ng/mL Methadone 300 ng/mL Amphetamine/ 1000 ng/mL Methamphetamine This assay provides an unconfirmed qualitative test result for the clinical management of patients in emergency situations. Chain of custody not maintained. Some [id number]-hli-oroalpg medications, as well as adulterants, may cause inaccurate results. Clinical correlation should be applied. A more comprehensive drug screen or confirmation of a detected drug may be performed upon request. Drilling Engineer ID - AAHAMID Performing Organization Address City/State/Zipcode Phone Number [facility] [address] [place] [address] [place] XR chest 1 view portable / bedside (05/06/2020 3:53 PM DIESEL POWERPLANT MECHANIC HELPER) Specimen Narrative Performed At FINAL REPORT [facility] History: Encephalopathy, concern for pne umonia. Comparison: None. Findings: A single view of the chest is submitted. The cardiac silhouette is within normal limits for size. There is atherosclerotic calcification of the ect atic aorta. There is no focal consolidation, pneumot horax, large pleural effusion or evidence of overt pulmonary edema. There is no acute bony abnormality. Impression: No acute abnormality. Signed: Denis Valles MD Report Verified Date/Time: 05/07/2020 02:24:29 Procedure Note Interface, External Ris In - 05/07/2020 2:26 AM DIESEL POWERPLANT MECHANIC HELPER FINAL REPORT History: Encephalopathy, concern for pne umonia. Comparison: None. Findings: A single view of the chest is submitted. The cardiac silhouette is within normal limits for size. There is atherosclerotic calcification of the ect atic aorta. There is no focal consolidation, pneumot horax, large pleural effusion or evidence of overt pulmonary edema. There is no acute bony abnormality. Impression: No acute abnormality. Signed: Denis Valles MD Report Verified Date/Time: 05/07/2020 0 2:24:29 Performing Organization Address City/State/Zipcode Phone Number [facility] Urinalysis w/Microscopic + Reflex to Culture (05/06/2020 2:52 PM DIESEL POWERPLANT MECHANIC HELPER) Color, UA Colorless [facility] Clarity, UA Clear [facility] Specific [place], 1.014 1.001 - 1.035 [facility] pH, UA 6.0 5.0 - 8.0 [facility] Protein, UA 30 mg/dL (A) Negative [facility] Glucose, UA Negative Negative [facility] Ketones, UA Negative Negative [facility] Bilirubin, UA Negative Negative [facility] Blood, UA Negative Negative [facility] Nitrite, UA Negative Negative [facility] Leukocytes, UA Trace (A) Negative [facility] Urobilinogen, UA 0.2 0.2 - 1.0 mg/dL [facility] RBC, UA <1 /HPF [facility] WBC, UA 1 /HPF [facility] Squam Epithel, UA 1 /HPF [facility] Specimen Source [facility] Specimen Urine Narrative Performed At Drilling Engineer ID - [auto] [facility] Drilling Engineer ID - tech Performing Organization Address City/State/Zipcode Phone Number [facility] [address] [place] [address] CENTER after 05/[address] [place] [phone] Advance Directives For more information, please contact: [phone] Code Status Date Activated Date Inactivated Comments Full Code 05/06/2020 3:12 PM 05/07/2020 5:52 PM This code status was determined by: Patient
--- OUTSIDE RECORDS SUMMARY | 2020-05-10 21:48 | XMS REPORT | Continuity of Care Document ---
:1950 Author Organization [facility] t Address [address] [place] [address] Care Team Providers Name Role Phone Merchant SAMUELS Attending Clinician Daja Gallardo MD Attending Clinician Attending Clinician Unavailable Admitting Clinician Unavailable Payers Payer Name Policy Type Policy Effective Date Expiration Date Sour ce Number MEDICAREMEDICARE A [id number] [facility] [id number] [facility]P 00:[facility] Problems Condition Condition Condition Status Onset Resolution Last Treating Co mments Source Name Details Category Date Date Treatment Clinician Date Encephalop Encephalop Disease Active [facility] History of History of Diagnosis Active [facility] drug abuse drug abuse Aria kes - in in Memoria remission remission l Outpat[facility] ent Clinics Bipolar Bipolar Diagnosis Active [facility] [...] Aria kes - on on [facility] Depression Depression Problem Active C [...] suicide [facility] - attempt attempt [facility] Allergies, Adverse Reactions, Alerts Allergy Allergy Status Severity Reaction(s) Onset Inactive Treating Comm ents Source Name Type Date Date Clinician Amitript Propensi Active Patient [facility] - adverse 00:00: confused Medical reaction 00 to tell Vista s severity Gabapent Propensi Active [facility] - adverse 00:00: confused Medical reaction 00 to tell Vista s severity Risperid Propensi Active Patient [facility] one [facility] to 05-06 too [facility] - Analogue adverse 00:00: confused Medic al s reaction 00 to tell Vista s severity Social History Social Habit Start Date Stop Date Quantity Comments Source Sex Assigned At [facility] Exposure to Unable to assess [facility] SARS-CoV[address] (event) Tobacco use and 2020-05-06 2020-05-06 Never used [facility] - exposure 00:00:00 00:00:00 [facility] Smoking Status Start Date Stop Date Source Never smoker [facility] edical Vista Medications Ordered Filled Start Stop Current Ordering Indication Dosage Frequency Signature Comments Components Source Medication Medication Date Date Medication? Clinician (SIG) Name Name amLODIPine 2020- Yes 5mg QD Take [address] [facility] (NORVASC) 5 2-07 03-09 tablet (5 Aria kes - MG tablet 00:00: 23:59 mg total) Me dical 00 :00 by mouth Center daily for 30 days. busPIRone Yes 10mg Q.5D Take [address] (BUSPAR) 10 2-06 by mouth 2 Aria kes - MG tablet 15:52: (two) Medical 39 times Center daily. QUEtiapine 2020- Yes 25mg QD Take [address] [facility] (SEROquel) 2 03-08 tablet (25 Aria kes - 25 MG 00:00: 23:59 mg total) Medica l tablet 00 :00 by mouth Center nightly for 30 days. lisinopriL 2020- No 20mg QD Take [address] [facility] [address] (PRINIVIL,Z 2- 02-06 tablet (20 L ukes - ESTRIL) 20 00:00: 00:00 mg total) M edical MG tablet 00 :00 by mouth Center daily for 30 doses. QUEtiapine 2020- No 25mg QD Take [address] [facility] (SEROquel) 2 02- tablet (25 Aria kes - 25 MG 00:00: 00:00 mg total) Medica l tablet 00 :00 by mouth [facility] Yes John [address] [facility] 0-09 Kaycee [facility] - 00:00: [facility]oria 00 [facility] 2018- Yes Jonh [address] [address] 0-09 Kaycee [facility] - 00:00: [facility] 00 [facility] BusPIRone BusPIRone Yes John not [facility] HCl HCl Kaycee defined [facility] - [facility] Amlodipine Amlodipine Yes John TAKE [address] [facility] Besylate Besylate Kaycee TABLET BY L ukes - MOUTH ONCE Memoria DAILY [facility] Hydrochloro Hydrochloro Yes John TAKE [address] [facility] thiazide thiazide Kaycee TABLET BY L ukes - MOUTH ONCE Memoria DAILY [facility] Pantoprazol Pantoprazol Yes John TAKE [address] [facility] e Sodium e Sodium Kaycee TABLET BY L ukes - MOUTH ONCE Memoria DAILY [facility] Ciprofloxac Ciprofloxac Yes John TAKE [address] [facility] in HCl in HCl Kaycee TABLET BY [facility]ukes - MOUTH Memoria EVERY 12 l HOURS [facility] Potassium Potassium Yes John TAKE [address] Chloride Chloride Kaycee TABLET BY L ukes - Barb ER Barb ER MOUTH ONCE Mem oria DAILY [facility] Metronidazo Metronidazo Yes John TAKE 1 [facility] Kaycee TABLET BY Lukes - MOUTH Memoria EVERY 8 l HOURS [facility] Sucralfate Sucralfate Yes John TAKE [address] Kaycee TABLET BY Lukes - MOUTH Memoria BEFORE A l MEAL AT [facility] BED[facility]. ent Clinics Vital Signs Vital Name Observation Time Observation Value Comments Source Systolic blood 2020-05-07 12:09:00 165 mm[Hg] [facility] Diastolic blood 2020-05-07 12:09:00 81 mm[Hg] [facility] Heart rate 2020-05-07 12:09:00 60 /min [facility] Body temperature 2020-05-07 12:09:00 36.06 Sybil [facility] Respiratory rate 2020-05-07 12:09:00 18 /min [facility] Oxygen saturation in 2020-05-07 12:09:00 99 /min [facility] Arterial blood by Medical Ce nter Pulse oximetry Body height 2020-05-06 15:36:00 160 cm [facility] Body weight 2020-05-06 15:36:00 65.772 kg [facility] BMI 2020-05-06 15:36:00 25.69 kg/m2 [facility] Procedures Procedure Date / Time Performed Performing Clinician Sourc e XR ABDOMEN / KUB 1 VIEW 2020-05-07 10:22:00 Rajan Gallardo [facility] HEMOGLOBIN A1C 2020-05-07 05:30:00 Rajan Gallardo [facility] BASIC METABOLIC PANEL 2020-05-07 05:30:00 Rajan Gallardo [facility] () [facility] CBC W/PLT COUNT & AUTO 2020-05-07 05:30:00 Rajan Gallardo [facility] LIPID PANEL 2020-05-07 05:30:00 Butt, Dylan Foster [facility] MR BRAIN WITHOUT IV 2020-05-06 20:02:[address] [facility] POCT-GLUCOSE METER 2020-05-06 16:51:00 Adio, Rajan Farnsworth [facility] ECG 12-LEAD 2020-05-06 16:23:15 Adio, Rajan Farnsworth [facility] CBC W/PLT COUNT & AUTO 2020-05-06 16:11:00 Adio, Rajan Farnsworth [facility] BASIC METABOLIC PANEL 2020-05-06 16:11:00 Adio, Rajan Farnsworth [facility] (7) [facility] CREATINE KINASE (CK) 2020-05-06 16:11:00 Adio, Rajan Farnsworth [facility] TSH 2020-05-06 16:11:00 Adio, Rajan Farnsworth [facility] VITAMIN B12 AND FOLATE 2020-05-06 16:11:00 Adio, Rajan Farnsworth [facility] SARS-COV2/RT-PCR ([facility] & 2020-05-06 16:06:00 Adio, Rajan Montaño [facility] LABS) [facility] RAPID DRUG SCREEN, URINE 2020-05-06 16:05:00 Rubenio, Rajan Montaño [facility] XR CHEST 1 VIEW 2020-05-06 15:53:00 Adio, Rajan Farnsworth [facility] PORTABLE/BEDSIDE Medical Center URINALYSIS W/ REFLEX 2020-05-06 14:52:00 Adio, Rajan Farnsworth [facility] URINE CULTURE [facility] SARS-COV2/RT-PCR ([facility] & 2019-09-01 18:15:00 [facility] REF LABS) Medical Center Plan of Care Planned Activity Planned Date Details Comments Source Future Scheduled 2020-04-[address] [facility] - Test 00:00:00 (12+) [code = Medical Center DEPRESSION SCREENING (12+)] Future Scheduled 2019-12-01 INFLUENZA VACCINE (#1) [facility] - Test 00:00:00 [code = INFLUENZA Medical Ce nter VACCINE (#1)] Future Scheduled 2016-10-[address] [facility] - Test 00:00:00 WELLNESS (YEAR 2 or Medical Center FIRST YEAR if no IPPE) [code = MEDICARE ANNUAL WELLNESS (YEAR 2 or FIRST YEAR if no IPPE)] Future Scheduled 2015-11-19 PNEUMOCOCCAL 65+ YRS [facility] - Test 00:00:00 (1 of 1 - Medical Center [id number] PCV13) [code = PNEUMOCOCCAL 65+ YRS (1 of 1 - [id number] PCV13)] Future Scheduled 2000 SHINGLES VACCINES ([address] [facility] - Test 00:00:00 of 2) [code = SHINGLES Medic al Center VACCINES (1 of 2)] Future Scheduled 1969 DTAP/TDAP/TD VACCINES [facility] - Test 00:00:00 (1 - Tdap) [code = Medical C enter DTAP/TDAP/TD VACCINES (1 - Tdap)] Future Scheduled 1968 HEPATITIS C SCREENING [facility] - Test 00:00:00 [code = HEPATITIS C Medical Center SCREENING] Future Scheduled [address] - Test 00:00:00 malignant neoplasm of Medica l Center breast (procedure) [code = 535611452] Future Scheduled [address] [facility] - Test 00:00:00 malignant neoplasm of Medica l Center colon (procedure) [code = 744868690] Encounters Start End Encounter Admission Attending Care Care Encounter Source Date/Time Date/Time Type Type Clinicians Facility Department ID 2019-01-07 2019-01-07 Outpatient Jalen Castro [id number] [facility] 13:00:00 13:00:00 [facility] Medicine Medicine Outpati ent Clinics 2018-12-30 2018-12-30 Outpatient Jalen Castro [id number] 11:11:00 11:11:00 [facility] Medicine Medicine Outpati ent Clinics 2018-12-12 2018-12-12 Outpatient Jalen Castro [id number] 16:38:00 16:38:00 [facility] Medicine Medicine Outpati ent Clinics 2018-11-13 2018-11-13 Outpatient Jalen [place]alioosport [id number] 16:05:00 16:05:00 [facility] 2018-11-10 2018-11-10 Outpatient Jalen [place] [id number] 08:36:00 08:36:00 t [facility] 2018-11-05 2018-11-05 Outpatient Rosaliosaul Jalent [id number] 13:30:00 13:30:00 [facility] Results Test Description Test Time Test Comments Results Result Sourc e Comments ECG 12 lead Interface, External Ris [facility] 8 In - 05/09/2020 7:12 [place] - 07:12:18 AM CSTVentricular Rate Me dical 53 BPMAtrial Rate 53 Cent er BPMP-R Interval 182 msQRS Duration 98 msQ-T Interval 470 msQTC Calculation(Bazett) 441 msP Milton 36 degreesR Milton -23 degreesT Milton -77 degreesSinus bradycardiaLeft ventricular hypertrophy with repolarization abnormalityT wave inversion inferolateral leads: postischemic changes? secondary to LVH?Abnormal ECGNo previous ECGs availableConfirmed by MD CHELE, EMILY ([id number]) on 05/09/2020 7:12:15 AM RAD, Reason for ABDOMEN/KUB, 1 6 exam:->abdomi VIEW AP 11:38:00 nal pain [facility] : 1950 Sex: F FINAL REPORT Abdomen dated to May 07, 2020 Comment:Abdomen was examined in the supine frontal position. Air is seen in the small and large bowel without dilatation to suggest mechanical obstruction or ileus. No mass, pathological calcification, or free air is present. Impression:No mechanical obstruction or ileus. Signed: Gerard Shields MDReport Verified Date/Time: 05/07/2020 11:38:04 Reading Location: [facility] C013X Ortho Consult Reading Room abdomen / KUB Interface, External Ris [facility] 1 view 6 In - 05/07/2020 11:40 [place] [facility] - 11:38:00 AM CSTFINAL REPORT Medica l Ce nter Abdomen dated to May 07, 2020 Comment:Abdomen was examined in the supine frontal position. Air is seen in the small and large bowel without dilatation to suggest mechanical obstruction or ileus. No mass, pathological calcification, or free air is present. Impression:No mechanical obstruction or ileus. Signed: Gerard Shields MDReport Verified Date/Time: 05/07/2020 11:38:04 Reading Location: [facility] [id number] Ortho Consult Reading Room Hemoglobin A1c 2020-05-07 09:04:00 Test Item Value Reference Range Interpretation Comme nts Hemoglobin A1C (test code = 4548-4) 6.2 % 4.3-6.1 H Lab Interpretation (test code = 02407-2) Abnormal [facility] [id number] 09:04:00 Test Item Value Reference Range Interpretation Comments HEMOGLOBIN A1C (BEAKER) (test code = 6.2 % 4.3-6.1 H 368) Lipid [id number] 08:21:00 Test Item Value Reference Range Interpretation Comments Triglycerides (test 277 mg/dL Specimen code = 2571-8) slightly hemolyzed Cholesterol (test 201 mg/dL Specimen code = 2093-3) slightly hemolyzed HDL (test code = 34 mg/dL 2085-9) LDL Calculated (test 112 mg/dL code = 94840-0) SHARRON (test code = Triglyceride SHARRON) Reference Range: Low Risk <150 Borderline 150-199 High Risk 200-499 Very High Risk >=500 Cholesterol Reference Range: Low Risk <200 Borderline 200-239 High Risk >240 HDL Cholesterol Reference Range: Low Risk >=60 High Risk <40 LDL Cholesterol Reference Range: Optimal <100 Near Optimal 100-129 Borderline 130-159 High 160-189 Very High >=190 Video Technician ID - AAHAMID [facility] CenterLIPID [id number] 08:21:00 Test Item Value Reference Range Interpretation Comments TRIGLYCERIDES (BEAKER) 277 mg/dL Speci men slightly (test code = 540) hemolyzed CHOLESTEROL (BEAKER) 201 mg/dL Specime n slightly (test code = 631) hemolyzed HDL CHOLESTEROL (BEAKER) 34 mg/dL (test code = 976) LDL CHOLESTEROL 112 mg/dL CALCULATED (BEAKER) (test code = 633) Triglyceride Reference Range: Low Risk <150 Borderline 150-199 High Risk 200-499 Very High Risk >=500Cholesterol Reference Range: Low Risk <200 Borderline 200-239 High Risk >240HDL Cholesterol Reference Range: Low Risk >=60 High Risk <40LDL Cholesterol Reference Range: Optimal <100 Near Optimal 100-129 Borderline 130-159 High 160-189 Very High >=190 Video Technician ID - AAHAMIDsic metabolic [id number] 06:35:00 Test Item Value Reference Range Interpretation Comments Sodium (test code = 141 meq/L 652-692 7789-2) Potassium (test code = 3.7 meq/L 3.5-5.1 Speci men slightly 2823-3) hemolyzed Chloride (test code = 109 meq/L 98-107 H 2075-0) CO2 (test code = 25 meq/L 22-29 8-9) BUN (test code = 23 mg/dL 7-21 H 3094-0) Creatinine (test code 1.40 mg/dL 0.57-1.25 H Specim en slightly = 2160-0) hemolyzed Glucose (test code = 85 mg/dL 70-105 2345-7) Calcium (test code = 8.8 mg/dL 8.4-10.2 92701-7) EGFR (test code = 37 mL/min/1.73 [place] [address]-1) NOT ACCURATE CREATININE CLEARANCE IN PREDICTING GLOMERULAR FILTRATION RATE . ESTIMATED GFR I S NOT APPLICABLE FOR DIALYSIS PATIENTS. SHARRON (test code = SHARRON) Video Technician ID - SM Lab Interpretation Abnormal (test code = 55842-5) [facility] CenterBASI METABOLIC [id number] 06:35:00 Test Item Value Reference Range Interpretation Comments SODIUM (BEAKER) 141 meq/L 136-145 (test code = 381) POTASSIUM (BEAKER) 3.7 meq/L 3.5-5.1 Specimen slightly (test code = 379) hemolyzed CHLORIDE (BEAKER) 109 meq/L 98-107 H (test code = 382) CO2 (BEAKER) (test 25 meq/L 22-29 code = 355) BLOOD UREA NITROGEN 23 mg/dL 7-21 H (BEAKER) (test code = 354) CREATININE (BEAKER) 1.40 mg/dL 0.57-1.25 H Specimen slightly (test code = 358) hemolyzed GLUCOSE RANDOM 85 mg/dL 70-105 (BEAKER) (test code = 652) CALCIUM (BEAKER) 8.8 mg/dL 8.4-10.2 (test code = 697) EGFR (BEAKER) (test 37 mL/min/1.73 ESTIMA NAYA GFR IS code = 1092) sq m NOT ACCURATE CREATININE CLEARANCE IN PREDICTING GLOMERULAR FILTRATION RATE . ESTIMATED GFR I S NOT APPLICABLE FOR DIALYSIS PATIEN TS. Video Technician ID - SMCBC with platelet count + automated [id number] 05:56:00 Test Item Value Reference Range Interpretation Comments WBC (test code = 6690-2) 5.7 See_Comment [A utomated message] The system [employer] generated this result transmitted ref erence range: 3.5 - 10 .5 K/L. The refe rence range was not u sed to interpret this result as normal/abnor mal. RBC (test code = 789-8) 4.22 See_Comment [Au tomated message] The system [employer] generated this result transmitted ref erence range: 3.93 - 5 .22 M/L. The refe rence range was not u sed to interpret this result as normal/abnor mal. MCHC (test code = 786-4) 32.2 See_Comment [A utomated message] The system [employer] generated this result transmitted ref erence range: 32.2 - 3 5.5 GM/DL. The refe rence range was not u sed to interpret this result as normal/abnor mal. Hematocrit (test code = 38.5 % 34.1-44.9 4544-3) MCV (test code = 787-2) 91.2 fL 79.4-94.8 MCH (test code = 785-6) 29.4 pg 25.6-32.2 RDW (test code = 788-0) 13.2 % 11.7-14.4 Platelets (test code = 198 See_Comment [Aut omated message] 777-3) The system [employer] generated this result transmitted ref erence range: 150 - 45 0 K/CU MM. The referen ce range was not u sed to interpret this result as normal/abnor mal. MPV (test code = 10.6 fL 9.4-12.3 35129-0) nRBC (test code = 413) 0 See_Comment [Aut omated message] The system [employer] generated this result transmitted ref erence range: 0 - 0 /1 00 WBC. The refere nce range was not u sed to interpret this result as normal/abnor mal. % Neutros (test code = 44 % 429) % Lymphs (test code = 42 % 430) % Monos (test code = 10 % 431) % Eos (test code = 432) 3 % % Baso (test code = 437) 1 % # Neutros (test code = 2.49 See_Comment [Aut omated message] 670) The system [employer] generated this result transmitted ref erence range: 1.56 - 6 .13 K/L. The refe rence range was not u sed to interpret this result as normal/abnor mal. # Lymphs (test code = 2.39 See_Comment [Auto mated message] 414) The system [employer] generated this result transmitted ref erence range: 1.18 - 3 .74 K/L. The refe rence range was not u sed to interpret this result as normal/abnor mal. # Monos (test code = 0.58 See_Comment H [Autom ated message] 415) The system [employer] generated this result transmitted ref erence range: 0.24 - 0 .36 K/L. The refe rence range was not u sed to interpret this result as normal/abnor mal. # Eos (test code = 416) 0.14 See_Comment [Au tomated message] The system [employer] generated this result transmitted ref erence range: 0.04 - 0 .36 K/L. The refe rence range was not u sed to interpret this result as normal/abnor mal. # Baso (test code = 417) 0.06 See_Comment [A utomated message] The system [employer] generated this result transmitted ref erence range: 0.01 - 0 .08 K/L. The refe rence range was not u sed to interpret this result as normal/abnor mal. Immature 1 % 0-1 Granulocytes-Relative (test code = 2801) Lab Interpretation (test Abnormal code = 03633-3) [facility] W/PLT COUNT & AUTO [id number] 05:56:00 Test Item Value Reference Range Interpretation Comments WHITE BLOOD CELL COUNT (BEAKER) 5.7 K/ L 3.5-10.5 (test code = 775) RED BLOOD CELL COUNT (BEAKER) 4.22 M/ L 3.93-5.22 (test code = 761) HEMOGLOBIN (BEAKER) (test code = 12.4 GM/DL 11.2-15.7 410) HEMATOCRIT (BEAKER) (test code = 38.5 % 34.1-44.9 411) MEAN CORPUSCULAR VOLUME (BEAKER) 91.2 fL 79.4-94.8 (test code = 753) MEAN CORPUSCULAR HEMOGLOBIN 29.4 pg 25.6-32.2 (BEAKER) (test code = 751) MEAN CORPUSCULAR HEMOGLOBIN CONC 32.2 GM/DL 32.2-35.5 (BEAKER) (test code = 752) RED CELL DISTRIBUTION WIDTH 13.2 % 11.7-14.4 (BEAKER) (test code = 412) PLATELET COUNT (BEAKER) (test 198 K/CU MM 150-450 code = 756) MEAN PLATELET VOLUME (BEAKER) 10.6 fL 9.4-12.3 (test code = 754) NUCLEATED RED BLOOD CELLS 0 /100 WBC 0-0 (BEAKER) (test code = 413) NEUTROPHILS RELATIVE PERCENT 44 % (BEAKER) (test code = 429) LYMPHOCYTES RELATIVE PERCENT 42 % (BEAKER) (test code = 430) MONOCYTES RELATIVE PERCENT 10 % (BEAKER) (test code = 431) EOSINOPHILS RELATIVE PERCENT 3 % (BEAKER) (test code = 432) BASOPHILS RELATIVE PERCENT 1 % (BEAKER) (test code = 437) NEUTROPHILS ABSOLUTE COUNT 2.49 K/ L 1.56-6.13 (BEAKER) (test code = 670) LYMPHOCYTES ABSOLUTE COUNT 2.39 K/ L 1.18-3.74 (BEAKER) (test code = 414) MONOCYTES ABSOLUTE COUNT (BEAKER) 0.58 K/ L 0.24-0.36 H (test code = 415) EOSINOPHILS ABSOLUTE COUNT 0.14 K/ L 0.04-0.36 (BEAKER) (test code = 416) BASOPHILS ABSOLUTE COUNT (BEAKER) 0.06 K/ L 0.01-0.08 (test code = 417) IMMATURE GRANULOCYTES-RELATIVE 1 % 0-1 PERCENT (BEAKER) (test code = 2801) RAD, CHEST, 1 VIEW, NON [id number] 02:24:00Reason for exam:- >encephalopathy; rule out infection , pneumoniaShould this be performed at the bedside?->Yes [facility] 1950 Sex: FFINAL REPORT History: Encephalopathy, concern for pneumonia. Compari son: None. Findings: A single view of the chest is submitted. The cardiac silhouette is within normal limits for size. There is atherosclerotic calcification of the ectatic aorta. There is no focal consolidation, pneumothorax, large pleural effusion or evidence of overt pulmonary edema. There is noacute bony abnormality. Impression: No acute abnormality. Signed: Denis Valles MDReport Verified Date/Time: 05/07/2020 02:24:29 XR chest 1 view portable / [id number] 02:24:00Interface, External Ris In - 05/07/2020 2:26 AM CSTFINAL REPORT History: Enc ephalopathy, concern for pneumonia. Comparison: None. Findings: A single view of the chest is submitted. The cardiac silhouette is within normal limits for size. There is atherosclerotic calcification of the ectatic aorta. There is no focal consolidation, pneumothorax, large pleural effusion or evidence of overt pulmonary edema. There is no acute bony abnormality. Impression: No acute abnormality.Signed: Denis Valles MDReport Verified Date/Time: 05/07/2020 02:24:29 [facility] (Asymptomatic ONLY) 2020-05-06 21:54:00 Test Item Value Reference Range Interpretation Comments SARS-COV2/RT-PCR Negative Not Detected, (test code = Negative, See 50888-7) external report for linked test SARS-COV-2 [facility] PERFORMING LAB (test code = 05409-7) SHARRON (test code = Negative result for this SHARRON) test determines that SARS-CoV-2 RNA was not present in the [...] of the Act. Fact Sheet for Healthcare Providers:https://www.[employer]/sites/default/f ryanne/product/documents/F act_Sheet_HC_Providers_L irl_SFZM-DmS-7.pdf Fact Sheet for Healthcare Patients:https://www.[employer]/sites/default/fi les/product/documents/Fa ct_Sheet_Patients_Lyra_S ARS-CoV-2.pdf Performing Laboratory:[facility], [place] [address] [place], [place] [address]ARS-COV2/RT-PCR ([facility] REF [facility])2020-05-06 21:54:00 Test Item Value Reference Range Interpretation Comments SARS-COV2/RT-PCR (test Negative Not Detected, Negative, code = 0970484) See external report for linked test SARS-COV-2 PERFORMING LAB [facility] PIA (test code = 5823849) Negative result for this test determines that SARS-CoV-2 RNA was not present in the specimen above the Limit of Detection (LOD). However, Negative results do not preclude SARS-CoV-2 infection and should not be used as the sole basis for treatment or patient management decisions. Negative results mustbe combined with clinical observations, patient history, and epidemiological information. A false negative result may occur if a specimen is improperly collected, transported or handled. A false negative result should be considered if patient's recent exposures or clinical presentation indicate that COVID-19 (SARS-CoV-2) is likely and diagnostic tests for other causes of illness are negative. Re-testing should be considered in cases of suspected false negatives.The limit of detection for this assay is 800 copies/mL.This SARS CoV-2 test is a real-time RT-PCR test intended for the qualitative detection of nucleic acid from SARS-CoV-2 in a nasopharyngeal swab specimen collected from individuals susp ected of COVID-19 by their healthcare provider.This test has not been Food and Drug [...] is revoked under Section 564(g) of the Act.Fact Sheet for Healthcare Providers:https://www.[employer]/sites/default/files/product/documents/Fact_Shee r_RA_Gdtnrdhtd_Hnyd_SNNU-WaW-8.pdfFact Sheet for Healthcare Patients:https://www.[employer]/sites/default/files/product/ documents/Ybvk_Skpqy_Jzctzfuq_Txpk_DTYE-CaQ-3.pdfPerforming Laboratory:[facility] [facility], [place] [address]DV, BRAIN, WITHOUT [id number] 20:12:00Unlisted Reason for Exam - Click Yes and Enter Reason Below->NoDeos the patient have an implantedelectronic device?->No [facility] : 1950 Sex: FFINAL REPORT MR, BRAIN, WITHOUT CONTRAST INDICATION: Altered mental s tatus TECHNIQUE: Multiplanar, multisequence MR imaging of the brain without intravenous contrast. COMPARISON: None FINDINGS: Intracranial: No acute intracranial hemorrhage. No restricted diffusion to suggest acute infarct. No mass effect. No hydrocephalus. Visualized intracranial flow voids are of normal course and caliber. Generalized cerebral atrophy with ex vacuo dilatation of the ventricular system proportionate to sulci. Scattered foci of T2 prolongation within the periventricular and subcortical white matter are a nonspecific finding commonly attributed to chronic small vessel ischemic disease. Sinuses: No evidence of sinusitis. Mastoids are clear. Orbits: Globes are intact. Calvarium \T\ scalp: Unremarkable. IMPRESSION:No acute intracranial abnormality. Signed: Sang Akbar Verified Date/Time: 05/06/2020 20:12:22 MR brain without IV [id number] 20:12:00Interface, External Ris In - 05/06/2020 8:14 PM CSTFINAL REPORT MR, BRAIN, WITHOUT CONTRAST INDICATION: Altered mental status TECHNIQUE: Multiplanar, multisequence MR imaging ofthe brain without intravenous contrast. COMPARISON: None FINDINGS: Intracranial: No acute intracranial hemorrhage. No restricted diffusion to suggest acute infarct. No mass effect. No hydrocephalus. Visualized intracranial flow voids are of normal course and caliber. Generalized cerebral atrophy withex vacuo dilatation of the ventricular system proportionate to sulci. Scattered foci of T2 prolongation within the periventricular and subcortical white matter are a nonspecific finding commonly attributed to chronic small vessel ischemic disease. Sinuses: No evidence of sinusitis. Mastoids are clear.Orbits: Globes are intact. Calvarium \T\ scalp: Unremarkable. IMPRESSION:No acute intracranial abnormality. Signed: Sang Akbar Verified Date/Time: 05/06/2020 20:12:22 [facility]00 Test Item Value Reference Range Interpretation Comments TSH (test code = 1.886 See_Comment [Automated 53430-2) message] The system which generated this result transmit naya reference range : 0.350 - 4.940 uIU/mL. The reference range was not used to interpret this result as normal/abnormal . SHARRON (test code = SHARRON) Video Technician ID - DB Lab Interpretation Normal (test code = 28615-4) [facility] CenterVitamin B12 and [id number] 18:23:00 Test Item Value Reference Range Interpretation Comments Vitamin B12 (test 283 pg/mL 213-816 code = 2132-9) Folate (test code = 17.00 ng/mL See_Comment [Automa naya 2284-8) message] The system which generated this result transmit naya reference range : >=7.00. The reference range was not used to interpret this result as normal/abnormal . SHARRON (test code = SHARRON) Video Technician ID - DB Lab Interpretation Normal (test code = 28569-8) [facility] CenterTSH2021-[facility] 18:23:00 Test Item Value Reference Range Interpretation Comments THYROID STIMULATING HORMONE 1.886 uIU/mL 0.350-4.940 (BEAKER) (test code = 772) Video Technician ID - DBVITAMIN B12 AND [id number] 18:23:00 Test Item Value Reference Range Interpretation Comments VITAMIN B12 (BEAKER) (test code = 283 pg/mL 213-816 774) FOLATE (BEAKER) (test code = 362) 17.00 ng/mL >=7.00 Video Technician ID - DBPOC-Glucose [id number] 17:03:00 Test Item Value Reference Range Interpretation Comments POC-Glucose Meter (test 88 mg/dL 70-110 : TE STED AT [facility] code = 1538) [address] [facility], [address]: Video Technician/Techni bruce ID = [id number] for PRISCILA VELEZ REDA Lab Interpretation (test Normal code = 01833-9) [facility] CenterPOCT-GLUCOSE [id number] 17:03:00 Test Item Value Reference Range Interpretation Comments POC-GLUCOSE METER 88 mg/dL 70-110 : TESTED A T [facility] [address] (BEAKER) ([facility] = 1538) [address]: Video Technician/Techni bruce ID = [id number] for LILI SIMMONS Rapid drug screen, [id number] 16:55:00 Test Item Value Reference Range Interpretation Comments Barbiturate Screen Negative Negative (test code = 39555-2) Benzodiazepine Screen Negative Negative (test code = 13364-1) Cocaine (Metab.) Negative Negative Screen (test code = 3397-7) Methadone Screen (test Negative Negative code = 77199-2) Opiate Screen (test Negative Negative code = 78809-3) Cannabinoid Screen Negative Negative (test code = 35396-8) Amph/Methamph Screen Negative Negative (test code = 30528-3) Phencyclidine Screen Negative Negative (test code = 91269-4) pH, UA (test code = 6.0 5.0-8.0 5803-2) SHARRON (test code = SHARRON) DRUG CUTOFF CONC.Cocaine 300 ng/mL Cannabinoid 50 ng/mLBenzodiazepine 200 ng/mLBarbiturate 200 ng/mLPhencyclidine 25 ng/mLOpiate 300 ng/mLMethadone 300 ng/mLAmphetamine/ 1000 ng/mL Methamphetamine This assay provides an unconfirmed qualitative test result for the clinical management of patients in emergency situations. Chain of custody not maintained. Some fklx-fof-vtarbrc medications, as well as adulterants, may cause inaccurate results. Clinical correlation should be applied. A more comprehensive drug screen or confirmation of a detected drug may be performed upon request.Video Technician ID - AAHAMID Lab Interpretation Normal (test code = 57765-3) [facility] CenterRAPID DRUG SCREEN, [id number] 16:55:00 Test Item Value Reference Range Interpretation Comments BARBITURATE URINE (BEAKER) (test Negative Negative code = 725) BENZODIAZEPINE SCREEN URINE (BEAKER) Negative Negative (test code = 726) COCAINE (METAB.) SCREEN (BEAKER) Negative Negative (test code = 1164) METHADONE SCREEN (BEAKER) (test code Negative Negative = 1436) OPIATE SCREEN URINE (BEAKER) (test Negative Negative code = 734) CANNABINOID SCREEN URINE (BEAKER) Negative Negative (test code = 727) AMPH/METHAMPH SCREEN (BEAKER) (test Negative Negative code = 1438) PHENCYCLIDINE SCREEN URINE (BEAKER) Negative Negative (test code = 608) PH UA (BEAKER) (test code = 467) 6.0 5.0-8.0 DRUG CUTOFF CONC.Cocaine 300 ng/mL Cannabinoid 50 ng/mLBenzodiazepine 200 ng/mLBarbiturate 200 ng/mLPhencyclidine 25 ng/mLOpiate 300 ng/mLMethadone 300 ng/mLAmphetamine/ 1000 ng/mL MethamphetamineThis assay provides an unconfirmed qualitative test result for the clinical management of patients in emergency situations. Chain of custody not maintained. Some wukw-wez-wxkaewq medications, as well as adulterants, may cause inaccurate results. Clinical correlation should be applied. A more comprehensivedrug screen or confirmation of a detected drug may be performed upon request.Video Technician ID - AAHAMIDUrinalysis w/Microscopic + Reflex to [id number] 16:49:00 Test Item Value Reference Range Interpretation Comments Color, UA (test code Colorless = 5778-6) Clarity, UA (test Clear code = 5767-9) Specific [place], UA 1.014 1.001-1.035 (test code = 5811-5) pH, UA (test code = 6.0 5.0-8.0 5803-2) Protein, UA (test 30 mg/dL Negative A code = 72517-8) Glucose, UA (test Negative Negative code = 365) Ketones, UA (test Negative Negative code = 2514-8) Bilirubin, UA (test Negative Negative code = 63709-5) Blood, UA (test code Negative Negative = 41025-3) Nitrite, UA (test Negative Negative code = 5802-4) Leukocytes, UA (test Trace Negative A code = 5799-2) Urobilinogen, UA 0.2 mg/dL 0.2-1 (test code = 26921-2) RBC, UA (test code = <1 See_Comment [Autom ated 28511-7) message] The system which generated this result transmitted reference range : /HPF. The reference range was not used to interpret this result as normal/abnormal . WBC, UA (test code = 1 See_Comment [Autom ated 5821-4) message] The system which generated this result transmitted reference range : /HPF. The reference range was not used to interpret this result as normal/abnormal . Isidro Epithdorota, UA 1 See_Comment [Automate d (test code = 52586-6) messag e] The system which generated this result transmitted reference range : /HPF. The reference range was not used to interpret this result as normal/abnormal . Specimen Source (test code = 2795) SHARRON (test code = SHARRON) Video Technician ID - [auto]Video Technician ID - tech Lab Interpretation Abnormal (test code = 61053-5) [facility] CenterURINALYSIS W/ REFLEX URINE [id number] 16:49:00 Test Item Value Reference Range Interpretation Comments COLOR (BEAKER) (test code = 470) Colorless CLARITY (BEAKER) (test code = 469) Clear SPECIFIC GRAVITY UA (BEAKER) (test 1.014 1.001-1.035 code = 468) PH UA (BEAKER) (test code = 467) 6.0 5.0-8.0 PROTEIN UA (BEAKER) (test code = 30 mg/dL Negative A 464) GLUCOSE UA (BEAKER) (test code = Negative Negative 365) KETONES UA (BEAKER) (test code = Negative Negative 371) BILIRUBIN UA (BEAKER) (test code = Negative Negative 462) BLOOD UA (BEAKER) (test code = 461) Negative Negative NITRITE UA (BEAKER) (test code = Negative Negative 465) LEUKOCYTE ESTERASE UA (BEAKER) Trace Negative A (test code = 466) UROBILINOGEN UA (BEAKER) (test code 0.2 mg/dL 0.2-1.0 = 463) RBC UA (BEAKER) (test code = 519) < /HPF WBC UA (BEAKER) (test code = 520) 1 /HPF SQUAMOUS EPITHELIAL (BEAKER) (test 1 /HPF code = 516) SOURCE(BEAKER) (test code = 2795) Video Technician ID - [auto]Video Technician ID - techCreatine Kinase (CK)2020-05-06 16:44:00 Test Item Value Reference Range Interpretation Comments Total CK (test code = 55 U/L 29-200 2157-6) SHARRON (test code = SHARRON) Video Technician ID - DB Lab Interpretation (test Normal code = 20035-9) [facility] CenterBASI METABOLIC [id number] 16:44:00 Test Item Value Reference Range Interpretation Comments SODIUM (BEAKER) 141 meq/L 136-145 (test code = 381) POTASSIUM (BEAKER) 3.6 meq/L 3.5-5.1 (test code = 379) CHLORIDE (BEAKER) 107 meq/L 98-107 (test code = 382) CO2 (BEAKER) (test 28 meq/L 22-29 code = 355) BLOOD UREA NITROGEN 26 mg/dL 7-21 H (BEAKER) (test code = 354) CREATININE (BEAKER) 1.38 mg/dL 0.57-1.25 H (test code = 358) GLUCOSE RANDOM 97 mg/dL 70-105 (BEAKER) (test code = 652) CALCIUM (BEAKER) 9.4 mg/dL 8.4-10.2 (test code = 697) EGFR (BEAKER) (test 38 mL/min/1.73 ESTIMA NAYA GFR IS code = 1092) sq m NOT ACCURATE CREATININE CLEARANCE IN PREDICTING GLOMERULAR FILTRATION RATE . ESTIMATED GFR I S NOT APPLICABLE FOR DIALYSIS PATIEN TS. Video Technician ID - DBCREATINE KINASE (CK)2020-05-06 16:44:00 Test Item Value Reference Range Interpretation Comments CREATINE KINASE TOTAL (BEAKER) (test 55 U/L 29-200 code = 380) Video Technician ID - DBCBC W/PLT COUNT & AUTO [id number] 16:22:00 Test Item Value Reference Range Interpretation Comments WHITE BLOOD CELL COUNT (BEAKER) 8.5 K/ L 3.5-10.5 (test code = 775) RED BLOOD CELL COUNT (BEAKER) 4.49 M/ L 3.93-5.22 (test code = 761) HEMOGLOBIN (BEAKER) (test code = 13.3 GM/DL 11.2-15.7 410) HEMATOCRIT (BEAKER) (test code = 41.9 % 34.1-44.9 411) MEAN CORPUSCULAR VOLUME (BEAKER) 93.3 fL 79.4-94.8 (test code = 753) MEAN CORPUSCULAR HEMOGLOBIN 29.6 pg 25.6-32.2 (BEAKER) (test code = 751) MEAN CORPUSCULAR HEMOGLOBIN CONC 31.7 GM/DL 32.2-35.5 L (BEAKER) (test code = 752) RED CELL DISTRIBUTION WIDTH 13.0 % 11.7-14.4 (BEAKER) (test code = 412) PLATELET COUNT (BEAKER) (test 217 K/CU MM 150-450 code = 756) MEAN PLATELET VOLUME (BEAKER) 10.6 fL 9.4-12.3 (test code = 754) NUCLEATED RED BLOOD CELLS 0 /100 WBC 0-0 (BEAKER) (test code = 413) NEUTROPHILS RELATIVE PERCENT 59 % (BEAKER) (test code = 429) LYMPHOCYTES RELATIVE PERCENT 28 % (BEAKER) (test code = 430) MONOCYTES RELATIVE PERCENT 10 % (BEAKER) (test code = 431) EOSINOPHILS RELATIVE PERCENT 2 % (BEAKER) (test code = 432) BASOPHILS RELATIVE PERCENT 1 % (BEAKER) (test code = 437) NEUTROPHILS ABSOLUTE COUNT 5.04 K/ L 1.56-6.13 (BEAKER) (test code = 670) LYMPHOCYTES ABSOLUTE COUNT 2.34 K/ L 1.18-3.74 (BEAKER) (test code = 414) MONOCYTES ABSOLUTE COUNT (BEAKER) 0.82 K/ L 0.24-0.36 H (test code = 415) EOSINOPHILS ABSOLUTE COUNT 0.17 K/ L 0.04-0.36 (BEAKER) (test code = 416) BASOPHILS ABSOLUTE COUNT (BEAKER) 0.09 K/ L 0.01-0.08 H (test code = 417) IMMATURE GRANULOCYTES-RELATIVE 1 % 0-1 PERCENT (BEAKER) (test code = 2801) SARS-COV2/RT-PCR ([facility])2019-09-01 23:27:00 Test Item Value Reference Range Interpretation Comments SARS-COV2/RT-PCR (test Not Detected Not Detected, Negative code = 7022762) SARS-COV-2 PERFORMING LAB [facility] (test code = 4286308) Negative results do not preclude SARS-CoV-2 infection and should not be used as the sole basis for patient management decisions. Negative results must be combined with clinical observations, patient history, and epidemiological information. A false negative result may occur if a specimen is improperly collected, transported or handled.The limit of detection for this assay is 250 copies/mL.This SARS CoV-2 test is a rapid, real-time RT-PCR test intended for the qualitative detection of nucleic acid from SARS-CoV-2 in a nasopharyngeal swab specimen collected from individuals suspected of COVID-19 by their healthcare provider.This test has not been Food and Drug Administration (FDA) cleared or approved and has been authorized by FDA under an Emergency Use Authorization (EUA). This EUA will be effective until the declaration that circumstances exist justifying the authorization of the emergency use of in vitro diagnostic tests for detection and/or diagnosis of COVID-19 is terminated under Section 564(b)(2) of the Act or the EUA is revoked under Section 564(g) of the Act.Fact Sheet for Healthcare Pro viders:https://www.[employer]/Documents/Xpert%20Xpress%20SARS%20CoV-2/Fact%20Sh eets/302-0522%31ZONX-NER-3%20HEALTHCARE%20PROVIDERS%20FACT%20SHEET.pdfFact Sheet for Healthcare Patients:https://www.[employer]/Documents/Xpert%20Xpress%20SARS%20CoV-2/Fact%20Sheets/3023801%20SARS-COV -2%20PATIENT%20FACT%20SHEET.pdfPerforming Laboratory:[facility] [place] [address]
== END 2020-05-09 17:41 | disposition home or self-care (01) ==
LOC: ER 11:00
DX: R10.30 Lower abdominal pain, unspecified (principal); R19.7 Diarrhea, unspecified; F31.9 Bipolar disorder, unspecified; F20.9 Schizophrenia, unspecified; E11.9 Type 2 diabetes mellitus without complications; Z86.73 Personal history of transient ischemic attack (TIA), and cerebral infarction without residual deficits; I10 Essential (primary) hypertension
CPT/HCPCS: 36415; 74177; 80048; 80076; 81003; 81015; 83690; 85025; 99284; Q9967

== ENCOUNTER 2020-10-19 18:15 | Emergency (ER) | payer OTHER ==
--- OUTSIDE RECORDS SUMMARY | 2020-10-19 18:18 | XMS REPORT | Continuity of Care Document ---
:1950 Author Organization [facility] t Address [address] [place] [address] Care Team Providers Name Role Phone Merchant SAMUELS Attending Clinician Daja Gallardo MD Attending Clinician Attending Clinician Unavailable Admitting Clinician Unavailable Payers Payer Name Policy Type Policy Effective Date Expiration Date Sour ce Number MEDICAREMEDICARE A [id number] 2015 [facility] [id number] [facility]P [id number] [facility] [id number] 2020-Pr esentMaps Contracted Problems Condition Condition Condition Status Onset Resolution Last Treating Co mments Source Name Details Category Date Date Treatment Clinician Date Encephalop Encephalop Disease Active C HI [facility] athy athy 05-06 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 [facility] - kidney kidney [facility] disease disease l [facility] Gastro-eso Gastro-eso Problem Active C [...] suicide [facility] - attempt attempt [facility] Allergies, Adverse Reactions, Alerts Allergy Allergy Status Severity Reaction(s) Onset Inactive Treating Comm ents Source Name Type Date Date Clinician Amitript Propensi Active Patient [facility] too [facility] - adverse 00:00: confused Medical reaction 00 to tell [place] s severity Gabapent Propensi Active Patient [facility] ty to 2-05 too [facility] - adverse 00:00: confused Medical reaction 00 to tell [place] s severity Risperid Propensi Active Patient [facility] one ty to 2-05 too [facility] - Analogue adverse 00:00: confused Medic al s reaction 00 to tell Center s severity Social History Social Habit Start Date Stop Date Quantity Comments Source Sex Assigned At [facility] Tobacco use and 2020-05-06 2020-05-06 Never used [facility] Aria kes - exposure 00:00:00 00:00:00 Medical Center Smoking Status Start Date Stop Date Source Never smoker [facility] Medications Ordered Filled Start Stop Current Ordering Indication Dosage Frequency Signature Comments Components Source Medication Medication Date Date Medication? Clinician (SIG) Name Name amLODIPine 2020- No 5mg QD Take 1 ROBERT Ruffin (NORVASC) 5 2-07 03-09 tablet (5 Aria kes - MG tablet 00:00: 23:59 mg total) Me dical 00 :00 by mouth Center daily for 30 days. busPIRone Yes 10mg Q.5D Take [address] (BUSPAR) 10 -06 by mouth 2 Aria kes - MG tablet 15:52: (two) Medical 39 times Center daily. QUEtiapine No 25mg QD Take [address] (SEROquel) 05-07-08 tablet (25 Aria kes - 25 MG 00:00: 23:59 mg total) Medica l tablet 00 :00 by mouth Center nightly for 30 days. lisinopriL No 20mg QD Take [address] (PRINIVIL,Z 05-07-06 tablet (20 L ukes - ESTRIL) 20 00:00: 00:00 mg total) M edical MG tablet 00 :00 by mouth Center daily for 30 doses. QUEtiapine No 25mg QD Take [address] (SEROquel) 05-07- tablet (25 Aria kes - 25 MG 00:00: 00:00 mg total) Medica l tablet 00 :00 by mouth Center nightly for 30 days. Pilar Quezada 2018- Yes John [address] 0-09 Kaycee [facility] - 00:00: [facility] 2018- Yes John [address] 0-09 [facility]e [facility] - 00:00: [facility] BusPIRone BusPIRone Yes John not [facility] HCl HCl Kaycee defined [facility] - [facility]oria [facility] Amlodipine Amlodipine Yes John TAKE [address] [facility] Besylate Besylate Kaycee TABLET BY L ukes - MOUTH ONCE Memoria DAILY [facility] Hydrochloro Hydrochloro Yes John TAKE [address] [facility] thiazide thiazide Kaycee TABLET BY L ukes - MOUTH ONCE Memoria DAILY [facility] Pantoprazol Pantoprazol Yes John TAKE [address] [facility] e Sodium e Sodium Kaycee TABLET BY L ukes - MOUTH ONCE Memoria DAILY l [facility] Ciprofloxac Ciprofloxac Yes John TAKE [address] [facility] in HCl in HCl Kaycee TABLET BY [facility] - MOUTH Memoria EVERY 12 l HOURS [facility] Potassium Potassium Yes John TAKE [address] Chloride Chloride Kaycee TABLET BY [facility] MOUTH ONCE Mem oria DAILY l [facility] ent [facility] Metronidazo Metronidazo Yes John TAKE [address] [facility] le le Kaycee TABLET BY [facility]ukes - MOUTH Memoria EVERY 8 l HOURS [facility] Sucralfate Sucralfate Yes John TAKE [address] Kaycee TABLET BY [facility]ukes - MOUTH Memoria BEFORE A l MEAL AT [facility] BEDTIME. ent Clinics Vital Signs Vital Name Observation Time Observation Value Comments Source Systolic blood 2020-05-07 12:09:00 165 mm[Hg] [facility] Diastolic blood 2020-05-07 12:09:00 81 mm[Hg] [facility] Heart rate 2020-05-07 12:09:00 60 /min [facility] Body temperature 2020-05-07 12:09:00 36.06 Sybil [facility] Respiratory rate 2020-05-07 12:09:00 18 /min [facility] Oxygen saturation in 2020-05-07 12:09:00 99 /min [facility] Arterial blood by Medical Ce nter Pulse oximetry Body height 2020-05-06 15:36:00 160 cm [facility] Body weight 2020-05-06 15:36:00 65.772 kg [facility] BMI 2020-05-06 15:36:00 25.69 kg/m2 [facility] Procedures Procedure Date / Time Performed Performing Clinician Sourc e XR ABDOMEN / KUB 1 VIEW 2020-05-07 10:22:00 Rajan Gallardo [facility] HEMOGLOBIN A1C 2020-05-07 05:30:00 Rajan Gallardo [facility] BASIC METABOLIC PANEL 2020-05-07 05:30:00 Rajan Gallardo [facility] () [facility] CBC W/PLT COUNT & AUTO 2020-05-07 05:30:00 Rajan Gallardo [facility] LIPID PANEL 2020-05-07 05:30:00 Dylan Mckeon [facility] MR BRAIN WITHOUT IV 2020-05-06 20:02:00 Adio, Rajan Farnsworth [facility] POCT-GLUCOSE METER 2020-05-06 16:51:00 Adio, Rajan Farnsworth [facility] ECG 12-LEAD 2020-05-06 16:23:15 Adio, Rajan Farnsworth [facility] CBC W/PLT COUNT & AUTO 2020-05-06 16:11:00 Adio, Rajan Farnsworth [facility] BASIC METABOLIC PANEL 2020-05-06 16:11:00 Adio, Rajan Farnsworth [facility] () [facility] CREATINE KINASE (CK) 2020-05-06 16:11:00 Adio, Rajan Farnsworth [facility] TSH 2020-05-06 16:11:00 Adio, Rajan Farnsworth [facility] VITAMIN B12 AND FOLATE 2020-05-06 16:11:00 Adio, Rajan Farnsworth [facility] SARS-COV2/RT-PCR ([facility] & 2020-05-06 16:06:00 Adio, Rajan Montaño [facility] REF LABS) [facility] RAPID DRUG SCREEN, URINE 2020-05-06 16:05:00 Adio, Rajan Montaño [facility] XR CHEST 1 VIEW 2020-05-06 15:53:00 Adio, Rajan Farnsworth [facility] PORTABLE/BEDSIDE Medical Center URINALYSIS W/ REFLEX 2020-05-06 14:52:00 Adio, Rajan Farnsworth [facility] URINE CULTURE [facility] Plan of Care Planned Activity Planned Date Details Comments Source Future Scheduled 2020-11-30 INFLUENZA VACCINE [facility] - Test 00:00:00 (Season Ended) [code = [facility] INFLUENZA VACCINE (Season Ended)] Future Scheduled 2020-04-01 DEPRESSION SCREENING [facility] [employer] - Test 00:00:00 (12+) [code = Medical Center DEPRESSION SCREENING (12+)] Future Scheduled 2016-10-[address] [facility] - Test 00:00:00 WELLNESS (YEAR 2 or Medical Center FIRST YEAR if no IPPE) [code = MEDICARE ANNUAL WELLNESS (YEAR 2 or FIRST YEAR if no IPPE)] Future Scheduled 2015-11-19 PNEUMOCOCCAL 65+ [facility] - Test 00:00:00 (1 of 1 - Medical Center [id number]) [code = PNEUMOCOCCAL 65+ YRS (1 of 1 - [id number] PCV13)] Future Scheduled 2000 SHINGLES VACCINES (1 [...] HEPATITIS C Medical Center SCREENING] Future Scheduled 1962 COVID-19 VACCINE (1) [facility] - Test 00:00:00 [code = COVID-[address] VACCINE (1)] Future Scheduled [address] [facility] - Test 00:00:00 malignant neoplasm of Medica l Center breast (procedure) [code = 938634712] Future Scheduled [address] [facility] - Test 00:00:00 [facility] ([facility] [code = 929453136] Encounters Start End Encounter Admission Attending Care Care Encounter Source Date/Time Date/Time Type Type Clinicians Facility Department ID 2019-01-07 2019-01-07 Outpatient Jalen Castro [id number] 13:00:00 13:00:00 [facility] 2018-12-30 2018-12-30 Outpatient Jalen Castro [id number] 11:11:00 11:11:00 [facility] 2018-12-12 2018-12-12 [facility] [id number] 16[facility]38:00 16:38:00 [facility] 2018-11-13 2018-11-13 [facility] [id number] 16:05:00 16:05:00 [facility] 2018-11-10 2018-11-10 [facility] [id number] 08:36:00 08:36:00 [facility] 2018-11-05 2018-11-05 [facility] [id number] 13:30:00 13:30:00 [facility] Results Test Description Test Time Test Comments Results Result Sourc e Comments ECG 12 lead Interface, External Ris [facility] St 8 In - 05/09/2020 7:12 [place] [facility] - 07:12:18 AM CSTVentricular Rate Me dical 53 BPMAtrial Rate 53 Cent er BPMP-R Interval 182 msQRS Duration 98 msQ-T Interval 470 msQTC Calculation(Bazett) 441 msP Sanborn 36 degreesR Sanborn -23 degreesT Sanborn -77 degreesSinus bradycardiaLeft ventricular hypertrophy with repolarization abnormalityT wave inversion inferolateral leads: postischemic changes? secondary to LVH?Abnormal ECGNo previous ECGs availableConfirmed by MD CHELE, EMILY ([id number]) on 05/09/2020 7:12:15 AM RAD, Reason for ABDOMEN/KUB, 1 6 exam:->abdomi VIEW AP 11:38:00 nal pain [facility] CAROLINA BINDU : 1950 Sex: F FINAL REPORT Abdomen dated to May 07, 2020 Comment:Abdomen was examined in the supine frontal position. Air is seen in the small and large bowel without dilatation to suggest mechanical obstruction or ileus. No mass, pathological calcification, or free air is present. Impression:No mechanical obstruction or ileus. Signed: Gerard Shields Verified Date/Time: 05/07/2020 11:38:04 Reading Location: [address] Ortho Consult Reading Room abdomen / KUB Interface, External Ris [facility] 1 view 6 In - [...] mechanical obstruction or ileus. Signed: Gerard Shields Verified Date/Time: 05/07/2020 11:38:04 Reading Location: [address] Ortho Consult Reading Room Hemoglobin A1c 2020-05-07 09:04:00 Test Item Value Reference Range Interpretation Comme nts Hemoglobin A1C (test code = 4548-4) 6.2 % 4.3-6.1 H Lab Interpretation (test code = 26988-4) Abnormal [facility] [id number] 09:04:00 Test Item Value Reference Range Interpretation Comments HEMOGLOBIN A1C (BEAKER) (test code = 6.2 % 4.3-6.1 H 368) Lipid [id number] 08:21:00 Test Item Value Reference Range Interpretation Comments Triglycerides (test 277 mg/dL Specimen code = 2571-8) slightly hemolyzed Cholesterol (test 201 mg/dL Specimen code = 2093-3) slightly hemolyzed HDL (test code = 34 mg/dL 2084-11) LDL Calculated (test 112 mg/dL code = 46658-5) SHARRON (test code = Triglyceride SHARRON) Reference Range: Low Risk <150 Borderline 150-199 High Risk 200-499 Very High Risk >=500 Cholesterol Reference Range: Low Risk <200 Borderline 200-239 High Risk >240 HDL Cholesterol Reference Range: Low Risk >=60 High Risk <40 LDL Cholesterol Reference Range: Optimal <100 Near Optimal 100-129 Borderline 130-159 High 160-189 Very High >=190 Huller Operator ID - AAHAMID [facility] [id number] 08:21:00 Test Item Value Reference Range Interpretation [...] Borderline 130-159 High 160-189 Very High >=190 Huller Operator ID - AAHAMIDBasic metabolic [id number] 06:35:00 Test Item Value Reference Range Interpretation Comments Sodium (test code = 141 meq/L 793-793 7499-2) Potassium (test code = 3.7 meq/L 3.5-5.1 Speci men slightly 2823-3) hemolyzed Chloride (test code = 109 meq/L 98-107 H 2074-0) CO2 (test code = 25 meq/L 22-29 2027-12) BUN (test code = 23 mg/dL 7-21 H 3094-0) Creatinine (test code 1.40 mg/dL 0.57-1.25 H Specim en slightly = 2160-0) hemolyzed Glucose (test code = 85 mg/dL 70-105 2345-7) Calcium (test code = 8.8 mg/dL 8.4-10.2 10075-1) EGFR (test code = 37 mL/min/1.73 [place] [address]-9) NOT ACCURATE CREATININE CLEARANCE IN PREDICTING GLOMERULAR FILTRATION RATE . ESTIMATED GFR I S NOT APPLICABLE FOR DIALYSIS PATIENTS. SHARRON (test code = SHARRON) Huller Operator ID - SM Lab Interpretation Abnormal (test code = 95032-6) [facility] METABOLIC [id number] 06:35:00 Test Item Value Reference Range Interpretation [...] S NOT APPLICABLE FOR DIALYSIS PATIEN TS. Huller Operator ID - SMCBC with platelet count + automated [id number] 05:56:00 Test Item Value Reference Range Interpretation Comments WBC (test code = 6690-2) 5.7 See_Comment [A utomated message] The system MD [employer] generated this result transmitted ref erence range: 3.5 - 10 .5 K/L. The refe rence range was not u sed to interpret this result as normal/abnor mal. RBC (test code = 789-8) 4.22 See_Comment [Au tomated message] The system MD [employer] generated this result transmitted ref erence range: 3.93 - 5 .22 M/L. The refe rence range was not u sed to interpret this result as normal/abnor mal. MCHC (test code = 786-4) 32.2 See_Comment [A utomated message] The system MD [employer] generated this result transmitted ref erence range: [...] See_Comment [Aut omated message] 777-3) The system MD [employer] generated this result transmitted ref erence range: 150 - 45 0 K/CU MM. The referen ce range was not u sed to interpret this result as normal/abnor mal. MPV (test code = 10.6 fL 9.4-12.3 40438-4) nRBC (test code = 413) 0 See_Comment [Aut omated message] The system MD [employer] generated this result transmitted ref erence range: [...] See_Comment [Aut omated message] 670) The system MD [employer] generated this result transmitted ref erence range: 1.56 - 6 .13 K/L. The refe rence range was not u sed to interpret this result as normal/abnor mal. # Lymphs (test code = 2.39 See_Comment [Auto mated message] 414) The system MD [employer] generated this result transmitted ref erence range: 1.18 - 3 .74 K/L. The refe rence range was not u sed to interpret this result as normal/abnor mal. # Monos (test code = 0.58 See_Comment H [Autom ated message] 415) The system MD [employer] generated this result transmitted ref erence range: 0.24 - 0 .36 K/L. The refe rence range was not u sed to interpret this result as normal/abnor mal. # Eos (test code = 416) 0.14 See_Comment [Au tomated message] The system MD [employer] generated this result transmitted ref erence range: 0.04 - 0 .36 K/L. The refe rence range was not u sed to interpret this result as normal/abnor mal. # Baso (test code = 417) 0.06 See_Comment [A utomated message] The system MD [employer] generated this result transmitted ref erence range: 0.01 - 0 .08 K/L. The refe rence range was not u sed to interpret this result as normal/abnor mal. Immature 1 % 0-1 Granulocytes-Relative (test code = 2801) Lab Interpretation (test Abnormal code = 71963-1) [facility] W/PLT COUNT & AUTO [id number] 05:56:00 Test Item Value Reference Range Interpretation [...] = 2801) RAD, CHEST, 1 VIEW, NON [id number] 02:24:00Reason for exam:- >encephalopathy; rule out infection , pneumoniaShould this be performed at the bedside?->Yes [facility] 1950 Sex: FFINAL REPORT [...] abnormality. Impression: No acute abnormality. Signed: Denis Murray Verified Date/Time: 05/07/2020 02:24:29 XR chest 1 view portable / [id number] 02:24:00Interface, External Ris In - 05/07/2020 2:26 [...] bony abnormality. Impression: No acute abnormality.Signed: Denis Murray Verified Date/Time: 05/07/2020 02:24:29 [facility]ymptomatic ONLY[facility] 2020-05-06 21:54:00 Test Item Value Reference Range Interpretation Comments SARS-COV2/RT-PCR Negative Not Detected, (test code = Negative, See 99587-8) external report for linked test SARS-COV-2 [facility] PIA PERFORMING LAB (test code = 56891-0) SHARRON (test code = Negative result for [...] of the Act. Fact Sheet for Healthcare Providers:https://www.[employer]sites/default/f ryanne/product/documents/F act_Sheet_HC_Providers_L mox_HMYT-HmK-4.pdf Fact Sheet for Healthcare Patients:https://www.[employer]/sites/default/fi les/product/documents/Fa ct_Sheet_Patients_Lyra_S ARS-CoV-2.pdf Performing Laboratory:[facility], [place] [address] [place], [place] [address]ARS-COV2/RT-PCR ([facility] & REF LABS)2020-05-06 21:54:00 Test Item Value Reference Range Interpretation Comments SARS-COV2/RT-PCR (test Negative Not Detected, Negative, code = 9811932) See external report for linked test SARS-COV-2 PERFORMING LAB [facility] PIA (test code = 9568986) Negative result for this test determines that [...] 564(g) of the Act.Fact Sheet for Healthcare Providers:https://www.[employer]/sites/default/files/product/documents/Fact_Shee n_UF_Pgloehpnx_Oyvv_HLBL-EdN-8.pdfFact Sheet for Healthcare Patients:https://www.[employer]/sites/default/files/product/ documents/Ueoo_Tpniu_Hdyovinf_Wxji_NCXH-RuH-8.pdfPerforming Laboratory:[facility], [place] [address]RY, BRAIN, WITHOUT [id number] 20:12:00Unlisted Reason for Exam - Click Yes and Enter Reason Below->NoDeos the patient have an implantedelectronic device?->No [facility] : 1950 Sex: FFINAL REPORT [...] Date/Time: 05/06/2020 20:12:22 MR brain without IV [id number] 20:12:00Interface, External Ris In - 05/06/2020 8:14 [...] Signed: Sang Akbar Verified Date/Time: 05/06/2020 20:12:22 [facility]23[facility]00 Test Item Value Reference Range Interpretation Comments TSH (test code = 1.886 See_Comment [Automated 87298-8) message] The system which generated this result transmit naya reference range : 0.350 - 4.940 uIU/mL. The reference range was not used to interpret this result as normal/abnormal . SHARRON (test code = SHARRON) Huller Operator ID - DB Lab Interpretation Normal (test code = 01282-3) [facility]it[facility] and [id number] 18:23:00 Test Item Value Reference Range Interpretation Comments Vitamin B12 (test 283 pg/mL 213-816 code = 2132-9) Folate (test code = 17.00 ng/mL See_Comment [Automa naya 2284-8) message] The system which generated this result transmit naya reference range : >=7.00. The reference range was not used to interpret this result as normal/abnormal . SHARRON (test code = SHARRON) Huller Operator ID - DB Lab Interpretation Normal (test code = 12036-9) [facility] 18:23:00 Test Item Value Reference Range Interpretation Comments THYROID STIMULATING HORMONE 1.886 uIU/mL 0.350-4.940 (BEAKER) (test code = 772) Huller Operator ID - DBVITAMIN B12 AND [id number] 18:23:00 Test Item Value Reference Range Interpretation Comments VITAMIN B12 (BEAKER) (test code = 283 pg/mL 213-816 774) FOLATE (BEAKER) (test code = 362) 17.00 ng/mL >=7.00 Huller Operator ID - DBPOC-Glucose [id number] 17:03:00 Test Item Value Reference Range Interpretation Comments POC-Glucose Meter (test 88 mg/dL 70-110 : TE STED AT [facility] code = 1538) [address] [facility], [address]: Huller Operator/Techni bruce ID = [id number] for PRISCILA VELEZ Lab Interpretation (test Normal code = 62584-6) [facility]-GLUCOSE [id number] 17:03:00 Test Item Value Reference Range Interpretation Comments POC-GLUCOSE METER 88 mg/dL 70-110 : TESTED A T [facility] 6720 (BEAKER) (test code [facility], = 1538) [address]: Huller Operator/Techni bruce ID = [id number] for LILI SIMMONS Rapid drug screen, [id number] 16:55:00 Test Item Value Reference Range Interpretation Comments Barbiturate Screen Negative Negative (test code = 63328-3) Benzodiazepine Screen Negative Negative (test code = 60957-7) Cocaine (Metab.) Negative Negative Screen (test code = 3397-7) Methadone Screen (test Negative Negative code = 63540-0) Opiate Screen (test Negative Negative code = 24045-4) Cannabinoid Screen Negative Negative (test code = 65059-6) Amph/Methamph Screen Negative Negative (test code = 84803-2) Phencyclidine Screen Negative Negative (test code = 43033-6) pH, UA (test code = 6.0 5.0-8.0 5803-2) SHARRON (test code = SHARRON) DRUG CUTOFF CONC.Cocaine 300 ng/mL Cannabinoid 50 ng/mLBenzodiazepine 200 ng/mLBarbiturate 200 ng/mLPhencyclidine 25 ng/mLOpiate 300 ng/mLMethadone 300 ng/mLAmphetamine/ 1000 ng/mL Methamphetamine This assay provides an unconfirmed qualitative test result for the clinical management of patients in emergency situations. Chain of custody not maintained. Some muza-col-mkqseod medications, as well as adulterants, may cause inaccurate results. Clinical correlation should be applied. A more comprehensive drug screen or confirmation of a detected drug may be performed upon request.Huller Operator ID - AAHAMID Lab Interpretation Normal (test code = 43737-6) [facility] Hospital[facility] DRUG SCREEN, [id number] 16:55:00 Test Item Value Reference Range Interpretation [...] situations. Chain of custody not maintained. Some arqi-vil-iinczwj medications, as well as adulterants, may cause inaccurate results. Clinical correlation should be applied. A more comprehensivedrug screen or confirmation of a detected drug may be performed upon request.Huller Operator ID - AAHAMIDUrinalysis w/Microscopic + Reflex to [id number] 16:49:00 Test Item Value Reference Range Interpretation Comments Color, UA (test code Colorless = 5778-6) Clarity, UA (test Clear code = 5767-9) Specific [place], UA 1.014 1.001-1.035 (test code = 5811-5) pH, UA (test code = 6.0 5.0-8.0 5803-2) Protein, UA (test 30 mg/dL Negative A code = 10368-3) Glucose, UA (test Negative Negative code = 365) Ketones, UA (test Negative Negative code = 2514-8) Bilirubin, UA (test Negative Negative code = 75497-3) Blood, UA (test code Negative Negative = 97934-5) Nitrite, UA (test Negative Negative code = 5802-4) Leukocytes, UA (test Trace Negative A code = 5799-2) Urobilinogen, UA 0.2 mg/dL 0.2-1 (test code = 18644-6) RBC, UA (test code = <1 See_Comment [Autom ated 88764-5) message] The system which generated this result transmitted reference range : /HPF. The reference range was not used to interpret this result as normal/abnormal . WBC, UA (test code = 1 See_Comment [Autom ated 5821-4) message] The system which generated this result transmitted reference range : /HPF. The reference range was not used to interpret this result as normal/abnormal . Squam Epithel, UA 1 See_Comment [Automate d (test code = 41574-8) messag e] The system which generated this result transmitted reference range : /HPF. The reference range was not used to interpret this result as normal/abnormal . Specimen Source (test code = 2795) SHARRON (test code = SHARRON) Huller Operator ID - [auto]Huller Operator ID - tech Lab Interpretation Abnormal (test code = 23660-9) [facility] [id number] 16:49:00 Test Item Value Reference Range Interpretation [...] = 516) SOURCE(BEAKER) (test code = 2795) Huller Operator ID - [auto]Huller Operator ID - techCreatine Kinase (CK)2020-05-06 16:44:00 Test Item Value Reference Range Interpretation Comments Total CK (test code = 55 U/L 29-200 2157-6) SHARRON (test code = SHARRON) Huller Operator ID - DB Lab Interpretation (test Normal code = 39196-5) [facility] METABOLIC [id number] 16:44:00 Test Item Value Reference Range Interpretation [...] S NOT APPLICABLE FOR DIALYSIS PATIEN TS. Huller Operator ID - DBCREATINE KINASE (CK)2020-05-06 16:44:00 Test Item Value Reference Range Interpretation Comments CREATINE KINASE TOTAL (BEAKER) (test 55 U/L 29-200 code = 380) Huller Operator ID - DBCBC W/PLT COUNT & AUTO [id number] 16:22:00 Test Item Value Reference Range Interpretation [...] PERCENT (BEAKER) (test code = 2801) SARS-COV2/RT-PCR ([facility])2019-09-01 23:27:00 Test Item Value Reference Range Interpretation Comments SARS-COV2/RT-PCR (test Not Detected Not Detected, Negative code = 7149874) SARS-COV-2 PERFORMING LAB [facility] (test code = 0046357) Negative results do not preclude SARS-CoV-2 infection [...] of the Act.Fact Sheet for Healthcare Pro viders:https://www.[employer]/Documents/Xpert%20Xpress%20SARS%20CoV-2/Fact%20Sh eets/3023802%65GGVC-NGZ-6%20HEALTHCARE%20PROVIDERS%20FACT%20SHEET.pdfFact Sheet for Healthcare Patients:https://www.[employer]/Documents/Xpert%20Xpress%20SARS%20CoV-2/Fact%20Sheets/3023801%20SARS-COV -2%20PATIENT%20FACT%20SHEET.pdfPerforming Laboratory:[facility] [place] [address]
--- NOTE | 2020-10-19 19:05 | RAD REPORT ---
EXAM DESCRIPTION: RAD - Chest Single View - 10/19/2020 6:51 pm CLINICAL HISTORY: dizziness COMPARISON: Chest Single View dated 05/06/2020; Chest Single View dated 02/01/2020; Chest Pa And Lat (2 Views) dated 12/31/2018; Chest Single View dated 09/24/2018 FINDINGS: No evidence of edema or pneumonia. The heart size is within normal limits.No acute osseous abnormality. No significant pleural effusions or pneumothorax. IMPRESSION: No acute cardiopulmonary disease.
[2020-10-19 19:16] LABS: Absolute Lymphocytes (CBC) 1.4 K/uL (0.7-4.9); Basophils % 1.2 % (0-1.3); Hematocrit 34.3 % (36.0-45.0); Lymphocytes % 29.5 % (15.3-44.8); MPV 9.3 fL (7.6-11.3); RBC Red Blood Cell Count 3.84 M/uL (3.86-4.86)
[2020-10-19 19:20] LABS: Protime INR 0.93
[2020-10-19] MEDS ORDERED: ACETAMINOPHEN 325 MG TABLET ONE (19:22)
[2020-10-19] MEDS ORDERED: ONDANSETRON 4 MG/2 ML VIAL ONE (19:22)
--- NOTE | 2020-10-19 19:28 | RAD REPORT ---
EXAM DESCRIPTION: CT - Abdomen Pelvis Wo Contrast - 10/19/2020 7:14 pm CLINICAL HISTORY: Abdominal pain. ABD PAIN COMPARISON: <Comparisons> TECHNIQUE: CT imaging of the abdomen and pelvis was performed without contrast. Solid organ, bowel a nd vascular assessment is limited due to lack of IV and oral contrast. All CT scans are performed using dose optimization technique as appropriate and may include automated exposure control or mA/KV adjustment according to patient size. FINDINGS: The lower lung verma are clear. Several hemangiomas again noted within the liver. The pancreas is within normal limits. The spleen is unremarkable. Distended stomach. Mild thickening in the distal esophagus may reflect esophagitis. No nobstructing stones bilaterally. No ureteral calculi are identified. Diverticulosis. No evidence of a cute diverticulitis. Aortic atherosclerosis. No fractures identified. Grade 2 anterolisthesis of L5 o n S1 with bilateral pars defects. Small fat containing ventral hernia. IMPRESSION: No acute intra-abdominal or pelvic findings. Incidental findings as noted above. A limited non-contrast examination was performed as detailed.
--- NOTE | 2020-10-19 19:31 | RAD REPORT ---
EXAM DESCRIPTION: CT - CTHCSPWOC - 10/19/2020 7:13 pm CLINICAL HISTORY: Headache, recent fall, dizziness COMPARISON: Head CT dated to 05/06/2020, neck CT 05/06/2020 TECHNIQUE: Axial 5 mm thick images of the head were obtained. Axial 2 mm thick images of the cervica l spine were obtained with sagittal and coronal reconstruction images generated and reviewed. All CT scans are performed using dose optimization technique as appropriate and may include automated exposure control or mA/KV adjustment according to patient size. FINDINGS: No acute intracranial abnormality. No mass effect or midline shift. No skull fracture is i dentified. No acute large vascular territory infarct are identified. No hydrocephalus. Cervical body height and alignment are normal. No disk space narrowing. No fracture or acute bony abn ormality. There is reversal of normal cervical lordosis which may be positional. Multilevel cervical spondylosis with varying degrees neural foraminal narrowing noted. Mild central spinal stenosis noted at the C5-6 level. This is secondary to a posterior disc osteophyte complex. No paraspinal mass or hematoma. IMPRESSION: No acute intracranial abnormality. No fracture or traumatic malalignment of the cervical spine.
[2020-10-19 19:42] LABS: ALT/SGPT 14 U/L (12-78); AST/SGOT 18 U/L (15-37); Albumin 3.4 g/dL (3.4-5.0); Alkaline Phosphatase 86 U/L (45-117); BUN Blood Urea Nitrogen 33 mg/dL (7-18); Bicarbonate 28 mmol/L (21-32); Bilirubin Direct < 0.1 mg/dL (0-0.2); Bilirubin Total 0.3 mg/dL (0.2-1.0); Glucose Level 71 mg/dL (74-106); Lipase 281 U/L (73-393); Magnesium 2.1 mg/dL (1.8-2.4); NT PRO-BNP 1154 pg/mL (<125); Potassium 3.5 mmol/L (3.5-5.1); Protein, Total 7.2 g/dL (6.4-8.2); Sodium Level 142 mmol/L (136-145); Troponin (Emerg Dept Use Only) < 0.02 ng/mL (0.0-0.045)
[2020-10-19] MEDS ORDERED: NA CHLORIDE 0.9% 500 ML ONE (20:11)
[2020-10-19] MEDS ORDERED: MECLIZINE HCL 12.5 MG TAB ONE (20:11)
[2020-10-19] MEDS ORDERED: D50W 25 GM/50 ML SYRINGE IV ONE (20:51)
--- NOTE | 2020-10-19 21:09 | EDPHYS ---
Physician Documentation [facility] Name: Celine Serrano Age: 69 yrs Sex: Female : 1950 Arrival Date: 10/19/2020 Time: 18:21 Bed 19 Private MD: ED Physician Yordy Dumont HPI: 10/19 18:35 This 69 yrs old Female presents to ER via EMS with complaints of Closed Head cp Injury-Adult. 18:35 The patient's problem is reported as dizziness. Onset: The symptoms/episode cp began/occurred just prior to arrival. Duration: This was a single incident. Context: Patient reports she became lightheaded and almost passed out after bending over and then standing up. Patient reports losing balance and falling, striking head on table. no LOC. Associated signs and symptoms: Pertinent positives: abdominal pain, headache, lightheadedness, Pertinent negatives: chest pain, combativeness, confusion, palpitations, seizure, vomiting. Historical: - Allergies: 18:24 Amitriptyline; ll1 18:24 GABAPENTIN; ll1 18:24 RISPERIDONE; ll1 - PMHx: 18:24 Bipolar disorder; CVA; Diabetes - NIDDM; Hypertension; problems with memory for 5 ll1 years; Schizophrenia; - Immunization history:: Flu vaccine is up to date. - Social history:: Smoking status: Patient denies any tobacco usage or history of. ROS: 18:40 Constitutional: Negative for body aches, chills, fever, poor PO intake. cp 18:40 Eyes: Positive for photophobia, Negative for discharge, redness. cp 18:40 ENT: Negative for drainage from ear(s), ear pain, sore throat, difficulty swallowing, difficulty handling secretions. 18:40 Cardiovascular: Negative for chest pain, edema, palpitations. 18:40 Respiratory: Negative for cough, shortness of breath, wheezing. cp 18:40 Abdomen/GI: Positive for abdominal pain, diarrhea, Negative for vomiting, constipation, hematemesis, black/tarry stool, rectal bleeding. 18:40 Back: Negative for pain at rest, pain with movement. cp 18:40 MS/extremity: Negative for decreased range of motion, deformity. 18:40 Neuro: Positive for dizziness, Negative for altered mental status, loss of consciousness, weakness. 18:40 All other systems are negative. Exam: 19:00 Constitutional: The patient appears in no acute distress, alert, awake, cp non-diaphoretic, non-toxic, well developed, well nourished. 19:00 Head/face: Noted is contusion, that is superficial, of the forehead, swelling, that is cp mild, of the forehead, tenderness, that is moderate, of the forehead. 19:00 Eyes: Periorbital structures: appear normal, Pupils: equal, round, and reactive to light and accomodation, Extraocular movements: intact throughout, Conjunctiva: normal, no exudate, no injection, Sclera: no appreciated abnormality, Lids and lashes: appear normal, bilaterally. 19:00 ENT: External ear(s): are unremarkable, Ear canal(s): are normal, clear, TM's: dullness, bilaterally, Nose: is normal, Mouth: Lips: moist, Oral mucosa: moist, Posterior pharynx: Airway: no evidence of obstruction, patent. 19:00 Neck: C-spine: vertebral tenderness, that is mild, appreciated at C6 and C7, ROM/movement: limited range of motion, is not appreciated, nuchal rigidity, is not appreciated. 19:00 Chest/axilla: Inspection: normal, Palpation: is normal, no crepitus, no tenderness. 19:00 Cardiovascular: Rate: normal, Rhythm: regular, Edema: is not appreciated, JVD: is not appreciated. 19:00 Respiratory: the patient does not display signs of respiratory distress, Respirations: normal, no use of accessory muscles, no retractions, labored breathing, is not present, Breath sounds: are clear throughout, no decreased breath sounds, no stridor, no wheezing. 19:00 Abdomen/GI: Inspection: abdomen appears normal, Bowel sounds: active, all quadrants, Palpation: soft, in all quadrants, moderate abdominal tenderness, in the suprapubic area and left lower quadrant, rebound tenderness, is not appreciated, voluntary guarding, is elicited in the suprapubic area and left lower quadrant. 19:00 Back: pain, is absent, ROM is normal. 19:00 Musculoskeletal/extremity: Exam is negative for decreased range of motion, deformity, injury. 19:00 Neuro: Orientation: to person, place \T\ time. Mentation: able to follow commands, slow to respond, Cerebellar function: Romberg testing is negative, Motor: moves all fours, strength is normal, Sensation: no obvious gross deficits. 20:09 ECG was reviewed by the Attending Physician. cp 21:00 Radiologist reports: no acute intracranial findings cp Vital Signs: 18:37 BP 162 / 79; Pulse 65; Resp 17; Temp 98.5; Pulse Ox 100% ; Weight 52.62 kg; Height 5 ll1 ft. 2 in. (157.48 cm); Pain 8/10; 19:00 BP 163 / 70; Pulse 80; Resp 18; Pulse Ox 99% on R/A; ld1 20:00 BP 158 / 86; Pulse 62; Resp 18; Pulse Ox 99% on R/A; ld1 21:31 BP 156 / 62; Pulse 78; Resp 18; Pulse Ox 99% on R/A; ld1 18:37 Body Mass Index 21.22 (52.62 kg, 157.48 cm) ll1 [place] Coma Score: 18:21 Eye Response: spontaneous(4). Verbal Response: oriented(5). Motor Response: obeys ll1 commands(6). Total: 15. MDM: 18:32 Patient medically screened. cp 19:00 Differential diagnosis: metabolic disorder, drug effects, CVA, intracranial bleed, cp diverticulitis. 21:05 Data reviewed: vital signs, nurses notes, lab test result(s), EKG, radiologic studies, cp CT scan, plain films. 21:05 Test interpretation: by ED physician or midlevel provider: ECG, plain radiologic cp studies. Counseling: I had a detailed discussion with the patient and/or guardian regarding: the historical points, exam findings, and any diagnostic results supporting the discharge/admit diagnosis, lab results, radiology results, to return to the emergency department if symptoms worsen or persist or if there are any questions or concerns that arise at home. Response to treatment: the patient's symptoms have markedly improved after treatment, VSS. Patient reports dizziness markedly improved. Will discharge to home for continued monitoring. 10/19 18:27 Order name: Basic Metabolic Panel; Complete Time: 20:10 cp 10/19 20:10 Interpretation: Normal except: CL 111; GLUC 71; BUN 33; CRE 1.66; GFR 31. cp 10/19 18:27 Order name: CBC with Diff; Complete Time: 19:39 cp 10/19 19:39 Interpretation: Normal except: RBC 3.84; HGB 11.5; HCT 34.3. cp 10/19 18:27 Order name: LFT's; Complete Time: 20:10 cp 10/19 20:30 Interpretation: Normal except: GLOB 3.8; A/G 0.9; w. cp 10/19 18:27 Order name: Magnesium; Complete Time: 20:10 cp 10/19 18:27 Order name: NT PRO-BNP; Complete Time: 20:10 cp 10/19 20:30 Interpretation: Abnormal: NT PRO-BNP 1154. cp 10/19 18:27 Order name: PT-INR; Complete Time: 19:39 cp 10/19 18:27 Order name: CT Head C Spine; Complete Time: 19:39 cp 10/19 19:39 Interpretation: Reviewed report. cp 10/19 18:27 Order name: Troponin (emerg Dept Use Only); Complete Time: 20:10 cp 10/19 20:11 Interpretation: Reviewed. cp 10/19 18:27 Order name: XRAY Chest (1 view); Complete Time: 19:39 cp 10/19 18:27 Order name: Lipase; Complete Time: 20:10 cp 10/19 19:14 Order name: Abdomen ; Complete Time: 19:39 EDMS 10/19 20:43 Order name: Glucose, Ancillary Testing; Complete Time: 20:58 EDMS 10/19 18:27 Order name: EKG; Complete Time: 18:28 cp 10/19 18:27 Order name: Cardiac monitoring; Complete Time: 21:15 cp 10/19 18:27 Order name: EKG - Nurse/Tech; Complete Time: 21:15 cp 10/19 18:27 Order name: IV Saline Lock; Complete Time: 18:38 cp 10/19 18:27 Order name: Labs collected and sent; Complete Time: 18:38 cp 10/19 18:27 Order name: O2 Per Protocol; Complete Time: 18:38 cp 10/19 18:27 Order name: O2 Sat Monitoring; Complete Time: 18:38 cp 10/19 21:01 Order name: Diet Regular; Complete Time: 21:01 cp EC:09 Rate is 67 beats/min. Rhythm is regular. VA interval is prolonged at 212 msec. QRS cp interval is normal. QT interval is normal. T waves are Inverted in leads II, III, aVF. Interpreted by me. Reviewed by me. Administered Medications: 19:46 Drug: Tylenol 650 mg Route: PO; ld1 19:55 Follow up: Response: No adverse reaction ld1 19:46 Drug: Zofran (Ondansetron) 4 mg Route: IVP; Site: right antecubital; ld1 19:56 Follow up: Response: No adverse reaction ld1 19:55 Drug: Meclizine 25 mg Route: PO; ld1 19:55 Drug: NS 0.9% 500 ml Route: IV; Rate: bolus; Site: right antecubital; ld1 21:15 Not Given (Physician Discretion): D50W 25 ml IVP once; (0.5 amp) ld1 Disposition: 21:15 Chart complete. cp 23:20 Co-signature as Attending Physician, Yordy Dumont MD. rn Disposition Summary: 10/19/20 21:08 Discharge Ordered Location: Home cp Problem: new cp Symptoms: have improved cp Condition: Stable cp Diagnosis - Contusion of unspecified part of head cp - Syncope Near cp Followup: cp - With: Private Physician - When: 1 - 2 days - Reason: Recheck today's complaints Discharge Instructions: - Discharge Summary Sheet cp - Head Injury, Adult cp - Near-Syncope cp Forms: - Medication Reconciliation Form cp - Thank You Letter cp - Antibiotic Education cp - Prescription Opioid Use cp Signatures: Dispatcher [employer] EDMS Yordy Dumont MD MD rn Page, Corey, PA PA cp Felipa Aggarwal RN RN ll1 Keli Benton RN RN ld1 Corrections: (The following items were deleted from the chart) 19:14 18:38 Abdomen Pelvis W Con+CT.RAD.BRZ ordered. EDMS EDMS
--- NOTE | 2020-10-19 21:09 | ER ---
Nurse's Notes [facility] Name: Celine Serrano Age: 69 yrs Sex: Female : 1950 Arrival Date: 10/19/2020 Time: 18:21 Bed 19 Private MD: Diagnosis: Contusion of unspecified part of head;Syncope Near Presentation: 10/19 18:21 Chief complaint: Patient states: Leaning over, felt dizzy, fell forward and hit head on ll1 table. Small hematoma to forehead. No LOC. States she has had no appetite, diarrhea, dizzy, and weakness for 2 days. Having abdominal pain for over 6 months. Has not taken any prescribed meds in over a year. EMS states: BP 190/100 initially, HR 60's with inverted T waves noted on monitor. Coronavirus screen: Client denies travel out of the [place] in the last 14 days. diarrhea, fatigue, Client presents with at least one sign or symptom that may indicate coronavirus-19. Standard/surgical mask placed on the client. Ebola Screen: Patient denies travel to an Ebola-affected area in the 21 days before illness onset. Mechanism of Injury: The problem was sustained at a alf or assisted living facility, resulted from a fall. Initial Sepsis Screen: Does the patient meet any 2 criteria? No. Patient's initial sepsis screen is negative. Does the patient have a suspected source of infection? No. Patient's initial sepsis screen is negative. Risk Assessment: Do you want to hurt yourself or someone else? Patient reports no desire to harm self or others. Onset of symptoms was October 18, 2020. 18:21 Method Of Arrival: EMS ll1 18:21 Acuity: HARJINDER 3 ll1 Historical: - Allergies: 18:24 Amitriptyline; ll1 18:24 GABAPENTIN; ll1 18:24 RISPERIDONE; ll1 - PMHx: 18:24 Bipolar disorder; CVA; Diabetes - NIDDM; Hypertension; problems with memory for 5 ll1 years; Schizophrenia; - Immunization history:: Flu vaccine is up to date. - Social history:: Smoking status: Patient denies any tobacco usage or history of. Screenin:38 Abuse screen: Denies threats or abuse. Nutritional screening: No deficits noted. ll1 Tuberculosis screening: No symptoms or risk factors identified. Fall Risk Fall in past 12 months (25 points). IV access (20 points). Gait- Weak (10 pts.). Total [place] Fall Scale indicates High Risk Score (45 or more points). Fall prevention measures have been instituted. Side Rails Up X 2 Placed Close to Nursing Station Frequent Obs/Assessments Occuring As available patient and family educated on Fall Prevention Program and Strategies. Assessment: 18:56 General: Appears uncomfortable, Behavior is calm, cooperative, appropriate for age. ll1 Pain: Complains of pain in head Quality of pain is described as aching. Neuro: Level of Consciousness is awake, alert, obeys commands, Oriented to person, place, time, situation, Appropriate for age Customer Expert are equal bilaterally Moves all extremities. Full function Gait is steady, Speech is normal, Facial symmetry appears normal, Reports dizziness, headache weakness. Cardiovascular: No deficits noted. Respiratory: No deficits noted. GI: Abdomen is flat, Bowel sounds present X 4 quads. Abd is soft and non tender X 4 quads. Reports lower abdominal pain, upper abdominal pain, cramping, diarrhea. 20:00 Reassessment: Patient appears in no apparent distress at this time. No changes from ld1 previously documented assessment. Patient and/or family updated on plan of care and expected duration. Pain level reassessed. Patient is alert, oriented x 3, equal unlabored respirations, skin warm/dry/pink. 21:30 Reassessment: Patient appears in no apparent distress at this time. Waiting on ld1 discharge. Denies concerns at this time. Vital Signs: 18:37 BP 162 / 79; Pulse 65; Resp 17; Temp 98.5; Pulse Ox 100% ; Weight 52.62 kg; Height 5 ll1 ft. 2 in. (157.48 cm); Pain 8/10; 19:00 BP 163 / 70; Pulse 80; Resp 18; Pulse Ox 99% on R/A; ld1 20:00 BP 158 / 86; Pulse 62; Resp 18; Pulse Ox 99% on R/A; ld1 21:31 BP 156 / 62; Pulse 78; Resp 18; Pulse Ox 99% on R/A; ld1 18:37 Body Mass Index 21.22 (52.62 kg, 157.48 cm) ll1 [place] Coma Score: 18:21 Eye Response: spontaneous(4). Verbal Response: oriented(5). Motor Response: obeys ll1 commands(6). Total: 15. ED Course: 18:21 Patient arrived in ED. ll1 18:23 Jarrod Lei PA is PHCP. cp 18:23 Darlene Rivera MD is Attending Physician. cp 18:24 Triage completed. ll1 18:24 Arm band placed on Patient placed in an exam room, on a stretcher. ll1 18:37 Felipa Aggarwal RN is Primary Nurse. ll1 18:38 Patient has correct armband on for positive identification. Bed in low position. Call ll1 light in reach. Side rails up X2. Pulse ox on. NIBP on. 18:50 XRAY Chest (1 view) In Process Unspecified. EDMS 18:56 Inserted saline lock: 22 gauge in right antecubital area, using aseptic technique. ll1 Blood collected. 18:59 Yordy Dumont MD is Attending Physician. cp 19:13 CT Head C Spine In Process Unspecified. EDMS 19:14 Abdomen In Process Unspecified. EDMS 21:31 No provider procedures requiring assistance completed. IV discontinued, intact, ld1 bleeding controlled, No redness/swelling at site. Administered Medications: 19:46 Drug: Tylenol 650 mg Route: PO; ld1 19:55 Follow up: Response: No adverse reaction ld1 19:46 Drug: Zofran (Ondansetron) 4 mg Route: IVP; Site: right antecubital; ld1 19:56 Follow up: Response: No adverse reaction ld1 19:55 Drug: Meclizine 25 mg Route: PO; ld1 19:55 Drug: NS 0.9% 500 ml Route: IV; Rate: bolus; Site: right antecubital; ld1 21:15 Not Given (Physician Discretion): D50W 25 ml IVP once; (0.5 amp) ld1 Outcome: 20:16 Condition: stable ld1 21:08 Discharge ordered by . cp 21:31 Discharged to home via wheelchair. ld1 21:31 Discharge instructions given to patient, Instructed on discharge instructions, follow up and referral plans. Demonstrated understanding of instructions, follow-up care. 21:32 Patient left the ED. ld1 Signatures: Dispatcher [employer] EDAL Jarrod Lei PA PA cp Lewis, Lynsay RN RN ll1 Keli Benton RN RN ld1 Corrections: (The following items were deleted from the chart) 20: 20:16 No provider procedures requiring assistance completed. ld1 ld1 : 20:16 Patient admitted, IV remains in place. intact, bleeding controlled, No ld1 redness/swelling at site. ld1 : 20:16 Admitted to Med/surg accompanied by tech, via wheelchair, room 222, with chart, ld1 Report called to FLAQUITO Bridges ld1 : 20:16 Instructed on the need for admit, ld1 ld1
[2020-10-19 21:36] VITALS: TEMP 98.5
[2020-10-19 21:38] VITALS: O2SAT 99
[2020-10-19 21:43] VITALS: BP 156/62
--- NOTE | 2020-10-20 11:00 | EKG ---
Test Date: 2020-10-19 Test Time: 20:05:21 [employer]: [place] MEASUREMENT RESULTS: Intervals: Rate: 67 VT: 212 QRSD: 98 QT: 456 QTc: 481 [place]: P: 66 VT: 212 QRS: -5 T: 256 INTERPRETIVE STATEMENTS: Sinus bradycardia with 1st degree AV block with occasional premature ventricular complexes Left ventricular hypertrophy with repolarization abnormality Cannot rule out Septal infarct, age undetermined Abnormal ECG Compared to ECG 05/06/2020 07:23:12 First degree AV block now present Myocardial infarct finding now present Sinus rhythm no longer present Electronically Signed On 10-20-20 10:58:38 CDT by Justino Lauren
== END 2020-10-19 21:32 | disposition home or self-care (01) ==
LOC: ER 18:15
DX: S00.83XA Contusion of other part of head, initial encounter (principal); W18.39XA Other fall on same level, initial encounter; I10 Essential (primary) hypertension; Z88.8 Allergy status to other drugs, medicaments and biological substances
CPT/HCPCS: 93005; 85025; 80048; 36415; 83735; 85610; 82565; 82947; 80076; 84484; 83690; 83880; 70450; 72125; 74176; 71045; 96374; 99284; J7040; J2405

== ENCOUNTER 2021-01-17 17:45 | Emergency (ER) | payer OTHER | END 2021-01-17 18:01 | disposition left against medical advice (07) | LOC: ER 17:45 | DX: Z02.9 Encounter for administrative examinations, unspecified (principal) ==

== ENCOUNTER 2021-09-23 13:03 | Emergency (ER) | payer OTHER ==
--- OUTSIDE RECORDS SUMMARY | 2021-09-23 13:07 | XMS REPORT | Continuity of Care Document ---
:1950 Author Organization [facility] t Address [address] [place] [address] Care Team Providers Name Role Phone Maddy LEVI Primary Care Physician Unavailable Attending Clinician Unavailable ALEKSANDR Attending Clinician Unavailable ALEKSANDR Attending Clinician Unavailable Lam BROWN Attending Clinician Admitting Clinician Unavailable Payers Payer Name Policy Type Policy Number Effective Date Expiration Date S ource [employer] MEDICARE [id number] [place] [employer] [place] [id number] 2021 STAR PLUS 00:00:00 Problems Condition Condition Condition Status Onset Resolution Last Treating Co mments Source Name Details Category Date Date Treatment Clinician Date DAMIAN (acute DAMIAN (acute Disease Active U piyushers kidney kidney 6-08 ity of injury) injury) 00:00: Medical Branch Anxiety Anxiety Disease Active Univers - ity of 00:00: Medical Branch Bipolar 1 Bipolar 1 Disease Active Overview: Univers disorder disorder 08-17 Formattin ity of 00:00: g of this note Medical might be Branch different from the original. mix of depressio n and lori, follows with [facility] Diverticul Diverticul Disease Active Overview : Univers itis itis -19 Formattin ity of 00:00: g of note Medical might be Branch different from the original. multiple episodes Hypertensi Hypertensi Disease Active U nivers on on 06-13 ity of 00:00: Medical Branch Weakness Weakness Disease Active Unive rs of right of right 06-01 ity of hand hand 00:00: Medical Branch Late Late Disease Active Overview: Univer s effect of effect of 06-01 Formattin i ty of fracture fracture 00:00: g of this Rene as of upper of upper 00 note Medica l extremity extremity might be Br anch different from the original. 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 Elbow Elbow Disease Active Univers stiffness, stiffness, 06-01 it y of right right 00:00: Medical Branch Radial Radial Disease Active Univers head head 2 [place] of fracture, [place], [place] 00 Medical right, right, Branch initial initial encounter encounter History of History of Diagnosis Active Common drug abuse drug abuse Sp eloisa in in - [facility]I remission remission [facility] Bipolar Bipolar Diagnosis Active Commo n affective affective Spir it disorder, disorder, - [facility] I current current St episode episode [facility] hypomanic hypomanic [facility] Allergic Allergic Problem Active Commo n rhinitis, rhinitis, Spir it unspecifie unspecifie - [facility] d d [facility] seasonalit seasonalit Aria kes y, y, Medical unspecifie unspecifie Ce nter d trigger d trigger Essential Essential Problem Active Com mon hypertensi hypertensi Sp eloisa on on - CHI [facility] Depression Depression Problem Active C ommon with with Spirit anxiety anxiety - [facility] Sigmoid Sigmoid Problem Active Common diverticul diverticul Sp eloisa itis itis - CHI [facility] Stage 3 Stage 3 Problem Active Common chronic chronic Spirit kidney kidney - [facility] disease disease [facility] Gastro-eso Gastro-eso Problem Active C ommon phageal phageal Spirit reflux reflux - [facility] disease disease St without without [facility] Primary Primary Problem Active Common osteoarthr osteoarthr Sp eloisa itis itis - [facility]I involving involving St multiple multiple [facility] joints joints [facility] History of History of Diagnosis Active Common suicide suicide Spirit attempt attempt - [facility] Allergies, Adverse Reactions, Alerts Allergy Allergy Status Severity Reaction(s) Onset Inactive Treating Comm ents Source Name Type Date Date Clinician Amitript Propensi Active Shortness of Patient Univers yline ty to Breath 2-05 too ity of adverse 00:00: confused [place] reaction 00 to tell Medical s severity Branch Gabapent Propensi Active Anxiety Patient Univ ers in ty to 2-05 too ity of adverse 00:00: confused [place] reaction 00 to tell Medical s severity Branch Risperid Propensi Active Anxiety 2020- Patient Univ ers one ty to 2-05 too ity of adverse 00:00: confused [place] reaction 00 to tell Medical s severity Branch AMITRIPT DRUG Active SOB 2020- Univers YLINE INGREDI 2-05 ity of 00:00: [place] 00 Medical Branch GABAPENT DRUG Active Anxiety 2020- Univers IN INGREDI 2-05 ity of 00:00: [place] 00 Medical Branch RISPERID DRUG Active Anxiety 2020- Univers ONE INGREDI 2-05 ity of 00:00: [place] 00 Medical Branch AMITRIPT Allergy Active [facility] GABAPENT Allergy Active [facility]05 [facility] RISPERID Allergy Active 2020-[address] ONE 2-05 [facility] ANALOGUE 00:[facility]: Medical S 00 Center Social History Social Habit Start Date Stop Date Quantity Comments Source Alcohol intake 2021-09-13 2021-09-13 Ex-drinker [facility] 00:00:00 00:00:00 (finding) [facility] Exposure to 2021-08-27 2021-09-06 Not sure [facility] SARS-CoV-2 00:00:00 13:27:00 [facility] [place] [facility] (event) [place] Tobacco use and 2021-07-27 2021-07-27 Never used Universit y of exposure 00:00:00 00:00:00 [facility] Sex Ass[birth year] Universit y of 00:00:00 00:00:00 [facility] Smoking Status Start Date Stop Date Source Never smoker [facility] Medications Ordered Filled Start Stop Current Ordering Indication Dosage Frequency Signature Comments Components Source Medication Medication Date Date Medication? Clinician (SIG) Name Name sulfamethox 2021- No [id number] 1{tbl} Take 1 Univers azole-trime 08-31 tablet by it y of thoprim 00:00: 00:00 mouth [place] 400-80 mg 00 :00 every 12 Medica l per tablet (twelve) Branc h hours. ciprofloxac 2021- No [id number] 500mg Take 1 Univers in HCl 07-27 tablet by ity of (CIPRO) 500 00:00: 00:00 [place] mg tablet 00 :00 every 12 Medica l (twelve) Branch hours. metroNIDAZO 2021- No [id number] 500mg Take 1 Univers LE (FLAGYL) 07-27 tablet by it y of 500 mg 00:00: 00:00 mouth [place] tablet 00 :00 every 8 Medical (eight) Branch hours. Pilar Quezada 2019- Yes John 1 capsule Common 0-09 Kaycee Spirit 00:00: - [facility] 00 [facility] Pilar Quezada 2018- Yes John 1 capsule Common 0-09 [facility] Spirit 00:00: - [facility] 00 [facility] BusPIRone BusPIRone Yes John not Com mon HCl HCl Kaycee defined Spirit - [facility] Amlodipine Amlodipine Yes John TAKE 1 Common Besylate Besylate [place]cee TABLET BY S pirit MOUTH ONCE - [facility]I DAILY [facility] Hydrochloro Hydrochloro Yes John TAKE 1 Common thiazide thiazide [place]e TABLET BY S pirit MOUTH ONCE - CHI DAILY [facility] Pantoprazol Pantoprazol Yes John TAKE 1 Common e Sodium e Sodium Kaycee TABLET BY S pirit MOUTH ONCE - CHI DAILY [facility] Ciprofloxac Ciprofloxac Yes John TAKE 1 Common in HCl in HCl Kaycee TABLET BY Spiri t MOUTH - [facility]I EVERY [address] [facility] HOURS [facility] Potassium Potassium Yes John TAKE 1 C ommon Chloride Chloride [place]e TABLET BY S pirit Barb ER [facility] ER MOUTH ONCE - C HI DAILY [facility] Metronidazo Metronidazo Yes John TAKE 1 Common le le Kaycee TABLET BY Spirit MOUTH - CHI EVERY 8 [facility] HOURS [facility] Sucralfate Sucralfate Yes John TAKE 1 Common [place]cee TABLET BY Spirit MOUTH - [facility]I BEFORE A St MEAL AT [facility] BEDTIME. Medical Center Immunizations Ordered Filled Immunization Date Status Comments [facility] e Immunization Name Name Influenza Virus 2017-12-30 Completed Universit y of Vaccine 00:00:00 [facility] Vital Signs Vital Name Observation Time Observation Value Comments Source HEIGHT 2020-05-06 13:00:00 160 cm WEIGHT 2020-05-06 13:00:00 65.772 kg Systolic blood 2021-09-06 14:44:00 170 mm[Hg] Univer sity [facility] Diastolic blood 2021-09-06 14:44:00 91 [facility]Hg[facility] rate 2021-09-06 14:40:00 57 /min [facility] Body height 2021-09-06 14:40:[address] [facility] Body weight 2021-09-06 14:40:[address] [facility] BMI 2021-09-06 14:40:00 19.02 kg/m2 [facility] Oxygen saturation 2021-09-06 14:40:00 96 /min [facility] in Arterial blood [facility] anch by Pulse oximetry HEIGHT 2020-05-06 13:00:00 160 cm WEIGHT 2020-05-06 13:00:00 65.772 kg Procedures This patient has no known procedures. Encounters Start End Encounter Admission Attending Care Care Encounter Source Date/Time Date/Time Type Type Clinicians Facility Department ID 2021-01-07 Inpatient ER [facility] Neurology [id number] [facility] 02:34:44 GLORIA 2021-09-25 2021-09-25 Outpatient R FELICIANO BRANDON [facility] [id number] Univers 10:30:00 10:30:00 FELICIANO BRANDON [id number] [facility] 2021-09-25 2021-09-25 Outpatient R FELICIANO BRANDON [facility] [id number] Univers 10:30:00 10:30:00 FELICIANO BRANDON [facility] 2021-09-06 2021-09-06 Office Lam [facility] [id number] Univers 09:30:00 10:23:58 Visit He FARRELL [id number] i ty sandrita SEAY [id number] Александр WILLARDARCHIE [id number] Ak dical NAL 044 Branch [facility] 2019-01-07 2019-01-07 [place] [place] [id number] Common 13:00:00 13:00:[address] [facility] 2018-12-30 2018-12-30 [place] [id number] Common 11:11:00 11:11:[address] [facility] 2018-12-12 2018-12-12 Outpatient [facility] [place] [id number] Common 16:38:00 16:38:[address] [facility] 2018-11-13 2018-11-13 [facility] [id number] Common 16:05:00 16:05:00 t [facility] Sp[address] [facility] 2018-11-10 2018-11-10 [facility] [id number] Common 08:36:00 08:36:[address] [facility] 2018-11-05 2018-11-05 [facility] [id number] Common 13:30:00 13:30:00 t [facility] [address] [facility] Results Test Description Test Time Test Comments Results Result Sourc e Comments RAD, ABDOMEN/KUB, 2020-05-07 Reason for 1 VIEW AP 11:38:00 exam:->abdomina l pain [facility] : 1950 Sex: F *FINAL REPORT Abdomen dated to May 07, 2020 Comment:Abdomen was examined in the supine frontal position. Air is seen in the small and large bowel without dilatation to suggest mechanical obstruction or ileus. No mass, pathological calcification, or free air is present. Impression:No mechanical obstruction or ileus. Signed: Gerard Shields MDReport Verified Date/Time: 05/07/2020 11:38:04 Reading Location: [place] [id number] Ortho Consult Reading Room GLOBIN A1C 2020-05-07 09:04:00 Test Item Value Reference Range Interpretation Comme nts HEMOGLOBIN A1C (BEAKER) (test code = 368) 6.2 % 4.3-6.1 H LIPID [id number] 08:21:00 Test Item Value Reference Range Interpretation [...] Borderline 130-159 High 160-189 Very High >=190 Carpentry Professional ID - AAHAMIDBASIC METABOLIC [id number] 06:35:00 Test Item Value Reference Range Interpretation [...] S NOT APPLICABLE FOR DIALYSIS PATIEN TS. Carpentry Professional ID - SMCBC W/PLT COUNT & AUTO [id number] 05:56:00 Test Item Value Reference Range Interpretation [...] = 2801) RAD, CHEST, 1 VIEW, NON [id number] 02:24:00Reason for exam:- >encephalopathy; rule out infection , pneumoniaShould this be performed at the bedside?->Yes [facility] : 1950 Sex: FFINAL REPORT [...] Impression: No acute abnormality. Signed: Denis Murray MDReport Verified Date/Time: 05/07/2020 02:24:29 -COV2/RT-PCR ([facility])2020-05-06 21:54:00 Test Item Value Reference Range Interpretation Comments SARS-COV2/RT-PCR (test Negative Not Detected, Negative, code = 0557752) See external report for linked test SARS-COV-[address] [facility] PIA (test code = 9588417) Negative result for this test determines that [...] 564(g) of the Act.Fact Sheet for Healthcare Providers:https://www.meXBT / [employer]/sites/default/files/product/documents/Fact_Shee l_PU_Ktsfdomby_Kqqw_SNQO-OwA-9.pdfFact Sheet for Healthcare Patients:https://www.meXBT / [employer]/sites/default/files/product/ documents/Glty_Xdylz_Lpsgqbdd_Qsnm_AAWK-FuG-8.pdfPerforming Laboratory:[facility], [place] [address]RN, BRAIN, WITHOUT [id number] 20:12:00Unlisted Reason for Exam - Click Yes and Enter Reason Below->NoDeos the patient have an implantedelectronic device?->No [facility] : 1950 Sex: FFINAL REPORT [...] Signed: Sang Akbar Verified Date/Time: 05/06/2020 20:12:22 [facility] 2020-05-06 18:23:00 Test Item Value Reference Range Interpretation Comments THYROID STIMULATING HORMONE 1.886 uIU/mL 0.350-4.940 (BEAKER) (test code = 772) Carpentry Professional ID - DBVITAMIN B12 AND [id number] 18:23:00 Test Item Value Reference Range Interpretation Comments VITAMIN B12 (BEAKER) (test code = 283 pg/mL 213-816 774) FOLATE (BEAKER) (test code = 362) 17.00 ng/mL >=7.00 Carpentry Professional ID - DBPOCT-GLUCOSE [id number] 17:03:00 Test Item Value Reference Range Interpretation Comments POC-GLUCOSE METER 88 mg/dL 70-110 : TESTED A T [facility] 6720 (BEAKER) (test code [facility], = 1538) [address]: Carpentry Professional/Techni bruce ID = [id number] for LILI SIMMONS RAPID DRUG SCREEN, [id number] 16:55:00 Test Item Value Reference Range Interpretation [...] situations. Chain of custody not maintained. Some hprb-acm-ibtbdqd medications, as well as adulterants, may cause inaccurate results. Clinical correlation should be applied. A more comprehensivedrug screen or confirmation of a detected drug may be performed upon request.Carpentry Professional ID - AAHAMIDURINALYSIS W/ REFLEX URINE [id number] 16:49:00 Test Item Value Reference Range Interpretation [...] = 516) SOURCE(BEAKER) (test code = 2795) Carpentry Professional ID - [auto]Carpentry Professional ID - techBASIC METABOLIC [id number] 16:44:00 Test Item Value Reference Range Interpretation [...] S NOT APPLICABLE FOR DIALYSIS PATIEN TS. Carpentry Professional ID - DBCREATINE KINASE (CK)2020-05-06 16:44:00 Test Item Value Reference Range Interpretation Comments CREATINE KINASE TOTAL (BEAKER) (test 55 U/L 29-200 code = 380) Carpentry Professional ID - DBCBC W/PLT COUNT & AUTO [id number] 16:22:00 Test Item Value Reference Range Interpretation [...] PERCENT (BEAKER) (test code = 2801) SARS-COV2/RT-PCR ([facility])2019-09-01 23:27:00 Test Item Value Reference Range Interpretation Comments SARS-COV2/RT-PCR (test Not Detected Not Detected, Negative code = 5205881) SARS-COV-[address] [facility] (test code = 3747117) Negative results do not preclude SARS-CoV-2 infection [...] of the Act.Fact Sheet for Healthcare Pro viders:https://www.[employer].com/Documents/Xpert%20Xpress%20SARS%20CoV-2/Fact%20Sh eets/302-4282%59SYRI-OGU-7%20HEALTHCARE%20PROVIDERS%20FACT%20SHEET.pdfFact Sheet for Healthcare Patients:https://www.[employer].com.[employer]/Documents/Xpert%20Xpress%20SARS%20CoV-2/Fact%20Sheets/3023801%20SARS-COV -2%20PATIENT%20FACT%20SHEET.pdfPerforming Laboratory:[facility] [place] [address]
[2021-09-23] MEDS ORDERED: MORPHINE 4 MG/ML SYR ONE (13:52)
[2021-09-23] MEDS ORDERED: ONDANSETRON 4 MG/2 ML VIAL ONE (13:52)
[2021-09-23 13:56] LABS: Absolute Lymphocytes (CBC) 1.5 K/uL (0.7-4.9); Hematocrit 35.9 % (36.0-45.0); Lymphocytes % 39.2 % (15.3-44.8); MPV 7.5 fL (7.6-11.3); RBC Red Blood Cell Count 3.91 M/uL (3.86-4.86)
[2021-09-23 14:08] LABS: Albumin 3.6 g/dL (3.4-5.0); Bilirubin Total 0.6 mg/dL (0.2-1.0); Potassium 3.9 mmol/L (3.5-5.1); Protein, Total 7.4 g/dL (6.4-8.2)
[2021-09-23] MEDS ORDERED: NA CHLORIDE 0.9% 1,000 ML ONE (14:35)
--- NOTE | 2021-09-23 14:42 | RAD REPORT ---
EXAM DESCRIPTION: CTAbdomen Pelvis Wo Contrast - 09/23/2021 2:26 pm CLINICAL HISTORY: lower abdominal pain COMPARISON: Abdomen Pelvis Wo Contrast dated 10/19/2020; Abdomen Pelvis W Contrast dated 05/09/2020 ; Abdomen Pelvis W Contrast dated 04/13/2020; Abdomen Pelvis W Contrast dated 12/01/2019 TECHNIQUE: CT of the abdomen and pelvis was performed. All CT scans are performed using dose optimization technique as appropriate and may include automated exposure control or mA/KV adjustment according to patient size. FINDINGS: Lower chest: No acute abnormality. Liver: Unchanged liver lesions, largest in the left hepatic lobe measures approximately 4.6 cm. Biliary: Sludge first noncalcified stones. Stomach: No significant focal abnormality. Duodenum: No significant focal abnormality. Pancreas: No significant abnormality. Spleen: No significant abnormality. Adrenal: No suspicious lesions. Kidney/ureter: No hydronephrosis. Bilateral renal vascular calcifications and/or small stones. Retroperitoneum: No retroperitoneal adenopathy. Vascular: No aneurysm. Bowel: Diverticulosis. No evidence of acute diverticulitis. Moderate stool is noted.. Peritoneum: No ascites or free air. Bladder: Circumferential bladder wall thickening. Reproductive: No adnexal masses. Bones: No acute fracture. Grade 2 anterolisthesis of L5 on S1. Other: n/a IMPRESSION: No acute intra-abdominal or pelvic finding. Multiple incidental findings as noted above.
--- NOTE | 2021-09-23 14:43 | RAD REPORT ---
EXAM DESCRIPTION: RAD - Chest Single View - 09/23/2021 2:28 pm CLINICAL HISTORY: MALAISE COMPARISON: Chest Single View dated 10/19/2020; Chest Single View dated 05/06/2020; Chest Single View d ated 02/01/2020; Chest Pa And Lat (2 Views) dated 12/31/2018 FINDINGS: Lines: None. Lungs: No evidence of edema or pneumonia. Pleural: No significant pleural effusions or pneumothorax. Cardiac: The heart size is within normal limits. Bones: No acute fractures. Other: IMPRESSION: No acute cardiopulmonary disease.
[2021-09-23 15:57] LABS: Urine Blood Trace-intact (Negative); Urine Glucose Negative (Negative); Urine Protein Negative (Negative); Urine pH 5.5 (5.0-7.0)
[2021-09-23] MEDS ORDERED: NA CHLORIDE 0.9% 100 ML ONE (16:25)
[2021-09-23] MEDS ORDERED: CEFTRIAXONE 1000 MG/VIAL ONE (16:25)
--- NOTE | 2021-09-23 16:27 | EDPHYS ---
Physician Documentation [facility] Name: Celine Serrano Age: 70 yrs Sex: Female : 1950 Arrival Date: 09/23/2021 Time: 13:04 Bed 7 Private MD: ED Physician Darlene Rivera HPI: 09/23 13:55 This 70 yrs old Female presents to ER via Ambulatory with complaints of Abdominal Pain. 7 13:55 The patient presents with abdominal pain. Onset: The symptoms/episode began/occurred 2 jh7 week(s) ago, and became worse. Associated signs and symptoms: Pertinent negatives: nausea, vomiting, and diarrhea, chest pain, constipation, fever, headache, hematuria. Patient presents for lower abdominal pain progressing over the past 2 weeks. She denies nausea, vomiting, diarrhea, and fever. States that she has had issues with abdominal pain before, but is unsure of any abdominal prior diagnosis. Patient is ANO x3 at this time.. Historical: - Allergies: 13:17 Amitriptyline; ld1 13:17 GABAPENTIN; ld1 13:17 RISPERIDONE; ld1 - PMHx: 13:17 Bipolar disorder; CVA; Diabetes - NIDDM; Hypertension; problems with memory for 5 ld1 years; Schizophrenia; - PSHx: 13:17 None; ld1 - Immunization history:: Adult Immunizations up to date, Client reports having NOT received the Covid vaccine. - Social history:: Smoking status: Patient denies any tobacco usage or history of. Patient/guardian denies using alcohol. ROS: 14:01 Constitutional: Negative for fever, chills, and weight loss, ENT: Negative for injury, jh7 pain, and discharge, Neck: Negative for injury, pain, and swelling, Cardiovascular: Negative for chest pain, palpitations, and edema, Respiratory: Negative for shortness of breath, cough, wheezing, and pleuritic chest pain, Back: Negative for injury and pain, MS/Extremity: Negative for injury and deformity, Skin: Negative for injury, rash, and discoloration. 14:01 Abdomen/GI: Positive for abdominal pain, Negative for nausea, vomiting, and diarrhea, constipation, dysphagia, black/tarry stool. 14:01 Neuro: Positive for altered mental status, ANO x3 at baseline, Negative for dizziness, headache, loss of consciousness, numbness, speech changes, syncope. 14:01 All other systems are negative. Exam: 14:01 Constitutional: This is a well developed, well nourished patient who is awake, alert, jh7 and in no acute distress. ENT: Nares patent. No nasal discharge, no septal abnormalities noted. Oropharynx with no redness, swelling, or masses, exudates, or evidence of obstruction, uvula midline. Mucous membranes moist. Cardiovascular: Regular rate and rhythm with a normal S1 and S2. No gallops, murmurs, or rubs. Normal PMI, no JVD. No pulse deficits. Respiratory: Lungs have equal breath sounds bilaterally, clear to auscultation and percussion. No rales, rhonchi or wheezes noted. No increased work of breathing, no retractions or nasal flaring. Back: No spinal tenderness. No costovertebral tenderness. Full range of motion. Skin: Warm, dry with normal turgor. Normal color with no rashes, no lesions, and no evidence of cellulitis. 14:01 Abdomen/GI: Inspection: abdomen appears normal, Bowel sounds: normal, Palpation: soft, mild abdominal tenderness, in the right lower quadrant and left lower quadrant. 14:01 Neuro: Orientation: Not oriented to time. 14:01 Neuro: Mentation: no acute changes, Memory: no acute changes, Motor: is normal, jh7 Sensation: is normal. Vital Signs: 13:17 BP 134 / 95; Pulse 70; Resp 18; Temp 98.4(TE); Pulse Ox 100% on R/A; Weight 47.17 kg; ld1 Height 5 ft. 2 in. (157.48 cm); Pain 10/10; 15:05 BP 167 / 81; Pulse 57; Resp 14; Pulse Ox 100% on R/A; vg1 16:45 BP 166 / 90; Pulse 67; Resp 17; Pulse Ox 100% ; Pain 2/10; jh6 13:17 Body Mass Index 19.02 (47.17 kg, 157.48 cm) ld1 MDM: 13:23 Patient medically screened. jh7 15:34 ED course: Reassessed the patient. Denies any pain and states that she feels much jh7 better. Informed her that she had a moderate amount of stool on her CT, and she admitted that her bowel movements have been hard lately. Also informed her of nonacute findings on the CT scan. Informed her that if her UA was negative, she would likely be discharged on stool softeners. The patient understood the plan of care.. 16:37 Differential diagnosis: diverticulitis, non-specific abd pain, urinary tract infection, jh7 Constipation. Data reviewed: vital signs, nurses notes, lab test result(s), radiologic studies, CT scan. Data interpreted: Pulse oximetry: is 100 %. Interpretation: normal. Counseling: I had a detailed discussion with the patient and/or guardian regarding: the historical points, exam findings, and any diagnostic results supporting the discharge/admit diagnosis, to return to the emergency department if symptoms worsen or persist or if there are any questions or concerns that arise at home. ED course: Only able to run dipstick UA due to the small amount the patient was able to provide. Treated for UTI in the ER. Informed the patient that she also had a moderate amount of stool in her colon, so Colace was prescribed. Advised for her to increase her p.o. fluid intake at home, and take medication as directed. If she develops any new concerning symptoms, she is to return to the ER for further eval.. 09/23 13:22 Order name: CBC with Diff; Complete Time: 14:18 ld1 09/23 13:22 Order name: CMP; Complete Time: 14:18 ld1 09/23 13:22 Order name: Lipase; Complete Time: 14:18 ld1 09/23 15:58 Order name: Urine Dipstick-Ancillary; Complete Time: 16:05 EDMS 09/23 13:22 Order name: IV Saline Lock; Complete Time: 13:44 ld1 09/23 13:36 Order name: Chest Single View XRAY; Complete Time: 14:46 7 09/23 13:37 Order name: EKG; Complete Time: 13:37 7 09/23 14:22 Order name: Abdomen ; Complete Time: 14:46 EDMS 09/23 13:22 Order name: Labs collected and sent; Complete Time: 13:44 ld1 Administered Medications: 13:50 Drug: morphine 2 mg Route: IVP; Infused Over: 4 mins; Site: right wrist; jh6 13:50 Drug: Zofran (Ondansetron) 4 mg Route: IVP; Site: right wrist; jh6 14:34 Drug: NS 0.9% 1000 ml Route: IV; Rate: 1 bolus; Site: right wrist; [facility] 16:00 Follow up: IV Status: Completed infusion [facility] 16:22 Drug: Rocephin (cefTRIAXone) 1 grams Route: IV; Rate: calculated rate; Site: right [facility] wrist; 16:50 Follow up: IV Status: Completed infusion [facility] Disposition Summary: 09/23/21 16:27 Discharge Ordered Location: Home [facility] Problem: new [facility] Symptoms: are resolved [facility] Condition: Stable [facility] Diagnosis - UTI/ Urinary tract infection, site not specified [facility] - Constipation [facility] Followup: [facility] - With: Private Physician - When: 2 - 3 days - Reason: Recheck today's complaints Discharge Instructions: - Discharge Summary Sheet [facility] - Constipation, Adult [facility] - Urinary Tract Infection, Adult [facility] - Antibiotic Medicine, Adult [facility] Forms: - Medication Reconciliation Form [facility] - Thank You Letter [facility] - Antibiotic Education [facility] Prescriptions: - Cephalexin 500 mg Oral Capsule - take 1 capsule by ORAL route every 12 hours for 10 days; 20 capsule; Refills: [facility] 0, Product Selection Permitted - Colace 100 mg Oral Tablet - take 1 tablet by ORAL route every 12 hours; 14 tablet; Refills: 0, Product [facility] Selection Permitted Addendum: 09/24/2021 18:00 Co-signature as Attending Physician, Darlene Rivera MD. m a2 Signatures: Dispatcher [employer] EDMS Kurtis Vargas, [employer] [facility]1 Darlene Rivera MD MD tx2 Keli Benton RN RN 1 Nat Wiseman RN RN 6 Nat Mai FNP [place] [id number] Corrections: (The following items were deleted from the chart) 09/23 14:04 13:55 Patient presents for lower abdominal pain progressing over the past 2 weeks. She [facility] denies nausea, vomiting, diarrhea, and fever. States that she has had issues with abdominal pain before, but is unsure of any abdominal prior diagnosis. Patient is ANO x2 at this time.. [facility] 14:04 14:01 Neuro: Positive for altered mental status, ANO x2 at baseline, Negative for 7 dizziness, headache, loss of consciousness, numbness, speech changes, syncope, jh7 14:22 13:38 Abdomen Pelvis W Con+CT.RAD.BRZ ordered. EDMS EDMS
--- NOTE | 2021-09-23 16:27 | ER ---
Nurse's Notes [facility] Name: Celine Serrano Age: 70 yrs Sex: Female : 1950 Arrival Date: 09/23/2021 Time: 13:04 Bed 7 Private MD: Diagnosis: UTI/ Urinary tract infection, site not specified;Constipation Presentation: 09/23 13:20 Chief complaint: Patient states: Pt displaying confusion - states "I do not know what ld1 year it is but the reason I came to the ER is because I just do not feel good, my stomach is hurting really bad." Denies n/v/d. C/O severe abdominal pain. Coronavirus screen: At this time, the client does not indicate any symptoms associated with coronavirus-19. Ebola Screen: No symptoms or risks identified at this time. Initial Sepsis Screen: Does the patient meet any 2 criteria? No. Patient's initial sepsis screen is negative. Does the patient have a suspected source of infection? No. Patient's initial sepsis screen is negative. Risk Assessment: Do you want to hurt yourself or someone else? Patient reports no desire to harm self or others. Onset of symptoms was September 23, 2021. 13:20 Method Of Arrival: Ambulatory ld1 13:20 Acuity: HARJINDER 3 ld1 Triage Assessment: 13:17 General: Appears in no apparent distress. comfortable, Behavior is calm, cooperative, ld1 appropriate for age. Pain: Complains of pain in abdomen Pain does not radiate. Pain currently is 10 out of 10 on a pain scale. Quality of pain is described as throbbing. EENT: No signs and/or symptoms were reported regarding the EENT system. Neuro: Level of Consciousness is awake, alert, obeys commands, Oriented to person, place, situation, Appropriate for age. Cardiovascular: Capillary refill < 3 seconds Patient's skin is warm and dry. Respiratory: Airway is patent Respiratory effort is even, unlabored. GI: Abdomen is flat, non-distended, Reports lower abdominal pain, upper abdominal pain. : No signs and/or symptoms were reported regarding the genitourinary system. Derm: No signs and/or symptoms reported regarding the dermatologic system. Musculoskeletal: No signs and/or symptoms reported regarding the musculoskeletal system. Historical: - Allergies: 13:17 Amitriptyline; ld1 13:17 GABAPENTIN; ld1 13:17 RISPERIDONE; ld1 - PMHx: 13:17 Bipolar disorder; CVA; Diabetes - NIDDM; Hypertension; problems with memory for 5 ld1 years; Schizophrenia; - PSHx: 13:17 None; ld1 - Immunization history:: Adult Immunizations up to date, Client reports having NOT received the Covid vaccine. - Social history:: Smoking status: Patient denies any tobacco usage or history of. Patient/guardian denies using alcohol. Screenin:40 Abuse screen: Denies threats or abuse. Denies injuries from another. Nutritional jh6 screening: No deficits noted. Tuberculosis screening: No symptoms or risk factors identified. Fall Risk Assessment: 13:40 General: Appears uncomfortable, Behavior is cooperative. jh6 13:40 Pain: Complains of pain in umbilical area Pain radiates to suprapubic area Pain jh6 currently is 9 out of 10 on a pain scale. Quality of pain is described as aching, crampy, Pain began 2-3wks ago. 13:40 GI: Bowel sounds present X 4 quads. Abd is soft and non tender. jh6 15:05 Reassessment: Patient appears in no apparent distress at this time. No changes from vg1 previously documented assessment. Patient and/or family updated on plan of care and expected duration. Pain level reassessed. Patient is alert, oriented x 3, equal unlabored respirations, skin warm/dry/pink. 16:51 Reassessment: No changes from previously documented assessment. Patient and/or family jh6 updated on plan of care and expected duration. Pain level reassessed. Vital Signs: 13:17 BP 134 / 95; Pulse 70; Resp 18; Temp 98.4(TE); Pulse Ox 100% on R/A; Weight 47.17 kg; ld1 Height 5 ft. 2 in. (157.48 cm); Pain 10/10; 15:05 BP 167 / 81; Pulse 57; Resp 14; Pulse Ox 100% on R/A; vg1 16:45 BP 166 / 90; Pulse 67; Resp 17; Pulse Ox 100% ; Pain 2/10; jh6 13:17 Body Mass Index 19.02 (47.17 kg, 157.48 cm) ld1 ED Course: 13:04 Patient arrived in ED. am2 13:08 Hadash, Nat, RN [facility]ING [facility] jh7 13:08 Darlene Rivera MD is Attending Physician. jh7 13:17 Arm band placed on right wrist. ld1 13:21 Triage completed. ld1 13:40 Placed in gown. Bed in low position. Call light in reach. Side rails up X 1. jh6 13:41 Nat Wiseman, RN is Primary Nurse. jh6 13:44 Inserted saline lock: 20 gauge in right forearm, using aseptic technique. Blood mb7 collected. 13:44 CBC with Diff Sent. mb7 13:44 CMP Sent. mb7 13:44 Lipase Sent. mb7 14:27 Abdomen In Process Unspecified. EDMS 14:29 Chest Single View XRAY In Process Unspecified. EDMS 16:50 No provider procedures requiring assistance completed. IV discontinued, intact, jh6 bleeding controlled, No redness/swelling at site. Pressure dressing applied. Administered Medications: 13:50 Drug: morphine 2 mg Route: IVP; Infused Over: 4 mins; Site: right wrist; jh6 13:50 Drug: Zofran (Ondansetron) 4 mg Route: IVP; Site: right wrist; jh6 14:34 Drug: NS 0.9% 1000 ml Route: IV; Rate: 1 bolus; Site: right wrist; jh6 16:00 Follow up: IV Status: Completed infusion jh6 16:22 Drug: Rocephin (cefTRIAXone) 1 grams Route: IV; Rate: calculated rate; Site: right [facility] wrist; 16:50 Follow up: IV Status: Completed infusion [facility] Medication: 16:58 VIS not applicable for this client. 6 Outcome: 16:27 Discharge ordered by . jh7 16:57 Discharged to home ambulatory. jh6 16:57 Condition: stable 16:57 Discharge instructions given to patient, family, Instructed on discharge instructions, follow up and referral plans. Demonstrated understanding of instructions, follow-up care, medications, Prescriptions given X 2. 16:59 Patient left the ED. 6 Signatures: Dispatcher [employer] EDOH Kike Saraviaanda 2 Sydney Carlos RN RN 1 Keli Benton RN RN ld1 Nat Wiseman, FLAQUITO HUDDLESTON 6 Jackelyn Cool 7 Hadash, Nat, RN VISITING RN VISITING jh7
[2021-09-23 17:33] VITALS: TEMP 98.4; O2SAT 100
[2021-09-23 17:36] VITALS: BP 166/90
== END 2021-09-23 16:59 | disposition home or self-care (01) ==
LOC: ER 13:03
DX: N39.0 Urinary tract infection, site not specified (principal); K59.00 Constipation, unspecified; I10 Essential (primary) hypertension; E11.9 Type 2 diabetes mellitus without complications; Z88.8 Allergy status to other drugs, medicaments and biological substances
CPT/HCPCS: 85025; 36415; 81003; 83690; 80053; 74176; 71045; Q9967; J7030; J2405; 96361; 96365; 96375; 99284

== ENCOUNTER 2023-03-26 03:55 | Inpatient (IN) | payer OTHER, SELFPAY ==
[2023-03-26] MEDS ORDERED: LORazepam 2 MG/ML VIAL ONE (07:00)
[2023-03-26 07:06] LABS: Absolute Lymphocytes (CBC) 0.8 K/uL (0.7-4.9); Hematocrit 34.3 % (36.0-45.0); Lymphocytes % 12.4 % (15.3-44.8); MCV 92.9 fL (80-100); MPV 7.1 fL (7.6-11.3); Platelets 226 thou/uL (152-406)
[2023-03-26 07:34] LABS: Potassium 4.2 mEq/L (3.5-5.1)
[2023-03-26] MEDS ORDERED: NA CHLORIDE 0.9% 500 ML ONE (07:35)
[2023-03-26] MEDS ORDERED: NA CHLORIDE 0.9% 1,000 ML ONE ×2 (07:35→09:29)
--- NOTE | 2023-03-26 07:52 | ER ---
Nurse's Notes [facility] Name: Celine Serrano Age: 72 yrs Sex: Female : 1950 Arrival Date: 03/26/2023 Time: 03:55 Bed 3 Private MD: Diagnosis: Acute kidney failure, unspecified;Other seizures Presentation: 03/26 03:56 Chief complaint: EMS states: "[facility] stated she was unresponsive this morning jw7 while rounding". 03:56 Coronavirus screen: Client reports previous positive COVID test result. Date of jw7 collection: March 20, 2023 Staff notified of need for isolation. Ebola Screen: No symptoms or risks identified at this time. Initial Sepsis Screen: Does the patient meet any 2 criteria? No. Patient's initial sepsis screen is negative. Does the patient have a suspected source of infection? No. Patient's initial sepsis screen is negative. Risk Assessment: Do you want to hurt yourself or someone else? Patient reports no desire to harm self or others. Onset of symptoms was March 26, 2023. 03:56 Method Of Arrival: EMS: [facility] 7 03:56 Acuity: HARJINDER 3 jw7 Triage Assessment: 03:56 General: Appears in no apparent distress. comfortable, Behavior is calm. Pain: Unable jw to use pain scale. Patient is disoriented. EENT: No deficits noted. Neuro: Moran Agitation-Sedation Scale (RASS): -1 Drowsy Level of Consciousness is awake, listless, Oriented to none. Cardiovascular: No deficits noted. Respiratory: Airway is patent Trachea midline Respiratory effort is even, unlabored, Respiratory pattern is regular, symmetrical. GI: No deficits noted. : No deficits noted. Derm: Skin is intact, is fragile, Skin is dry, Skin is normal, Skin temperature is warm. Musculoskeletal: Circulation, motion, and sensation intact. Historical: - Allergies: 05:47 Amitriptyline; jw7 05:47 GABAPENTIN; jw7 05:47 RISPERIDONE; jw7 - PMHx: 05:47 Bipolar disorder; CVA; Diabetes - NIDDM; Hypertension; problems with memory for 5 jw7 years; Schizophrenia; - Immunization history:: Adult Immunizations up to date. - Social history:: Smoking status: unknown. - Family history:: not pertinent. Screenin:56 Abuse screen: Denies threats or abuse. Denies injuries from another. jw7 03:56 [facility] ED Fall Risk Assessment (Adult) History of falling in the last 3 months, jw7 including since admission Yes- fall prone (multiple falls) (3 pts) Confusion or Disorientation Yes (5 pts) Intoxicated or Sedated No (0 pts) Impaired Gait Yes (1 pt) Mobility Assist Device Used No (0 pt) Altered Elimination No (0 pt) Score/Fall Risk Level 3 or more points = High Risk Oriented to surroundings, Maintained a safe environment, Educated pt \\T\\ family on fall prevention, incl call for assistance when getting out of bed, Provided non-skid footwear, Hourly rounding (assess needs \\T\\ fall precautionary measures) done. Nutritional screening: No deficits noted. Tuberculosis screening: No symptoms or risk factors identified. Assessment: 04:00 General: see triage asssessment. jw7 05:00 Reassessment: Patient appears in no apparent distress at this time. No changes from 7 previously documented assessment. Patient and/or family updated on plan of care and expected duration. Pain level reassessed. 06:25 Reassessment: Patient appears in no apparent distress at this time. No changes from 7 previously documented assessment. Patient and/or family updated on plan of care and expected duration. Pain level reassessed. 06:47 Reassessment: PHLEBOTOMY CALLED AGAIN TO SEND HOSIERY MATER TO DRAW BLOOD. jj7 06:57 Reassessment: PT ACTIVELY HAVING SZ. j7 09:00 Reassessment: Patient appears in no apparent distress at this time. No changes from 1 previously documented assessment. Patient and/or family updated on plan of care and expected duration. Pain level reassessed. 11:00 Reassessment: Patient appears in no apparent distress at this time. Patient and/or ld1 family updated on plan of care and expected duration. Pain level reassessed. 14:15 Reassessment: Patient appears in no apparent distress at this time. No changes from 1 previously documented assessment. Patient and/or family updated on plan of care and expected duration. Pain level reassessed. 15:51 Reassessment: Daughter - Sultana Atkinson - [phone]. ld1 15:52 Reassessment: boning room worker called nurse - Dr. Ruby aware of family wishes to discharge ld1 patient on hospice. [facility] is going to deliver equipment to pt home. After equipment is delivered, hospice will arrange EMS transport to discharge patient to home. Discussed with family and family agrees to plan. 20:29 Reassessment: EMS AT B/S FOR TRANSPORT TO HOME HOSPICE. bp Vital Signs: 03:56 BP 124 / 76; Pulse 84; Resp 13 S; Temp 97.5(TE); Pulse Ox 97% on R/A; Weight 38.56 kg; jw7 Height 5 ft. 1 in. ; 04:00 BP 118 / 72; Pulse 77; Resp 14 S; Pulse Ox 97% on R/A; jw7 05:00 BP 138 / 76; Pulse 71; Resp 13 S; Pulse Ox 98% on R/A; jw7 06:00 BP 127 / 79; Pulse 65; Resp 13 S; Pulse Ox 99% on R/A; jw7 07:25 Pulse Ox 84% on R/A; ld1 07:58 BP 112 / 81; Pulse 72; Resp 18; Pulse Ox 100% on 3 lpm NC; ld1 11:00 BP 142 / 74; Pulse 64; Resp 10; Pulse Ox 100% on 3 lpm NC; tl4 12:00 BP 114 / 71; Pulse 60; Resp 15; Pulse Ox 98% on 3 lpm NC; tl4 14:00 BP 156 / 81; Pulse 73; Resp 17; Pulse Ox 100% ; tl4 16:00 BP 156 / 77; Pulse 67; Resp 14; Pulse Ox 100% ; tl4 18:00 BP 149 / 80; Pulse 71; Resp 12; Pulse Ox 98% on R/A; tl4 20:33 BP 149 / 80; Pulse 74; Resp 13; Pulse Ox 99% on R/A; Pain 0/10; tl4 03:56 Body Mass Index 16.06 (38.56 kg, 154.94 cm) jw7 20:33 Pain Scale: Adult tl4 ED Course: 03:56 Patient arrived in ED. rv1 03:56 Arm band placed on. jw7 03:56 Patient has correct armband on for positive identification. Bed in low position. Call jw7 light in reach. Side rails up X2. 04:08 Amandeep Camara MD is Attending Physician. sp4 05:00 Inserted saline lock: 22 gauge in right hand, using aseptic technique. Blood collected. oe 05:03 Basic Metabolic Panel Sent. oe 05:03 CBC with Diff Sent. oe 05:10 CT Head Brain wo Cont In Process Unspecified. EDMS 05:47 Triage completed. jw7 07:13 Attending Physician role handed off by Amandeep Camara MD rn 07:13 Yordy Dumont MD is Attending Physician. rn 07:15 Keli Malcolm, FLAQUITO is Primary Nurse. ld1 07:22 Rosas cath inserted, using sterile technique, returned Patient tolerated well. oe 07:51 Darlene Ruby MD is Hospitalizing Provider. rn 07:57 Inserted saline lock: 20 gauge in left forearm, using aseptic technique. Blood ld1 collected. 15:54 No provider procedures requiring assistance completed. Patient admitted, IV remains in ld1 place. 20:29 IV discontinued, intact, bleeding controlled, No redness/swelling at site. Pressure tl4 dressing applied, 22g right hand. 20:30 IV discontinued, intact, bleeding controlled, No redness/swelling at site. Pressure tl4 dressing applied, 20g left FA. 20:30 Provided Education on: ED process. tl4 20:31 Rosas cath removed intact, balloon deflated. tl4 Administered Medications: 07:03 Drug: Ativan IVP 2 mg IVP once Route: IVP; Site: right hand; jj7 20:41 Follow up: Response: No adverse reaction; Anxiety decreased tl4 07:42 Drug: NS 0.9% IV 500 ml IV at bolus once Route: IV; Rate: bolus; Site: right wrist; ld1 20:41 Follow up: IV Status: Completed infusion tl4 20:41 Follow up: Response: No adverse reaction tl4 07:42 Drug: NS 0.9% IV 1000 ml IV at 125 ml/hr continuous Route: IV; Rate: 125 ml/hr; Site: ld1 right wrist; 20:41 Follow up: Response: No adverse reaction; IV Status: Completed infusion tl4 Medication: 15:54 VIS not applicable for this client. ld1 Outcome: 07:51 Decision to Hospitalize by Provider. rn 15:54 Admitted to ER Hold. Please see [facility] for further documentation. ld1 15:54 Condition: stable 15:54 Instructed on the need for admit, 20:38 Patient left the ED. kl 20:39 Discharged to home via ambulance, with family, tl4 20:39 Condition: stable 20:39 Discharge instructions given to family, Instructed on discharge instructions, follow up and referral plans. Signatures: Dispatcher [employer] Kiki Boucher, RN RN Yordy Del Toro MD MD rn Espinosa, [place] oe Peltier, Brian, RN RN bp Keli Malcolm RN RN ld1 Irene Moss RN RN jw7 Jevon Figueroa RN RN jj7 Katy Fair1 Amandeep Camara MD MD sp4 [facility], Jeremie tl4
--- NOTE | 2023-03-26 07:52 | EDPHYS ---
Physician Documentation [facility] Name: Celine Serrano Age: 72 yrs Sex: Female : 1950 Arrival Date: 03/26/2023 Time: 03:55 Bed 3 Private MD: ED Physician Yordy Dumont HPI: 03/26 04:08 This 72 yrs old Female presents to ER via Unassigned with complaints of sp4 unresponsive as reported by NH. 06:19 72-year-old female presents with EMS for complaint of being difficult to arouse at the [facility] and being unresponsive at the [facility].. Patient takes Seroquel for bipolar disorder. On arrival with EMS patient is actually responsive and alert. . 06:32 Arrival patient has no complaints. Past medical history includes Alzheimer's dementia sp4 80 send COVID-19, muscle weakness, multiple falls, allergic rhinitis, schizoaffective disorder, bipolar disorder, major depressive disorder, anxiety disorder, essential hypertension, GERD, diverticulitis, osteoarthritis, chronic kidney disease, UTI. Medications include acetaminophen, amlodipine, buspirone, calcium carbonate, cyanocobalamin, hydralazine, Paxil 10 mg p.o. bedtime, Seroquel 100 mg once a day, Seroquel 100 mg at bedtime, and also Vistaril as needed,. Historical: - Allergies: 05:47 Amitriptyline; jw7 05:47 GABAPENTIN; jw7 05:47 RISPERIDONE; jw7 - PMHx: 05:47 Bipolar disorder; CVA; Diabetes - NIDDM; Hypertension; problems with memory for 5 jw7 years; Schizophrenia; - Immunization history:: Adult Immunizations up to date. - Social history:: Smoking status: unknown. - Family history:: not pertinent. ROS: 06:19 Constitutional: Negative for fever, chills, and weight loss, sp4 06:19 All other systems are negative, Exam: 06:17 ECG was reviewed by the Attending Physician. EKG time 0 436, EKG reveals sinus rhythm sp4 at a rate of 78 , no ST elevation or depression, no ectopy 06:32 Constitutional: This is a well developed, well nourished patient who is awake, alert, sp4 and in no acute distress. Appears to have moderate dementia alert and oriented x 1 Head/Face: Normocephalic, atraumatic. Eyes: Pupils equal round and reactive to light, extra-ocular motions intact. Lids and lashes normal. Conjunctiva and sclera are not injected. Cornea within normal limits. Periorbital areas with no swelling, redness, or edema. ENT: Nares patent. No nasal discharge, no septal abnormalities noted. Tympanic membranes are normal and external auditory canals are clear. Oropharynx with no redness, swelling, or masses, exudates, or evidence of obstruction, uvula midline. Mucous membranes moist. Neck: Trachea midline, no thyromegaly or masses palpated, and no cervical lymphadenopathy. Supple, full range of motion without nuchal rigidity, or vertebral point tenderness. Chest/axilla: Normal chest wall appearance and motion. Nontender with no deformity. No lesions are appreciated. Cardiovascular: Regular rate and rhythm with a normal S1 and S2. No gallops, murmurs, or rubs. Normal PMI, no JVD. No pulse deficits. Respiratory: Lungs have equal breath sounds bilaterally, clear to auscultation and percussion. No rales, rhonchi or wheezes noted. No increased work of breathing, no retractions or nasal flaring. Abdomen/GI: Soft, non-tender, with normal bowel sounds. No distension or tympany. No guarding or rebound. No evidence of tenderness throughout. Back: No spinal tenderness. No costovertebral tenderness. Skin: Warm, dry with normal turgor. Normal color with no rashes, no lesions, and no evidence of cellulitis. MS/ Extremity: Pulses equal, no cyanosis. Neurovascular intact. Full, normal range of motion. Neuro: Awake and alert, GCS 15, oriented to person, place, time, and situation. Cranial nerves II-XII grossly intact. Motor strength 5/5 in all extremities. Sensory grossly intact. Psych: Awake, alert, with orientation to person, place and time. Behavior, mood, and affect are within normal limits Vital Signs: 03:56 BP 124 / 76; Pulse 84; Resp 13 S; Temp 97.5(TE); Pulse Ox 97% on R/A; Weight 38.56 kg; jw7 Height 5 ft. 1 in. ; 04:00 BP 118 / 72; Pulse 77; Resp 14 S; Pulse Ox 97% on R/A; jw7 05:00 BP 138 / 76; Pulse 71; Resp 13 S; Pulse Ox 98% on R/A; jw7 06:00 BP 127 / 79; Pulse 65; Resp 13 S; Pulse Ox 99% on R/A; jw7 07:25 Pulse Ox 84% on R/A; ld1 07:58 BP 112 / 81; Pulse 72; Resp 18; Pulse Ox 100% on 3 lpm NC; ld1 11:00 BP 142 / 74; Pulse 64; Resp 10; Pulse Ox 100% on 3 lpm NC; tl4 12:00 BP 114 / 71; Pulse 60; Resp 15; Pulse Ox 98% on 3 lpm NC; tl4 14:00 BP 156 / 81; Pulse 73; Resp 17; Pulse Ox 100% ; tl4 16:00 BP 156 / 77; Pulse 67; Resp 14; Pulse Ox 100% ; tl4 18:00 BP 149 / 80; Pulse 71; Resp 12; Pulse Ox 98% on R/A; tl4 20:33 BP 149 / 80; Pulse 74; Resp 13; Pulse Ox 99% on R/A; Pain 0/10; tl4 03:56 Body Mass Index 16.06 (38.56 kg, 154.94 cm) jw7 20:33 Pain Scale: Adult tl4 MDM: 04:09 Patient medically screened. sp4 06:19 ED course: CT - CLINICAL HISTORY: The patient is 72 years old and is Female; CONFUSED sp4 TECHNIQUE: Axial computed tomography images of the head/brain without intravenous contrast. Sagittal and coronal reformatted images were created and reviewed. This CT exam was performed using one or more of the following dose reduction techniques: automated exposure control, adjustment of the mA and/or kV according to patient size, and/or use of iterative reconstruction technique. COMPARISON: No relevant prior studies available. FINDINGS: Brain: Mild nonspecific white matter changes likely related to chronic microvascular ischemic disease. Remote lacunar infarct involving the left basal ganglia. Mild cerebral atrophy. No hemorrhage. Ventricles: Unremarkable. No ventriculomegaly. Bones/joints: Unremarkable. No acute fracture. Soft tissues: Unremarkable. Sinuses: Air-fluid level in the left maxillary sinus. Near complete opacification of the sphenoid sinus. Ethmoid sinus mucosal thickening. Mastoid air cells: Unremarkable as visualized. No mastoid effusion. IMPRESSION: No acute intracranial abnormality. . 07:50 Differential Diagnosis altered mental status, COVID, withdrawal, acute kidney injury, rn dehydration, electrolyte disorder. Data reviewed: vital signs, nurses notes, lab test result(s), EKG, radiologic studies, CT scan, and as a result, I will admit patient. Consideration of Admission/Observation Patient was admitted/placed on observation. Escalation of care including admission/observation considered. Management of patient was discussed with the following: Hospitalist: Will evaluate and admit. Historians other than the Patient: Daughter/Son: Daughter states this week taken off of Seroquel and Ativan, could have precipitated withdrawal seizure. Care significantly affected by the following chronic conditions: Diabetes, Hypertension. Counseling: I had a detailed discussion with the patient and/or guardian regarding the historical points, exam findings, and any diagnostic results supporting the discharge/admit diagnosis, lab results, radiology results, the need for further work-up and treatment in the hospital. Response to treatment: the patient's symptoms have mildly improved after treatment, and as a result, I will admit patient. 08:02 ED course: Daughter adds that patient is DNR status. rn 03/26 04:09 Order name: Basic Metabolic Panel; Complete Time: 07:37 [facility] 03/26 04:09 Order name: CBC with Diff; Complete Time: 07:37 [facility] 03/26 07:00 Order name: Urinalysis W/Microscopic [facility] 03/26 07:00 Order name: LFT's; Complete Time: 08:02 [facility] 03/26 07:00 Order name: CRP; Complete Time: 08:02 [facility] 03/26 07:00 Order name: Troponin High Sensitivity; Complete Time: 08:02 [facility] 03/26 07:00 Order name: Blood Culture Adult (2) [facility] 03/26 04:09 Order name: CT Head Brain wo Cont; Complete Time: 11:37 [facility] 03/26 04:09 Order name: EKG; Complete Time: 04:09 [facility] 03/26 04:09 Order name: Cardiac monitoring; Complete Time: 07:42 [facility] 03/26 04:09 Order name: EKG - Nurse/Tech; Complete Time: 05:03 [facility] 03/26 04:09 Order name: IV Saline Lock; Complete Time: 05:03 [facility] 03/26 04:09 Order name: Labs collected and sent; Complete Time: 05:03 4 03/26 04:09 Order name: O2 Per Protocol; Complete Time: 05:54 sp4 03/26 04:09 Order name: O2 Sat Monitoring; Complete Time: 05:54 sp4 03/26 05:09 Order name: Misc. Order: RECOLLECT ALL LABS; Complete Time: 07:42 rv1 03/26 07:00 Order name: Alison; Complete Time: 07:32 sp4 EC:17 Rate is 78 beats/min. Rhythm is regular, Normal Sinus Rhythm. QRS [place] is Normal. OR sp4 interval is normal. QRS interval is normal. QT interval is normal. No Q waves. T waves are Normal. No ST changes noted. Clinical impression: No evidence of ischemia. Interpreted by me. Reviewed by me. Administered Medications: 07:03 Drug: Ativan IVP 2 mg IVP once Route: IVP; Site: right hand; jj7 20:41 Follow up: Response: No adverse reaction; Anxiety decreased tl4 07:42 Drug: NS 0.9% IV 500 ml IV at bolus once Route: IV; Rate: bolus; Site: right wrist; ld1 20:41 Follow up: IV Status: Completed infusion tl4 20:41 Follow up: Response: No adverse reaction tl4 07:42 Drug: NS 0.9% IV 1000 ml IV at 125 ml/hr continuous Route: IV; Rate: 125 ml/hr; Site: ld1 right wrist; 20:41 Follow up: Response: No adverse reaction; IV Status: Completed infusion tl4 Disposition Summary: 03/26/23 07:51 Hospitalization Ordered Notes: Hospitalization Status: Observation rn Provider: Darlene Ruby rn Condition: Stable rn Problem: new rn Symptoms: have improved rn Bed/Room Type: Standard rn Location: [facility] ER HOLD(03/26/23 13:18) kb3 Room Assignment: ERHOLD-(03/26/23 13:18) kb3 Diagnosis - Acute kidney failure, unspecified rn - Other seizures rn Forms: - Medication Reconciliation Form rn - SBAR form rn - Leadership Thank You Letter rn Signatures: Dispatcher [employer] Yordy Mendez MD MD rn Sims, Lauren RN RN ld1 Irene Moss RN RN jw7 Dana García RN RN kb3 Jevon Figueroa RN RN jj7 Katy Fair rv1 Amandeep Camara MD MD sp4 Jeremie Hutchison tl4 Corrections: (The following items were deleted from the chart) 07:51 Telemetry/MedSurg (observation) rn kb3 07:51 rn kb3
[2023-03-26 07:54] LABS: ALT/SGPT 15 U/L (13-56); AST/SGOT 24 U/L (15-37); Albumin 3.2 g/dL (3.4-5.0); Alkaline Phosphatase 65 U/L (45-117); Bilirubin Total 0.3 mg/dL (0.2-1.0); Protein, Total 8.4 g/dL (6.4-8.2); Troponin High Sensitivity 37.7 pg/mL (<58.9)
[2023-03-26 07:55] LABS: Bilirubin Direct < 0.1 mg/dL (0-0.2); Bilirubin Indirect, Calculated ND mg/dL (0.2-0.8)
--- NOTE | 2023-03-26 08:12 | P.HP ---
Certification for Inpatient Patient admitted to: Inpatient With expected LOS: <2 Midnights Patient will require the following post-hospital care: Long Term Practitioner: I am a practitioner with admitting privileges, knowledge of patient current condition, hospital course, and medical plan of care. Services: Services provided to patient in accordance with Admission requirements found in Title 42 Section 412.3 of the Code of Federal Regulations <Denae Godinez - Last Filed: 03/26/23 08:53> Patient History Date of Service: 03/26/23 History of Present Illness: 72-year-old female past medical history of Alzheimer's dementia, multiple falls, allergic rhinitis, schizoaffective disorder, hypertension, GERD, diverticulitis, depression, anxiety, hypertension, osteoarthritis, CKD, UTI, [facility] ED reported patient was difficult to arouse, reports recently taking Seroquel for bipolar, and Ativan, was recently taken off of Seroquel and Ativan, patient treated for seizure, altered mental status. Ativan 2 mg IV x 1 was given to the emergency room with 500 cc normal saline bolus given x 1, HPI limited due to post ictal. family at bedside is requesting DNR, no lab draws, discharge with hospice. BP 124 / 76; Pulse 84; Resp 13 S; Temp 97.5(TE); Pulse Ox 97% on R/A; Weight 38.56 kg;Height 5 ft. 1 in. EKG 7 ECG was reviewed by the Attending Physician. EKG time 0 436, EKG reveals sinus rhythm at a rate of 78 , no ST elevation or depression, no ectop. Patient was recently diagnosed with COVID [address] of the head neg - Past Medical/Surgical History Diabetic: Yes -: Hypertension -: Bipolar -: Schizophrenia -: Vaginal and Oral Herpes -: Depression -: Anxiety -: UTI -: Right knee sx -: Right elbow surgery Psychosocial/ Personal History: Patient lives at home alone. - Family History Mother -: Cancer Notes: cancer of the colon Father -: Heart disease - Social History Alcohol use: No CD- Drugs: No Caffeine use: No <Denae Godinez - Last Filed: 03/26/23 08:53> Date of Service: 03/26/23 <Darlene Ruby - Last Filed: 03/26/23 19:33> Allergies amitriptyline [Amitriptyline] Allergy (Verified 08/02/11 15:37) Anaphylaxis gabapentin Allergy (Verified 08/02/11 15:37) Anaphylaxis risperidone Allergy (Verified 08/02/11 15:37) Anaphylaxis Home Medications: Buspirone HCl [Buspar] 10 mg PO BID 02/16/18 Fluoxetine HCl [Prozac] 1 cap PO DAILY 02/16/18 Amlodipine [Norvasc*] 10 mg PO DAILY #60 tab 01/02/19 Tramadol HCl [Ultram] 50 mg PO TID PRN #10 tablet 09/02/19 Fosfomycin Tromethamine [Monurol] 3 gm PO Q48H #3 packet 04/15/20 Review of Systems per HPI <Denae Godinez - Last Filed: 03/26/23 08:53> Physical Examination - Physical Exam General: Cachectic, Other (post ictal) HEENT: Atraumatic, Normocephalic Respiratory: Normal air movement Cardiovascular: Normal pulses Capillary refill: <2 Seconds Gastrointestinal: Normal bowel sounds, Soft and benign Musculoskeletal: No clubbing, No swelling Integumentary: No rashes, No breakdown Neurological: Other (resting with eyes closed, no focal deficits, responds to verbal) - Studies Laboratory Data (last 24 hrs) 03/26/23 03/26/23 03/26/23 06:59 06:59 06:59 WBC 6.80 Hgb 11.1 L Hct 34.3 L Plt Count 226 Sodium 142 Potassium 4.2 BUN 52 H Creatinine 2.80 H Glucose 114 H Total Bilirubin 0.3 AST 24 ALT 15 Alkaline Phosphatase 65 <Denae Godinez - Last Filed: 03/26/23 08:53> - Studies Laboratory Data (last 24 hrs) 03/26/23 03/26/23 03/26/23 06:59 06:59 06:59 WBC 6.80 Hgb 11.1 L Hct 34.3 L Plt Count 226 Sodium 142 Potassium 4.2 BUN 52 H Creatinine 2.80 H Glucose 114 H Total Bilirubin 0.3 AST 24 ALT 15 Alkaline Phosphatase 65 <Darlene Ruby - Last Filed: 03/26/23 19:33> Assessment and Plan - Plan Assessment plan Acute seizure seizure likely due to abrupt discontinuation elation of Seroquel and Ativan Postictal Neurology consulted, seizure precautions, as needed Ativan ED reported patient was difficult to arouse, reports recently taking Seroquel for bipolar, and Ativan, was recently taken off of Seroquel and Ativan, patient treated for seizure, altered mental status. Ativan 2 mg IV x 1 was given to the emergency room with 500 cc normal saline bolus given x 1, GCS 15, oriented to person, place, time, and situation. Cranial nerves II-XII grossly intact. Motor strength 5/5 in all extremities. Sensory grossly intact. Psych: Awake, alert, with orientation to person, place and time. Behavior, mood, and affect are within normal limits BP 124 / 76; Pulse 84; Resp 13 S; Temp 97.5(TE); Pulse Ox 97% on R/A; Weight 38.56 kg;Height 5 ft. 1 in. EKG 7 ECG was reviewed by the Attending Physician. EKG time 0 436, EKG reveals sinus rhythm at a rate of 78 , no ST elevation or depression, no ectop. Patient was recently diagnosed with COVID [address] of the head family is requesting hospice, no lab draws, no neuro consult. SS consulted Acute kidney injury Gentle IV fluids, trend kidney function Alzheimer's dementia multiple falls Fall precautions, allergic rhinitis schizoaffective disorder hypertension GERD diverticulitis depression anxiety hypertension osteoarthritis CKD History UTI Resume appropriate home meds Cardiac diet Full code DVT Lovenox Dispo return prison. Discharge Plan: [facility] Plan to discharge in: 48 Hours - Advance Directives Does patient have a Living Will: No Does patient have a Durable POA for Healthcare: No - Code Status/Comfort Care Code Status: Full Code Physician Review: Patient Assessed, Agree with Above Assessment and Plan Critical Care: No Time Spent Managing Pts Care (In Minutes): 60 <Denae Godinez - Last Filed: 03/26/23 08:53> Date of Service: 03/26/23 Patient chart was reviewed and patient was seen and examined. Nurse practitioners history and physical reviewed as well. Agree with the assessment and plan. Patient presented with altered mentation and seizure disorder. Patient with a recent diagnosis of COVID pneumonia. Family has requested that they do not want any aggressive measures at this point and they want to take her home under hospice care. Arrangements for hospice pending. <Darlene Ruby - Last Filed: 03/26/23 19:33>
[2023-03-26] MEDS ORDERED: ONDANSETRON 4 MG/2 ML VIAL IV PRN (08:59)
[2023-03-26] MEDS ORDERED: LORazepam 2 MG/ML VIAL IV PRN (08:59)
[2023-03-26] MEDS ORDERED: NA CHLORIDE 0.9% 1,000 ML IV SCH (09:00)
[2023-03-26 09:11] VITALS: BMI 16.2
--- NOTE | 2023-03-26 11:26 | RAD REPORT ---
EXAM DESCRIPTION: CT - Head Brain Wo Cont - 03/26/2023 6:36 am CLINICAL HISTORY: The patient is 72 years old and is Female; CONFUSED TECHNIQUE: Axial computed tomography images of the head/brain without intravenous contrast. Sagitt al and coronal reformatted images were created and reviewed. This CT exam was performed using one o r more of the following dose reduction techniques: automated exposure control, adjustment of the mA and/or kV according to patient size, and/or use of iterative reconstruction technique. COMPARISON: No relevant prior studies available. FINDINGS: Brain: Mild nonspecific white matter changes likely related to chronic microvascular isc hemic disease. Remote lacunar infarct involving the left basal ganglia. Mild cerebral atrophy. No hemorrhage. Ventricles: Unremarkable. No ventriculomegaly. Bones/joints: Unremarkable. No acute fracture. Soft tissues: Unremarkable. Sinuses: Air-fluid level in the left maxillary sinus. Near complete opacification of the sphenoid sinus. Ethmoid sinus mucosal thickening. Mastoid air cells: Unremarkable as visualized. No mastoid effusion. IMPRESSION: No acute intracranial abnormality. Electronically signed by: Kalyan Flores MD 03/26/2023 05:59 AM [employer] Due to temporary technical issues with the PACS/Fluency reporting system, reports are being signed by the in house radiologists without review as a courtesy to insure prompt reporting. The interpreting radiologist is fully responsible for the content of the report.
--- NOTE | 2023-03-26 19:32 | P.DS ---
Discharge Date: 03/26/23 Disposition: HOSPICE-HOME Discharge Condition: SERIOUS Brief History of Present Illness: 72-year-old female past medical history of Alzheimer's dementia, multiple falls, allergic rhinitis, schizoaffective disorder, hypertension, GERD, diverticulitis, depression, anxiety, hypertension, osteoarthritis, CKD, UTI, presents to the emergency room [facility]. ED reported patient was difficult to arouse, reports recently taking Seroquel for bipolar, and Ativan, was recently taken off of Seroquel and Ativan, patient treated for seizure, altered mental status. Ativan 2 mg IV x 1 was given to the emergency room with 500 cc normal saline bolus given x 1, HPI limited due to post ictal. family at bedside is requesting DNR, no lab draws, discharge with hospice. BP 124 / 76; Pulse 84; Resp 13 S; Temp 97.5(TE); Pulse Ox 97% on R/A; Weight 38.56 kg;Height 5 ft. 1 in. EKG 7 ECG was reviewed by the Attending Physician. EKG time 0 436, EKG reveals sinus rhythm at a rate of 78 , no ST elevation or depression, no ectop. Patient was recently diagnosed with COVID [address] of the head neg Hospital Course: Patient condition is gradually worsening. Patient's prognosis is poor. Patient has decided to proceed with hospice care. Once everything is arranged patient will discharge home with hospice care. Vital Signs/Physical Exam: Temp Pulse Resp BP Pulse Ox 66 12 158/81 H 100 03/26/23 16:00 03/26/23 16:00 03/26/23 16:00 03/26/23 16:00 General: Alert Laboratory Data at Discharge: WBC 6.80 thou/uL (4.3-10.9) 03/26/23 06:59 Hgb 11.1 g/dL (12.0-15.0) L 03/26/23 06:59 Hct 34.3 % (36.0-45.0) L 03/26/23 06:59 Plt Count 226 thou/uL (152-406) 03/26/23 06:59 Sodium 142 mEq/L (136-145) 03/26/23 06:59 Potassium 4.2 mEq/L (3.5-5.1) 03/26/23 06:59 BUN 52 mg/dL (7-18) H 03/26/23 06:59 Creatinine 2.80 mg/dL (0.55-1.02) H 03/26/23 06:59 Glucose 114 mg/dL (74-106) H 03/26/23 06:59 Total Bilirubin 0.3 mg/dL (0.2-1.0) 03/26/23 06:59 AST 24 U/L (15-37) 03/26/23 06:59 ALT 15 U/L (13-56) 03/26/23 06:59 Alkaline Phosphatase 65 U/L (45-117) 03/26/23 06:59 Home Medications: Buspirone HCl [Buspar] 10 mg PO BID 02/16/18 Fluoxetine HCl [Prozac] 1 cap PO DAILY 02/16/18 Amlodipine [Norvasc*] 10 mg PO DAILY #60 tab 01/02/19 Tramadol HCl [Ultram] 50 mg PO TID PRN #10 tablet 09/02/19 Fosfomycin Tromethamine [Monurol] 3 gm PO Q48H #3 packet 04/15/20 Physician Discharge Instructions: -DC IV and DC home with hospice care -Follow-up with PCP as needed -Follow-up with [facility] hospice-DC IV and DC home -Please call Dr. Ruby at [phone] if any questions regarding hospital stay -Please call nursing station at [phone] if any nursing or medication questions -Return to the emergency room if symptoms worsen Diet: Comfort fo Activity: Fall precautions Followup: NONE,NONE [Primary Care Provider] - Time spent managing pt's care (in minutes): 35
[2023-03-27 02:30] VITALS: TEMP 97.5
[2023-03-27 02:38] VITALS: BP 149/80
[2023-03-27 02:44] VITALS: O2SAT 99
--- NOTE | 2023-03-28 13:28 | EKG ---
Test Date: 2023-03-26 Test Time: 04:36:35 Cookie [employer]er Helper: LIZZ MEASUREMENT RESULTS: Intervals: Rate: 78 MN: 158 QRSD: 104 QT: 418 QTc: 476 [place]: P: MN: 158 QRS: 74 T: -23 INTERPRETIVE STATEMENTS: Normal sinus rhythm Septal infarct, age undetermined T wave abnormality, consider inferior ischemia Abnormal ECG Compared to ECG 10/19/2020 20:05:21 T-wave abnormality now present Possible ischemia now present Sinus bradycardia no longer present Ventricular premature complex(es) no longer present First degree AV block no longer present Left ventricular hypertrophy no longer present Early repolarization no longer present Myocardial infarct finding still present Electronically Signed On 03-28-23 13:22:58 [employer] by Kurtis Davalos
== END 2023-03-26 20:19 | disposition hospice, home (50) | DRG 100 ==
LOC: ER 03:55 → ERHOLD 08:06
PROVIDERS: ADMIT Hospitalist; ATTEND Hospitalist
PROC: 0T9B70Z Drainage of Bladder with Drainage Device, Via Natural or Artificial Opening (ICD-10-PCS; principal; 2023-03-26)
DX: R56.9 Unspecified convulsions (principal); U07.1 COVID-19; N17.9 Acute kidney failure, unspecified; F31.9 Bipolar disorder, unspecified; F20.9 Schizophrenia, unspecified; G30.9 Alzheimer's disease, unspecified; F02.80 Dementia in other diseases classified elsewhere, unspecified severity, without behavioral disturbance, psychotic disturbance, mood disturbance, and anxiety; J30.9 Allergic rhinitis, unspecified; K21.9 Gastro-esophageal reflux disease without esophagitis; M19.90 Unspecified osteoarthritis, unspecified site; I12.9 Hypertensive chronic kidney disease with stage 1 through stage 4 chronic kidney disease, or unspecified chronic kidney disease; N18.9 Chronic kidney disease, unspecified
CPT/HCPCS: 36415; 51702; 70450; 80048; 80076; 84484; 85025; 86140; 87040; 93005; 96361; 96374; 99285; J7030; J7040